=== PATIENT | male | born 1965 | race Caucasian/White ===

== ENCOUNTER 2017-03-22 14:08 | Emergency (ER) | payer SELFPAY | END 2017-03-22 14:09 | disposition left against medical advice (07) | LOC: ED 14:08 | DX: Z48.817 Encounter for surgical aftercare following surgery on the skin and subcutaneous tissue (principal); Z53.21 Procedure and treatment not carried out due to patient leaving prior to being seen by health care provider ==

== ENCOUNTER 2017-05-28 17:01 | Inpatient (IN) | payer MEDICARE ==
[2017-05-28 17:49] LABS: Basophils % (Auto) 1.1 % (0.0-1.8); Eosinophils % (Auto) 5.8 % (0.0-4.3); Hematocrit 35.8 % (35.5-45.6); Hemoglobin 11.5 gm/dl (11.8-15.2); Mean Corpuscular HGB Conc 32 % (32-34); Mean Corpuscular Hemoglobin 28 pg (28-32); Mean Corpuscular Volume 88 fl (84-94); Platelet Count 172 K/mm3 (140-440); Red Blood Count 4.06 M/mm3 (3.65-5.03); White Blood Count 4.2 K/mm3 (4.5-11.0)
[2017-05-28 18:12] LABS: Albumin 4.2 g/dL (3.9-5); Albumin/Globulin Ratio 1.6 %; BUN/Creatinine Ratio 5.14; Bilirubin,Total 0.4 mg/dL (0.1-1.2); Calcium 9.2 mg/dL (8.4-10.2); Chloride 95.8 mmol/L (98-107); Total Protein 6.9 g/dL (6.3-8.2)
[2017-05-28] MEDS ORDERED: APRESOLINE IV ONE (19:11)
[2017-05-28] MEDS ORDERED: APRESOLINE ONE (19:14)
[2017-05-28 20:01] LABS: Bilirubin,Urine NEG (Negative); Blood,Urine NEG (Negative); Ketones,Urine NEG (Negative); Leukocyte Esterase,Urine NEG (Negative); Nitrite,Urine NEG (Negative); Urobilinogen,Urine < 2.0 mg/dL (<2.0)
[2017-05-28 20:04] LABS: Protein,Urine >500 mg/dL (Negative)
[2017-05-28] MEDS ORDERED: MORPHINE IV ONE (20:24)
[2017-05-28] MEDS ORDERED: BENADRYL IV ONE (20:25)
[2017-05-28] MEDS ORDERED: TRIDIL DRIP 50MG/250ML 50 MG/250 ML BOTTLE IV SCH (21:00)
[2017-05-28] MEDS ORDERED: NACL 0.9% 500 ML 500 ML ONE (21:02)
[2017-05-28] MEDS ORDERED: NACL 0.9% 500 ML 500 ML IV SCH ×2 (21:22→22:00)
--- NOTE | 2017-05-28 21:47 | Emergency Department Report ---
ED General Adult HPI - General Chief complaint: High BP Stated complaint: BP HIGH Time Seen by Provider: 05/28/17 19:55 Source: patient Mode of arrival: Ambulatory Limitations: No Limitations - History of Present Illness Initial comments: Patient is a 52-year-old male past medical history of end-stage renal disease who is on dialysis Wednesday who presents with high blood pressure and abdominal plain. Patient was seen his primary care doctor and their primary care doctor knows that his blood pressure was fairly high. Patient is also complaining a little bit of belly pain since located in the left side of his flank it is a 5 out 10. He says nothing makes it better or worse it is an achy type of pain. And that has been going on intermittently for the last couple weeks. Patient is also complaining of having a headache that is a 7 out of 10 in severity and mid frontal portion of his head denies having any vision changes was gradual in onset. He states that he is having worse headaches before and this is a headache that typically occurs when he has high blood pressure issues. He has no neurological deficits or nausea or vomiting. Severity scale (0 -10): 8 - Related Data Home Medications Medication Instructions Recorded Confirmed Last Taken Aspirin [Adult Low Dose Aspirin EC] 81 mg PO DAILY 05/20/17 05/28/17 Unknown Benazepril HCl [Lotensin] 10 mg PO DAILY 05/20/17 05/28/17 Unknown Calcium Acetate 668 mg PO TID 05/20/17 05/28/17 Unknown Furosemide [Lasix TAB] 40 mg PO DAILY 05/20/17 05/28/17 Unknown cloNIDine [Catapres] 0.2 mg PO BID 05/20/17 05/28/17 Unknown AtorvaSTATin [Lipitor] 40 mg PO QDAY 05/28/17 05/28/17 Unknown NIFEdipine XL [Procardia Xl] 30 mg PO QDAY 05/28/17 05/28/17 Unknown Warfarin [Coumadin] 1 - 1.5 tab PO QDAY 05/28/17 05/28/17 Unknown amLODIPine [Norvasc] 10 mg PO QDAY 05/28/17 05/28/17 Unknown Allergies Allergy/AdvReac Type Severity Reaction Status Date / Time Penicillins Allergy Unknown Verified 05/28/17 17:08 ED Review of Systems ROS: Stated complaint: BP HIGH Other details as noted in HPI Constitutional: denies: chills, fever Eyes: denies: eye pain, eye discharge, vision change ENT: denies: ear pain, throat pain Respiratory: denies: cough, shortness of breath, wheezing Cardiovascular: denies: chest pain, palpitations Endocrine: no symptoms reported Gastrointestinal: other (flank pain). denies: abdominal pain, nausea, diarrhea Genitourinary: denies: urgency, dysuria Musculoskeletal: denies: back pain, joint swelling, arthralgia Skin: denies: rash, lesions Neurological: as per HPI, headache. denies: weakness, paresthesias Psychiatric: denies: anxiety, depression Hematological/Lymphatic: denies: easy bleeding, easy bruising ED Past Medical Hx - Past Medical History Hx Hypertension: Yes (2005) Hx CVA: Yes Hx Heart Attack/AMI: Yes (1995) Hx Congestive Heart Failure: Yes (2005) Hx Diabetes: Yes (NO MEDS) Hx Deep Vein Thrombosis: Yes (BOTH LEGS AND NECK) Hx GERD: Yes Hx Renal Disease: Yes (DIALYSIS --) Hx of Cancer: Yes (PROSTATE) Hx Kidney Stones: Yes Hx Asthma: Yes (NO MEDS) - Surgical History Hx Coronary Stent: No Additional Surgical History: PERMACATH LEFT CHEST. FISTULA IN LEFT ARM ; REMOVAL - Social History Smoking Status: Never Smoker Substance Use Type: None - Medications Home Medications: Home Medications Medication Instructions Recorded Confirmed Last Taken Type Aspirin [Adult Low Dose Aspirin EC] 81 mg PO DAILY 05/20/17 05/28/17 Unknown History Benazepril HCl [Lotensin] 10 mg PO DAILY 05/20/17 05/28/17 Unknown History Calcium Acetate 668 mg PO TID 05/20/17 05/28/17 Unknown History Furosemide [Lasix TAB] 40 mg PO DAILY 05/20/17 05/28/17 Unknown History cloNIDine [Catapres] 0.2 mg PO BID 05/20/17 05/28/17 Unknown History AtorvaSTATin [Lipitor] 40 mg PO QDAY 05/28/17 05/28/17 Unknown History NIFEdipine XL [Procardia Xl] 30 mg PO QDAY 05/28/17 05/28/17 Unknown History Warfarin [Coumadin] 1 - 1.5 tab PO QDAY 05/28/17 05/28/17 Unknown History amLODIPine [Norvasc] 10 mg PO QDAY 05/28/17 05/28/17 Unknown History ED Physical Exam - General Limitations: No Limitations General appearance: alert, in no apparent distress - Head Head exam: Present: atraumatic, normocephalic - Eye Eye exam: Present: normal appearance - ENT ENT exam: Present: mucous membranes moist - Neck Neck exam: Present: normal inspection - Respiratory Respiratory exam: Present: normal lung sounds bilaterally. Absent: respiratory distress - Cardiovascular Cardiovascular Exam: Present: regular rate, normal rhythm. Absent: systolic murmur, diastolic murmur, rubs, gallop - GI/Abdominal GI/Abdominal exam: Present: soft, normal bowel sounds - Rectal Rectal exam: Present: deferred - Extremities Exam Extremities exam: Present: normal inspection - Back Exam Back exam: Present: normal inspection - Neurological Exam Neurological exam: Present: alert, oriented X3 - Psychiatric Psychiatric exam: Present: normal affect, normal mood - Skin Skin exam: Present: warm, dry, intact, normal color. Absent: rash ED Course Vital Signs 05/28/17 05/28/17 05/28/17 17:10 19:16 19:17 Temperature 98.5 F Pulse Rate 76 73 73 Respiratory 18 16 Rate Blood Pressure 212/130 236/138 Blood Pressure 236/138 [Right] O2 Sat by Pulse 98 98 Oximetry 05/28/17 05/28/17 05/28/17 19:46 21:32 21:56 Temperature Pulse Rate 79 77 88 Respiratory Rate Blood Pressure 215/131 Blood Pressure 240/140 215/135 [Right] O2 Sat by Pulse Oximetry 05/28/17 22:56 Temperature Pulse Rate 76 Respiratory 17 Rate Blood Pressure Blood Pressure 229/143 [Right] O2 Sat by Pulse 100 Oximetry - Reevaluation(s) Reevaluation #1: 05/28/17 21:55 Patient states that he is having some pain in his arm I'll give IV analgesic pain medication. Discussed the patient that he will be admitted. He agrees with plan. ED Medical Decision Making - Lab Data Result diagrams: 05/28/17 17:27 05/28/17 17:27 Lab Results 05/28/17 05/28/17 05/28/17 Range/Units 17:27 17:27 19:17 WBC 4.2 L (4.5-11.0) K/mm3 RBC 4.06 (3.65-5.03) M/mm3 Hgb 11.5 L (11.8-15.2) gm/dl Hct 35.8 (35.5-45.6) % MCV 88 (84-94) fl MCH 28 (28-32) pg MCHC 32 (32-34) % RDW 15.0 (13.2-15.2) % Plt Count 172 (140-440) K/mm3 Lymph % (Auto) 20.1 (13.4-35.0) % [place] % (Auto) 9.4 H (0.0-7.3) % Eos % (Auto) 5.8 H (0.0-4.3) % Baso % (Auto) 1.1 (0.0-1.8) % Lymph # 0.8 L (1.2-5.4) K/mm3 [place] # 0.4 (0.0-0.8) K/mm3 Eos # 0.2 (0.0-0.4) K/mm3 Baso # 0.0 (0.0-0.1) K/mm3 Seg Neutrophils % 63.6 (40.0-70.0) % Seg Neutrophils # 2.7 (1.8-7.7) K/mm3 Sodium 140 (137-145) mmol/L Potassium 4.0 (3.6-5.0) mmol/L Chloride 95.8 L (98-107) mmol/L Carbon Dioxide 28 (22-30) mmol/L Anion Gap 20 mmol/L BUN 52 H (9-20) mg/dL Creatinine 10.1 H (0.8-1.5) mg/dL Estimated GFR 5 ml/min BUN/Creatinine Ratio 5.14 % Glucose 84 (75-100) mg/dL Calcium 9.2 (8.4-10.2) mg/dL Total Bilirubin 0.40 (0.1-1.2) mg/dL AST 15 (5-40) units/L ALT 9 (7-56) units/L Alkaline Phosphatase 61 (35-129) units/L Total Protein 6.9 (6.3-8.2) g/dL Albumin 4.2 (3.9-5) g/dL Albumin/Globulin Ratio 1.6 % Lipase 37 (13-60) units/L Urine Color Yellow (Yellow) Urine Turbidity Clear (Clear) Urine pH 8.0 H (5.0-7.0) Ur Specific [place] 1.012 (1.003-1.030) Urine Protein >500 (Negative) mg/dL Urine Glucose (UA) 50 (Negative) mg/dL Urine Ketones Neg (Negative) mg/dL Urine Blood Neg (Negative) Urine Nitrite Neg (Negative) Urine Bilirubin Neg (Negative) Urine Urobilinogen < 2.0 (<2.0) mg/dL Ur Leukocyte Esterase Neg (Negative) Urine WBC (Auto) 2.0 (0.0-6.0) /HPF Urine RBC (Auto) 3.0 (0.0-6.0) /HPF U Epithel Cells (Auto) < 1.0 (0-13.0) /HPF - EKG Data -: EKG Interpreted by Me - Medical Decision Making Chief medical diagnosis: Hypertensive emergency Differential medical diagnosis: End-stage renal disease, hyperkalemia, hypokalemia I will get CBC, CMP, IV analgesic pain medication, IV antihypertensive medication Patient's clinical septum is concerning for hypertensive emergency patient already received one IV dose of hydralazine with no improvement of his blood pressure I will give patient on IV drip of nitroglycerin due to potentially life -threatening issue. Patient also has signs of end organ damage as an end-stage renal disease with a creatinine at 10. Critical Care Time: Yes Critical care time in (mins) excluding proc time.: 30 Critical care attestation.: If time is entered above; I have spent that time in minutes in the direct care of this critically ill patient, excluding procedure time. Critical care time for evaluating patient 20 minutes Time sent looking at patient's lab values 5 minutes Time spent with design studio consultant (hospitalist) 5 minutes Time sent reviewing old medical record 0 minutes Time spent with the patient's family 0 minutes ED Disposition Clinical Impression: Hypertensive emergency, no CHF, End-stage renal disease (ESRD) Headache Qualifiers: Headache type: tension-type Headache chronicity pattern: acute headache Intractability: not intractable Qualified Code(s): G44.209 - Tension-type headache, unspecified, not intractable Disposition: OP ADMIT IP TO THIS HOSP Is pt being admited?: Yes Does the pt Need Aspirin: No Condition: Stable
[2017-05-28] MEDS ORDERED: CATAPRES PO ONE (21:53)
[2017-05-28] MEDS ORDERED: RESTORIL PO PRN (21:55)
[2017-05-28] MEDS ORDERED: TYLENOL PO PRN (21:55)
[2017-05-28] MEDS ORDERED: HEPARIN SUB-Q SCH (22:00)
[2017-05-29 01:10] LABS: Creatine Kinase MB 3.4 ng/mL (0.0-4.0)
[2017-05-29] MEDS ORDERED: MORPHINE IV PRN (05:08)
--- NOTE | 2017-05-29 06:58 | History and Physical Report ---
CHIEF COMPLAINT: Elevated blood pressure. HISTORY OF PRESENT ILLNESS: The patient is a 52-year-old male who is having dialysis on Mondays, Wednesdays and Fridays and presented with elevated blood pressure and abdominal pain. The patient was seen by the primary care doctor who noted very high blood pressure and the patient was advised to come to the Emergency Room. There is also a history of abdominal pain, which is more in the left side than the right and this has been going on and off for some weeks. There is also history of headache and headache is mainly in the frontal area, but there is no history of visual disturbances. The patient denied history of chest pain, denied history of shortness of breath and also denied history of dizziness. PAST MEDICAL HISTORY: Pertinent for hypertension, cerebrovascular accident, coronary artery disease, status post myocardial infarction, congestive heart failure, diabetes mellitus, deep vein thrombosis, gastroesophageal reflux disease, end-stage renal disease, on dialysis on Mondays, Wednesdays, and Fridays, prostate cancer, kidney stones and also a past history of asthma. PAST SURGICAL HISTORY: Pertinent for permo cath placement on the left side of the chest, AV fistula in the left arm, which was removed. FAMILY HISTORY: Noncontributory. SOCIAL HISTORY: The patient does not smoke, does not drink alcohol and does not use illicit drugs. MEDICATIONS: The patient is on aspirin 81 mg daily, Lotensin 10 mg by mouth daily, calcium acetate 668 mg by mouth 3 times daily, Lasix 40 mg by mouth daily, clonidine or Catapres 0.2 mg by mouth twice daily, atorvastatin 40 mg by mouth daily, Procardia-XL 30 mg by mouth daily, Coumadin 1 to 1-1/2 tablets, strength not defined by mouth daily. Also, the patient is on Norvasc 10 mg by mouth daily. ALLERGIES: THE PATIENT IS ALLERGIC TO PENICILLIN DRUGS. REVIEW OF SYSTEMS: CONSTITUTIONAL: There is no fever, no chills, no diaphoresis. HEENT: There is headache, but no sore throat. CARDIOVASCULAR SYSTEM: There is no chest pain or orthopnea. RESPIRATORY: There is no shortness of breath or cough. GASTROINTESTINAL SYSTEM: Abdominal pain present. No nausea, no vomiting, no diarrhea or constipation. NEUROLOGICAL SYSTEM: There is no numbness, no dizziness, no altered mental status. MUSCULOSKELETAL SYSTEM: There is no joint pain or swelling. DERMATOLOGICAL SYSTEM: There is no skin rash or itching. GENITOURINARY SYSTEM: There is no dysuria, hematuria, or flank pain. MUSCULOSKELETAL: There is pain in the left arm and the trunk area. Rest of system review is normal. PHYSICAL EXAMINATION: GENERAL: At the time of exam, the patient was found to be alert, oriented x 3 and not in acute distress. VITAL SIGNS: Shows normal temperature with pulse of 76, respirations 17, initial blood pressure of 229/143, O2 sat of 100% on room air. HEENT: Showed pupils to be equal, round, reactive to light and accommodating. Extraocular muscles are intact. NECK: Supple with no JVD or carotid bruit. CARDIOVASCULAR SYSTEM: Show first and second heart sounds with no gallops or murmur. RESPIRATORY SYSTEM: Show good air entry on both sides of the lungs with no abnormal breath sounds. GASTROINTESTINAL SYSTEM: Show abdomen to be full, soft, nontender with no organomegaly or rigidity. NEUROLOGIC: Shows no focal deficits. MUSCULOSKELETAL SYSTEM: Show no joint swelling or tenderness. DERMATOLOGICAL SYSTEM: Show no skin rash. GENITOURINARY: Showing no costovertebral angle tenderness. PERTINENT LABORATORY AND IMAGING STUDIES: The patient has CBC done that shows slight decrease in WBC of 4.2 with low hemoglobin of 11.5, normal hematocrit, normal MCV. CBC differential showed elevated monocyte count of 9.4 and elevated eosinophil count of 5.8 with normal segmented neutrophils. Chemistry shows normal sodium, potassium, slightly decreased chloride of 95.8, elevated BUN of 52 and elevated creatinine of 10.1 consistent with end-stage renal disease, on dialysis. The patient's cardiac enzymes show elevated troponin level of 0.091 and urinalysis shows elevated urine pH of 8.0, negative leukocyte esterase, negative nitrites and normal urine WBC and negative bacteria. IMAGING STUDIES: No imaging studies were done in the Emergency Room at this time. DIAGNOSES: 1. Hypertensive crisis. 2. Right arm and trunk pain. 3. End-stage renal disease, on dialysis. 4. Elevated troponin. PLAN: The patient will be admitted to ICU because of IV nitro drip started in the Emergency Room. The patient will continue the IV nitroglycerin drip and blood pressure will be monitored until blood pressure normalizes. The patient will have cardiac enzymes, troponin, total CK, and CK-MB checked q. 6 hours x 2 more levels and the patient will be on Zofran 4 mg IV every 8 hours as needed for nausea and vomiting and will be on temazepam or Restoril 15 mg at bedtime for insomnia. The patient's home medications will be started as shown in the medication reconciliation section and this includes his clonidine 0.2 mg p.o. twice daily for blood pressure treatment as well as benazepril 10 mg by mouth daily and amlodipine 10 mg by mouth daily. The patient will have Nephrology consult with Dr. Felipe Wells, who is the patient's oven dumper and also the patient will have critical care consult with Dr. Wiely for ICU admission. DVT prophylaxis will be provided by sequential compressive device and the patient is also on Coumadin. Also, the patient will be on Tylenol 650 mg every 4 hours for fever and headache. JOB# [id number] [facility]
[2017-05-29] MEDS ORDERED: DILAUDID IV ONE (07:04)
[2017-05-29] MEDS ORDERED: APRESOLINE IV PRN (07:46)
[2017-05-29] MEDS ORDERED: COUMADIN PO SCH (10:00)
[2017-05-29] MEDS ORDERED: NORVASC PO SCH (10:00)
[2017-05-29] MEDS ORDERED: NON-FORMULARY (Benazepril Hcl [Lotensin] 10 MG) PO SCH (10:00)
[2017-05-29] MEDS ORDERED: HALFPRIN EC PO SCH (10:00)
[2017-05-29 10:42] LABS: Creatine Kinase MB 3.4 ng/mL (0.0-4.0)
[2017-05-29] MEDS: CATAPRES PO SCH ×2 (11:30→22:05)
[2017-05-29] MEDS: ZOFRAN IV PRN ×2 (11:36→17:15)
--- NOTE | 2017-05-29 11:37 | Consultation ---
History of Present Illness - Reason for Consult Consult date: 05/29/17 end stage renal disease, accelerated hypertension - History of Present Illness Patient is a 52-year-old AAM with medical history significant for ESRD on nocturnal hemodialysis (MWF), DM type 2, Anemia and Hypertension who is well known to our service presented with high blood pressure and abdominal pain. When he checked his BP at home yesterday it was around 150/120. He vomited after he took his meds yesterday. He missed his hemodialysis yesterday. He has slight epigastric pain, which is constant and not radiating. Patient is also complaining of frontal headache that is a 7 out of 10 in severity. Past History Past Medical History: anemia, diabetes, dialysis, ESRD, hypertension Medications and Allergies Allergies Allergy/AdvReac Type Severity Reaction Status Date / Time Penicillins Allergy Unknown Verified 05/28/17 17:08 Home Medications Medication Instructions Recorded Confirmed Last Taken Type Aspirin [Adult Low Dose Aspirin EC] 81 mg PO DAILY 05/20/17 05/28/17 Unknown History Benazepril HCl [Lotensin] 10 mg PO DAILY 05/20/17 05/28/17 Unknown History Calcium Acetate 668 mg PO TID 05/20/17 05/28/17 Unknown History Furosemide [Lasix TAB] 40 mg PO DAILY 05/20/17 05/28/17 Unknown History cloNIDine [Catapres] 0.2 mg PO BID 05/20/17 05/28/17 Unknown History AtorvaSTATin [Lipitor] 40 mg PO QDAY 05/28/17 05/28/17 Unknown History NIFEdipine XL [Procardia Xl] 30 mg PO QDAY 05/28/17 05/28/17 Unknown History Warfarin [Coumadin] 1 - 1.5 tab PO QDAY 05/28/17 05/28/17 Unknown History amLODIPine [Norvasc] 10 mg PO QDAY 05/28/17 05/28/17 Unknown History Active Meds: Active Medications Atorvastatin Calcium (Lipitor) 40 mg PO QDAY [facility] Calcium Acetate (Phoslo) 667 mg PO TID [facility] Clonidine HCl (Catapres) 0.2 mg PO BID [facility] Last Admin: 05/29/17 11:30 Dose: 0.2 mg Furosemide (Lasix) 40 mg PO DAILY [facility] Hydralazine HCl (Apresoline) 10 mg IV Q4H PRN PRN Reason: BP >160/100 Nitroglycerin/Dextrose (Tridil Drip 50mg/250ml) 50 mg in 250 mls @ 3 mls/hr IV TITR [facility]; 10 MCG/MIN PRN Reason: Protocol Last Titration: 05/29/17 11:15 Dose: 65 mcg/min, 19.5 mls/hr Sodium Chloride (Nacl 0.9% 500 Ml) 500 mls @ 75 mls/hr IV DIRECT [facility] Last Admin: 05/28/17 21:15 Dose: 75 mls/hr Lisinopril (Zestril) 10 mg PO QDAY [facility] Morphine Sulfate (Morphine) 2 mg IV Q4H PRN PRN Reason: Pain, Moderate (4-6) Nifedipine (Procardia Xl) 60 mg PO QDAY [facility] Ondansetron HCl (Zofran) 4 mg IV Q8H PRN PRN Reason: Nausea And Vomiting Last Admin: 05/29/17 11:36 Dose: 4 mg Temazepam (Restoril) 15 mg PO QHS PRN PRN Reason: Insomnia Warfarin Sodium (Coumadin) mg PO QDAY [facility] PRN Reason: Protocol Review of Systems Constitutional: no weight loss, no weight gain, no fever, no chills, no anorexia , no weakness, no poor appetite Ears, nose, mouth and throat: no epistaxis Cardiovascular: high blood pressure, no chest pain, no orthopnea, no palpitations, no rapid/irregular heart beat, no edema, no syncope, no lightheadedness, no shortness of breath, no dyspnea on exertion, no leg edema Respiratory: no cough, no hemoptysis, no shortness of breath, no dyspnea on exertion Gastrointestinal: abdominal pain, nausea, vomiting, no diarrhea, no melena Genitourinary Male: no dysuria, no hematuria Rectal: no bleeding Musculoskeletal: no neck stiffness, no neck pain Integumentary: no rash, no wounds, no jaundice Neurological: headaches, no paralysis, no seizures, no syncope, no aphasia, no change in mentation, no gait dysfunction, no motor disturbance, no double vision , no loss of vision Psychiatric: no disorientation Endocrine: no weight change Hematologic/Lymphatic: no easy bruising, no easy bleeding Exam - Vital Signs Vital signs: Vital Signs Temp Pulse Resp BP Pulse Ox 98.5 F 76 18 212/130 98 05/28/17 17:10 05/28/17 17:10 05/28/17 17:10 05/28/17 17:10 05/28/17 17:10 - General Appearance General appearance: well-developed, well-nourished, appears stated age, other ( no distress, left IJ tunnel dialysis catheter) EENT: ATNC, PERRL, hearing intact, vision intact Neck: Present: neck supple, trachea midline Respiratory: Clear to Ascultation Heart: regular, S1S2, no murmurs Gastrointestinal: Present: normoactive bowel sounds, obese. Absent: tenderness Integumentary: no rash Neurologic: no focal deficit, no asterixis, alert and oriented x3, CN 3-12 intact Musculoskeletal: Present: other (no edema) Psychiatric: mood/affect appropriate, cooperative Results - Lab Results 05/29/17 18:20 05/28/17 17:27 Most recent lab results Calcium 9.2 mg/dL (8.4-10.2) 05/28/17 17:27 Assessment and Plan - Patient Problems (1) End-stage renal disease (ESRD) Current Visit: Yes Status: Chronic Plan to address problem: Patient missed hemodialysis yesterday. Orders placed for hemodialysis today. (2) Hypertensive emergency, no CHF Current Visit: Yes Status: Acute Plan to address problem: Patient is on Nitro drip. Resume home meds. UF with hemodialysis. (3) Anemia of renal disease Current Visit: Yes Status: Acute Plan to address problem: Monitor. Epogen as needed.
[2017-05-29] MEDS ORDERED: NACL 0.9% 100 ML IV PRN ×2 (11:51→19:22)
--- NOTE | 2017-05-29 11:51 | Progress Note ---
Assessment and Plan Assessment and plan: 52-year-old male with a past medical history end-stage renal disease on dialysis Wednesday, history of CVA, CAD history of [place], CHF, diabetes, history of DVT, asthma and GERD who presents with abdominal pain. Patient found to be in hypertensive crisis Hypertensive emergency Continue nitroglycerin drip, and oral medications Non-STEMI Peak troponin is 0.103. Cardiology consult Repeat EKG Start heparin drip, aspirin and beta letitia and statin Keep nothing by mouth LDL is 45 CHF Cardiology consult, check echocardiogram End-stage renal disease Continue dialysis per nephrology Diabetes Insulin sliding scale while in hospital History of DVT Patient is on warfarin at home, his currently being put on heparin drip History of asthma/COPD Nebs when necessary The high probability of a clinically significant, sudden or life threatening deterioration of the [cardiovascular, renal, endocrine and pulmonary] system(s) required my full and direct attention, intervention and personal management. The aggregate critical care time was [35] minutes. This time is in addition to time spent performing reported procedures but includes the following: [] Data Review and interpretation [] Patient assessment and monitoring of vital signs [] Documentation [] Medication orders and management History Interval history: This patient denies chest pain, denies shortness of breath. Nurses states that he's been sleeping peacefully and he is arousable and cooperative when he's woken up. Hospitalist Physical - Physical exam Narrative exam: General: No distress, unkempt, poor dentition HEENT: MMM, EOMI cardiac: S1-S2 heard lungs: clear to auscultation, abdomen: soft, nontender, nondistended bowel sounds positive extremities: no edema clubbing or cyanosis Skin: no rash or lesion Neuro: no focal deficit Psych: appropriate behavior and mood, cognition intact - Constitutional Vitals: Temp Pulse Resp BP Pulse Ox 98.5 F 82 18 203/128 96 05/28/17 17:10 05/29/17 11:30 05/29/17 08:54 05/29/17 11:30 05/29/17 10:33 Results - Labs CBC & Chem 7: 05/28/17 17:27 05/28/17 17:27 Labs: Laboratory Last Values WBC 4.2 K/mm3 (4.5-11.0) L 05/28/17 17:27 RBC 4.06 M/mm3 (3.65-5.03) 05/28/17 17: Hgb 11.5 gm/dl (11.8-15.2) L 05/28/17: Hct 35.8 % (35.5-45.6) 05/28/17 17: MCV 88 fl (84-94) 05/28/17 17: MCH 28 pg (28-32) 05/28/17: MCHC 32 % (32-34) 05/28/17: RDW 15.0 % (13.2-15.2) 05/28/17: Plt Count 172 K/mm3 (140-440) 05/28/17: Lymph % (Auto) 20.1 % (13.4-35.0) 05/28/17 17: [place] % (Auto) 9.4 % (0.0-7.3) H 05/28/17: Eos % (Auto) 5.8 % (0.0-4.3) H 05/28/17: Baso % (Auto) 1.1 % (0.0-1.8) 05/28/17: Lymph # 0.8 K/mm3 (1.2-5.4) L 05/28/17: [place] # 0.4 K/mm3 (0.0-0.8) 05/28/17: Eos # 0.2 K/mm3 (0.0-0.4) 05/28/17: Baso # 0.0 K/mm3 (0.0-0.1) 05/28/17: Seg Neutrophils % 63.6 % (40.0-70.0) 05/28/17: Seg Neutrophils # 2.7 K/mm3 (1.8-7.7) 05/28/17 17: Sodium 140 mmol/L (137-145) 05/28/17 17: Potassium 4.0 mmol/L (3.6-5.0) 05/28/17 17: Chloride 95.8 mmol/L (98-107) L 05/28/17: Carbon Dioxide 28 mmol/L (22-30) 05/28/17 17:27 Anion Gap 20 mmol/L 05/28/17 17:27 BUN 52 mg/dL (9-20) H 05/28/17 17:27 Creatinine 10.1 mg/dL (0.8-1.5) H 05/28/17 17:27 Estimated GFR 5 ml/min 05/28/17 17:27 BUN/Creatinine Ratio 5.14 % 05/28/17 17:27 Glucose 84 mg/dL (75-100) 05/28/17 17:27 Calcium 9.2 mg/dL (8.4-10.2) 05/28/17 17:27 Total Bilirubin 0.40 mg/dL (0.1-1.2) 05/28/17 17:27 AST 15 units/L (5-40) 05/28/17 17: ALT 9 units/L (7-56) 05/28/17 17:27 Alkaline Phosphatase 61 units/L (35-129) 05/28/17 17:27 Total Creatine Kinase 135 units/L (55-170) 05/29/17 09:56 CK-MB (CK-2) 3.4 ng/mL (0.0-4.0) 05/29/17 09:56 CK-MB (CK-2) Rel Index 2.5 (0-4) 05/29/17 09:56 Troponin T 0.103 ng/mL (0.00-0.029) H* 05/29/17 09:56 Total Protein 6.9 g/dL (6.3-8.2) 05/28/17 17:27 Albumin 4.2 g/dL (3.9-5) 05/28/17 17:27 Albumin/Globulin Ratio 1.6 % 05/28/17 17:27 Triglycerides 77 mg/dL (2-149) 05/29/17 09:56 Cholesterol 109 mg/dL (50-199) 05/29/17 09:56 LDL Cholesterol Direct 45 mg/dL (50-130) L 05/29/17 09:56 HDL Cholesterol 49 mg/dL (40-59) 05/29/17 09:56 Cholesterol/HDL Ratio 2.22 % 05/29/17 09:56 Lipase 37 units/L (13-60) 05/28/17 17:27 Urine Color Yellow (Yellow) 05/28/17 19:17 Urine Turbidity Clear (Clear) 05/28/17 19:17 Urine pH 8.0 (5.0-7.0) H 05/28/17 19:17 Ur Specific [place] 1.012 (1.003-1.030) 05/28/17 19:17 Urine Protein >500 mg/dL (Negative) 05/28/17 19:17 Urine Glucose (UA) 50 mg/dL (Negative) 05/28/17 19:17 Urine Ketones Neg mg/dL (Negative) 05/28/17 19:17 Urine Blood Neg (Negative) 05/28/17 19:17 Urine Nitrite Neg (Negative) 05/28/17 19:17 Urine Bilirubin Neg (Negative) 05/28/17 19:17 Urine Urobilinogen < 2.0 mg/dL (<2.0) 05/28/17 19:17 Ur Leukocyte Esterase Neg (Negative) 05/28/17 19:17 Urine WBC (Auto) 2.0 /HPF (0.0-6.0) 05/28/17 19:17 Urine RBC (Auto) 3.0 /HPF (0.0-6.0) 05/28/17 19:17 U Epithel Cells (Auto) < 1.0 /HPF (0-13.0) 05/28/17 19:17
[2017-05-29] MEDS ORDERED: HEPARIN/ 0.45% NACL-25,000 UNIT/500 ML 25,000 UNIT/500 ML BAG IV SCH (12:00)
[2017-05-29] MEDS ORDERED: PROVENTIL IH PRN (12:15)
[2017-05-29] MEDS ORDERED: D50W (25GM) Syringe IV PRN (12:15)
[2017-05-29] MEDS: LASIX PO SCH (12:35)
[2017-05-29] MEDS: PHOSLO PO SCH ×3 (12:35→22:05)
[2017-05-29] MEDS: PROCARDIA XL PO SCH (12:45)
[2017-05-29] MEDS: ZESTRIL PO SCH (13:08)
[2017-05-29 18:51] LABS: INR 0.94 (0.87-1.13)
[2017-05-29 18:52] LABS: Partial Thromboplastin Time 33.4 Sec. (24.2-36.6)
[2017-05-29 18:58] LABS: Hematocrit 38.8 % (35.5-45.6); Hemoglobin 12.6 gm/dl (11.8-15.2)
[2017-05-29] MEDS ORDERED: HEPARIN ONE (19:00)
[2017-05-29] MEDS ORDERED: NACL 0.9 (PRIMING MACHINE ONLY DIALYSIS) MC ONE (19:01)
[2017-05-29] MEDS ORDERED: HEPARIN IV PRN (19:22)
[2017-05-29] MEDS ORDERED: ASPIRIN PO ONE (21:51)
--- NOTE | 2017-05-30 07:12 | Progress Note ---
Assessment and Plan - Patient Problems (1) End-stage renal disease (ESRD) Current Visit: Yes Status: Chronic Plan to address problem: Patient was last dialyzed yesterday. (2) Anemia of renal disease Current Visit: Yes Status: Acute Plan to address problem: Monitor. Epogen as needed. (3) Hypertensive emergency, no CHF Current Visit: Yes Status: Acute Plan to address problem: BP is better. Continue current meds. Subjective Date of service: 05/30/17 Interval history: Patient is feeling much better. Objective - Vital Signs Vital signs: Vital Signs - 12hr 05/29/17 05/29/17 05/29/17 19:14 19:25 21:40 Temperature 99.4 F Pulse Rate 91 H 84 94 H Respiratory 18 Rate Blood Pressure 134/77 203/118 Blood Pressure 143/89 [Right] O2 Sat by Pulse 98 Oximetry 05/29/17 05/29/17 05/30/17 22:00 22:44 01:17 Temperature Pulse Rate 86 88 Respiratory 22 20 Rate Blood Pressure 127/85 Blood Pressure [Right] O2 Sat by Pulse 99 Oximetry 05/30/17 05/30/17 01:53 05:29 Temperature 99.0 F 99.8 F H Pulse Rate 83 Respiratory 18 Rate Blood Pressure 133/85 Blood Pressure [Right] O2 Sat by Pulse 100 Oximetry - General Appearance General appearance: well-developed, well-nourished, appears stated age, other ( no distress, left IJ tunnel dialysis catheter) EENT: ATNC, PERRL, mucous membranes moist, hearing intact, vision intact Neck: supple Respiratory: Present: Clear to Ascultation Cardiology: regular, S1S2, no murmurs Gastrointestinal: normoactive bowel sounds, no tenderness Integumentary: no rash Neurologic: no focal deficit, no asterixis, alert and oriented x3, CN 3-12 intact Musculoskeletal: other (no edema) Psychiatric: mood/affect appropriate, cooperative - Lab 05/29/17 18:20 05/28/17 17:27 Most recent lab results Calcium 9.2 mg/dL (8.4-10.2) 05/28/17 17:27
[2017-05-30] MEDS: ZESTRIL PO SCH (09:48)
[2017-05-30] MEDS: CATAPRES PO SCH ×2 (09:49→21:04)
[2017-05-30] MEDS: LASIX PO SCH (09:49)
[2017-05-30] MEDS: PHOSLO PO SCH ×3 (09:49→16:49)
[2017-05-30] MEDS: PROCARDIA XL PO SCH (09:49)
--- NOTE | 2017-05-30 12:28 | Progress Note ---
Assessment and Plan Assessment and plan: 52-year-old male with a past medical history end-stage renal disease on dialysis Wednesday, history of CVA, CAD history of [place], CHF, diabetes, history of DVT, asthma and GERD who presents with fatigue and malaise. Patient found to be in hypertensive crisis. Patient denies ever having any chest pain denies having any pain. He states that he came in for generalized weakness fatigue and malaise and just feeling poorly. He states that he has hard to control blood pressure, he feels like his blood pressures have been in control, his systolic BPs easily in the 180s to 200s on most days. He was being managed by pharmacist at [facility] within told her to come into the hospital. Hypertensive emergency He received nitroglycerin drip has not been transitioned to oral medications. Blood pressure is much improved Chest pain has been ruled out, patient adamantly denies any chest pain Type II non-STEMI -As patient is asymptomatic with no acute EKG changes, patient has elevated troponin which is most likely related to hypertensive emergency and end-stage renal disease. Cardiology has been consulted, check a stress test and echo It was documented that patient has CHF, he denies having CHF Cardiology consult, check echocardiogram End-stage renal disease Continue dialysis per nephrology Diabetes Insulin sliding scale while in hospital History of DVT Continue warfarin. Patient has factor V Leiden disease and has had history of 3 VTEs History of asthma/COPD Nebs when necessary History Interval history: This patient denies chest pain, denies shortness of breath. He feels well today. Hospitalist Physical - Physical exam Narrative exam: General: No distress, unkempt, poor dentition HEENT: MMM, EOMI cardiac: S1-S2 heard lungs: clear to auscultation, abdomen: soft, nontender, nondistended bowel sounds positive extremities: no edema clubbing or cyanosis Skin: no rash or lesion Neuro: no focal deficit Psych: appropriate behavior and mood, cognition intact - Constitutional Vitals: Temp Pulse Resp BP Pulse Ox 99.8 F H 82 20 122/76 100 05/30/17 05:29 05/30/17 07:32 05/30/17 08:20 05/30/17 08:20 05/30/17 05:29 Results - Labs CBC & Chem 7: 05/29/17 18:20 05/28/17 17:27 Labs: Laboratory Last Values WBC 4.2 K/mm3 (4.5-11.0) L 05/28/17 17: RBC 4.06 M/mm3 (3.65-5.03) 05/28/17 17:27 Hgb 12.6 gm/dl (11.8-15.2) 05/29/17 18:20 Hct 38.8 % (35.5-45.6) 05/29/17 18:20 MCV 88 fl (84-94) 05/28/17 17: MCH 28 pg (28-32) 05/28/17 17: MCHC 32 % (32-34) 05/28/17 17: RDW 15.0 % (13.2-15.2) 05/28/17 17: Plt Count 178 K/mm3 (140-440) 05/29/17 18:20 Lymph % (Auto) 20.1 % (13.4-35.0) 05/28/17 17:27 [place] % (Auto) 9.4 % (0.0-7.3) H 05/28/17 17: Eos % (Auto) 5.8 % (0.0-4.3) H 05/28/17 17: Baso % (Auto) 1.1 % (0.0-1.8) 05/28/17 17: Lymph # 0.8 K/mm3 (1.2-5.4) L 05/28/17 17: [place] # 0.4 K/mm3 (0.0-0.8) 05/28/17 17: Eos # 0.2 K/mm3 (0.0-0.4) 05/28/17 17: Baso # 0.0 K/mm3 (0.0-0.1) 05/28/17 17: Seg Neutrophils % 63.6 % (40.0-70.0) 05/28/17 17: Seg Neutrophils # 2.7 K/mm3 (1.8-7.7) 05/28/17 17: PT 13.0 Sec. (12.2-14.9) 05/29/17 18:20 INR 0.94 (0.87-1.13) 05/29/17 18:20 APTT 33.4 Sec. (24.2-36.6) 05/29/17 18:20 Heparin Anti-Xa Level < 0.10 U.I./ml (0.3-0.7) L 05/29/17 18:20 Sodium 140 mmol/L (137-145) 05/28/17 17:27 Potassium 4.0 mmol/L (3.6-5.0) 05/28/17 17:27 Chloride 95.8 mmol/L (98-107) L 05/28/17 17:27 Carbon Dioxide 28 mmol/L (22-30) 05/28/17 17:27 Anion Gap 20 mmol/L 05/28/17 17:27 BUN 52 mg/dL (9-20) H 05/28/17 17:27 Creatinine 10.1 mg/dL (0.8-1.5) H 05/28/17 17:27 Estimated GFR 5 ml/min 05/28/17 17:27 BUN/Creatinine Ratio 5.14 % 05/28/17 17:27 Glucose 84 mg/dL (75-100) 05/28/17 17:27 POC Glucose 127 (70-105) H 05/30/17 01:25 Hemoglobin A1c 4.6 % (4-6) 05/29/17 18:20 Calcium 9.2 mg/dL (8.4-10.2) 05/28/17 17:27 Total Bilirubin 0.40 mg/dL (0.1-1.2) 05/28/17 17:27 AST 15 units/L (5-40) 05/28/17 17:27 ALT 9 units/L (7-56) 05/28/17 17:27 Alkaline Phosphatase 61 units/L (35-129) 05/28/17 17:27 Total Creatine Kinase 135 units/L (55-170) 05/29/17 09:56 CK-MB (CK-2) 3.4 ng/mL (0.0-4.0) 05/29/17 09:56 CK-MB (CK-2) Rel Index 2.5 (0-4) 05/29/17 09:56 Troponin T 0.113 ng/mL (0.00-0.029) H* 05/29/17 18:20 Total Protein 6.9 g/dL (6.3-8.2) 05/28/17 17:27 Albumin 4.2 g/dL (3.9-5) 05/28/17 17:27 Albumin/Globulin Ratio 1.6 % 05/28/17 17:27 Triglycerides 77 mg/dL (2-149) 05/29/17 09:56 Cholesterol 109 mg/dL (50-199) 05/29/17 09:56 LDL Cholesterol Direct 45 mg/dL (50-130) L 05/29/17 09:56 HDL Cholesterol 49 mg/dL (40-59) 05/29/17 09:56 Cholesterol/HDL Ratio 2.22 % 05/29/17 09:56 Lipase 37 units/L (13-60) 05/28/17 17:27 Urine Color Yellow (Yellow) 05/28/17 19:17 Urine Turbidity Clear (Clear) 05/28/17 19:17 Urine pH 8.0 (5.0-7.0) H 05/28/17 19:17 Ur Specific [place] 1.012 (1.003-1.030) 05/28/17 19:17 Urine Protein >500 mg/dL (Negative) 05/28/17 19:17 Urine Glucose (UA) 50 mg/dL (Negative) 05/28/17 19:17 Urine Ketones Neg mg/dL (Negative) 05/28/17 19:17 Urine Blood Neg (Negative) 05/28/17 19:17 Urine Nitrite Neg (Negative) 05/28/17 19:17 Urine Bilirubin Neg (Negative) 05/28/17 19:17 Urine Urobilinogen < 2.0 mg/dL (<2.0) 05/28/17 19:17 Ur Leukocyte Esterase Neg (Negative) 05/28/17 19:17 Urine WBC (Auto) 2.0 /HPF (0.0-6.0) 05/28/17 19:17 Urine RBC (Auto) 3.0 /HPF (0.0-6.0) 05/28/17 19:17 U Epithel Cells (Auto) < 1.0 /HPF (0-13.0) 05/28/17 19:17
[2017-05-30] MEDS: ZOFRAN IV PRN (13:35)
--- NOTE | 2017-05-30 15:30 | Consultation ---
History of Present Illness Consult date: 05/30/17 Requesting physician: SIMONA CABALLERO Consult reason: elevated troponin History of present illness: The patient claims that she has been experiencing left lower quadrant abdominal pain for the past 3 months. He claims that he had previously visited [facility] and [facility] on account of the pain without any resolution. He decided to present to [facility] yesterday on account of the same pain. At presentation, his BP was significantly elevated which has improved. Troponin levels were noted to be mildly elevated. He denies any chest pain however. There is no shortness of breath. He mentioned that he was diagnosed with acute myocardial infarction in 1985 but has not undergone any invasive cardiac evaluation in the past. Past History Past Medical History: acute CO, anemia, cancer (prostate cancer), diabetes, dialysis, ESRD, hypertension, stroke (x4) Past Surgical History: Other (left upper extremity AV fistula, prostatectomy for prostate cancer) Social history: denies: smoking, alcohol abuse Family history: denies: CAD Medications and Allergies Allergies Allergy/AdvReac Type Severity Reaction Status Date / Time Penicillins Allergy Unknown Verified 05/28/17 17:08 Home Medications Medication Instructions Recorded Confirmed Last Taken Type Aspirin [Adult Low Dose Aspirin EC] 81 mg PO DAILY 05/20/17 05/28/17 Unknown History Benazepril HCl [Lotensin] 10 mg PO DAILY 05/20/17 05/28/17 Unknown History Calcium Acetate 668 mg PO TID 05/20/17 05/28/17 Unknown History Furosemide [Lasix TAB] 40 mg PO DAILY 05/20/17 05/28/17 Unknown History cloNIDine [Catapres] 0.2 mg PO BID 05/20/17 05/28/17 Unknown History AtorvaSTATin [Lipitor] 40 mg PO QDAY 05/28/17 05/28/17 Unknown History NIFEdipine XL [Procardia Xl] 30 mg PO QDAY 05/28/17 05/28/17 Unknown History Warfarin [Coumadin] 1 - 1.5 tab PO QDAY 05/28/17 05/28/17 Unknown History amLODIPine [Norvasc] 10 mg PO QDAY 05/28/17 05/28/17 Unknown History Active Meds: Active Medications Albuterol (Proventil) 2.5 mg IH Q4HRT PRN PRN Reason: Shortness Of Breath Atorvastatin Calcium (Lipitor) 40 mg PO QDAY [facility] Last Admin: 05/30/17 09:48 Dose: 40 mg Calcium Acetate (Phoslo) 667 mg PO TIDWM [facility] Last Admin: 05/30/17 12:55 Dose: 667 mg Clonidine HCl (Catapres) 0.2 mg PO BID [facility] Last Admin: 05/30/17 09:49 Dose: 0.2 mg Dextrose (D50w (25gm) Syringe) 50 ml IV PRN PRN PRN Reason: Hypoglycemia Furosemide (Lasix) 40 mg PO DAILY [facility] Last Admin: 05/30/17 09:49 Dose: 40 mg Heparin Sodium (Porcine) (Heparin) 5,000 unit IV SANDHYA PRN PRN Reason: hemodialysis Hydralazine HCl (Apresoline) 10 mg IV Q4H PRN PRN Reason: BP >160/100 Last Admin: 05/29/17 19:25 Dose: 10 mg Sodium Chloride (Nacl 0.9% 500 Ml) 500 mls @ 75 mls/hr IV DIRECT [facility] Last Admin: 05/28/17 21:15 Dose: 75 mls/hr Sodium Chloride (Nacl 0.9%) 100 mls @ 999 mls/hr IV SANDHYA PRN PRN Reason: Hypotension Insulin Human Regular (Novolin R) 0 units SUB-Q Q6HR [facility] PRN Reason: Protocol Last Admin: 05/30/17 14:32 Dose: Not Given Lisinopril (Zestril) 10 mg PO QDAY [facility] Last Admin: 05/30/17 09:48 Dose: 10 mg Morphine Sulfate (Morphine) 2 mg IV Q4H PRN PRN Reason: Pain, Moderate (4-6) Last Admin: 05/29/17 17:15 Dose: 2 mg Nifedipine (Procardia Xl) 60 mg PO QDAY [facility] Last Admin: 05/30/17 09:49 Dose: 60 mg Ondansetron HCl (Zofran) 4 mg IV Q8H PRN PRN Reason: Nausea And Vomiting Last Admin: 05/29/17 17:15 Dose: 4 mg Temazepam (Restoril) 15 mg PO QHS PRN PRN Reason: Insomnia Warfarin Sodium (Coumadin Pharmacy To Dose) 1 each PO PKCONSULT [facility] PRN Reason: Protocol Warfarin Sodium (Coumadin) 7.5 mg PO DAILY@1700 REBECA Review of Systems Constitutional: no fever, no chills Ears, nose, mouth and throat: no ear pain, no ear discharge, no sore throat Cardiovascular: no chest pain, no palpitations, no shortness of breath Respiratory: no cough, no hemoptysis, no shortness of breath Gastrointestinal: abdominal pain (left lower quadrant), no nausea, no vomiting, no diarrhea, no constipation Genitourinary Male: no dysuria, no urinary frequency Rectal: no pain, no bleeding Musculoskeletal: no neck stiffness, no neck pain, no myalgias Integumentary: no rash, no pruritis Neurological: no weakness, no parathesias, no numbness, no headaches Endocrine: no cold intolerance, no heat intolerance Hematologic/Lymphatic: no easy bruising, no easy bleeding Allergic/Immunologic: no urticaria, no wheezing Physical Examination Vital Signs Last Vital Signs Temp 99.8 F H 05/30/17 05:29 Pulse 82 05/30/17 07:32 Resp 20 05/30/17 08:20 BP 122/76 05/30/17 08:20 Pulse Ox 100 05/30/17 05:29 General appearance: no acute distress HEENT: Positive: EOMI, Normocephaly, Mucus Membranes Moist Neck: Positive: neck supple, trachea midline Cardiac: Positive: Reg Rate and Rhythm, S1/S2 Lungs: Positive: clear to auscultation Neuro: Positive: Grossly Intact Abdomen: Positive: Soft, Active Bowel Sounds, Tender (left lower quadrant) Skin: Positive: Clear. Negative: Rash Musculoskeletal: Normal Range of Motion Extremities: Present: normal. Absent: edema Results 05/29/17 18:20 05/28/17 17:27 Coagulation 05/29/17 Range/Units 18:20 PT 13.0 (12.2-14.9) Sec. INR 0.94 (0.87-1.13) APTT 33.4 (24.2-36.6) Sec. CBC 05/29/17 Range/Units 18:20 Hgb 12.6 (11.8-15.2) gm/dl Hct 38.8 (35.5-45.6) % Plt Count 178 (140-440) K/mm3 - Imaging and Cardiology EKG: image reviewed EKG interpretations - Telemetry EKG Rhythm: Sinus Rhythm - EKG Sinus rhythms and dysrhythmias: sinus rhythm Myocardial infarction: septal CO (old age or ind Assessment and Plan Elevated troponin level and this case will be secondary to ESRD. Schedule Lexiscan stress MPI in am. - Patient Problems (1) Elevated troponin Current Visit: Yes Status: Acute (2) Accelerated hypertension Current Visit: Yes Status: Acute (3) Abdominal pain Current Visit: Yes Status: Acute Qualifiers: Abdominal location: left lower quadrant Qualified Code(s): R10.32 - Left lower quadrant pain (4) End-stage renal disease (ESRD) Current Visit: Yes Status: Chronic (5) Diabetes mellitus Current Visit: Yes Status: Chronic Qualifiers: Diabetes mellitus type: type 2 Diabetes mellitus complication status: D Diabetes mellitus complication detail: D Diabetic retinopathy severity: D Proliferative retinopathy type: P Diabetes mellitus macular edema: D Diabetes mellitus mcc insulin use: D Laterality: L Chronic kidney disease stage: C
[2017-05-30] MEDS: COUMADIN PO SCH (16:49)
--- NOTE | 2017-05-31 05:43 | Progress Note ---
Assessment and Plan - Patient Problems (1) End-stage renal disease (ESRD) Current Visit: Yes Status: Chronic Plan to address problem: Patient was last dialyzed 2 days ago. Continue hemodialysis on MWFs. (2) Anemia of renal disease Current Visit: Yes Status: Acute Plan to address problem: Monitor. Epogen as needed. (3) Hypertensive emergency, no CHF Current Visit: Yes Status: Acute Plan to address problem: BP is better. Continue current meds. (4) Elevated troponin Current Visit: Yes Status: Acute Plan to address problem: Followed by Cards. Subjective Date of service: 05/31/17 Interval history: Patient is feeling better. Objective - Vital Signs Vital signs: Vital Signs - 12hr 05/30/17 05/30/17 05/31/17 21:16 22:00 00:01 Temperature 98.5 F Pulse Rate 80 87 84 Respiratory 18 Rate Blood Pressure 116/77 [Right] O2 Sat by Pulse 99 97 Oximetry 05/31/17 01:14 Temperature 99.0 F Pulse Rate 81 Respiratory 18 Rate Blood Pressure 144/88 [Right] O2 Sat by Pulse 96 Oximetry - General Appearance General appearance: well-developed, well-nourished, appears stated age, other ( no distress, left IJ tunnel catheter) EENT: ATNC, PERRL, mucous membranes moist, hearing intact, vision intact Neck: no JVD, supple Respiratory: Present: Clear to Ascultation Cardiology: regular, S1S2, no murmurs Gastrointestinal: normoactive bowel sounds, no tenderness, no distended Integumentary: no rash Neurologic: no focal deficit, no asterixis, alert and oriented x3, CN 3-12 intact Musculoskeletal: other (no edema) Psychiatric: mood/affect appropriate, cooperative - Lab 05/31/17 10:38 05/28/17 17:27 Most recent lab results Calcium 9.2 mg/dL (8.4-10.2) 05/28/17 17:27
[2017-05-31] MEDS ORDERED: NACL 0.9% 100 ML IV PRN (06:30)
[2017-05-31] MEDS ORDERED: LEXISCAN IV ONE ×2 (08:07→08:14)
[2017-05-31] MEDS: PHOSLO PO SCH ×3 (08:12→17:16)
[2017-05-31] MEDS ORDERED: AMINOPHYLLINE IV ONE ×2 (09:25→09:47)
[2017-05-31] MEDS ORDERED: NACL 0.9% IV ONE (09:47)
[2017-05-31 10:41] LABS: Hemoglobin 11.3 gm/dl (11.8-15.2)
[2017-05-31 11:01] LABS: INR 7.89 (0.87-1.13)
[2017-05-31] MEDS: ZOFRAN IV PRN (11:20)
[2017-05-31] MEDS ORDERED: NACL 0.9 (PRIMING MACHINE ONLY DIALYSIS) MC ONE (11:21)
[2017-05-31] MEDS ORDERED: PROCARDIA XL PO SCH ×2 (12:48→15:00)
--- NOTE | 2017-05-31 12:53 | Progress Note ---
Assessment and Plan Lexiscan stress MPI today. I have discussed with him about the echo findings. He will undergo ANDRES tomorrow to evaluate the posterior mitral valve leaflet echodensity. Optimize antihypertensive regimen. - Patient Problems (1) Elevated troponin Current Visit: Yes Status: Acute (2) Mitral valve mass Current Visit: Yes Status: Acute (3) Accelerated hypertension Current Visit: Yes Status: Acute (4) Hypertensive heart disease Current Visit: Yes Status: Chronic Qualifiers: Heart failure presence: without heart failure Qualified Code(s): I11.9 - Hypertensive heart disease without heart failure (5) Abdominal pain Current Visit: Yes Status: Acute Qualifiers: Abdominal location: left lower quadrant Qualified Code(s): R10.32 - Left lower quadrant pain (6) End-stage renal disease (ESRD) Current Visit: Yes Status: Chronic (7) Diabetes mellitus Current Visit: Yes Status: Chronic Qualifiers: Diabetes mellitus type: type 2 Diabetes mellitus complication status: D Diabetes mellitus complication detail: D Diabetic retinopathy severity: D Proliferative retinopathy type: P Diabetes mellitus macular edema: D Diabetes mellitus retirement insulin use: D Laterality: L Chronic kidney disease stage: C Subjective Date of service: 05/31/17 Principal diagnosis: Elevated Tn, Accerlerated HTN, LLQ pain, ESRD, MV mass/ echodensity Interval history: No new complaint. He continues to experience left lower quadrant pain. Objective Vital Signs Temp Pulse Resp BP BP Pulse Ox 05/31/17 12:00 76 161/97 05/31/17 11:45 76 163/94 05/31/17 11:30 78 160/95 05/31/17 11:15 78 164/95 05/31/17 11:00 71 160/93 05/31/17 10:45 97.9 F 78 20 164/92 05/31/17 09:29 96 H 169/101 05/31/17 09:28 103 H 180/107 05/31/17 09:27 128 H 203/115 05/31/17 09:26 132 H 199/129 05/31/17 09:25 128 H 171/114 05/31/17 09:24 120 H 171/114 05/31/17 09:23 113 H 153/97 05/31/17 09:22 104 H 142/97 05/31/17 09:19 75 138/88 05/31/17 08:14 78 05/31/17 04:06 98.3 F 74 20 147/96 94 05/31/17 01:14 99.0 F 81 18 144/88 96 05/31/17 00:01 84 97 05/30/17 22:00 87 05/30/17 21:16 98.5 F 80 18 116/77 99 05/30/17 15:36 98.9 F 84 20 122/76 94 - Physical Examination General: No Apparent Distress HEENT: Positive: EOMI, Normocephaly, Mucus Membranes Moist Neck: Positive: neck supple, trachea midline Cardiac: Positive: Reg Rate and Rhythm, S1/S2 Lungs: Positive: clear to auscultation Neuro: Positive: Grossly Intact Abdomen: Positive: Soft, Active Bowel Sounds, Tender (left lower quadrant) Skin: Positive: Clear. Negative: Rash Musculoskeletal: Normal Range of Motion Extremities: Present: normal. Absent: edema - Labs and Meds Coagulation 05/31/17 Range/Units 10:38 PT 70.6 H (12.2-14.9) Sec. INR 7.89 H* (0.87-1.13) CBC 05/31/17 Range/Units 10:38 Hgb 11.3 L (11.8-15.2) gm/dl Hct 34.0 L (35.5-45.6) % Plt Count 139 L (140-440) K/mm3 - Imaging and Cardiology EKG: image reviewed - EKG Sinus rhythms and dysrhythmias: sinus rhythm Myocardial infarction: septal CA (old age or ind
--- NOTE | 2017-05-31 13:29 | Discharge Summary ---
Providers - Providers Date of Admission: 05/28/17 21:53 Attending physician: SIMONA CABALLERO MD 05/29/17 06:02 Consult to Physician [CONS] Routine Consulting Provider: LEATHA TURNER Reason For Exam: ESRD ON DIALYSIS Place consult to:: Dr. Turner Notified:: yes Phone number called:: [phone] Was contact made?: Yes If yes, spoke with:: Dr. Turner Time called:: 07:47 05/29/17 11:49 Consult to Physician [CONS] Routine Consulting Provider: BRENDA GOODMAN Reason For Exam: nstemi Place consult to:: Dr. Goodman Notified:: Vivian ROSARIO Phone number called:: Was contact made?: Yes If yes, spoke with:: Valeri-answering service Time called:: 08:22 Primary care physician: VENEER MEASURER Hospitalization Condition: Stable Hospital course: 52-year-old male with a past medical history end-stage renal disease on dialysis Wednesday, history of CVA, CAD history of NM, CHF, diabetes, history of DVT, asthma and GERD who presents with fatigue and malaise. Patient found to be in hypertensive crisis. Patient denies ever having any chest pain denies having any pain. He states that he came in for generalized weakness fatigue and malaise and just feeling poorly. He states that he has hard to control blood pressure, he feels like his blood pressures have been in control, his systolic BPs easily in the 180s to 200s on most days. He was being managed by pharmacist at [facility] within told her to come into the hospital. He was started on Nitroglycerin drip and transitioned to oral meds. His blood pressure medications were optimized, patient adamantly denied chest pain, he went on to have a nuclear stress test that was negative for ischemia. He was, managed by cardiology while he was in the hospital. Given his history of multiple DVTs and factor V Leiden disease, he was initially treated with heparin drip, but the patient refused multiple blood draws, therefore was discontinued and his oral anticoagulation was restarted. His blood pressure was improved therefore he was discharged home Discharge diagnoses Hypertensive emergency Type II non-STEMI End-stage renal disease Type 2 diabetes Factor V Leiden disease History of multiple DVTs Disposition: TO HOME OR SELFCARE Time spent for discharge: 35 minutes Core Measure Documentation - Palliative Care Palliative Care/ Comfort Measures: Not Applicable - Core Measures Any of the following diagnoses?: none Exam - Physical Exam Narrative exam: General: No distress, unkempt, poor dentition HEENT: MMM, EOMI cardiac: S1-S2 heard lungs: clear to auscultation, abdomen: soft, nontender, nondistended bowel sounds positive extremities: no edema clubbing or cyanosis Skin: no rash or lesion Neuro: no focal deficit Psych: appropriate behavior and mood, cognition intact - Constitutional Vitals: Temp Pulse Resp BP Pulse Ox 97.9 F 75 20 170/96 94 05/31/17 10:45 05/31/17 12:45 05/31/17 10:45 05/31/17 12:45 05/31/17 04:06 Plan Additional Instructions: please have your PCP check your INR (blood test for warfarin monitoring) within 3 days of discharge Follow up with: PRIMARY CARE, [Primary Care Provider] - 3-5 Days Forms: Warfarin Discharge Instruction Prescriptions: cloNIDine [Catapres] 0.2 mg PO BID #60 tablet Furosemide [Lasix TAB] 40 mg PO DAILY #30 tablet Lisinopril [Zestril TAB] 10 mg PO QDAY #30 tablet Metoprolol [Lopressor TAB] 50 mg PO TID #90 tablet NIFEdipine XL [Procardia Xl] 90 mg PO QDAY #30 tablet Warfarin [Coumadin] 12 mg PO QDAY #7 tablet
[2017-05-31 14:45] LABS: INR 1.01 (0.87-1.13)
[2017-05-31] MEDS: ZESTRIL PO SCH (15:14)
[2017-05-31] MEDS: CATAPRES PO SCH ×2 (15:14→21:00)
[2017-05-31] MEDS: LOPRESSOR PO SCH ×2 (15:14→20:59)
[2017-05-31] MEDS: LASIX PO SCH (15:15)
[2017-05-31] MEDS: PROCARDIA XL PO SCH (15:20)
[2017-05-31 16:41] LABS: INR 0.93 (0.87-1.13)
[2017-05-31] MEDS: COUMADIN PO SCH (17:15)
--- NOTE | 2017-06-01 00:25 | Treadmill Report ---
LEXISCAN STRESS TEST REASON FOR STUDY: Elevated troponin level. STRESS TEST PROTOCOL: The patient received 0.4 mg of Lexiscan intravenously over 10 seconds. Technetium-99m tetrofosmin was subsequently injected. Baseline EKG, normal sinus rhythm. T-wave abnormality, consider inferolateral ischemia. Lexiscan EKG, no significant change from baseline. No chest pain. The patient experienced severe nausea and vomiting with Lexiscan infusion. He received 50 mg of IV aminophylline injection. No arrhythmias. IMPRESSION: Nondiagnostic due to baseline EKG abnormalities. Nuclear imaging report to follow. JOB# [id number] [facility]/NTS
--- NOTE | 2017-06-01 02:18 | Treadmill Report ---
THALLIUM REPORT REASON FOR STUDY: Elevated troponin level. IMAGING PROTOCOL: The patient received Tc-99m Tetrofosmin for rest and stress imaging. The patient received 4 mCi of Thallium 201 for rest imaging and 26 mCi of technetium-99 Tetrofosmin for stress imaging. Imaging for all procedures was completed 30-90 minutes following the initial injection of Technetium 99m Tetrofosmin. SPECT imaging in the 180 degree arc was performed in the right anterior oblique projection. Computerized reconstruction of the images was performed for analysis. NUCLEAR IMAGING RESULTS: Technically limited study due to soft tissue attenuation artifact. Normal left ventricular cavity size with no change from stress to rest. Distribution of radionuclide within the left ventricle revealed a medium to large area of photo-induction involving the inferior wall. The degree of photo-induction is moderate. Rest imaging showed almost complete improvement in this defect. There is also a small area of photo-induction involving the anterior wall. The degree of photo-induction is mild to moderate. Rest imaging does not show any significant improvement in this defect. Gated SPECT imaging revealed normal global LV systolic function with no significant wall motion abnormalities. The calculated left ventricular ejection fraction is 50%. IMPRESSION: Medium to large reversible inferior wall defect. Small fixed anterior wall defect. Normal global LV systolic function with no significant wall motion abnormalities. EF 50%. These findings suggest moderate reversible ischemia in the right coronary artery territory. In addition, there is suggestion of a small area of prior infarction in the left anterior descending coronary artery territory. [facility]# [id number] [facility]/NTS
[2017-06-01] MEDS: ZOFRAN IV PRN (05:40)
[2017-06-01 06:20] LABS: INR 0.97 (0.87-1.13)
--- NOTE | 2017-06-01 08:12 | Progress Note ---
Assessment and Plan - Patient Problems (1) End-stage renal disease (ESRD) Current Visit: Yes Status: Chronic Plan to address problem: Patient was last dialyzed yesterday. Continue hemodialysis on MWFs. (2) Anemia of renal disease Current Visit: Yes Status: Acute Plan to address problem: Monitor. Epogen as needed. (3) Hypertensive emergency, no CHF Current Visit: Yes Status: Acute Plan to address problem: BP is better. Continue current meds. (4) Elevated troponin Current Visit: Yes Status: Acute Plan to address problem: Followed by Cards. Subjective Date of service: 06/01/17 Principal diagnosis: Elevated Tn, Accerlerated HTN, LLQ pain, ESRD, MV mass/ echodensity Interval history: Patient is feeling ok. Objective - Vital Signs Vital signs: Vital Signs - 12hr 05/31/17 05/31/17 06/01/17 20:59 23:29 04:17 Temperature 98.3 F 98.1 F Pulse Rate 80 79 78 Respiratory 18 18 Rate Blood Pressure 139/84 164/97 Blood Pressure [Right] O2 Sat by Pulse 95 95 Oximetry 06/01/17 07:44 Temperature 97.9 F Pulse Rate 72 Respiratory 20 Rate Blood Pressure Blood Pressure 120/88 [Right] O2 Sat by Pulse 96 Oximetry - General Appearance General appearance: well-developed, well-nourished, appears stated age, other ( no distress, left IJ tunnel catheter) EENT: ATNC, PERRL, mucous membranes moist, hearing intact, vision intact Neck: no JVD, supple Respiratory: Present: Clear to Ascultation Cardiology: regular, S1S2, no murmurs Gastrointestinal: normoactive bowel sounds, no tenderness, no distended Integumentary: no rash Neurologic: no focal deficit, no asterixis, alert and oriented x3, CN 3-12 intact Musculoskeletal: other (no edema) Psychiatric: mood/affect appropriate, cooperative - Lab 05/31/17 10:38 05/28/17 17:27 Most recent lab results Calcium 9.2 mg/dL (8.4-10.2) 05/28/17 17:27
--- NOTE | 2017-06-01 08:58 | Progress Note ---
Hospitalist Physical - Constitutional Vitals: Temp Pulse Resp BP Pulse Ox 97.9 F 72 20 120/88 96 06/01/17 07:44 06/01/17 07:44 06/01/17 07:44 06/01/17 07:44 06/01/17 07:44 General appearance: Present: no acute distress Results - Labs CBC & Chem 7: 05/31/17 10:38 05/28/17 17:27 Labs: Laboratory Last Values WBC 4.2 K/mm3 (4.5-11.0) L 05/28/17 17:27 RBC 4.06 M/mm3 (3.65-5.03) 05/28/17 17: Hgb 11.3 gm/dl (11.8-15.2) L 05/31/17 10:38 Hct 34.0 % (35.5-45.6) L 05/31/17 10:38 MCV 88 fl (84-94) 05/28/17 17: MCH 28 pg (28-32) 05/28/17 17: MCHC 32 % (32-34) 05/28/17 17: RDW 15.0 % (13.2-15.2) 05/28/17 17: Plt Count 139 K/mm3 (140-440) L 05/31/17 10:38 Lymph % (Auto) 20.1 % (13.4-35.0) 05/28/17 17: [place] % (Auto) 9.4 % (0.0-7.3) H 05/28/17 17: Eos % (Auto) 5.8 % (0.0-4.3) H 05/28/17 17:27 Baso % (Auto) 1.1 % (0.0-1.8) 05/28/17 17:27 Lymph # 0.8 K/mm3 (1.2-5.4) L 05/28/17 17: [place] # 0.4 K/mm3 (0.0-0.8) 05/28/17 17:27 Eos # 0.2 K/mm3 (0.0-0.4) 05/28/17 17: Baso # 0.0 K/mm3 (0.0-0.1) 05/28/17 17:27 Seg Neutrophils % 63.6 % (40.0-70.0) 05/28/17 17:27 Seg Neutrophils # 2.7 K/mm3 (1.8-7.7) 05/28/17 17:27 PT 13.4 Sec. (12.2-14.9) 06/01/17 05:16 INR 0.97 (0.87-1.13) 06/01/17 05:16 APTT 33.4 Sec. (24.2-36.6) 05/29/17 18:20 Heparin Anti-Xa Level < 0.10 U.I./ml (0.3-0.7) L 05/29/17 18:20 Sodium 140 mmol/L (137-145) 05/28/17 17:27 Potassium 4.0 mmol/L (3.6-5.0) 05/28/17 17:27 Chloride 95.8 mmol/L (98-107) L 05/28/17 17:27 Carbon Dioxide 28 mmol/L (22-30) 05/28/17 17:27 Anion Gap 20 mmol/L 05/28/17 17:27 BUN 52 mg/dL (9-20) H 05/28/17 17:27 Creatinine 10.1 mg/dL (0.8-1.5) H 05/28/17 17:27 Estimated GFR 5 ml/min 05/28/17 17:27 BUN/Creatinine Ratio 5.14 % 05/28/17 17:27 Glucose 84 mg/dL (75-100) 05/28/17 17:27 POC Glucose 118 (70-105) H 05/31/17 16:08 Hemoglobin A1c 4.6 % (4-6) 05/29/17 18:20 Calcium 9.2 mg/dL (8.4-10.2) 05/28/17 17:27 Total Bilirubin 0.40 mg/dL (0.1-1.2) 05/28/17 17:27 AST 15 units/L (5-40) 05/28/17 17:27 ALT 9 units/L (7-56) 05/28/17 17:27 Alkaline Phosphatase 61 units/L (35-129) 05/28/17 17:27 Total Creatine Kinase 135 units/L (55-170) 05/29/17 09:56 CK-MB (CK-2) 3.4 ng/mL (0.0-4.0) 05/29/17 09:56 CK-MB (CK-2) Rel Index 2.5 (0-4) 05/29/17 09:56 Troponin T 0.113 ng/mL (0.00-0.029) H* 05/29/17 18:20 Total Protein 6.9 g/dL (6.3-8.2) 05/28/17 17:27 Albumin 4.2 g/dL (3.9-5) 05/28/17 17:27 Albumin/Globulin Ratio 1.6 % 05/28/17 17:27 Triglycerides 77 mg/dL (2-149) 05/29/17 09:56 Cholesterol 109 mg/dL (50-199) 05/29/17 09:56 LDL Cholesterol Direct 45 mg/dL (50-130) L 05/29/17 09:56 HDL Cholesterol 49 mg/dL (40-59) 05/29/17 09:56 Cholesterol/HDL Ratio 2.22 % 05/29/17 09:56 Lipase 37 units/L (13-60) 05/28/17 17:27 Urine Color Yellow (Yellow) 05/28/17 19:17 Urine Turbidity Clear (Clear) 05/28/17 19:17 Urine pH 8.0 (5.0-7.0) H 05/28/17 19:17 Ur Specific Bruce 1.012 (1.003-1.030) 05/28/17 19:17 Urine Protein >500 mg/dL (Negative) 05/28/17 19:17 Urine Glucose (UA) 50 mg/dL (Negative) 05/28/17 19:17 Urine Ketones Neg mg/dL (Negative) 05/28/17 19:17 Urine Blood Neg (Negative) 05/28/17 19:17 Urine Nitrite Neg (Negative) 05/28/17 19:17 Urine Bilirubin Neg (Negative) 05/28/17 19:17 Urine Urobilinogen < 2.0 mg/dL (<2.0) 05/28/17 19:17 Ur Leukocyte Esterase Neg (Negative) 05/28/17 19:17 Urine WBC (Auto) 2.0 /HPF (0.0-6.0) 05/28/17 19:17 Urine RBC (Auto) 3.0 /HPF (0.0-6.0) 05/28/17 19:17 U Epithel Cells (Auto) < 1.0 /HPF (0-13.0) 05/28/17 19:17
--- NOTE | 2017-06-01 08:58 | Discharge Summary ---
Providers - Providers Date of Admission: 05/28/17 21:53 Attending physician: NIKITA KILGORE MD 05/29/17 06:02 Consult to Physician [CONS] Routine Consulting Provider: LEATHA TURNER Reason For Exam: ESRD ON DIALYSIS Place consult to:: Dr. Turner Notified:: yes Phone number called:: [phone] Was contact made?: Yes If yes, spoke with:: Dr. Turner Time called:: 07:47 05/29/17 11:49 Consult to Physician [CONS] Routine Consulting Provider: BRENDA GOODMAN Reason For Exam: nstemi Place consult to:: Dr. Goodman Notified:: Vivian ROSARIO Phone number called:: Was contact made?: Yes If yes, spoke with:: Valeri-answering service Time called:: 08:22 Primary care physician: MANAGER ANIMAL Hospitalization Reason for admission: fatique and malaise Condition: Stable Hospital course: 52-year-old male with a past medical history end-stage renal disease on dialysis Wednesday, history of CVA, CAD history of MA, CHF, diabetes, history of DVT, asthma and GERD who presents with fatigue and malaise. Patient found to be in hypertensive crisis. Patient denies ever having any chest pain denies having any pain. He states that he came in for generalized weakness fatigue and malaise and just feeling poorly. He states that he has hard to control blood pressure, he feels like his blood pressures have been in control, his systolic BPs easily in the 180s to 200s on most days. He was being managed by pharmacist at [facility] told her to come into the hospital. He was started on Nitroglycerin drip and transitioned to oral meds. His blood pressure medications were optimized, patient adamantly denied chest pain, he went on to have a nuclear stress test that was negative for ischemia. He was, managed by cardiology while he was in the hospital. Given his history of multiple DVTs and factor V Leiden disease, he was initially treated with heparin drip, but the patient refused multiple blood draws, therefore was discontinued and his oral anticoagulation was restarted. His blood pressure was improved therefore he was discharged home Patient discharge was held due to finding of Mitral valve leaflet echodensity. INR was corrected and ANDRES was done shows MV mass. patient is to be transfered to [place] to Dr Archer service for cardiac MRI. Discharge diagnoses MV MASS Hypertensive emergency Type II non-STEMI End-stage renal disease Type 2 diabetes Factor V Leiden disease History of multiple DVTs Disposition: DC/TX-70 ANOTHER TYPE HLTHCARE Time spent for discharge: 35 mins Core Measure Documentation - Palliative Care Palliative Care/ Comfort Measures: Not Applicable - Core Measures Any of the following diagnoses?: none - VTE Discharge Requirements Deep Vein Thrombosis/Pulmonary Embolism Present on Admission: No Exam - Physical Exam Narrative exam: VITAL SIGNS: Reviewed. GENERAL: The patient appeared well nourished and normally developed. Vital signs as documented. HEAD: No signs of head trauma. EYES: Pupils are equal. Extraocular motions intact. EARS: Hearing grossly intact. MOUTH: Oropharynx is normal. NECK: No adenopathy, no JVD. CHEST: Chest with clear breath sounds bilaterally. No wheezes, rales, or rhonchi. CARDIAC: Regular rate and rhythm. S1 and S2, without murmurs, gallops, or rubs. VASCULAR: No Edema. Peripheral pulses normal and equal in all extremities. ABDOMEN: Soft, mildly tender left lower quadrant. No sign of distention. No rebound or guarding, and no masses palpated. Bowel Sounds normal. MUSCULOSKELETAL: Good range of motion of all major joints. Extremities without clubbing, cyanosis or edema. NEUROLOGIC EXAM: Alert and oriented x 3. No focal sensory or strength deficits. Speech normal. Follows commands. PSYCHIATRIC: Mood normal. SKIN: No rash or lesions. - Constitutional Vitals: Temp Pulse Resp BP Pulse Ox 97.9 F 72 20 120/88 96 06/01/17 07:44 06/01/17 07:44 06/01/17 07:44 06/01/17 07:44 06/01/17 07:44 Plan Additional Instructions: check INR in 3-4 days and follow with pcp/ coach driver. Do not start coumadin 10mg until finshed the 12mg with physicians direction Follow up with: PRIMARY CARE, [Primary Care Provider] - 3-5 Days Forms: Warfarin Discharge Instruction Prescriptions: cloNIDine [Catapres] 0.2 mg PO BID #60 tablet Furosemide [Lasix TAB] 40 mg PO DAILY #30 tablet Lisinopril [Zestril TAB] 10 mg PO QDAY #30 tablet Metoprolol [Lopressor TAB] 50 mg PO TID #90 tablet NIFEdipine XL [Procardia Xl] 90 mg PO QDAY #30 tablet Warfarin [Coumadin] 12 mg PO QDAY #7 tablet
--- NOTE | 2017-06-01 10:58 | Anesthesia Consultation ---
Anesthesia Consult and Med Hx Date of service: 06/01/17 - Airway Anesthetic Teeth Evaluation: Poor, Chipped, Bridges ROM Head & Neck: Adequate Mental/Hyoid Distance: Adequate Mallampati Class: Class II Intubation Access Assessment: Probably Good - Pre-Operative Health Status ASA Pre-Surgery Classification: ASA3 Proposed Anesthetic Plan: MAC - Pulmonary Hx Smoking: No Hx Asthma: Yes (NO MEDS) Hx Pneumonia: Yes (2014) Hx Sleep Apnea: Yes (DX SLEEP APNEA , NO CPAP USE) - Cardiovascular System Hx Hypertension: Yes (2005) Hx Heart Attack/AMI: Yes (1995) - Central Nervous System CVA: Yes (x4, memory loss) - Endocrine Hx Renal Disease: Yes (DIALYSIS ) Hx End Stage Renal Disease: Yes (HEMO DIALYSIS AT NIGHT ) Hx Non-Insulin Dependent Diabetes: Yes (diet contol) - Hematic Hx Anemia: Yes - Other Systems Hx Cancer: Yes (h/o prostate CA, s/p cryotherapy)
--- NOTE | 2017-06-01 10:59 | Anesthesia Day of Surgery ---
Anesthesia Day of Surgery - Day of Surgery Patient Examined: Yes Patient H&P Reviewed: Yes Patient is NPO: Yes
[2017-06-01] MEDS ORDERED: XYLOCAINE MPF 2% ONE (11:28)
[2017-06-01] MEDS ORDERED: DIPRIVAN 10 MG/ML IV ONE ×2 (11:28)
[2017-06-01] MEDS ORDERED: HURRICAINE ONE 20% TOPICAL SPRAY MM (11:45)
[2017-06-01] MEDS ORDERED: NACL 0.9% 500 ML 500 ML ONE (11:45)
[2017-06-01] MEDS ORDERED: NACL 0.9% 500 ML 500 ML IV SCH (12:00)
[2017-06-01] MEDS ORDERED: HURRICAINE ONE 20% TOPICAL SPRAY MM NR (12:00)
--- NOTE | 2017-06-01 12:57 | Progress Note ---
Assessment and Plan s/p ANDRES this AM which confirmed MV mass. Pt to tx to [place] where Dr. Archer will be accepting physician for cardiac MRI and further eval/management. In setting of abnormal stress test, recommend consideration of [facility] for definitive diagnosis once medically stabilized. The patient has been seen in conjunction with Dr. Brad Anguiano who agrees with the assessment and plan of care. - Patient Problems (1) Elevated troponin Current Visit: Yes Status: Acute (2) Mitral valve mass Current Visit: Yes Status: Acute (3) Abnormal stress test Current Visit: Yes Status: Chronic (4) Accelerated hypertension Current Visit: Yes Status: Acute (5) Hypertensive heart disease Current Visit: Yes Status: Chronic Qualifiers: Heart failure presence: without heart failure Qualified Code(s): I11.9 - Hypertensive heart disease without heart failure (6) Abdominal pain Current Visit: Yes Status: Acute Qualifiers: Abdominal location: left lower quadrant Qualified Code(s): R10.32 - Left lower quadrant pain (7) End-stage renal disease (ESRD) Current Visit: Yes Status: Chronic (8) Diabetes mellitus Current Visit: Yes Status: Chronic Qualifiers: Diabetes mellitus type: type 2 Diabetes mellitus complication status: D Diabetes mellitus complication detail: D Diabetic retinopathy severity: D Proliferative retinopathy type: P Diabetes mellitus macular edema: D Diabetes mellitus [facility] insulin use: D Laterality: L Chronic kidney disease stage: C Subjective Date of service: 06/01/17 Principal diagnosis: Elevated Tn, Accerlerated HTN, LLQ pain, ESRD, MV mass/ echodensity Interval history: for ANDRES today. no complaints. Objective Last Vital Signs Temp 97.9 F 06/01/17 07:44 Pulse 73 06/01/17 12:40 Resp 18 06/01/17 12:40 BP 137/93 06/01/17 12:40 Pulse Ox 99 06/01/17 12:40 - Physical Examination General: No Apparent Distress HEENT: Positive: EOMI, Normocephaly, Mucus Membranes Moist Neck: Positive: neck supple, trachea midline Cardiac: Positive: Reg Rate and Rhythm, S1/S2 Lungs: Positive: clear to auscultation Neuro: Positive: Grossly Intact Abdomen: Positive: Soft, Active Bowel Sounds, Tender (left lower quadrant) Skin: Positive: Clear. Negative: Rash Musculoskeletal: Normal Range of Motion Extremities: Present: normal. Absent: edema - Labs and Meds Coagulation 05/31/17 05/31/17 06/01/17 Range/Units 14:30 15:56 05:16 PT 13.8 12.9 13.4 (12.2-14.9) Sec. INR 1.01 0.93 0.97 (0.87-1.13) - Imaging and Cardiology EKG: image reviewed - EKG Sinus rhythms and dysrhythmias: sinus rhythm Myocardial infarction: septal PA (old age or ind
[2017-06-01 15:25] VITALS: BP 145/97
[2017-06-01] MEDS ORDERED: COUMADIN PO SCH (17:00)
== END 2017-06-01 17:45 | disposition home or self-care (01) | DRG 280 ==
LOC: ED 17:01 → CC1 21:53 → 4A 05-29 19:46
PROVIDERS: ADMIT Internal Medicine; ATTEND Internal Medicine
PROC: 5A1D60Z (ICD-10-PCS; principal; 2017-05-28)
PROC: B246ZZ4 Ultrasonography of Right and Left Heart, Transesophageal (ICD-10-PCS; 2017-05-28)
DX: I16.9 Hypertensive crisis, unspecified (principal); I21.4 Non-ST elevation (NSTEMI) myocardial infarction; N18.6 End stage renal disease; D68.51 Activated protein C resistance; I13.2 Hypertensive heart and chronic kidney disease with heart failure and with stage 5 chronic kidney disease, or end stage renal disease; J45.909 Unspecified asthma, uncomplicated; E11.22 Type 2 diabetes mellitus with diabetic chronic kidney disease; D63.1 Anemia in chronic kidney disease; G47.30 Sleep apnea, unspecified; J44.9 Chronic obstructive pulmonary disease, unspecified; K21.9 Gastro-esophageal reflux disease without esophagitis; I25.10 Atherosclerotic heart disease of native coronary artery without angina pectoris; Z88.0 Allergy status to penicillin; Z87.01 Personal history of pneumonia (recurrent); Z85.46 Personal history of malignant neoplasm of prostate; Z92.21 Personal history of antineoplastic chemotherapy; I25.2 Old myocardial infarction; Z79.82 Long term (current) use of aspirin; Z79.899 Other long term (current) drug therapy; Z79.01 Long term (current) use of anticoagulants; Z86.73 Personal history of transient ischemic attack (TIA), and cerebral infarction without residual deficits; Z86.718 Personal history of other venous thrombosis and embolism
CPT/HCPCS: 36415; 78452; 80053; 80061; 81001; 82550; 82553; 82962; 83036; 83690; 84484; 85014; 85018; 85025; 85049; 85520; 85610; 85730; 87040; 93005; 93010; 93017; 93306; 93312; 93320; 93325; 96365; 96374; 96375; 96376; A9270-GY; A9502; J0280; J0360; J1170; J1200; J1644; J2270; J2405; J2704; J2785; J7030; J7040

== ENCOUNTER 2017-10-25 10:14 | Emergency (ER) | payer MEDICARE ==
[2017-10-25 10:26] VITALS: BP 229/162
[2017-10-25] MEDS ORDERED: NACL 0.9% 1000 ML 1,000 ML IV ONE (10:26)
[2017-10-25 10:53] LABS: Basophils % (Auto) 0.4 % (0.0-1.8); Eosinophils # (Auto) 0.2 K/mm3 (0.0-0.4); Eosinophils % (Auto) 1.7 % (0.0-4.3); Hematocrit 44.8 % (35.5-45.6); Hemoglobin 14.8 gm/dl (11.8-15.2); Lymphocytes # (Auto) 0.6 K/mm3 (1.2-5.4); Lymphocytes % (Auto) 6.6 % (13.4-35.0); Mean Corpuscular HGB Conc 33 % (32-34); Mean Corpuscular Hemoglobin 29 pg (28-32); Mean Corpuscular Volume 89 fl (84-94); Monocytes # (Auto) 0.4 K/mm3 (0.0-0.8); Monocytes % (Auto) 4.7 % (0.0-7.3); Platelet Count 122 K/mm3 (140-440); Red Blood Count 5.04 M/mm3 (3.65-5.03); Red Cell Distribution Width 16.8 % (13.2-15.2)
[2017-10-25 11:02] LABS: INR 0.95 (0.87-1.13)
[2017-10-25 11:03] LABS: Partial Thromboplastin Time 29.4 Sec. (24.2-36.6)
[2017-10-25 11:14] LABS: Albumin 3.3 g/dL (3.9-5); Calcium 9.5 mg/dL (8.4-10.2)
== END 2017-10-25 18:42 | disposition left against medical advice (07) ==
LOC: ED 10:14
DX: Z53.21 Procedure and treatment not carried out due to patient leaving prior to being seen by health care provider (principal)
CPT/HCPCS: 36415; 80053; 83690; 85025; 85610; 85730; 86850; 86900; 86901; 93005; 93010

== ENCOUNTER 2017-11-25 12:00 | Inpatient (IN) | payer MEDICARE ==
[~2017-11-25 12:00] MED LIST: XYLOCAINE MPF 2% ONE
--- NOTE | 2017-11-25 13:01 | Emergency Department Report ---
HPI - General Chief Complaint: Altered Mental Status Time Seen by Provider: 11/25/17 12:23 - HPI HPI: Room 21 The patient is a 52-year-old male presenting with a chief complaint of altered mental status. The patient's home health nurse states she came by and the patient was awake at that time stating that he had contacted his dialysis center. The home health nurse stated that the patient appeared off balance with his gait and appeared to have labored respirations. The patient reportedly took an Ambien earlier today. The patient presents with story and respirations but awakens to sternal rub to become belligerent about being awakened. The patient promptly falls back to sleep when not stimulated Location: Mental state Duration: [See above] Quality: [See above] Severity: Altered Modifying factors: [see above] Context: [see above] Mode of transportation: [not driving] ED Past Medical Hx - Past Medical History Hx Hypertension: Yes (2005) Hx CVA: Yes Hx Heart Attack/AMI: Yes (1995) Hx Congestive Heart Failure: Yes (2005) Hx Diabetes: Yes (NO MEDS) Hx Deep Vein Thrombosis: Yes (BOTH LEGS AND NECK) Hx GERD: Yes Hx Renal Disease: Yes (DIALYSIS -W-) Hx Kidney Stones: Yes Hx Asthma: Yes (NO MEDS) - Surgical History Past Surgical History?: Yes Hx Coronary Stent: Yes Additional Surgical History: PERMACATH LEFT CHEST. FISTULA IN LEFT ARM ; REMOVAL - Family History Family history: no significant - Social History Smoking Status: Unknown if ever smoked Substance Use Type: None - Medications Home Medications: Home Medications Medication Instructions Recorded Confirmed Last Taken Type Warfarin [Coumadin] 10 mg PO DAILY@1700 tablet 06/01/17 08/16/17 Unknown Rx Clonidine HCl [Catapres] 0.15 mg PO BID 08/16/17 08/16/17 Unknown History Warfarin [Coumadin] 12 mg PO 6XW 08/16/17 08/16/17 Unknown History Aspirin [Adult Low Dose Aspirin EC] 81 mg PO DAILY #30 tablet. 08/17/17 Unknown Rx AtorvaSTATin [Lipitor] 40 mg PO QDAY #30 tablet 08/17/17 Unknown Rx Calcium Acetate 668 mg PO TID #30 tablet 08/17/17 Unknown Rx Furosemide [Lasix TAB] 40 mg PO DAILY #30 tablet 08/17/17 Unknown Rx Lisinopril [Zestril TAB] 10 mg PO QDAY #30 tablet 08/17/17 Unknown Rx Metoprolol [Lopressor TAB] 50 mg PO TID #90 tablet 08/17/17 Unknown Rx NIFEdipine XL [Procardia Xl] 90 mg PO QDAY #30 tablet 08/17/17 Unknown Rx ED Review of Systems ROS: Stated complaint: VERO Other details as noted in HPI Comment: Unobtainable due to pts medical conditions Physical Exam - Physical Exam Vital Signs: Vital Signs 11/25/17 11/25/17 12:05 12:11 Temperature 97.9 F Pulse Rate 88 Respiratory 22 Rate Blood Pressure 198/121 O2 Sat by Pulse 90 Oximetry Physical Exam: GENERAL: The patient is well-developed well-nourished male sleeping on stretcher with snoring respirations only awakening to sternal rub. [] HEENT: Normocephalic. Atraumatic. Extraocular motions are intact. Patient has moist mucous membranes. NECK: Supple. Trachea midline CHEST/LUNGS: Clear to auscultation. There is no respiratory distress noted. HEART/CARDIOVASCULAR: Regular. There is no tachycardia. There is no gallop rub or murmur. ABDOMEN: Abdomen is soft, nontender. Patient has normal bowel sounds. There is no abdominal distention. SKIN: There is no rash. There is no edema. There is no diaphoresis. NEURO: The patient is asleep and only awakens to sternal rub. Patient become belligerent and then falls promptly back to sleep when not stimulated. Patient will not cooperate with neurologic exam MUSCULOSKELETAL: There is no tenderness or deformity. There is no limitation range of motion. There is no evidence of acute injury. ED Course Vital Signs 11/25/17 11/25/17 12:05 12:11 Temperature 97.9 F Pulse Rate 88 Respiratory 22 Rate Blood Pressure 198/121 O2 Sat by Pulse 90 Oximetry ED Medical Decision Making - Lab Data Result diagrams: 11/25/17 12:49 11/25/17 12:49 Laboratory Tests 11/25/17 11/25/17 11/25/17 12:49 12:49 12:49 WBC 5.6 RBC 3.02 L Hgb 9.0 L Hct 27.3 L MCV 90 MCH 30 MCHC 33 RDW 16.3 H Plt Count 148 Lymph % (Auto) 15.5 [place] % (Auto) 6.8 Eos % (Auto) 6.0 H Baso % (Auto) 1.0 Lymph # 0.[address] [place] # 0.4 Eos # 0.3 Baso # 0.1 Seg Neutrophils % 70.7 H Seg Neutrophils # 3.9 PT INR APTT Sodium 137 Potassium 4.5 Chloride 96.4 L Carbon Dioxide 23 Anion Gap 22 BUN 57 H Creatinine 13.0 H Estimated GFR 5 BUN/Creatinine Ratio 4 Glucose 88 Calcium 9.1 Total Bilirubin 0.40 AST 13 ALT 9 Alkaline Phosphatase 69 Total Protein 6.0 L Albumin 3.2 L Albumin/Globulin Ratio 1.1 TSH 3.820 Plasma/Serum Alcohol 11/25/17 11/25/17 12:49 13:25 WBC RBC Hgb Hct MCV MCH MCHC RDW Plt Count Lymph % (Auto) [place] % (Auto) Eos % (Auto) Baso % (Auto) Lymph # [place] # Eos # Baso # Seg Neutrophils % Seg Neutrophils # PT 14.1 INR 1.04 APTT 32.0 Sodium Potassium Chloride Carbon Dioxide Anion Gap BUN Creatinine Estimated GFR BUN/Creatinine Ratio Glucose Calcium Total Bilirubin AST ALT Alkaline Phosphatase Total Protein Albumin Albumin/Globulin Ratio TSH Plasma/Serum Alcohol < 0.01 - Radiology Data Radiology results: report reviewed (CT head), image reviewed (CT head, chest x- ray) interpreted by me: Chest x-ray-right lower lobe atelectasis. No pneumothorax CT HEAD WITHOUT CONTRAST INDICATION: Altered mental status. COMPARISON: None similar. FINDINGS: Noncontrast head CT demonstrates symmetric, mid to moderately enlarged ventricles, somewhat more than expected for the patient's age and out of proportion to the sulci. Moderate periventricular hypodensities and few small lacunar infarcts as measuring 8 mm in the right basal ganglia, axial image 27, series 2 and approximately 5 mm in the thalamus on the left, axial image 24, amongst others. No definite acute supratentorial infarct, hemorrhage, mass effect or midline shift, to the extent assessed. Posterior fossa however demonstrates approximately 2 cm left paramidline cerebellar hypodensity posteriorly as on axial image 15. Preserved basilar cisterns. Unremarkable eye globes. Leftward nasal septal deviation/approximately 2 mm leftward septal spur. Slight ethmoid and maxillary sinus mucosal thickening. Otherwise grossly clear remainder imaged paranasal sinuses and mastoid air cells. Mild to moderate atherosclerotic ICA calcifications. Normal calvarium and scalp. Few radiopaque dental material. Cervical spondylosis. CONCLUSION: 1. Approximately 2 cm left cerebellar hemisphere hypodensity posteromedially not excluded for infarction, though of indeterminate age or etiology on this exam alone, and may be further evaluated with prior relevant imaging if available, or further with MRI, as warranted. 2. Central atrophy and few other incidental findings, as above. Thank you for the opportunity to participate in this patient's care. Transcribed By: RS Dictated By: JAMEEL GRANT MD Electronically Authenticated By: JAMEEL GRANT MD Signed Date/Time: 11/25/17 1300 DD/ 1249 TD/TT: 11/25/17 1300 - Medical Decision Making NIHSS= 2 * patient will not cooperate with full neurologic exam LOC a. Alert= 0 Not alert but arousable to minor stimuli=1 *Not alert requires repeated or strong stimuli to move= 2 Responds only reflex motor or unresponsive=3 b. asks month and age answers both correctly= 0 answers one correctly= 1 answers neither correctly= 2 Best Gaze normal= 0 abnormal in one or both but forced deviation or total paresis absent= 1 forced deviation or total gaze paresis= 2 Visual no visual loss= 0 partial hemianopia= 1 complete hemianopia= 2 bilateral hemianopia= 3 Facial Palsy normal= 0 minor paralysis= 1 partial paralysis= 2 complete paralysis= 3 Motor Arm no drift= 0 drift before 10 secs but doesnt hit bed= 1 some effort against gravity= 2 no effort against gravity= 3 no movement= 4 Motor leg no drift= 0 drift before 5 secs but doesnt hit bed= 1 drifts to bed before 5 secs= 2 no effort against gravity= 3 no movement= 4 Limb ataxia absent=0 present in one limb= 1 present in two limbs= 2 Sensory normal= 0 mild sensory loss= 1 severe (unaware of being touched)= 2 Best language mild/some loss of fluency= 1 severe= 2 mute= 3 Dysarthria normal= 0 slurs some words= 1 severe/unintelligible= 2 Extinction and Inattention no abnormality= 0 visual, tactile, auditory or personal inattention= 1 profound (doesnt recognize own hand or orients to only one side= 2 - Differential Diagnosis CVA, ICH, uremia Critical care attestation.: If time is entered above; I have spent that time in minutes in the direct care of this critically ill patient, excluding procedure time. ED Disposition Clinical Impression: Altered mental status, CVA (cerebral vascular accident), ESRD (end stage renal disease) on dialysis Disposition: OP ADMIT IP TO THIS HOSP Is pt being admited?: Yes Does the pt Need Aspirin: Yes Condition: Fair Time of Disposition: 14:02 (Hospitalist notified (Dr Lopez))
[2017-11-25] MEDS ORDERED: ASPIRIN PR ONE ×2 (13:13→13:17)
[2017-11-25 13:23] LABS: Basophils # (Auto) 0.1 K/mm3 (0.0-0.1); Eosinophils # (Auto) 0.3 K/mm3 (0.0-0.4); Hematocrit 27.3 % (35.5-45.6); Lymphocytes # (Auto) 0.9 K/mm3 (1.2-5.4); Lymphocytes % (Auto) 15.5 % (13.4-35.0); Mean Corpuscular HGB Conc 33 % (32-34); Mean Corpuscular Hemoglobin 30 pg (28-32); Mean Corpuscular Volume 90 fl (84-94); Monocytes # (Auto) 0.4 K/mm3 (0.0-0.8); Monocytes % (Auto) 6.8 % (0.0-7.3); Platelet Count 148 K/mm3 (140-440); Red Blood Count 3.02 M/mm3 (3.65-5.03); Red Cell Distribution Width 16.3 % (13.2-15.2)
[2017-11-25 13:38] LABS: Albumin 3.2 g/dL (3.9-5); Calcium 9.1 mg/dL (8.4-10.2)
[2017-11-25 14:05] LABS: INR 1.04 (0.87-1.13)
--- NOTE | 2017-11-25 14:22 | History and Physical Report ---
History of Present Illness Chief complaint: confused History of present illness: 52 YO Male with HTN, CVA, DC, DM, GERD, ESRD on HD (M,W,F), Nephrolithiasis presents to ED for evaluation. Pt is confused and lethargic at time of exam and unable to provide history. Pt history taken from ED staff, and EMS. As per staff , the patient was seen and evaluated by his home health nurse and was found to be confused and lethargic with unsteady gait. EMS notified and patient transported to [facility] for evaluaton. Code stroke was called, Pt found to have symptoms consistent with stroke, but was outside the therapeutic window for TPA. Pt also encephalopathic, with Acute on chronic renal filure. Pt treated with supportive care with improvement in symptoms, Nephrology consulted in ED. Past History Past Medical History: DVT, ESRD, GERD, hypertension, stroke Past Surgical History: Other (Permacath, AVF) Social history: single. denies: smoking, alcohol abuse, prescription drug abuse Family history: hypertension Medications and Allergies Allergies Allergy/AdvReac Type Severity Reaction Status Date / Time Penicillins Allergy Unknown Verified 05/28/17 17:08 Home Medications Medication Instructions Recorded Confirmed Last Taken Type Warfarin [Coumadin] 10 mg PO DAILY@1700 tablet 06/01/17 11/25/17 Unknown Rx Clonidine HCl [Catapres] 0.15 mg PO BID 08/16/17 11/25/17 Unknown History Warfarin [Coumadin] 12 mg PO 6XW 08/16/17 11/25/17 Unknown History Aspirin [Adult Low Dose Aspirin EC] 81 mg PO DAILY #30 tablet. 08/17/17 Unknown Rx AtorvaSTATin [Lipitor] 40 mg PO QDAY #30 tablet 08/17/17 11/25/17 Unknown Rx Calcium Acetate 668 mg PO TID #30 tablet 08/17/17 11/25/17 Unknown Rx Furosemide [Lasix TAB] 40 mg PO DAILY #30 tablet 08/17/17 11/25/17 Unknown Rx Lisinopril [Zestril TAB] 10 mg PO QDAY #30 tablet 08/17/17 11/25/17 Unknown Rx Metoprolol [Lopressor TAB] 50 mg PO TID #90 tablet 08/17/17 11/25/17 Unknown Rx NIFEdipine XL [Procardia Xl] 90 mg PO QDAY #30 tablet 08/17/17 11/25/17 Unknown Rx Review of Systems ROS unobtainable: due to mental status Exam - Constitutional Vitals: Temp Pulse Resp BP Pulse Ox 97.9 F 88 22 198/121 90 11/25/17 12:05 11/25/17 12:05 11/25/17 12:05 11/25/17 12:05 11/25/17 12:11 General appearance: Present: mild distress - EENT Eyes: Present: miosis ENT: hearing intact, clear oral mucosa - Neck Neck: Present: supple, normal ROM - Respiratory Respiratory effort: normal Respiratory: bilateral: CTA - Cardiovascular Heart Sounds: Present: S1 & S2. Absent: rub, click - Extremities Extremities: pulses symmetrical, No edema Peripheral Pulses: within normal limits - Abdominal General gastrointestinal: Present: soft, non-tender, non-distended, normal bowel sounds Male genitourinary: Present: normal - Integumentary Integumentary: Present: clear, warm, dry - Musculoskeletal Musculoskeletal: generalized weakness - Psychiatric Psychiatric: no intact judgment & insight, no memory intact - Neurologic Neurologic: no moves all extremities, no gait normal Results - Labs CBC & Chem 7: 11/25/17 12:49 11/25/17 12:49 Labs: Abnormal lab results 11/25/17 11/25/17 Range/Units 12:49 12:49 RBC 3.02 L (3.65-5.03) M/mm3 Hgb 9.0 L (11.8-15.2) gm/dl Hct 27.3 L (35.5-45.6) % RDW 16.3 H (13.2-15.2) % Eos % (Auto) 6.0 H (0.0-4.3) % Lymph # 0.9 L (1.2-5.4) K/mm3 Seg Neutrophils % 70.7 H (40.0-70.0) % Chloride 96.4 L (98-107) mmol/L BUN 57 H (9-20) mg/dL Creatinine 13.0 H (0.8-1.5) mg/dL Total Protein 6.0 L (6.3-8.2) g/dL Albumin 3.2 L (3.9-5) g/dL Assessment and Plan - Patient Problems (1) CVA (cerebral vascular accident) Current Visit: Yes Status: Suspected Qualifiers: Precerebral and cerebral artery: posterior cerebral artery Plan to address problem: Stroke protocol: CT Head, MRI Brain, MRA brain, Echo, Antiplatelet therapy, PT/ OT/Speech, Stroke education, Carotid Doppler, (2) Encephalopathy Current Visit: Yes Status: Acute Plan to address problem: CT Head, neuro checks, (3) End-stage renal disease (ESRD) Current Visit: No Status: Chronic Plan to address problem: Nephrology consulted in ED for dialysis when patient medically stable. (4) DVT prophylaxis Current Visit: No Status: Acute
[2017-11-25] MEDS ORDERED: TYLENOL PO PRN (14:24)
[2017-11-25] MEDS ORDERED: MILK OF MAGNESIA PO PRN ×2 (14:24→18:11)
[2017-11-25] MEDS ORDERED: SODIUM CHLORIDE FLUSH SYRINGE 10 ML IV PRN (14:24)
[2017-11-25] MEDS ORDERED: PHENERGAN PR PRN ×2 (14:24→18:11)
[2017-11-25] MEDS ORDERED: REGLAN PO PRN ×2 (14:24→18:11)
[2017-11-25] MEDS ORDERED: ZOFRAN IV PRN ×2 (14:24→18:11)
[2017-11-25] MEDS ORDERED: DULCOLAX PR PRN ×2 (14:24→18:11)
--- NOTE | 2017-11-25 14:42 | XRay Report ---
PORTABLE CHEST INDICATION: Altered mental status, labored respirations. COMPARISON: 08/15/2017 FINDINGS: Portable, frontal chest radiograph demonstrates stable cardiomediastinal silhouette/mild cardiomegaly, left subclavian dual-lumen catheter coursing through a stent medially with its tips at the cavoatrial junction, EKG leads, osseous structures and slight congestive/hazy appearance of the lungs with right lateral costophrenic angle blunting from possible pleural thickening or fluid. Pulmonary hypertension not excluded. CONCLUSION: No significant interval change in mild cardiomegaly and few other findings, as described. Please correlate. Thank you for the opportunity to participate in this patient's care.
--- NOTE | 2017-11-25 17:02 | Magnetic Resonance Report ---
FINAL REPORT PROCEDURE: MR BRAIN WO CON TECHNIQUE: Magnetic resonance imaging of the brain was performed without contrast material. HISTORY: stroke COMPARISON: No prior studies are available for comparison. FINDINGS: Skull base and calvarium: Normal. Paranasal sinuses: The visualized paranasal sinuses are clear. Cerebellum: No evidence of hemorrhage, ischemia or mass. Brainstem: No evidence of hemorrhage, ischemia or mass. Cerebrum: No evidence of hemorrhage, ischemia or mass. Ventricles: Normal in size and morphology for the patient's age. Pituitary gland and sella: Normal. Globes and orbits: Normal. Vasculature: Normal arterial and venous flow voids. Other: No evidence of acute stroke. No ischemia seen. No diffusion restriction. There is some T2 signal periventricular locations and deep white matter consistent with chronic microischemic change lacunar disease flair. IMPRESSION: No acute ischemic change
--- NOTE | 2017-11-25 17:05 | Magnetic Resonance Report ---
FINAL REPORT PROCEDURE: MR MRA/MRV HEAD WO CON TECHNIQUE: Axial 3-D [id number] MR angiography of the [place] and brain was performed. The source images were reconstructed in various views using maximum intensity projection. HISTORY: stroke COMPARISON: MRI brain today FINDINGS: Vertebral arteries: Normal. Basilar artery: Dominant right vertebral artery. Severely attenuated distal left vertebral artery with tandem areas of apparent occlusion of indeterminate chronicity. Examination limited by lack of IV contrast.. Internal carotid arteries: Normal. Anterior cerebral arteries: Normal. Middle cerebral arteries: Normal. Posterior cerebral arteries: Normal. Branch occlusions: None. Vascular malformations: None. IMPRESSION: Dominant right vertebral artery. Severely attenuated distal left vertebral artery with tandem areas of occlusion of indeterminate chronicity or significance
[2017-11-25] MEDS ORDERED: SODIUM CHLORIDE FLUSH SYRINGE 10 ML INJ PRN (18:11)
[2017-11-25] MEDS ORDERED: NACL 0.9% 100 ML IV PRN (22:14)
--- NOTE | 2017-11-25 22:15 | Consultation ---
History of Present Illness - Reason for Consult Consult date: 11/25/17 end stage renal disease, other (volume overload) - History of Present Illness The patient is a 52 YO Male with Type 2 DM, Uncontrolled HTN, CVA, CAD, GERD, ESRD on HD (M,W,F), Anemia and Medical non-compliance presented to ED for evaluation or AMS. Patient was found to be confused and lethargic with unsteady gait by home health aid. Patient didn't remember anything. Patient was transported to [facility] for evaluation and Code stroke was called. His initial BP was 198/121. He was last dialyzed on 11/21/17. He was out of town and missed a session of dialysis. His mental status is better now. Past History Past Medical History: anemia, diabetes, dialysis, ESRD, hypertension, other ( medical non-compliance) Medications and Allergies Allergies Allergy/AdvReac Type Severity Reaction Status Date / Time Penicillins Allergy Unknown Verified 05/28/17 17:08 Home Medications Medication Instructions Recorded Confirmed Last Taken Type Warfarin [Coumadin] 10 mg PO DAILY@1700 tablet 06/01/17 11/25/17 Unknown Rx Clonidine HCl [Catapres] 0.15 mg PO BID 08/16/17 11/25/17 Unknown History Warfarin [Coumadin] 12 mg PO 6XW 08/16/17 11/25/17 Unknown History Aspirin [Adult Low Dose Aspirin EC] 81 mg PO DAILY #30 tablet. 08/17/17 Unknown Rx AtorvaSTATin [Lipitor] 40 mg PO QDAY #30 tablet 08/17/17 11/25/17 Unknown Rx Calcium Acetate 668 mg PO TID #30 tablet 08/17/17 11/25/17 Unknown Rx Furosemide [Lasix TAB] 40 mg PO DAILY #30 tablet 08/17/17 11/25/17 Unknown Rx Lisinopril [Zestril TAB] 10 mg PO QDAY #30 tablet 08/17/17 11/25/17 Unknown Rx Metoprolol [Lopressor TAB] 50 mg PO TID #90 tablet 08/17/17 11/25/17 Unknown Rx NIFEdipine XL [Procardia Xl] 90 mg PO QDAY #30 tablet 08/17/17 11/25/17 Unknown Rx Active Meds: Active Medications Acetaminophen (Tylenol) 650 mg PO Q4H PRN PRN Reason: Pain, Mild (1-3) Bisacodyl (Dulcolax) 10 mg [place] QDAY PRN PRN Reason: Constipation Magnesium Hydroxide (Milk Of Magnesia) 30 ml PO Q4H PRN PRN Reason: Constipation Metoclopramide HCl (Reglan) 10 mg PO Q6H PRN PRN Reason: Nausea And Vomiting Ondansetron HCl (Zofran) 4 mg IV Q8H PRN PRN Reason: N/V unrelieved by Reglan Promethazine HCl (Phenergan) 25 mg [place] Q6H PRN PRN Reason: Nausea And Vomiting Sodium Chloride (Sodium Chloride Flush Syringe 10 Ml) 10 ml IV PRN PRN PRN Reason: LINE FLUSH Review of Systems Constitutional: no weight loss, no weight gain, no fever, no chills, no anorexia , no poor appetite Ears, nose, mouth and throat: no epistaxis Cardiovascular: edema, high blood pressure, leg edema, no chest pain, no orthopnea, no palpitations, no syncope, no shortness of breath Respiratory: no cough, no hemoptysis, no shortness of breath, no dyspnea on exertion Gastrointestinal: no abdominal pain, no nausea, no vomiting, no melena Genitourinary Male: no dysuria, no hematuria Rectal: no bleeding Integumentary: no jaundice Neurological: change in mentation, confusion, memory loss, no head injury, no paralysis, no weakness, no syncope, no double vision, no loss of vision Psychiatric: memory loss, disorientation Exam - Vital Signs Vital signs: Vital Signs Pulse Resp 84 18 11/25/17 12:02 11/25/17 12:02 - General Appearance General appearance: well-developed, well-nourished, appears stated age, other ( no distress, left IJ tunnel catheter) EENT: ATNC, PERRL, hearing intact, vision intact Neck: Present: neck supple, trachea midline Respiratory: Clear to Ascultation Heart: regular, S1S2, no murmurs Gastrointestinal: Present: normoactive bowel sounds. Absent: tenderness Integumentary: no rash, warm and dry Neurologic: no focal deficit, no asterixis, alert and oriented x3 Musculoskeletal: Present: other (trace pedal edema, chronic right UE swelling) Psychiatric: mood/affect appropriate Results - Lab Results 11/25/17 12:49 11/25/17 12:49 Most recent lab results Calcium 9.1 mg/dL (8.4-10.2) 11/25/17 12:49 Assessment and Plan 1. ESRD: Missed one session of HD. Plan to do hemodialysis tomorrow. 2. Uncontrolled HTN: Resume home meds. 3. Volume overload: UF with HD tomorrow as tolerated. 4. Anemia. 5. AMS: Improved. 6. Medical non-complaince: Compliance encouraged.
[2017-11-26 02:20] LABS: Bilirubin,Urine NEG (Negative); Blood,Urine SM (Negative); Color,Urine Straw (Yellow); Urobilinogen,Urine < 2.0 mg/dL (<2.0)
[2017-11-26 02:23] LABS: Amphetamine Screen,Urine PRESUMPTIVE NEGATIVE; Benzodiazepines Screen,Urine PRESUMPTIVE NEGATIVE; Cannabinoid Screen,Urine PRESUMPTIVE NEGATIVE; Cocaine Screen,Urine PRESUMPTIVE NEGATIVE; Methadone Screen,Urine PRESUMPTIVE NEGATIVE; Opiate Screen,Urine PRESUMPTIVE NEGATIVE
--- NOTE | 2017-11-26 06:27 | Progress Note ---
Assessment and Plan 1. ESRD: Missed one session of HD. Plan to do hemodialysis today. Vascular consulted for AVF / AVG placement. 2. Uncontrolled HTN: Resume home meds. UF with HD. 3. Volume overload: UF with HD tomorrow as tolerated. 4. Anemia: Epogen if BP is better. 5. AMS: Improved. 6. Medical non-complaince: Compliance encouraged. Subjective Date of service: 11/26/17 Interval history: Doing ok. Objective - Vital Signs Vital signs: Vital Signs - 12hr 11/25/17 11/25/17 11/25/17 18:30 19:00 19:30 Pulse Rate 74 83 71 Pulse Rate [ Apical] Respiratory 17 18 19 Rate Blood Pressure 152/94 137/86 135/81 O2 Sat by Pulse 92 95 96 Oximetry 11/25/17 11/25/17 11/25/17 19:41 19:51 20:29 Pulse Rate 80 75 73 Pulse Rate [ Apical] Respiratory 19 22 18 Rate Blood Pressure 135/81 135/81 145/89 O2 Sat by Pulse 95 97 93 Oximetry 11/25/17 11/25/17 11/26/17 20:31 22:00 00:08 Pulse Rate 74 64 Pulse Rate [ 72 Apical] Respiratory 20 18 Rate Blood Pressure 185/97 O2 Sat by Pulse 94 Oximetry 11/26/17 02:51 Pulse Rate Pulse Rate [ Apical] Respiratory Rate Blood Pressure 161/104 O2 Sat by Pulse Oximetry - General Appearance General appearance: well-developed, well-nourished, appears stated age, other ( no distress, left IJ tunnel catheter) EENT: ATNC, PERRL, hearing intact, vision intact Neck: supple Respiratory: Present: Clear to Ascultation Cardiology: regular, S1S2, no murmurs Gastrointestinal: normoactive bowel sounds, no tenderness Integumentary: no rash, warm and dry Neurologic: no focal deficit, no asterixis, alert and oriented x3 Musculoskeletal: other (no edema) Psychiatric: mood/affect appropriate, cooperative - Lab 11/25/17 12:49 11/25/17 12:49 Most recent lab results Calcium 9.1 mg/dL (8.4-10.2) 11/25/17 12:49
[2017-11-26 06:51] LABS: Chol/HDL Ratio 2.31 %
[2017-11-26] MEDS ORDERED: NACL 0.9 (PRIMING MACHINE ONLY DIALYSIS) MC ONE (12:52)
--- NOTE | 2017-11-26 14:10 | Progress Note ---
Assessment and Plan Assessment and plan: Patient is a 52-year-old man with a history of hypertension, end-stage renal disease on hemodialysis who presents with altered mental status. Acute stroke ruled out. Patient says he missed hemodialysis time because he was [place] late, then he developed acute short of breath and passed out. He refutes disorientation/ams/ataxia. Currently is on 2 L oxygen but he still feels fluid overload -Acute hypoxic respiratory failure due to fluid overload from noncompliance missing dialysis, poa: Continue to wean off OXYGEN -End-stage renal disease needing dialysis: Nephrology is following -Acute metabolic encephalopathy due to above -Syncopal episode due to hypoxia: Treated with oxygen -Noncompliance: Counseling done -Anemia chronic disease: Monitor CBC closely History Interval history: Patient was seen and examined. Follow-up on current diagnosis of shortness of breath. Overnight uneventful. Patient denies any chest pain, nausea/vomiting or severe headaches. Imaging, nursing note, chart, labs and old chart reviewed. Discussed with patient. Hospitalist Physical - Physical exam Narrative exam: GEN: WDWN, NAD, AWAKE, ALERT, ORIENTATED 3 HEENT: NCAT, EOMI, PERRL, OP Clear NECK: supple, no adenopathy, no thyromegaly, no JVD CVS/HEART: RRR, NORMAL S1S2, pulses present bilaterally CHEST/LUNGS: Diminished breath sounds bilateral crackles Symmetrical chest expansion, good air entry bilaterally GI/Abdomen: soft, NTND, good bowel sounds, no guarding or rebound /Bladder: no suprapubic tenderness, no CVA or paraspinal tenderness EXT/Skin: no c/c/e, no obvious rash MSK: FROM x 4 Neuro: CN 2-12 grossly intact, no new focal deficits Psych: calm - Constitutional Vitals: Temp Pulse Resp BP Pulse Ox 98.2 F 72 16 196/117 96 11/26/17 11:25 11/26/17 13:45 11/26/17 11:25 11/26/17 13:45 11/26/17 05:25 General appearance: Absent: mild distress Results - Labs CBC & Chem 7: 11/25/17 12:49 11/25/17 12:49 Labs: Laboratory Last Values WBC 5.6 K/mm3 (4.5-11.0) 11/25/17 12:49 RBC 3.02 M/mm3 (3.65-5.03) L 11/25/17 12:49 Hgb 9.0 gm/dl (11.8-15.2) L 11/25/17 12:49 Hct 27.3 % (35.5-45.6) L 11/25/17 12:49 MCV 90 fl (84-94) 11/25/17 12:49 MCH 30 pg (28-32) 11/25/17 12:49 MCHC 33 % (32-34) 11/25/17 12:49 RDW 16.3 % (13.2-15.2) H 11/25/17 12:49 Plt Count 148 K/mm3 (140-440) 11/25/17 12:49 Lymph % (Auto) 15.5 % (13.4-35.0) 11/25/17 12:49 [place] % (Auto) 6.8 % (0.0-7.3) 11/25/17 12:49 Eos % (Auto) 6.0 % (0.0-4.3) H 11/25/17 12:49 Baso % (Auto) 1.0 % (0.0-1.8) 11/25/17 12:49 Lymph # 0.9 K/mm3 (1.2-5.4) L 11/25/17 12:49 [place] # 0.4 K/mm3 (0.0-0.8) 11/25/17 12:49 Eos # 0.3 K/mm3 (0.0-0.4) 11/25/17 12:49 Baso # 0.1 K/mm3 (0.0-0.1) 11/25/17 12:49 Seg Neutrophils % 70.7 % (40.0-70.0) H 11/25/17 12:49 Seg Neutrophils # 3.9 K/mm3 (1.8-7.7) 11/25/17 12:49 PT 14.1 Sec. (12.2-14.9) 11/25/17 13:25 INR 1.04 (0.87-1.13) 11/25/17 13:25 APTT 32.0 Sec. (24.2-36.6) 11/25/17 13:25 Sodium 137 mmol/L (137-145) 11/25/17 12:49 Potassium 4.5 mmol/L (3.6-5.0) 11/25/17 12:49 Chloride 96.4 mmol/L (98-107) L 11/25/17 12:49 Carbon Dioxide 23 mmol/L (22-30) 11/25/17 12:49 Anion Gap 22 mmol/L 11/25/17 12:49 BUN 57 mg/dL (9-20) H 11/25/17 12:49 Creatinine 13.0 mg/dL (0.8-1.5) H 11/25/17 12:49 Estimated GFR 5 ml/min 11/25/17 12:49 BUN/Creatinine Ratio 4 % 11/25/17 12:49 Glucose 88 mg/dL (75-100) 11/25/17 12:49 POC Glucose 79 (70-105) 11/26/17 08:03 Lactic Acid 0.50 mmol/L (0.7-2.0) L 11/25/17 14:31 Calcium 9.1 mg/dL (8.4-10.2) 11/25/17 12:49 Total Bilirubin 0.40 mg/dL (0.1-1.2) 11/25/17 12:49 AST 13 units/L (5-40) 11/25/17 12:49 ALT 9 units/L (7-56) 11/25/17 12:49 Alkaline Phosphatase 69 units/L (35-129) 11/25/17 12:49 Total Protein 6.0 g/dL (6.3-8.2) L 11/25/17 12:49 Albumin 3.2 g/dL (3.9-5) L 11/25/17 12:49 Albumin/Globulin Ratio 1.1 % 11/25/17 12:49 Triglycerides 95 mg/dL (2-149) 11/26/17 05:46 Cholesterol 146 mg/dL (50-199) 11/26/17 05:46 LDL Cholesterol Direct 64 mg/dL (50-130) 11/26/17 05:46 HDL Cholesterol 63 mg/dL (40-59) H 11/26/17 05:46 Cholesterol/HDL Ratio 2.31 % 11/26/17 05:46 TSH 3.820 mlU/mL (0.270-4.200) 11/25/17 12:49 Urine Color Straw (Yellow) 11/26/17 01:57 Urine Turbidity Clear (Clear) 11/26/17 01:57 Urine pH 8.0 (5.0-7.0) H 11/26/17 01:57 Ur Specific [place] 1.005 (1.003-1.030) 11/26/17 01:57 Urine Protein 100 mg/dl mg/dL (Negative) 11/26/17 01:57 Urine Glucose (UA) 50 mg/dL (Negative) 11/26/17 01:57 Urine Ketones Neg mg/dL (Negative) 11/26/17 01:57 Urine Blood Sm (Negative) 11/26/17 01:57 Urine Nitrite Neg (Negative) 11/26/17 01:57 Urine Bilirubin Neg (Negative) 11/26/17 01:57 Urine Urobilinogen < 2.0 mg/dL (<2.0) 11/26/17 01:57 Ur Leukocyte Esterase Neg (Negative) 11/26/17 01:57 Urine WBC (Auto) 3.0 /HPF (0.0-6.0) 11/26/17 01:57 Urine RBC (Auto) 1.0 /HPF (0.0-6.0) 11/26/17 01:57 U Epithel Cells (Auto) < 1.0 /HPF (0-13.0) 11/26/17 01:57 Urine Opiates Screen Presumptive negative 11/26/17 01:57 Urine Methadone Screen Presumptive negative 11/26/17 01:57 Ur Barbiturates Screen Presumptive negative 11/26/17 01:57 Ur Phencyclidine Scrn Presumptive negative 11/26/17 01:57 Ur Amphetamines Screen Presumptive negative 11/26/17 01:57 U Benzodiazepines Scrn Presumptive negative 11/26/17 01:57 Urine Cocaine Screen Presumptive negative 11/26/17 01:57 U Marijuana (THC) Screen Presumptive negative 11/26/17 01:57 Drugs of Abuse Note Disclamer 11/26/17 01:57 Plasma/Serum Alcohol < 0.01 % (0-0.07) 11/25/17 12:49
[2017-11-26] MEDS: HEPARIN IV PRN (15:28)
--- NOTE | 2017-11-26 18:28 | Consultation ---
History of Present Illness - Reason for Consult Consult date: 11/26/17 AV access creation Requesting physician: LEATHA TURNER - History of Present Illness 52-year-old male with end-stage renal disease who reports that he has had "over 10 surgeries in the last few years" with the most recent procedures performed by Dr. Banda of [place]. The patient is a left sided PermCath placement. On physical examination, the patient has a swollen left upper extremity, with a palpable pulse in the area of supposed explantation per patient. He has a palpable left and right radial and ulnar pulse. Past History Past Medical History: DVT, ESRD, GERD, hypertension, stroke Past Surgical History: Other (Permacath, AVF) Social history: single. denies: smoking, alcohol abuse, prescription drug abuse Family history: hypertension Medications and Allergies Allergies Allergy/AdvReac Type Severity Reaction Status Date / Time Penicillins Allergy Unknown Verified 05/28/17 17:08 Home Medications Medication Instructions Recorded Confirmed Last Taken Type Warfarin [Coumadin] 10 mg PO DAILY@1700 tablet 06/01/17 11/25/17 Unknown Rx Clonidine HCl [Catapres] 0.15 mg PO BID 08/16/17 11/25/17 Unknown History Warfarin [Coumadin] 12 mg PO 6XW 08/16/17 11/25/17 Unknown History Aspirin [Adult Low Dose Aspirin EC] 81 mg PO DAILY #30 tablet. 08/17/17 Unknown Rx AtorvaSTATin [Lipitor] 40 mg PO QDAY #30 tablet 08/17/17 11/25/17 Unknown Rx Calcium Acetate 668 mg PO TID #30 tablet 08/17/17 11/25/17 Unknown Rx Furosemide [Lasix TAB] 40 mg PO DAILY #30 tablet 08/17/17 11/25/17 Unknown Rx Lisinopril [Zestril TAB] 10 mg PO QDAY #30 tablet 08/17/17 11/25/17 Unknown Rx Metoprolol [Lopressor TAB] 50 mg PO TID #90 tablet 08/17/17 11/25/17 Unknown Rx NIFEdipine XL [Procardia Xl] 90 mg PO QDAY #30 tablet 08/17/17 11/25/17 Unknown Rx Active Meds: Active Medications Acetaminophen (Tylenol) 650 mg PO Q4H PRN PRN Reason: Pain, Mild (1-3) Bisacodyl (Dulcolax) 10 mg DE QDAY PRN PRN Reason: Constipation Heparin Sodium (Porcine) (Heparin) 5,000 unit IV SANDHYA PRN PRN Reason: x2 for heparin dwell Last Admin: 11/26/17 15:28 Dose: 5,000 unit Sodium Chloride (Nacl 0.9%) 100 mls @ 999 mls/hr IV SANDHYA PRN PRN Reason: Hypotension Magnesium Hydroxide (Milk Of Magnesia) 30 ml PO Q4H PRN PRN Reason: Constipation Metoclopramide HCl (Reglan) 10 mg PO Q6H PRN PRN Reason: Nausea And Vomiting Ondansetron HCl (Zofran) 4 mg IV Q8H PRN PRN Reason: N/V unrelieved by Reglan Promethazine HCl (Phenergan) 25 mg DE Q6H PRN PRN Reason: Nausea And Vomiting Sodium Chloride (Sodium Chloride Flush Syringe 10 Ml) 10 ml IV PRN PRN PRN Reason: LINE FLUSH Review of Systems All systems: negative (see HPI) Exam - Constitutional Vitals: Temp Pulse Resp BP Pulse Ox 98.5 F 77 16 184/133 96 11/26/17 14:30 11/26/17 14:30 11/26/17 14:30 11/26/17 14:30 11/26/17 05:25 General appearance: Present: no acute distress - EENT Eyes: Present: EOM intact ENT: hearing intact - Respiratory Respiratory effort: normal - Extremities Extremities: normal temperature, normal color, abnormal (see HPI) Extremity abnormal: edema (LUE) Results - Labs CBC & Chem 7: 11/25/17 12:49 11/25/17 12:49 Labs: Abnormal lab results 11/25/17 11/26/17 11/26/17 Range/Units 22:20 01:57 05:46 POC Glucose 133 H (70-105) HDL Cholesterol 63 H (40-59) mg/dL Urine pH 8.0 H (5.0-7.0) 11/26/17 Range/Units 16:09 POC Glucose 62 L (70-105) HDL Cholesterol (40-59) mg/dL Urine pH (5.0-7.0) Assessment and Plan 52-year-old male with end-stage renal disease, left upper extremity internal jugular PermCath, swelling of the left upper extremity, and multiple explantation's of the left arm with a palpable pulse in an area of suppose it explantation. Based on conversation with patient, and patient's chronic left upper extremity swelling, further accesses would need to be created in the right upper extremity. Recommend vein mapping in order to assess patient for future dialysis access. Recommend ultrasound of the left upper extremity to assess for possible pseudoaneurysm at area of explantation. Recommend CT of the chest with contrast due to swelling of the left upper extremity concerning for possible central occlusions. Discuss this with Dr. Turner who is okay with CT with contrast being performed today. Further recommendations after tests.
[2017-11-26] MEDS: LOPRESSOR PO SCH (21:25)
[2017-11-26] MEDS ORDERED: NACL ONE (21:46)
--- NOTE | 2017-11-26 23:24 | Cat Scan Report ---
FINAL REPORT PROCEDURE: CT CHEST W CON TECHNIQUE: Computerized axial tomography of the chest was performed during the IV injection of iodinated nonionic contrast. HISTORY: LUE swelling, concern for central venous occlusion COMPARISON: No prior studies are available for comparison. TECHNICAL QUALITY: Satisfactory. FINDINGS: There is a left-sided central catheter that ends in the SVC. Heart and pericardium: Normal. Thoracic aorta: Mild atherosclerosis of the aorta. No aneurysm or dissection. Pulmonary vasculature: Normal. Lymph nodes: No enlarged thoracic lymph nodes. Lungs: Minimal atelectasis bilateral lower lungs. Slight pleural thickening left lower lung.. Pleural space: Slight pleural thickening left lower lung. No effusion or pneumothorax. Musculoskeletal structures: No significant abnormality. IMPRESSION: Minimal atelectasis bilateral lower lungs. There is slight pleural thickening in the left lower lung.
[2017-11-27] MEDS: PROCARDIA XL PO SCH ×2 (00:42→09:06)
[2017-11-27] MEDS ORDERED: APRESOLINE IV PRN (02:37)
[2017-11-27] MEDS ORDERED: CARDENE 50 MG in NACL 0.9% 250ML 230 ML IV SCH (05:00)
[2017-11-27] MEDS: LOPRESSOR PO SCH ×3 (08:24→23:10)
--- NOTE | 2017-11-27 09:18 | Progress Note ---
Assessment and Plan 1. ESRD: Patient was last dialyzed yesterday. Plan to do hemodialysis today. Vascular consulted for AVF / AVG placement. 2. Uncontrolled HTN: Continue home meds. UF with HD. 3. Volume overload: Improved with HD. 4. Anemia: Epogen if BP is better. 5. AMS: Improved. MRI / MRA no acute process. 6. Medical non-compliance: Compliance encouraged. Subjective Date of service: 11/27/17 Interval history: Doing ok. Patient was seen and examined at the bedside in ICU. Objective - Vital Signs Vital signs: Vital Signs - 12hr 11/26/17 11/26/17 11/26/17 21:25 22:10 23:56 Temperature 98.0 F Pulse Rate 86 89 Pulse Rate [ 86 Apical] Respiratory 20 18 Rate Blood Pressure 201/121 Blood Pressure 226/130 [Left] O2 Sat by Pulse 95 Oximetry 11/27/17 11/27/17 11/27/17 02:49 04:46 04:47 Temperature 98.4 F Pulse Rate 20 L 82 86 Pulse Rate [ Apical] Respiratory 20 Rate Blood Pressure 213/138 Blood Pressure 224/130 224/138 [Left] O2 Sat by Pulse 98 Oximetry 11/27/17 11/27/17 08:00 08:24 Temperature 98.3 F Pulse Rate 99 H Pulse Rate [ Apical] Respiratory Rate Blood Pressure 169/100 Blood Pressure [Left] O2 Sat by Pulse Oximetry - General Appearance General appearance: well-developed, well-nourished, appears stated age, other ( no distress, left IJ tunnel catheter) EENT: ATNC, PERRL, hearing intact, vision intact Neck: supple Respiratory: Present: Clear to Ascultation Cardiology: regular, S1S2, no murmurs Gastrointestinal: normoactive bowel sounds Integumentary: no rash, warm and dry Neurologic: no focal deficit, no asterixis, alert and oriented x3 Musculoskeletal: other (no edema) Psychiatric: mood/affect appropriate - Lab 11/25/17 12:49 11/25/17 12:49 Most recent lab results Calcium 9.1 mg/dL (8.4-10.2) 11/25/17 12:49
[2017-11-27] MEDS ORDERED: NACL 0.9% 100 ML IV PRN (09:43)
[2017-11-27] MEDS: ZESTRIL PO SCH (10:39)
[2017-11-27] MEDS: LASIX PO SCH (10:40)
--- NOTE | 2017-11-27 13:08 | Progress Note ---
Assessment and Plan Assessment and plan: Patient is a 52-year-old man with a history of hypertension, end-stage renal disease on hemodialysis who presents with altered mental status. Acute stroke ruled out. Patient says he missed hemodialysis time because he was [place], then he developed acute short of breath and passed out. He refutes disorientation/ams/ataxia. Currently is on 2 L oxygen but he still feels fluid overload -Acute hypoxic respiratory failure due to fluid overload from noncompliance missing dialysis, poa: Continue to wean off OXYGEN -End-stage renal disease needing dialysis: Nephrology is following -Acute metabolic encephalopathy due to above -Syncopal episode due to hypoxia: Treated with oxygen -Noncompliance: Counseling done -Anemia chronic disease: Monitor CBC closely -HTN urgency: adjust antihypertensives, Dr. Wells is aware -DVT prophylaxis: scd for now due to htn urgency and anemia full code per Vascular surgery, Dr. Olivas: "52-year-old male with end-stage renal disease, left upper extremity internal jugular PermCath, swelling of the left upper extremity, and multiple explantation's of the left arm with a palpable pulse in an area of suppose it explantation. Based on conversation with patient, and patient's chronic left upper extremity swelling, further accesses would need to be created in the right upper extremity. Recommend vein mapping in order to assess patient for future dialysis access. Recommend ultrasound of the left upper extremity to assess for possible pseudoaneurysm at area of explantation. Recommend CT of the chest with contrast due to swelling of the left upper extremity concerning for possible central occlusions. Discuss this with Dr. Wells who is okay with CT with contrast being performed today. Further recommendations after tests." 11/27/17: transfer to icu overnight for uncontrolled hypertension, Cardene never started, bp improved, will transfer out of icu History Interval history: Patient was seen and examined. Follow-up on current diagnosis of shortness of breath which is improving. Overnight was eventful with uncontrolled hypertension requiring transfer to ICU for Cardene drip which was never started. Patient denies any chest pain, nausea/vomiting or severe headaches. Imaging, nursing note, chart, labs and old chart reviewed. Discussed with patient. Hospitalist Physical - Physical exam Narrative exam: GEN: WDWN, NAD, AWAKE, ALERT, ORIENTATED 3 HEENT: NCAT, EOMI, PERRL, OP Clear NECK: supple, no adenopathy, no thyromegaly, no JVD CVS/HEART: RRR, NORMAL S1S2, pulses present bilaterally CHEST/LUNGS: Diminished breath sounds bilateral crackles Symmetrical chest expansion, good air entry bilaterally GI/Abdomen: soft, NTND, good bowel sounds, no guarding or rebound /Bladder: no suprapubic tenderness, no CVA or paraspinal tenderness EXT/Skin: no c/c/e, no obvious rash MSK: FROM x 4 Neuro: CN 2-12 grossly intact, no new focal deficits Psych: calm - Constitutional Vitals: Temp Pulse Resp BP Pulse Ox 98.3 F 89 15 154/98 95 11/27/17 08:00 11/27/17 10:40 11/27/17 10:40 11/27/17 10:40 11/27/17 10:40 General appearance: Present: no acute distress Results - Labs CBC & Chem 7: 11/25/17 12:49 11/25/17 12:49 Labs: Laboratory Last Values WBC 5.6 K/mm3 (4.5-11.0) 11/25/17 12:49 RBC 3.02 M/mm3 (3.65-5.03) L 11/25/17 12:49 Hgb 9.0 gm/dl (11.8-15.2) L 11/25/17 12:49 Hct 27.3 % (35.5-45.6) L 11/25/17 12:49 MCV 90 fl (84-94) 11/25/17 12:49 MCH 30 pg (28-32) 11/25/17 12:49 MCHC 33 % (32-34) 11/25/17 12:49 RDW 16.3 % (13.2-15.2) H 11/25/17 12:49 Plt Count 148 K/mm3 (140-440) 11/25/17 12:49 Lymph % (Auto) 15.5 % (13.4-35.0) 11/25/17 12:49 [place] % (Auto) 6.8 % (0.0-7.3) 11/25/17 12:49 Eos % (Auto) 6.0 % (0.0-4.3) H 11/25/17 12:49 Baso % (Auto) 1.0 % (0.0-1.8) 11/25/17 12:49 Lymph # 0.9 K/mm3 (1.2-5.4) L 11/25/17 12:49 [place] # 0.4 K/mm3 (0.0-0.8) 11/25/17 12:49 Eos # 0.3 K/mm3 (0.0-0.4) 11/25/17 12:49 Baso # 0.1 K/mm3 (0.0-0.1) 11/25/17 12:49 Seg Neutrophils % 70.7 % (40.0-70.0) H 11/25/17 12:49 Seg Neutrophils # 3.9 K/mm3 (1.8-7.7) 11/25/17 12:49 PT 14.1 Sec. (12.2-14.9) 11/25/17 13:25 INR 1.04 (0.87-1.13) 11/25/17 13:25 APTT 32.0 Sec. (24.2-36.6) 11/25/17 13:25 Sodium 137 mmol/L (137-145) 11/25/17 12:49 Potassium 4.5 mmol/L (3.6-5.0) 11/25/17 12:49 Chloride 96.4 mmol/L (98-107) L 11/25/17 12:49 Carbon Dioxide 23 mmol/L (22-30) 11/25/17 12:49 Anion Gap 22 mmol/L 11/25/17 12:49 BUN 57 mg/dL (9-20) H 11/25/17 12:49 Creatinine 13.0 mg/dL (0.8-1.5) H 11/25/17 12:49 Estimated GFR 5 ml/min 11/25/17 12:49 BUN/Creatinine Ratio 4 % 11/25/17 12:49 Glucose 88 mg/dL (75-100) 11/25/17 12:49 POC Glucose 144 (70-105) H 11/26/17 21:36 Lactic Acid 0.50 mmol/L (0.7-2.0) L 11/25/17 14:31 Calcium 9.1 mg/dL (8.4-10.2) 11/25/17 12:49 Total Bilirubin 0.40 mg/dL (0.1-1.2) 11/25/17 12:49 AST 13 units/L (5-40) 11/25/17 12:49 ALT 9 units/L (7-56) 11/25/17 12:49 Alkaline Phosphatase 69 units/L (35-129) 11/25/17 12:49 Total Protein 6.0 g/dL (6.3-8.2) L 11/25/17 12:49 Albumin 3.2 g/dL (3.9-5) L 11/25/17 12:49 Albumin/Globulin Ratio 1.1 % 11/25/17 12:49 Triglycerides 95 mg/dL (2-149) 11/26/17 05:46 Cholesterol 146 mg/dL (50-199) 11/26/17 05:46 LDL Cholesterol Direct 64 mg/dL (50-130) 11/26/17 05:46 HDL Cholesterol 63 mg/dL (40-59) H 11/26/17 05:46 Cholesterol/HDL Ratio 2.31 % 11/26/17 05:46 TSH 3.820 mlU/mL (0.270-4.200) 11/25/17 12:49 Urine Color Straw (Yellow) 11/26/17 01:57 Urine Turbidity Clear (Clear) 11/26/17 01:57 Urine pH 8.0 (5.0-7.0) H 11/26/17 01:57 Ur Specific [place] 1.005 (1.003-1.030) 11/26/17 01:57 Urine Protein 100 mg/dl mg/dL (Negative) 11/26/17 01:57 Urine Glucose (UA) 50 mg/dL (Negative) 11/26/17 01:57 Urine Ketones Neg mg/dL (Negative) 11/26/17 01:57 Urine Blood Sm (Negative) 11/26/17 01:57 Urine Nitrite Neg (Negative) 11/26/17 01:57 Urine Bilirubin Neg (Negative) 11/26/17 01:57 Urine Urobilinogen < 2.0 mg/dL (<2.0) 11/26/17 01:57 Ur Leukocyte Esterase Neg (Negative) 11/26/17 01:57 Urine WBC (Auto) 3.0 /HPF (0.0-6.0) 11/26/17 01:57 Urine RBC (Auto) 1.0 /HPF (0.0-6.0) 11/26/17 01:57 U Epithel Cells (Auto) < 1.0 /HPF (0-13.0) 11/26/17 01:57 Urine Opiates Screen Presumptive negative 11/26/17 01:57 Urine Methadone Screen Presumptive negative 11/26/17 01:57 Ur Barbiturates Screen Presumptive negative 11/26/17 01:57 Ur Phencyclidine Scrn Presumptive negative 11/26/17 01:57 Ur Amphetamines Screen Presumptive negative 11/26/17 01:57 U Benzodiazepines Scrn Presumptive negative 11/26/17 01:57 Urine Cocaine Screen Presumptive negative 11/26/17 01:57 U Marijuana (THC) Screen Presumptive negative 11/26/17 01:57 Drugs of Abuse Note Disclamer 11/26/17 01:57 Plasma/Serum Alcohol < 0.01 % (0-0.07) 11/25/17 12:49
[2017-11-27] MEDS ORDERED: CATAPRES PO ONE (16:30)
[2017-11-27] MEDS ORDERED: NACL 0.9 (PRIMING MACHINE ONLY DIALYSIS) MC ONE (16:55)
[2017-11-27] MEDS: HEPARIN IV PRN (17:21)
[2017-11-28] MEDS: CATAPRES PO PRN (01:40)
[2017-11-28] MEDS: LOPRESSOR PO SCH ×3 (11:10→21:21)
[2017-11-28] MEDS: LASIX PO SCH (11:10)
[2017-11-28] MEDS: PROCARDIA XL PO SCH (11:10)
[2017-11-28] MEDS: ZESTRIL PO SCH (11:11)
[2017-11-28 13:46] LABS: Hematocrit 32.1 % (35.5-45.6); Hemoglobin 10.9 gm/dl (11.8-15.2); Mean Corpuscular HGB Conc 34 % (32-34); Mean Corpuscular Hemoglobin 30 pg (28-32); Mean Corpuscular Volume 89 fl (84-94); Platelet Count 165 K/mm3 (140-440)
[2017-11-28 14:09] LABS: Calcium 9.1 mg/dL (8.4-10.2)
--- NOTE | 2017-11-28 14:11 | Progress Note ---
Assessment and Plan Assessment and plan: Patient is a 52-year-old man with a history of hypertension, end-stage renal disease on hemodialysis who presents with altered mental status. Acute stroke ruled out. Patient says he missed hemodialysis time because he was returned from [place] too late, then he developed acute short of breath and passed out. He refutes disorientation/ams/ataxia. Currently is on 2 L oxygen but he still feels fluid overload -Acute hypoxic respiratory failure due to fluid overload from noncompliance missing dialysis, poa: Continue to wean off OXYGEN -End-stage renal disease needing dialysis: Nephrology is following -Acute metabolic encephalopathy due to above -Syncopal episode due to hypoxia: Treated with oxygen -Noncompliance: Counseling done -Anemia chronic disease: Monitor CBC closely -HTN urgency: adjust antihypertensives, Dr. Wells is aware -DVT prophylaxis: scd for now due to htn urgency and anemia full code per Vascular surgery, Dr. Olivas: "52-year-old male with end-stage renal disease, left upper extremity internal jugular PermCath, swelling of the left upper extremity, and multiple explantation's of the left arm with a palpable pulse in an area of suppose it explantation. Based on conversation with patient, and patient's chronic left upper extremity swelling, further accesses would need to be created in the right upper extremity. Recommend vein mapping in order to assess patient for future dialysis access. Recommend ultrasound of the left upper extremity to assess for possible pseudoaneurysm at area of explantation. Recommend CT of the chest with contrast due to swelling of the left upper extremity concerning for possible central occlusions. Discuss this with Dr. Wells who is okay with CT with contrast being performed today. Further recommendations after tests." 11/27/17: transfer to icu overnight for uncontrolled hypertension, Cardene never started, bp improved, will transfer out of icu Going for AV Graft History Interval history: Patient was seen and examined. Follow-up on current diagnosis of shortness of breath which is improving. Overnight was eventful with uncontrolled hypertension requiring transfer to ICU for Cardene drip which was never started. Patient denies any chest pain, nausea/vomiting or severe headaches. Imaging, nursing note, chart, labs and old chart reviewed. Discussed with patient. Hospitalist Physical - Physical exam Narrative exam: GEN: WDWN, NAD, AWAKE, ALERT, ORIENTATED 3 HEENT: NCAT, EOMI, PERRL, OP Clear NECK: supple, no adenopathy, no thyromegaly, no JVD CVS/HEART: RRR, NORMAL S1S2, pulses present bilaterally CHEST/LUNGS: Diminished breath sounds bilateral crackles Symmetrical chest expansion, good air entry bilaterally GI/Abdomen: soft, NTND, good bowel sounds, no guarding or rebound /Bladder: no suprapubic tenderness, no CVA or paraspinal tenderness EXT/Skin: no c/c/e, no obvious rash MSK: FROM x 4 Neuro: CN 2-12 grossly intact, no new focal deficits Psych: calm - Constitutional Vitals: Temp Pulse Resp BP Pulse Ox 98.5 F 81 18 176/110 91 11/28/17 04:50 11/28/17 04:50 11/28/17 04:50 11/28/17 11:11 11/28/17 04:50 General appearance: Present: no acute distress Results - Labs CBC & Chem 7: 11/28/17 13:11 11/28/17 13:11 Labs: Laboratory Last Values WBC 3.4 K/mm3 (4.5-11.0) L 11/28/17 13:11 RBC 3.60 M/mm3 (3.65-5.03) L 11/28/17 13:11 Hgb 10.9 gm/dl (11.8-15.2) L 11/28/17 13:11 Hct 32.1 % (35.5-45.6) L 11/28/17 13:11 MCV 89 fl (84-94) 11/28/17 13:11 MCH 30 pg (28-32) 11/28/17 13:11 MCHC 34 % (32-34) 11/28/17 13:11 RDW 17.0 % (13.2-15.2) H 11/28/17 13:11 Plt Count 165 K/mm3 (140-440) 11/28/17 13:11 Lymph % (Auto) 15.5 % (13.4-35.0) 11/25/17 12:49 [place] % (Auto) 6.8 % (0.0-7.3) 11/25/17 12:49 Eos % (Auto) 6.0 % (0.0-4.3) H 11/25/17 12:49 Baso % (Auto) 1.0 % (0.0-1.8) 11/25/17 12:49 Lymph # 0.9 K/mm3 (1.2-5.4) L 11/25/17 12:49 [place] # 0.4 K/mm3 (0.0-0.8) 11/25/17 12:49 Eos # 0.3 K/mm3 (0.0-0.4) 11/25/17 12:49 Baso # 0.1 K/mm3 (0.0-0.1) 11/25/17 12:49 Seg Neutrophils % 70.7 % (40.0-70.0) H 11/25/17 12:49 Seg Neutrophils # 3.9 K/mm3 (1.8-7.7) 11/25/17 12:49 PT 14.1 Sec. (12.2-14.9) 11/25/17 13:25 INR 1.04 (0.87-1.13) 11/25/17 13:25 APTT 32.0 Sec. (24.2-36.6) 11/25/17 13:25 Sodium 141 mmol/L (137-145) 11/28/17 13:11 Potassium 4.3 mmol/L (3.6-5.0) 11/28/17 13:11 Chloride 97.8 mmol/L (98-107) L 11/28/17 13:11 Carbon Dioxide 25 mmol/L (22-30) 11/28/17 13:11 Anion Gap 23 mmol/L 11/28/17 13:11 BUN 40 mg/dL (9-20) H 11/28/17 13:11 Creatinine 11.0 mg/dL (0.8-1.5) H 11/28/17 13:11 Estimated GFR 6 ml/min 11/28/17 13:11 BUN/Creatinine Ratio 4 % 11/28/17 13:11 Glucose 113 mg/dL (75-100) H 11/28/17 13:11 POC Glucose 149 (70-105) H 11/28/17 11:10 Lactic Acid 0.50 mmol/L (0.7-2.0) L 11/25/17 14:31 Calcium 9.1 mg/dL (8.4-10.2) 11/28/17 13:11 Total Bilirubin 0.40 mg/dL (0.1-1.2) 11/25/17 12:49 AST 13 units/L (5-40) 11/25/17 12:49 ALT 9 units/L (7-56) 11/25/17 12:49 Alkaline Phosphatase 69 units/L (35-129) 11/25/17 12:49 Total Protein 6.0 g/dL (6.3-8.2) L 11/25/17 12:49 Albumin 3.2 g/dL (3.9-5) L 11/25/17 12:49 Albumin/Globulin Ratio 1.1 % 11/25/17 12:49 Triglycerides 95 mg/dL (2-149) 11/26/17 05:46 Cholesterol 146 mg/dL (50-199) 11/26/17 05:46 LDL Cholesterol Direct 64 mg/dL (50-130) 11/26/17 05:46 HDL Cholesterol 63 mg/dL (40-59) H 11/26/17 05:46 Cholesterol/HDL Ratio 2.31 % 11/26/17 05:46 TSH 3.820 mlU/mL (0.270-4.200) 11/25/17 12:49 Urine Color Straw (Yellow) 11/26/17 01:57 Urine Turbidity Clear (Clear) 11/26/17 01:57 Urine pH 8.0 (5.0-7.0) H 11/26/17 01:57 Ur Specific [place] 1.005 (1.003-1.030) 11/26/17 01:57 Urine Protein 100 mg/dl mg/dL (Negative) 11/26/17 01:57 Urine Glucose (UA) 50 mg/dL (Negative) 11/26/17 01:57 Urine Ketones Neg mg/dL (Negative) 11/26/17 01:57 Urine Blood Sm (Negative) 11/26/17 01:57 Urine Nitrite Neg (Negative) 11/26/17 01:57 Urine Bilirubin Neg (Negative) 11/26/17 01:57 Urine Urobilinogen < 2.0 mg/dL (<2.0) 11/26/17 01:57 Ur Leukocyte Esterase Neg (Negative) 11/26/17 01:57 Urine WBC (Auto) 3.0 /HPF (0.0-6.0) 11/26/17 01:57 Urine RBC (Auto) 1.0 /HPF (0.0-6.0) 11/26/17 01:57 U Epithel Cells (Auto) < 1.0 /HPF (0-13.0) 11/26/17 01:57 Urine Opiates Screen Presumptive negative 11/26/17 01:57 Urine Methadone Screen Presumptive negative 11/26/17 01:57 Ur Barbiturates Screen Presumptive negative 11/26/17 01:57 Ur Phencyclidine Scrn Presumptive negative 11/26/17 01:57 Ur Amphetamines Screen Presumptive negative 11/26/17 01:57 U Benzodiazepines Scrn Presumptive negative 11/26/17 01:57 Urine Cocaine Screen Presumptive negative 11/26/17 01:57 U Marijuana (THC) Screen Presumptive negative 11/26/17 01:57 Drugs of Abuse Note Disclamer 11/26/17 01:57 Plasma/Serum Alcohol < 0.01 % (0-0.07) 11/25/17 12:49
--- NOTE | 2017-11-28 14:41 | Progress Note ---
Assessment and Plan 1. ESRD: Patient was last dialyzed yesterday. Plan to do hemodialysis tomorrow. Vascular consulted for AVF / AVG placement. 2. Uncontrolled HTN: Increase Lisinopril. UF with HD. 3. Volume overload: Improved with HD. 4. Anemia: Epogen as needed. 5. AMS: Improved. MRI / MRA no acute process. 6. Medical non-compliance: Compliance encouraged. Subjective Date of service: 11/28/17 Interval history: Patient is doing ok. Objective - Vital Signs Vital signs: Vital Signs - 12hr 11/28/17 11/28/17 11/28/17 04:50 11:10 11:11 Temperature 98.5 F Pulse Rate 81 Respiratory 18 Rate Blood Pressure 169/110 178/110 176/110 O2 Sat by Pulse 91 Oximetry - General Appearance General appearance: well-developed, well-nourished, appears stated age, other ( no distress, left IJ tunnel catheter) EENT: ATNC, PERRL, mucous membranes moist, hearing intact, vision intact Neck: supple Respiratory: Present: Clear to Ascultation Cardiology: regular, S1S2, no murmurs Gastrointestinal: normoactive bowel sounds, no tenderness, no distended Integumentary: no rash, warm and dry Neurologic: no focal deficit, no asterixis, alert and oriented x3 Musculoskeletal: other (chronic left UE swelling) Psychiatric: mood/affect appropriate - Lab 11/28/17 13:11 11/28/17 13:11 Most recent lab results Calcium 9.1 mg/dL (8.4-10.2) 11/28/17 13:11
[2017-11-28] MEDS ORDERED: ZESTRIL PO SCH (16:00)
[2017-11-29] MEDS: PROCARDIA XL PO SCH ×3 (00:03→22:27)
--- NOTE | 2017-11-29 07:28 | Progress Note ---
Assessment and Plan 1. ESRD: Patient was last dialyzed 2 days ago. Plan to do hemodialysis today. Scheduled to get AVF / AVG tomorrow. 2. Uncontrolled HTN: UF with HD. Will change Lisinopril to Losartan due to cough. 3. Volume overload: Improved with HD. 4. Anemia: Monitor. Epogen as needed. 5. AMS: Improved. MRI / MRA no acute process. 6. Medical non-compliance: Compliance encouraged. Subjective Date of service: 11/29/17 Interval history: Patient c/o dry cough. Objective - Vital Signs Vital signs: Vital Signs - 12hr 11/28/17 11/28/17 11/28/17 20:08 21:21 22:00 Temperature 98.8 F Pulse Rate 89 89 Respiratory 16 18 Rate Blood Pressure 178/115 178/115 O2 Sat by Pulse 97 Oximetry 11/29/17 11/29/17 00:25 04:20 Temperature 99.1 F 97.8 F Pulse Rate 89 85 Respiratory 16 18 Rate Blood Pressure 170/110 170/93 O2 Sat by Pulse 95 93 Oximetry - General Appearance General appearance: well-developed, well-nourished, appears stated age, other ( no distress, left IJ tunnel catheter) EENT: ATNC, PERRL, hearing intact, vision intact Neck: supple Respiratory: Present: Clear to Ascultation Cardiology: regular, S1S2, no murmurs Gastrointestinal: normoactive bowel sounds, no tenderness, no distended Integumentary: no rash, warm and dry Neurologic: no focal deficit, no asterixis, alert and oriented x3 Musculoskeletal: other (chronic left UE swelling) Psychiatric: mood/affect appropriate, cooperative - Lab 11/28/17 13:11 11/28/17 13:11 Most recent lab results Calcium 9.1 mg/dL (8.4-10.2) 11/28/17 13:11
[2017-11-29] MEDS ORDERED: ZESTRIL PO SCH (10:00)
[2017-11-29] MEDS: LASIX PO SCH (10:55)
[2017-11-29] MEDS: LOPRESSOR PO SCH ×3 (11:11→22:30)
[2017-11-29] MEDS ORDERED: NACL 0.9% 100 ML IV PRN (12:18)
--- NOTE | 2017-11-29 13:29 | Progress Note ---
Assessment and Plan Patient will need placement of a graft in his right arm. This will tentatively be scheduled for tomorrow pending operative room a lability. After his graft is placed and mature, his PermCath can be removed and angioplasty done on his left innominate vein. Subjective Date of service: 11/29/17 Principal diagnosis: ESRD Interval history: Patient underwent the patient underwent image guided evaluation of his chest and both arms. CT of the chest demonstrates a stent within his left innominate vein through which his catheter passes, the stent is occluded. Additionally, ultrasound evaluation of the arms demonstrate no usable veins in his right arm. His left arm at side of the explantation appears to be large hematoma. Objective - Constitutional Vitals: Vital Signs - 12hr 11/29/17 11/29/17 11/29/17 04:20 07:34 10:00 Temperature 97.8 F 98.5 F Pulse Rate 85 89 78 Respiratory 18 20 Rate Blood Pressure 170/93 144/87 Blood Pressure [Left] O2 Sat by Pulse 93 96 Oximetry 11/29/17 11/29/17 11/29/17 10:54 11:11 12:00 Temperature 98.9 F Pulse Rate 94 H 78 90 Respiratory 20 Rate Blood Pressure Blood Pressure 186/115 [Left] O2 Sat by Pulse 100 Oximetry General appearance: Present: no acute distress - EENT Eyes: PERRL, EOM intact ENT: hearing intact - Neck Neck: supple, normal ROM - Respiratory Respiratory effort: normal Extremities: abnormal (left arm swelling) - Gastrointestinal General gastrointestinal: Present: deferred Rectal Exam: deferred - Genitourinary Male genitourinary: deferred - Psychiatric Psychiatric: appropriate mood/affect, cooperative - Labs CBC & Chem 7: 11/28/17 13:11 11/28/17 13:11 Labs: Abnormal lab results 11/28/17 11/28/17 Range/Units 13:11 13:11 WBC 3.4 L (4.5-11.0) K/mm3 RBC 3.60 L (3.65-5.03) M/mm3 Hgb 10.9 L (11.8-15.2) gm/dl Hct 32.1 L (35.5-45.6) % RDW 17.0 H (13.2-15.2) % Chloride 97.8 L (98-107) mmol/L BUN 40 H (9-20) mg/dL Creatinine 11.0 H (0.8-1.5) mg/dL Glucose 113 H (75-100) mg/dL - Imaging and cardiology CT scan - chest: report reviewed, image reviewed Venous US: report reviewed, image reviewed
--- NOTE | 2017-11-29 16:53 | Anesthesia Consultation ---
Anesthesia Consult and Med Hx Date of service: 11/29/17 - Airway Anesthetic Teeth Evaluation: Partials (permanent) ROM Head & Neck: Adequate Mental/Hyoid Distance: Adequate Mallampati Class: Class III Intubation Access Assessment: Possibly Difficult - Pulmonary Exam CTA: Yes - Cardiac Exam Cardiac Exam: RRR - Pre-Operative Health Status ASA Pre-Surgery Classification: ASA4 Proposed Anesthetic Plan: General - Pulmonary Hx Smoking: No Hx Asthma: Yes (pt did not confirm) COPD: No Hx Pneumonia: No Hx Sleep Apnea: No - Cardiovascular System Hx Hypertension: Yes Hx Coronary Artery Disease: No Hx Heart Attack/AMI: Yes (Internal medicine says [place] in 1995) Hx Angina: No Hx Percutaneous Transluminal Coronary Angioplasty (PTCA): No Hx Pacemaker: No Hx Internal Defibrillator: No Hx Valvular Heart Disease: No Hx Heart Murmur: No Hx Peripheral Vascular Disease: No - Central Nervous System Hx Seizures: No CVA: Yes - Endocrine Hx Renal Disease: No (hx nephrolithiasis ) Hx End Stage Renal Disease: Yes (HD MWF) Hx Liver Disease: No Hx Non-Insulin Dependent Diabetes: Yes (diet contol) Hx Hypothyroidism: No Hx Hyperthyroidism: No - Hematic Hx Anemia: Yes - Other Systems Hx Cancer: Yes (h/o prostate CA, s/p cryotherapy)
[2017-11-29] MEDS ORDERED: NACL 0.9 (PRIMING MACHINE ONLY DIALYSIS) MC ONE (17:13)
[2017-11-29] MEDS: HEPARIN IV PRN (17:40)
[2017-11-29] MEDS: CATAPRES PO PRN (22:27)
[2017-11-29] MEDS: GUAIFENESIN DM SYRUP PO PRN (22:30)
[2017-11-29 23:23] LABS: Hepatitis A Antibody IgM Non-Reactive (NonReactive); Hepatitis B Core IgM Non-Reactive (NonReactive); Hepatitis B Surface Antigen Non-Reactive (Negative); Hepatitis C Virus Antibody Non-Reactive (NonReactive)
[2017-11-30] MEDS: TYLENOL PO PRN (04:51)
[2017-11-30] MEDS ORDERED: ANCEF/STERILE WATER 2 GM/20 ML 2 GM/20 ML SYRINGE IV NR (07:00)
[2017-11-30] MEDS ORDERED: NACL 0.9% 1000 ML 1,000 ML IV SCH (07:00)
[2017-11-30] MEDS ORDERED: VANCOMYCIN/0.45 NS 1 GM/250 ML 1 GM/250 ML BAG IV NR (07:00)
[2017-11-30] MEDS ORDERED: PEPCID IV NR (07:00)
[2017-11-30] MEDS ORDERED: HEPARIN 10,000 UNITS/10 ML ONE (07:35)
[2017-11-30] MEDS ORDERED: NACL P/F VIAL (10 ML) 0 ML ONE (07:35)
[2017-11-30] MEDS ORDERED: NACL 0.9% 500 ML 0 ML ONE (07:35)
[2017-11-30] MEDS ORDERED: MARCAINE 0.5% INFILTRATI ONE (07:35)
[2017-11-30] MEDS ORDERED: RIFADIN ONE (07:35)
[2017-11-30] MEDS ORDERED: VANCOMYCIN/NS 1 GM/250 ML 1 GM/250 ML BAG IV SCH (08:00)
--- NOTE | 2017-11-30 08:25 | Progress Note ---
Assessment and Plan 1. ESRD: Patient was last dialyzed yesterday. Scheduled to get AVF / AVG today. 2. Uncontrolled HTN: Improving. Patient is very non-compliant with meds. He still has bottles of meds filled several months ago. I/m trying to simplify the medication regime so he will hopefully take all the meds. Since he has been taking meds erratically, please avoid Clonidine for outpatient treatment. UF with HD. 3. Volume overload: Improved with HD. 4. Anemia: Monitor. Epogen as needed. 5. AMS: Improved. MRI / MRA no acute process. 6. Medical non-compliance: Compliance encouraged. Subjective Date of service: 11/30/17 Principal diagnosis: ESRD Interval history: Patient doing ok. Objective - Vital Signs Vital signs: Vital Signs - 12hr 11/29/17 11/30/17 23:36 04:25 Temperature 98.2 F 98.0 F Pulse Rate 95 H 92 H Respiratory 18 18 Rate Blood Pressure 175/118 154/103 O2 Sat by Pulse 97 98 Oximetry - General Appearance General appearance: well-developed, well-nourished, appears stated age, other ( no distress, left IJ tunnel catheter) EENT: ATNC, PERRL, hearing intact, vision intact Neck: supple Respiratory: Present: Clear to Ascultation Cardiology: regular, S1S2, no murmurs Gastrointestinal: normoactive bowel sounds, no tenderness, no distended Integumentary: no rash, warm and dry Neurologic: no focal deficit, no asterixis, alert and oriented x3 Musculoskeletal: other (chronic swelling of left UE) Psychiatric: mood/affect appropriate, cooperative - Lab 11/28/17 13:11 11/28/17 13:11 Most recent lab results Calcium 9.1 mg/dL (8.4-10.2) 11/28/17 13:11
[2017-11-30] MEDS: LOPRESSOR PO SCH ×3 (09:55→21:45)
[2017-11-30] MEDS: LASIX PO SCH (09:56)
[2017-11-30] MEDS: PROCARDIA XL PO SCH ×2 (09:56→21:45)
[2017-11-30] MEDS: COZAAR PO SCH ×2 (09:56→17:56)
--- NOTE | 2017-11-30 13:09 | Progress Note ---
Assessment and Plan Assessment and plan: ESRD. Cont. HD per Renal. Patient was last dialyzed yesterday. Scheduled to get AVF / AVG today. Uncontrolled HTN Improving. Medical Noncompliance Volume overload Improved with HD. Anemia. Monitor H & H Epogen as needed. Metabolic Encephalopathy Improved. MRI / MRA no acute process. Medical non-compliance Compliance encouraged. Disposition. Anticipate D/C in am History Interval history: Pt. for AVG today Hospitalist Physical - Constitutional Vitals: Temp Pulse Resp BP Pulse Ox 98.0 F 88 18 165/104 98 11/30/17 04:25 11/30/17 10:00 11/30/17 04:25 11/30/17 09:56 11/30/17 04:25 General appearance: Present: no acute distress - EENT Eyes: Present: PERRL, EOM intact ENT: hearing intact, clear oral mucosa, dentition normal - Neck Neck: Present: supple, normal ROM - Respiratory Respiratory effort: normal Respiratory: bilateral: CTA - Cardiovascular Rhythm: regular Heart Sounds: Present: S1 & S2. Absent: gallop, rub - Extremities Extremities: no ischemia, No edema, Full ROM - Abdominal General gastrointestinal: soft, non-tender, non-distended, normal bowel sounds - Integumentary Integumentary: Present: clear, warm, dry - Neurologic Neurologic: CNII-XII intact, moves all extremities Results - Labs CBC & Chem 7: 11/28/17 13:11 11/30/17 12:20 Labs: Laboratory Last Values WBC 3.4 K/mm3 (4.5-11.0) L 11/28/17 13:11 RBC 3.60 M/mm3 (3.65-5.03) L 11/28/17 13:11 Hgb 10.9 gm/dl (11.8-15.2) L 11/28/17 13:11 Hct 32.1 % (35.5-45.6) L 11/28/17 13:11 MCV 89 fl (84-94) 11/28/17 13:11 MCH 30 pg (28-32) 11/28/17 13:11 MCHC 34 % (32-34) 11/28/17 13:11 RDW 17.0 % (13.2-15.2) H 11/28/17 13:11 Plt Count 165 K/mm3 (140-440) 11/28/17 13:11 Lymph % (Auto) 15.5 % (13.4-35.0) 11/25/17 12:49 [place] % (Auto) 6.8 % (0.0-7.3) 11/25/17 12:49 Eos % (Auto) 6.0 % (0.0-4.3) H 11/25/17 12:49 Baso % (Auto) 1.0 % (0.0-1.8) 11/25/17 12:49 Lymph # 0.9 K/mm3 (1.2-5.4) L 11/25/17 12:49 [place] # 0.4 K/mm3 (0.0-0.8) 11/25/17 12:49 Eos # 0.3 K/mm3 (0.0-0.4) 11/25/17 12:49 Baso # 0.1 K/mm3 (0.0-0.1) 11/25/17 12:49 Seg Neutrophils % 70.7 % (40.0-70.0) H 11/25/17 12:49 Seg Neutrophils # 3.9 K/mm3 (1.8-7.7) 11/25/17 12:49 PT 14.1 Sec. (12.2-14.9) 11/25/17 13:25 INR 1.04 (0.87-1.13) 11/25/17 13:25 APTT 32.0 Sec. (24.2-36.6) 11/25/17 13:25 Sodium 141 mmol/L (137-145) 11/28/17 13:11 Potassium 5.2 mmol/L (3.6-5.0) H D 11/30/17 12:20 Chloride 97.8 mmol/L (98-107) L 11/28/17 13:11 Carbon Dioxide 25 mmol/L (22-30) 11/28/17 13:11 Anion Gap 23 mmol/L 11/28/17 13:11 BUN 40 mg/dL (9-20) H 11/28/17 13:11 Creatinine 11.0 mg/dL (0.8-1.5) H 11/28/17 13:11 Estimated GFR 6 ml/min 11/28/17 13:11 BUN/Creatinine Ratio 4 % 11/28/17 13:11 Glucose 113 mg/dL (75-100) H 11/28/17 13:11 POC Glucose 85 (70-105) 11/28/17 16:45 Lactic Acid 0.50 mmol/L (0.7-2.0) L 11/25/17 14:31 Calcium 9.1 mg/dL (8.4-10.2) 11/28/17 13:11 Total Bilirubin 0.40 mg/dL (0.1-1.2) 11/25/17 12:49 AST 13 units/L (5-40) 11/25/17 12:49 ALT 9 units/L (7-56) 11/25/17 12:49 Alkaline Phosphatase 69 units/L (35-129) 11/25/17 12:49 Total Protein 6.0 g/dL (6.3-8.2) L 11/25/17 12:49 Albumin 3.2 g/dL (3.9-5) L 11/25/17 12:49 Albumin/Globulin Ratio 1.1 % 11/25/17 12:49 Triglycerides 95 mg/dL (2-149) 11/26/17 05:46 Cholesterol 146 mg/dL (50-199) 11/26/17 05:46 LDL Cholesterol Direct 64 mg/dL (50-130) 11/26/17 05:46 HDL Cholesterol 63 mg/dL (40-59) H 11/26/17 05:46 Cholesterol/HDL Ratio 2.31 % 11/26/17 05:46 TSH 3.820 mlU/mL (0.270-4.200) 11/25/17 12:49 Urine Color Straw (Yellow) 11/26/17 01:57 Urine Turbidity Clear (Clear) 11/26/17 01:57 Urine pH 8.0 (5.0-7.0) H 11/26/17 01:57 Ur Specific [place] 1.005 (1.003-1.030) 11/26/17 01:57 Urine Protein 100 mg/dl mg/dL (Negative) 11/26/17 01:57 Urine Glucose (UA) 50 mg/dL (Negative) 11/26/17 01:57 Urine Ketones Neg mg/dL (Negative) 11/26/17 01:57 Urine Blood Sm (Negative) 11/26/17 01:57 Urine Nitrite Neg (Negative) 11/26/17 01:57 Urine Bilirubin Neg (Negative) 11/26/17 01:57 Urine Urobilinogen < 2.0 mg/dL (<2.0) 11/26/17 01:57 Ur Leukocyte Esterase Neg (Negative) 11/26/17 01:57 Urine WBC (Auto) 3.0 /HPF (0.0-6.0) 11/26/17 01:57 Urine RBC (Auto) 1.0 /HPF (0.0-6.0) 11/26/17 01:57 U Epithel Cells (Auto) < 1.0 /HPF (0-13.0) 11/26/17 01:57 Urine Opiates Screen Presumptive negative 11/26/17 01:57 Urine Methadone Screen Presumptive negative 11/26/17 01:57 Ur Barbiturates Screen Presumptive negative 11/26/17 01:57 Ur Phencyclidine Scrn Presumptive negative 11/26/17 01:57 Ur Amphetamines Screen Presumptive negative 11/26/17 01:57 U Benzodiazepines Scrn Presumptive negative 11/26/17 01:57 Urine Cocaine Screen Presumptive negative 11/26/17 01:57 U Marijuana (THC) Screen Presumptive negative 11/26/17 01:57 Drugs of Abuse Note Disclamer 11/26/17 01:57 Plasma/Serum Alcohol < 0.01 % (0-0.07) 11/25/17 12:49 Hepatitis A IgM Ab Non-reactive (NonReactive) 11/29/17 22:34 Hep Bs Antigen Non-reactive (Negative) 11/29/17 22:34 Hep B Core IgM Ab Non-reactive (NonReactive) 11/29/17 22:34 Hepatitis C Antibody Non-reactive (NonReactive) 11/29/17 22:34
[2017-11-30] MEDS: GUAIFENESIN DM SYRUP PO PRN (22:16)
[2017-12-01] MEDS: CATAPRES PO PRN ×2 (01:13→15:39)
--- NOTE | 2017-12-01 07:24 | Progress Note ---
Assessment and Plan 1. ESRD: Continue hemodialysis as ordered. Scheduled to get AVF / AVG tomorrow. 2. Uncontrolled HTN: Increase Metoprolol to 100 mg BID. UF with HD. 3. Volume overload: Improved with HD. 4. Anemia: Monitor. Epogen as needed. 5. AMS: Improved. MRI / MRA no acute process. 6. Medical non-compliance: Compliance encouraged. Subjective Date of service: 12/01/17 Principal diagnosis: ESRD Interval history: Patient was seen and examined while on hemodialysis. Doing ok. Objective - Vital Signs Vital signs: Vital Signs - 12hr 11/30/17 11/30/17 11/30/17 19:36 20:30 20:51 Temperature 98.8 F Pulse Rate 85 90 Pulse Rate [ Right Radial] Respiratory 18 Rate Respiratory 18 Rate [Denies] Blood Pressure 190/126 O2 Sat by Pulse 95 Oximetry 11/30/17 11/30/17 12/01/17 21:45 22:00 00:39 Temperature 98.7 F Pulse Rate 90 89 Pulse Rate [ 85 Right Radial] Respiratory 18 18 Rate Respiratory Rate [Denies] Blood Pressure 190/126 173/107 O2 Sat by Pulse 96 Oximetry 12/01/17 12/01/17 01:13 05:39 Temperature Pulse Rate 89 93 H Pulse Rate [ Right Radial] Respiratory 18 Rate Respiratory Rate [Denies] Blood Pressure 173/107 155/97 O2 Sat by Pulse 95 Oximetry - General Appearance General appearance: well-developed, well-nourished, appears stated age, other ( no distress) EENT: ATNC, PERRL, hearing intact, vision intact Neck: supple Respiratory: Present: Clear to Ascultation Cardiology: regular, S1S2, no murmurs Gastrointestinal: normoactive bowel sounds, no tenderness, no distended Integumentary: no rash, warm and dry Neurologic: no focal deficit, no asterixis, alert and oriented x3 Musculoskeletal: other (swollen left UE) Psychiatric: mood/affect appropriate, cooperative - Lab 11/28/17 13:11 11/30/17 12:20 Most recent lab results Calcium 9.1 mg/dL (8.4-10.2) 11/28/17 13:11
[2017-12-01] MEDS: LOPRESSOR PO SCH ×3 (08:38→21:27)
[2017-12-01] MEDS: LASIX PO SCH (09:38)
[2017-12-01] MEDS: COZAAR PO SCH (09:40)
[2017-12-01] MEDS: PROCARDIA XL PO SCH ×2 (09:40→21:27)
--- NOTE | 2017-12-01 13:31 | Progress Note ---
Assessment and Plan Patient is on HD via permcath He has HD session today plan for right AVG placement tomorrow in am. Subjective Date of service: 12/01/17 Principal diagnosis: ESRD Interval history: Patient doing ok Objective - Constitutional Vitals: Vital Signs - 12hr 12/01/17 12/01/17 12/01/17 05:39 08:01 08:38 Temperature 98.3 F Pulse Rate 93 H 88 88 Respiratory 18 20 Rate Blood Pressure 155/97 156/94 156/94 O2 Sat by Pulse 95 97 Oximetry 12/01/17 12/01/17 12/01/17 10:25 10:30 10:45 Temperature 97.4 F L Pulse Rate 77 78 70 Respiratory 20 Rate Blood Pressure 165/106 166/112 153/98 O2 Sat by Pulse Oximetry 12/01/17 12/01/17 12/01/17 11:00 11:15 11:30 Temperature Pulse Rate 65 68 77 Respiratory Rate Blood Pressure 160/89 148/92 161/87 O2 Sat by Pulse Oximetry 12/01/17 11:45 Temperature Pulse Rate 75 Respiratory Rate Blood Pressure 159/98 O2 Sat by Pulse Oximetry - Labs CBC & Chem 7: 11/28/17 13:11 11/30/17 12:20
--- NOTE | 2017-12-01 15:23 | Progress Note ---
<REGINA CABRERA - Last Filed: 12/01/17 15:23> Assessment and Plan Assessment and plan: ESRD. Cont. HD per Renal. Patient was last dialyzed 2 days ago. Scheduled to get AVF / AVG tomorrow. Uncontrolled HTN Improving. Medical Noncompliance Volume overload Improved with HD. Anemia. Monitor H & H Epogen as needed. Metabolic Encephalopathy Improved. MRI / MRA no acute process. Medical non-compliance Compliance encouraged. Disposition. Anticipate D/C in am History Interval history: Patient seen and examined. No new issues overnight. Labs and nursing notes reviewed. Hospitalist Physical - Constitutional Vitals: Temp Pulse Resp BP Pulse Ox 97.4 F L 75 20 159/98 97 12/01/17 10:25 12/01/17 11:45 12/01/17 10:25 12/01/17 11:45 12/01/17 08:01 General appearance: Present: no acute distress, well-nourished - EENT Eyes: Present: PERRL, EOM intact ENT: hearing intact, clear oral mucosa - Neck Neck: Present: supple, normal ROM - Respiratory Respiratory effort: normal Respiratory: bilateral: CTA - Cardiovascular Rhythm: regular Heart Sounds: Present: S1 & S2 - Extremities Extremities: no ischemia, No edema - Abdominal General gastrointestinal: soft, non-tender, non-distended - Integumentary Integumentary: Present: clear, warm, dry - Psychiatric Psychiatric: appropriate mood/affect, intact judgment & insight, cooperative - Neurologic Neurologic: CNII-XII intact, moves all extremities - Allied Health Allied health notes reviewed: nursing Results - Labs CBC & Chem 7: 11/28/17 13:11 11/30/17 12:20 Labs: Laboratory Last Values WBC 3.4 K/mm3 (4.5-11.0) L 11/28/17 13:11 RBC 3.60 M/mm3 (3.65-5.03) L 11/28/17 13:11 Hgb 10.9 gm/dl (11.8-15.2) L 11/28/17 13:11 Hct 32.1 % (35.5-45.6) L 11/28/17 13:11 MCV 89 fl (84-94) 11/28/17 13:11 MCH 30 pg (28-32) 11/28/17 13:11 MCHC 34 % (32-34) 11/28/17 13:11 RDW 17.0 % (13.2-15.2) H 11/28/17 13:11 Plt Count 165 K/mm3 (140-440) 11/28/17 13:11 Lymph % (Auto) 15.5 % (13.4-35.0) 11/25/17 12:49 [place] % (Auto) 6.8 % (0.0-7.3) 11/25/17 12:49 Eos % (Auto) 6.0 % (0.0-4.3) H 11/25/17 12:49 Baso % (Auto) 1.0 % (0.0-1.8) 11/25/17 12:49 Lymph # 0.9 K/mm3 (1.2-5.4) L 11/25/17 12:49 [place] # 0.4 K/mm3 (0.0-0.8) 11/25/17 12:49 Eos # 0.3 K/mm3 (0.0-0.4) 11/25/17 12:49 Baso # 0.1 K/mm3 (0.0-0.1) 11/25/17 12:49 Seg Neutrophils % 70.7 % (40.0-70.0) H 11/25/17 12:49 Seg Neutrophils # 3.9 K/mm3 (1.8-7.7) 11/25/17 12:49 PT 14.1 Sec. (12.2-14.9) 11/25/17 13:25 INR 1.04 (0.87-1.13) 11/25/17 13:25 APTT 32.0 Sec. (24.2-36.6) 11/25/17 13:25 Sodium 141 mmol/L (137-145) 11/28/17 13:11 Potassium 5.2 mmol/L (3.6-5.0) H D 11/30/17 12:20 Chloride 97.8 mmol/L (98-107) L 11/28/17 13:11 Carbon Dioxide 25 mmol/L (22-30) 11/28/17 13:11 Anion Gap 23 mmol/L 11/28/17 13:11 BUN 40 mg/dL (9-20) H 11/28/17 13:11 Creatinine 11.0 mg/dL (0.8-1.5) H 11/28/17 13:11 Estimated GFR 6 ml/min 11/28/17 13:11 BUN/Creatinine Ratio 4 % 11/28/17 13:11 Glucose 113 mg/dL (75-100) H 11/28/17 13:11 POC Glucose 85 (70-105) 11/28/17 16:45 Lactic Acid 0.50 mmol/L (0.7-2.0) L 11/25/17 14:31 Calcium 9.1 mg/dL (8.4-10.2) 11/28/17 13:11 Total Bilirubin 0.40 mg/dL (0.1-1.2) 11/25/17 12:49 AST 13 units/L (5-40) 11/25/17 12:49 ALT 9 units/L (7-56) 11/25/17 12:49 Alkaline Phosphatase 69 units/L (35-129) 11/25/17 12:49 Total Protein 6.0 g/dL (6.3-8.2) L 11/25/17 12:49 Albumin 3.2 g/dL (3.9-5) L 11/25/17 12:49 Albumin/Globulin Ratio 1.1 % 11/25/17 12:49 Triglycerides 95 mg/dL (2-149) 11/26/17 05:46 Cholesterol 146 mg/dL (50-199) 11/26/17 05:46 LDL Cholesterol Direct 64 mg/dL (50-130) 11/26/17 05:46 HDL Cholesterol 63 mg/dL (40-59) H 11/26/17 05:46 Cholesterol/HDL Ratio 2.31 % 11/26/17 05:46 TSH 3.820 mlU/mL (0.270-4.200) 11/25/17 12:49 Urine Color Straw (Yellow) 11/26/17 01:57 Urine Turbidity Clear (Clear) 11/26/17 01:57 Urine pH 8.0 (5.0-7.0) H 11/26/17 01:57 Ur Specific [place] 1.005 (1.003-1.030) 11/26/17 01:57 Urine Protein 100 mg/dl mg/dL (Negative) 11/26/17 01:57 Urine Glucose (UA) 50 mg/dL (Negative) 11/26/17 01:57 Urine Ketones Neg mg/dL (Negative) 11/26/17 01:57 Urine Blood Sm (Negative) 11/26/17 01:57 Urine Nitrite Neg (Negative) 11/26/17 01:57 Urine Bilirubin Neg (Negative) 11/26/17 01:57 Urine Urobilinogen < 2.0 mg/dL (<2.0) 11/26/17 01:57 Ur Leukocyte Esterase Neg (Negative) 11/26/17 01:57 Urine WBC (Auto) 3.0 /HPF (0.0-6.0) 11/26/17 01:57 Urine RBC (Auto) 1.0 /HPF (0.0-6.0) 11/26/17 01:57 U Epithel Cells (Auto) < 1.0 /HPF (0-13.0) 11/26/17 01:57 Urine Opiates Screen Presumptive negative 11/26/17 01:57 Urine Methadone Screen Presumptive negative 11/26/17 01:57 Ur Barbiturates Screen Presumptive negative 11/26/17 01:57 Ur Phencyclidine Scrn Presumptive negative 11/26/17 01:57 Ur Amphetamines Screen Presumptive negative 11/26/17 01:57 U Benzodiazepines Scrn Presumptive negative 11/26/17 01:57 Urine Cocaine Screen Presumptive negative 11/26/17 01:57 U Marijuana (THC) Screen Presumptive negative 11/26/17 01:57 Drugs of Abuse Note Disclamer 11/26/17 01:57 Plasma/Serum Alcohol < 0.01 % (0-0.07) 11/25/17 12:49 Hepatitis A IgM Ab Non-reactive (NonReactive) 11/29/17 22:34 Hep Bs Antigen Non-reactive (Negative) 11/29/17 22:34 Hep B Core IgM Ab Non-reactive (NonReactive) 11/29/17 22:34 Hepatitis C Antibody Non-reactive (NonReactive) 11/29/17 22:34 <DIEGO HODGE R - Last Filed: 12/02/17 07:14> Assessment and Plan Assessment and plan: I saw and evaluated the patient. I agree with the findings and the plan of care as documented in the Nurse Practitioner's~note, with the following corrections and additions. Hospitalist Physical - Constitutional Vitals: Temp Pulse Resp BP Pulse Ox 98.5 F 82 20 145/104 95 12/02/17 04:42 12/02/17 04:42 12/02/17 04:42 12/02/17 04:42 12/02/17 04:42 Results - Labs CBC & Chem 7: 11/28/17 13:11 11/30/17 12:20 Labs: Laboratory Last Values WBC 3.4 K/mm3 (4.5-11.0) L 11/28/17 13:11 RBC 3.60 M/mm3 (3.65-5.03) L 11/28/17 13:11 Hgb 10.9 gm/dl (11.8-15.2) L 11/28/17 13:11 Hct 32.1 % (35.5-45.6) L 11/28/17 13:11 MCV 89 fl (84-94) 11/28/17 13:11 MCH 30 pg (28-32) 11/28/17 13:11 MCHC 34 % (32-34) 11/28/17 13:11 RDW 17.0 % (13.2-15.2) H 11/28/17 13:11 Plt Count 165 K/mm3 (140-440) 11/28/17 13:11 Lymph % (Auto) 15.5 % (13.4-35.0) 11/25/17 12:49 [place] % (Auto) 6.8 % (0.0-7.3) 11/25/17 12:49 Eos % (Auto) 6.0 % (0.0-4.3) H 11/25/17 12:49 Baso % (Auto) 1.0 % (0.0-1.8) 11/25/17 12:49 Lymph # 0.9 K/mm3 (1.2-5.4) L 11/25/17 12:49 [place] # 0.4 K/mm3 (0.0-0.8) 11/25/17 12:49 Eos # 0.3 K/mm3 (0.0-0.4) 11/25/17 12:49 Baso # 0.1 K/mm3 (0.0-0.1) 11/25/17 12:49 Seg Neutrophils % 70.7 % (40.0-70.0) H 11/25/17 12:49 Seg Neutrophils # 3.9 K/mm3 (1.8-7.7) 11/25/17 12:49 PT 14.1 Sec. (12.2-14.9) 11/25/17 13:25 INR 1.04 (0.87-1.13) 11/25/17 13:25 APTT 32.0 Sec. (24.2-36.6) 11/25/17 13:25 Sodium 141 mmol/L (137-145) 11/28/17 13:11 Potassium 5.2 mmol/L (3.6-5.0) H D 11/30/17 12:20 Chloride 97.8 mmol/L (98-107) L 11/28/17 13:11 Carbon Dioxide 25 mmol/L (22-30) 11/28/17 13:11 Anion Gap 23 mmol/L 11/28/17 13:11 BUN 40 mg/dL (9-20) H 11/28/17 13:11 Creatinine 11.0 mg/dL (0.8-1.5) H 11/28/17 13:11 Estimated GFR 6 ml/min 11/28/17 13:11 BUN/Creatinine Ratio 4 % 11/28/17 13:11 Glucose 113 mg/dL (75-100) H 11/28/17 13:11 POC Glucose 101 (70-105) 12/01/17 22:00 Lactic Acid 0.50 mmol/L (0.7-2.0) L 11/25/17 14:31 Calcium 9.1 mg/dL (8.4-10.2) 11/28/17 13:11 Total Bilirubin 0.40 mg/dL (0.1-1.2) 11/25/17 12:49 AST 13 units/L (5-40) 11/25/17 12:49 ALT 9 units/L (7-56) 11/25/17 12:49 Alkaline Phosphatase 69 units/L (35-129) 11/25/17 12:49 Total Protein 6.0 g/dL (6.3-8.2) L 11/25/17 12:49 Albumin 3.2 g/dL (3.9-5) L 11/25/17 12:49 Albumin/Globulin Ratio 1.1 % 11/25/17 12:49 Triglycerides 95 mg/dL (2-149) 11/26/17 05:46 Cholesterol 146 mg/dL (50-199) 11/26/17 05:46 LDL Cholesterol Direct 64 mg/dL (50-130) 11/26/17 05:46 HDL Cholesterol 63 mg/dL (40-59) H 11/26/17 05:46 Cholesterol/HDL Ratio 2.31 % 11/26/17 05:46 TSH 3.820 mlU/mL (0.270-4.200) 11/25/17 12:49 Urine Color Straw (Yellow) 11/26/17 01:57 Urine Turbidity Clear (Clear) 11/26/17 01:57 Urine pH 8.0 (5.0-7.0) H 11/26/17 01:57 Ur Specific [place] 1.005 (1.003-1.030) 11/26/17 01:57 Urine Protein 100 mg/dl mg/dL (Negative) 11/26/17 01:57 Urine Glucose (UA) 50 mg/dL (Negative) 11/26/17 01:57 Urine Ketones Neg mg/dL (Negative) 11/26/17 01:57 Urine Blood Sm (Negative) 11/26/17 01:57 Urine Nitrite Neg (Negative) 11/26/17 01:57 Urine Bilirubin Neg (Negative) 11/26/17 01:57 Urine Urobilinogen < 2.0 mg/dL (<2.0) 11/26/17 01:57 Ur Leukocyte Esterase Neg (Negative) 11/26/17 01:57 Urine WBC (Auto) 3.0 /HPF (0.0-6.0) 11/26/17 01:57 Urine RBC (Auto) 1.0 /HPF (0.0-6.0) 11/26/17 01:57 U Epithel Cells (Auto) < 1.0 /HPF (0-13.0) 11/26/17 01:57 Urine Opiates Screen Presumptive negative 11/26/17 01:57 Urine Methadone Screen Presumptive negative 11/26/17 01:57 Ur Barbiturates Screen Presumptive negative 11/26/17 01:57 Ur Phencyclidine Scrn Presumptive negative 11/26/17 01:57 Ur Amphetamines Screen Presumptive negative 11/26/17 01:57 U Benzodiazepines Scrn Presumptive negative 11/26/17 01:57 Urine Cocaine Screen Presumptive negative 11/26/17 01:57 U Marijuana (THC) Screen Presumptive negative 11/26/17 01:57 Drugs of Abuse Note Disclamer 11/26/17 01:57 Plasma/Serum Alcohol < 0.01 % (0-0.07) 11/25/17 12:49 Hepatitis A IgM Ab Non-reactive (NonReactive) 11/29/17 22:34 Hep Bs Antigen Non-reactive (Negative) 11/29/17 22:34 Hep B Core IgM Ab Non-reactive (NonReactive) 11/29/17 22:34 Hepatitis C Antibody Non-reactive (NonReactive) 11/29/17 22:34
[2017-12-01] MEDS: HEPARIN IV PRN (17:14)
[2017-12-02] MEDS: CATAPRES PO PRN ×2 (01:16→20:46)
[2017-12-02] MEDS ORDERED: HEPARIN ONE (06:43)
[2017-12-02] MEDS ORDERED: XYLOCAINE 1% 20 mL ONE (06:43)
[2017-12-02] MEDS ORDERED: RIFADIN ONE (06:43)
[2017-12-02] MEDS ORDERED: MARCAINE-EPI 0.5%-1:200,000 INFILTRATI ONE ×2 (06:43→09:51)
[2017-12-02] MEDS ORDERED: SODIUM BICARBONATE ONE (06:44)
[2017-12-02] MEDS ORDERED: HEPARIN 10,000 UNITS/10 ML ONE (06:44)
[2017-12-02] MEDS ORDERED: GELFOAM TP ONE (06:44)
[2017-12-02] MEDS ORDERED: THROMBIN (BOVINE) TP ONE (06:44)
[2017-12-02] MEDS ORDERED: NACL 0.9% 250ML 0 ML ONE (06:44)
[2017-12-02] MEDS ORDERED: NACL 0.9% 1000 ML 1,000 ML ONE (06:49)
[2017-12-02] MEDS ORDERED: XYLOCAINE MPF 2% ONE (07:07)
[2017-12-02] MEDS ORDERED: DIPRIVAN 10 MG/ML IV ONE (07:09)
--- NOTE | 2017-12-02 07:21 | Anesthesia Day of Surgery ---
Anesthesia Day of Surgery - Day of Surgery Patient Examined: Yes (active rales and wheezing. cxr/ nebs/lasix) Patient H&P Reviewed: Yes Patient is NPO: Yes Beta Blockers: Yes
[2017-12-02 07:22] LABS: Calcium 8.9 mg/dL (8.4-10.2)
--- NOTE | 2017-12-02 07:24 | Progress Note ---
Assessment and Plan 1. ESRD: Continue hemodialysis as ordered. S/p right arm AVG. 2. Uncontrolled HTN: BP is fair. UF with HD. 3. Volume overload: Improved with HD. 4. Anemia: Monitor. Epogen as needed. 5. AMS: Improved. MRI / MRA no acute process. 6. Medical non-compliance: Compliance encouraged. Subjective Date of service: 12/02/17 Principal diagnosis: ESRD Interval history: Patient was seen and examined at the bedside. Doing ok. Objective - Vital Signs Vital signs: Vital Signs - 12hr 12/01/17 12/01/17 12/02/17 19:52 20:05 00:58 Temperature 98.0 F 98.6 F Pulse Rate 77 77 77 Respiratory 30 H 20 Rate Blood Pressure 152/104 182/119 O2 Sat by Pulse 97 95 Oximetry 12/02/17 04:42 Temperature 98.5 F Pulse Rate 82 Respiratory 20 Rate Blood Pressure 145/104 O2 Sat by Pulse 95 Oximetry - General Appearance General appearance: well-developed, well-nourished, appears stated age, other ( no distress, left IJ tunnel catheter) EENT: ATNC, PERRL, hearing intact, vision intact Neck: supple Respiratory: Present: Clear to Ascultation Cardiology: regular, S1S2, no murmurs Gastrointestinal: normoactive bowel sounds, no tenderness, no distended Integumentary: no rash, warm and dry Neurologic: no focal deficit, no asterixis, alert and oriented x3 Musculoskeletal: other (right arm AVG) - Lab 11/28/17 13:11 12/02/17 06:35 Most recent lab results Calcium 8.9 mg/dL (8.4-10.2) 12/02/17 06:35
[2017-12-02] MEDS ORDERED: NACL 0.9% 500 ML 500 ML ONE (07:26)
[2017-12-02] MEDS ORDERED: PROVENTIL IH ONE (08:00)
[2017-12-02] MEDS ORDERED: LASIX IV NR (08:00)
[2017-12-02] MEDS ORDERED: ATROVENT IH ONE (08:00)
[2017-12-02] MEDS ORDERED: VANCOMYCIN/NS 1 GM/250 ML 1 GM/250 ML BAG IV SCH (09:00)
--- NOTE | 2017-12-02 09:05 | XRay Report ---
AP CHEST: HISTORY: Wheezing Left IJ dual-lumen catheter terminates in the superior right atrium. The lungs are generally clear. No evidence for pneumonia, pleural effusion or pneumothorax. Focal right pleural/hemidiaphragm calcifications and thickening are identified which could represent previous pleural insult or previous asbestos exposure. Heart and mediastinal structures are unremarkable. The bony structures are grossly intact. IMPRESSION: No acute cardiopulmonary process. Focal right pleural calcifications as described.
[2017-12-02] MEDS ORDERED: SUBLIMAZE IV PRN (09:31)
[2017-12-02] MEDS ORDERED: SUBLIMAZE ONE (09:47)
[2017-12-02] MEDS ORDERED: HEPARIN 10,000 UNITS/10 ML 2,000 UNIT in NACL 0.9% 500 ML 500 ML IR ONE (09:50)
[2017-12-02] MEDS ORDERED: NACL 0.9% IR ONE (09:50)
[2017-12-02] MEDS ORDERED: VANCOMYCIN/0.45 NS 1 GM/250 ML 1 GM/250 ML BAG IV SCH (10:00)
--- NOTE | 2017-12-02 12:15 | Operative Report ---
Operative Report Operative Report: Operative note: Date: 12/02/2017 Preoperative diagnosis: Endstage renal disease on hemodialysis Postoperative diagnosis: Same. Operation: Right arm AV graft creation Surgeon: Marie Correa. Asst.: None Anesthesia: Gen. EBL: Minimal Findings: Large brachial artery without evidence of plaque Indications: 52-year-old gentleman on hemodialysis via PermCath and needs permanent access. Risks, alternatives and benefits were discussed with patient and patient agreed, signed informed consent. Operative details: Patient was brought to the operating room and placed in supine position with right arm on an arm table. Ultrasound was performed locating brachial artery as well as axillary vein. Those locations were marked on the skin. Right arm was then prepped and draped in sterile fashion. Timeout was performed and all team members in agreement. First incision was created with 15 blade over medial side above elbow crease in vertical fashion and carried down with electrocautery. Brachial artery was dissected and taken distally and proximally on vessel loops. Next, incision was created with 15 blade over medial upper part of arm in the vertical fashion and carried down with electrocautery. axillary vein was identified . It was taken on vessel loop. 4-7 millimeter AcuSeal graft was tunneled with Janette Wick tunneler in a curvilinear fashion. At this moment patient was given 3000 units of heparin and allowed to circulate for 3 minutes. Proximal and distal controls were gained. 4 mm portion was beveled at the arterial side. Arteriotomy was created with 11 blade and extended with Cummins scissors. Anastomosis was created with 6-0 Prolene in circumferential fashion. Graft was open, clamped at the arterial side and flushed with heparinized saline. The next step, graft was transected beveling at the planned venous anastomosis. The vein was clamped with Satinsky clamp gaining simultaneously distal and proximal controls. Venotomy was created with 11 blade and carried with Cummins scissors. Circumferential anastomosis was created with 6-0 Prolene and flushed before completion. 2 repair stitches were placed. Both anastomosis were checked for hemostasis. Graft area was palpated and good thrill appreciated. Wounds were irrigated and checked for hemostasis. Incisions were closed in layers with 3-0 Vicryl interrupted dermal and 4-0 Monocryl running subcuticular. Dermabond was applied. Good radial pulse was palpated at the end of procedure as well as graft thrill. All needles and sponge counts were correct. Patient tolerated the procedure well and was transferred to PACU in stable condition.
--- NOTE | 2017-12-02 14:18 | Post Anesthesia Evaluation ---
- Post Anesthesia Evaluation Patient Participated: Yes Airway Patent: Yes Stable Respiratory Function: Yes Nausea/Vomiting: No Temp > 96.8F: Yes Pain Manageable: Yes Adequeate Hydration: Yes Anesthesia Complications: No
--- NOTE | 2017-12-02 15:45 | Progress Note ---
<REGINA CBARERA - Last Filed: 12/02/17 15:43> Assessment and Plan Assessment and plan: ESRD. Cont. HD per Renal. Patient was last dialyzed 2 days ago. S/P AVF / AVG today Uncontrolled HTN Improving. Medical Noncompliance Volume overload Improved with HD. Anemia. Monitor H & H Epogen as needed. Metabolic Encephalopathy Improved. MRI / MRA no acute process. Medical non-compliance Compliance encouraged. Disposition. Anticipate D/C in am History Interval history: Patient seen and examined after AV graft placement. He is still very drowsy. Labs and nursing notes reviewed. Hospitalist Physical - Constitutional Vitals: Temp Pulse Resp BP Pulse Ox 97.1 F L 84 19 149/80 100 12/02/17 12:15 12/02/17 13:15 12/02/17 13:15 12/02/17 13:15 12/02/17 13:15 General appearance: Present: no acute distress, well-nourished - EENT Eyes: Present: PERRL, EOM intact ENT: hearing intact, clear oral mucosa, poor dentition - Neck Neck: Present: supple, normal ROM - Respiratory Respiratory effort: normal Respiratory: bilateral: CTA - Cardiovascular Rhythm: regular Heart Sounds: Present: S1 & S2 - Extremities Extremities: no ischemia, No edema - Abdominal General gastrointestinal: soft, non-tender, non-distended - Integumentary Integumentary: Present: clear, warm, dry - Psychiatric Psychiatric: appropriate mood/affect, intact judgment & insight, cooperative - Neurologic Neurologic: CNII-XII intact, moves all extremities - Allied Health Allied health notes reviewed: nursing Results - Labs CBC & Chem 7: 11/28/17 13:11 12/02/17 06:35 Labs: Laboratory Last Values WBC 3.4 K/mm3 (4.5-11.0) L 11/28/17 13:11 RBC 3.60 M/mm3 (3.65-5.03) L 11/28/17 13:11 Hgb 10.9 gm/dl (11.8-15.2) L 11/28/17 13:11 Hct 32.1 % (35.5-45.6) L 11/28/17 13:11 MCV 89 fl (84-94) 11/28/17 13:11 MCH 30 pg (28-32) 11/28/17 13:11 MCHC 34 % (32-34) 11/28/17 13:11 RDW 17.0 % (13.2-15.2) H 11/28/17 13:11 Plt Count 165 K/mm3 (140-440) 11/28/17 13:11 Lymph % (Auto) 15.5 % (13.4-35.0) 11/25/17 12:49 [place] % (Auto) 6.8 % (0.0-7.3) 11/25/17 12:49 Eos % (Auto) 6.0 % (0.0-4.3) H 11/25/17 12:49 Baso % (Auto) 1.0 % (0.0-1.8) 11/25/17 12:49 Lymph # 0.9 K/mm3 (1.2-5.4) L 11/25/17 12:49 [place] # 0.4 K/mm3 (0.0-0.8) 11/25/17 12:49 Eos # 0.3 K/mm3 (0.0-0.4) 11/25/17 12:49 Baso # 0.1 K/mm3 (0.0-0.1) 11/25/17 12:49 Seg Neutrophils % 70.7 % (40.0-70.0) H 11/25/17 12:49 Seg Neutrophils # 3.9 K/mm3 (1.8-7.7) 11/25/17 12:49 PT 14.1 Sec. (12.2-14.9) 11/25/17 13:25 INR 1.04 (0.87-1.13) 11/25/17 13:25 APTT 32.0 Sec. (24.2-36.6) 11/25/17 13:25 Sodium 142 mmol/L (137-145) 12/02/17 06:35 Potassium 4.5 mmol/L (3.6-5.0) 12/02/17 06:35 Chloride 99.5 mmol/L (98-107) 12/02/17 06:35 Carbon Dioxide 28 mmol/L (22-30) 12/02/17 06:35 Anion Gap 19 mmol/L 12/02/17 06:35 BUN 39 mg/dL (9-20) H 12/02/17 06:35 Creatinine 10.3 mg/dL (0.8-1.5) H 12/02/17 06:35 Estimated GFR 6 ml/min 12/02/17 06:35 BUN/Creatinine Ratio 4 % 12/02/17 06:35 Glucose 105 mg/dL (75-100) H 12/02/17 06:35 POC Glucose 87 (70-105) 12/02/17 12:42 Lactic Acid 0.50 mmol/L (0.7-2.0) L 11/25/17 14:31 Calcium 8.9 mg/dL (8.4-10.2) 12/02/17 06:35 Total Bilirubin 0.40 mg/dL (0.1-1.2) 11/25/17 12:49 AST 13 units/L (5-40) 11/25/17 12:49 ALT 9 units/L (7-56) 11/25/17 12:49 Alkaline Phosphatase 69 units/L (35-129) 11/25/17 12:49 Total Protein 6.0 g/dL (6.3-8.2) L 11/25/17 12:49 Albumin 3.2 g/dL (3.9-5) L 11/25/17 12:49 Albumin/Globulin Ratio 1.1 % 11/25/17 12:49 Triglycerides 95 mg/dL (2-149) 11/26/17 05:46 Cholesterol 146 mg/dL (50-199) 11/26/17 05:46 LDL Cholesterol Direct 64 mg/dL (50-130) 11/26/17 05:46 HDL Cholesterol 63 mg/dL (40-59) H 11/26/17 05:46 Cholesterol/HDL Ratio 2.31 % 11/26/17 05:46 TSH 3.820 mlU/mL (0.270-4.200) 11/25/17 12:49 Urine Color Straw (Yellow) 11/26/17 01:57 Urine Turbidity Clear (Clear) 11/26/17 01:57 Urine pH 8.0 (5.0-7.0) H 11/26/17 01:57 Ur Specific [place] 1.005 (1.003-1.030) 11/26/17 01:57 Urine Protein 100 mg/dl mg/dL (Negative) 11/26/17 01:57 Urine Glucose (UA) 50 mg/dL (Negative) 11/26/17 01:57 Urine Ketones Neg mg/dL (Negative) 11/26/17 01:57 Urine Blood Sm (Negative) 11/26/17 01:57 Urine Nitrite Neg (Negative) 11/26/17 01:57 Urine Bilirubin Neg (Negative) 11/26/17 01:57 Urine Urobilinogen < 2.0 mg/dL (<2.0) 11/26/17 01:57 Ur Leukocyte Esterase Neg (Negative) 11/26/17 01:57 Urine WBC (Auto) 3.0 /HPF (0.0-6.0) 11/26/17 01:57 Urine RBC (Auto) 1.0 /HPF (0.0-6.0) 11/26/17 01:57 U Epithel Cells (Auto) < 1.0 /HPF (0-13.0) 11/26/17 01:57 Urine Opiates Screen Presumptive negative 11/26/17 01:57 Urine Methadone Screen Presumptive negative 11/26/17 01:57 Ur Barbiturates Screen Presumptive negative 11/26/17 01:57 Ur Phencyclidine Scrn Presumptive negative 11/26/17 01:57 Ur Amphetamines Screen Presumptive negative 11/26/17 01:57 U Benzodiazepines Scrn Presumptive negative 11/26/17 01:57 Urine Cocaine Screen Presumptive negative 11/26/17 01:57 U Marijuana (THC) Screen Presumptive negative 11/26/17 01:57 Drugs of Abuse Note Disclamer 11/26/17 01:57 Plasma/Serum Alcohol < 0.01 % (0-0.07) 11/25/17 12:49 Hepatitis A IgM Ab Non-reactive (NonReactive) 11/29/17 22:34 Hep Bs Antigen Non-reactive (Negative) 11/29/17 22:34 Hep B Core IgM Ab Non-reactive (NonReactive) 11/29/17 22:34 Hepatitis C Antibody Non-reactive (NonReactive) 11/29/17 22:34 <DIEGO HODGE R - Last Filed: 12/03/17 07:44> Assessment and Plan Assessment and plan: I saw and evaluated the patient. I agree with the findings and the plan of care as documented in the Nurse Practitioner's~note, with the following corrections and additions. Hospitalist Physical - Constitutional Vitals: Temp Pulse Resp BP Pulse Ox 97.8 F 79 18 163/106 98 12/03/17 05:41 12/03/17 05:41 12/03/17 05:41 12/03/17 05:41 12/03/17 05:41 Results - Labs CBC & Chem 7: 11/28/17 13:11 12/02/17 06:35 Labs: Laboratory Last Values WBC 3.4 K/mm3 (4.5-11.0) L 11/28/17 13:11 RBC 3.60 M/mm3 (3.65-5.03) L 11/28/17 13:11 Hgb 10.9 gm/dl (11.8-15.2) L 11/28/17 13:11 Hct 32.1 % (35.5-45.6) L 11/28/17 13:11 MCV 89 fl (84-94) 11/28/17 13:11 MCH 30 pg (28-32) 11/28/17 13:11 MCHC 34 % (32-34) 11/28/17 13:11 RDW 17.0 % (13.2-15.2) H 11/28/17 13:11 Plt Count 165 K/mm3 (140-440) 11/28/17 13:11 Lymph % (Auto) 15.5 % (13.4-35.0) 11/25/17 12:49 [place] % (Auto) 6.8 % (0.0-7.3) 11/25/17 12:49 Eos % (Auto) 6.0 % (0.0-4.3) H 11/25/17 12:49 Baso % (Auto) 1.0 % (0.0-1.8) 11/25/17 12:49 Lymph # 0.9 K/mm3 (1.2-5.4) L 11/25/17 12:49 [place] # 0.4 K/mm3 (0.0-0.8) 11/25/17 12:49 Eos # 0.3 K/mm3 (0.0-0.4) 11/25/17 12:49 Baso # 0.1 K/mm3 (0.0-0.1) 11/25/17 12:49 Seg Neutrophils % 70.7 % (40.0-70.0) H 11/25/17 12:49 Seg Neutrophils # 3.9 K/mm3 (1.8-7.7) 11/25/17 12:49 PT 14.1 Sec. (12.2-14.9) 11/25/17 13:25 INR 1.04 (0.87-1.13) 11/25/17 13:25 APTT 32.0 Sec. (24.2-36.6) 11/25/17 13:25 Sodium 142 mmol/L (137-145) 12/02/17 06:35 Potassium 4.5 mmol/L (3.6-5.0) 12/02/17 06:35 Chloride 99.5 mmol/L (98-107) 12/02/17 06:35 Carbon Dioxide 28 mmol/L (22-30) 12/02/17 06:35 Anion Gap 19 mmol/L 12/02/17 06:35 BUN 39 mg/dL (9-20) H 12/02/17 06:35 Creatinine 10.3 mg/dL (0.8-1.5) H 12/02/17 06:35 Estimated GFR 6 ml/min 12/02/17 06:35 BUN/Creatinine Ratio 4 % 12/02/17 06:35 Glucose 105 mg/dL (75-100) H 12/02/17 06:35 POC Glucose 87 (70-105) 12/02/17 12:42 Lactic Acid 0.50 mmol/L (0.7-2.0) L 11/25/17 14:31 Calcium 8.9 mg/dL (8.4-10.2) 12/02/17 06:35 Total Bilirubin 0.40 mg/dL (0.1-1.2) 11/25/17 12:49 AST 13 units/L (5-40) 11/25/17 12:49 ALT 9 units/L (7-56) 11/25/17 12:49 Alkaline Phosphatase 69 units/L (35-129) 11/25/17 12:49 Total Protein 6.0 g/dL (6.3-8.2) L 11/25/17 12:49 Albumin 3.2 g/dL (3.9-5) L 11/25/17 12:49 Albumin/Globulin Ratio 1.1 % 11/25/17 12:49 Triglycerides 95 mg/dL (2-149) 11/26/17 05:46 Cholesterol 146 mg/dL (50-199) 11/26/17 05:46 LDL Cholesterol Direct 64 mg/dL (50-130) 11/26/17 05:46 HDL Cholesterol 63 mg/dL (40-59) H 11/26/17 05:46 Cholesterol/HDL Ratio 2.31 % 11/26/17 05:46 TSH 3.820 mlU/mL (0.270-4.200) 11/25/17 12:49 Urine Color Straw (Yellow) 11/26/17 01:57 Urine Turbidity Clear (Clear) 11/26/17 01:57 Urine pH 8.0 (5.0-7.0) H 11/26/17 01:57 Ur Specific [place] 1.005 (1.003-1.030) 11/26/17 01:57 Urine Protein 100 mg/dl mg/dL (Negative) 11/26/17 01:57 Urine Glucose (UA) 50 mg/dL (Negative) 11/26/17 01:57 Urine Ketones Neg mg/dL (Negative) 11/26/17 01:57 Urine Blood Sm (Negative) 11/26/17 01:57 Urine Nitrite Neg (Negative) 11/26/17 01:57 Urine Bilirubin Neg (Negative) 11/26/17 01:57 Urine Urobilinogen < 2.0 mg/dL (<2.0) 11/26/17 01:57 Ur Leukocyte Esterase Neg (Negative) 11/26/17 01:57 Urine WBC (Auto) 3.0 /HPF (0.0-6.0) 11/26/17 01:57 Urine RBC (Auto) 1.0 /HPF (0.0-6.0) 11/26/17 01:57 U Epithel Cells (Auto) < 1.0 /HPF (0-13.0) 11/26/17 01:57 Urine Opiates Screen Presumptive negative 11/26/17 01:57 Urine Methadone Screen Presumptive negative 11/26/17 01:57 Ur Barbiturates Screen Presumptive negative 11/26/17 01:57 Ur Phencyclidine Scrn Presumptive negative 11/26/17 01:57 Ur Amphetamines Screen Presumptive negative 11/26/17 01:57 U Benzodiazepines Scrn Presumptive negative 11/26/17 01:57 Urine Cocaine Screen Presumptive negative 11/26/17 01:57 U Marijuana (THC) Screen Presumptive negative 11/26/17 01:57 Drugs of Abuse Note Disclamer 11/26/17 01:57 Plasma/Serum Alcohol < 0.01 % (0-0.07) 11/25/17 12:49 Hepatitis A IgM Ab Non-reactive (NonReactive) 11/29/17 22:34 Hep Bs Antigen Non-reactive (Negative) 11/29/17 22:34 Hep B Core IgM Ab Non-reactive (NonReactive) 11/29/17 22:34 Hepatitis C Antibody Non-reactive (NonReactive) 11/29/17 22:34
[2017-12-02] MEDS: LOPRESSOR PO SCH (16:53)
[2017-12-02] MEDS: LASIX PO SCH (16:54)
[2017-12-02] MEDS: COZAAR PO SCH (16:54)
[2017-12-02] MEDS: PROCARDIA XL PO SCH (16:54)
[2017-12-02] MEDS: TYLENOL PO PRN (20:45)
[2017-12-02] MEDS: DILAUDID IV PRN (21:20)
[2017-12-03] MEDS: LOPRESSOR PO SCH ×2 (01:42→10:00)
[2017-12-03] MEDS: PROCARDIA XL PO SCH ×2 (01:42→10:01)
[2017-12-03] MEDS: DILAUDID IV PRN (05:45)
--- NOTE | 2017-12-03 08:28 | Progress Note ---
Assessment and Plan 1. ESRD: S/p right arm AVG. His outpatient hemodialysis schedule is TTS. Strongly advised to go to hemodialysis treatment tomorrow at outpatient center. He decided not to get hemodialysis treatment in the hospital today. 2. Uncontrolled HTN: BP is fair. 3. Volume overload: Improved with HD. 4. Anemia: Monitor. Epogen as needed. 5. AMS: Improved. MRI / MRA no acute process. 6. Medical non-compliance: Compliance encouraged. Subjective Date of service: 12/03/17 Principal diagnosis: ESRD Interval history: Patient was seen and examined at the bedside. Doing ok. Objective - Vital Signs Vital signs: Vital Signs - 12hr 12/02/17 12/02/17 12/03/17 20:31 20:55 01:16 Temperature 98.2 F 98.5 F Pulse Rate 83 65 Respiratory 20 20 Rate Respiratory 18 Rate [Denies] Blood Pressure 173/112 170/95 [Left] O2 Sat by Pulse 96 95 Oximetry 12/03/17 05:41 Temperature 97.8 F Pulse Rate 79 Respiratory 18 Rate Respiratory Rate [Denies] Blood Pressure 163/106 [Left] O2 Sat by Pulse 98 Oximetry - General Appearance General appearance: well-developed, well-nourished, appears stated age, other ( no distress, left IJ tunnel catheter) EENT: ATNC, PERRL, hearing intact, vision intact Neck: supple Respiratory: Present: Clear to Ascultation Cardiology: regular, S1S2, no murmurs Gastrointestinal: normoactive bowel sounds, no tenderness Integumentary: no rash, warm and dry Neurologic: no focal deficit, no asterixis, alert and oriented x3 Musculoskeletal: other (right arm AVG) - Lab 11/28/17 13:11 12/02/17 06:35 Most recent lab results Calcium 8.9 mg/dL (8.4-10.2) 12/02/17 06:35
[2017-12-03 09:37] VITALS: BP 147/85
[2017-12-03] MEDS: COZAAR PO SCH (09:59)
[2017-12-03] MEDS: LASIX PO SCH (10:00)
--- NOTE | 2017-12-03 10:01 | Discharge Summary ---
Providers - Providers Date of Admission: 11/25/17 18:11 Date of discharge: 12/03/17 Attending physician: DIEGO HODGE 11/25/17 14:24 Occupational Therapy Evaluate and Treat [CONS] Routine Comment: Reason For Exam: Neuro deficits Physical Therapy Evaluation and Treat [CONS] Routine Comment: Reason For Exam: Neuro deficits 11/25/17 18:11 Occupational Therapy Evaluate and Treat [CONS] Routine Comment: Reason For Exam: Neuro deficits Physical Therapy Evaluation and Treat [CONS] Routine Comment: Reason For Exam: Neuro deficits 11/25/17 19:54 Consult to Physician [CONS] Routine Consulting Provider: LEATHA TURNER Reason For Exam: ESRD on HD Place consult to:: Priscilla Notified:: yes Phone number called:: [phone] If yes, spoke with:: Shira Time called:: 08:35 11/26/17 12:53 Consult to Physician [CONS] Routine Consulting Provider: HUNG HASSAN Reason For Exam: AVF creation. Place consult to:: Brendon Notified:: yes Phone number called:: [phone] If yes, spoke with:: Randall Time called:: 15:50 Comment:: Dr Correa development consultant and i spoke to her Primary care physician: MOTORCYCLE DELIVERY DRIVER Hospitalization Condition: Fair Disposition: DC-30 STILL A PATIENT Exam - Constitutional Vitals: Temp Pulse Resp BP Pulse Ox 98.7 F 68 16 147/85 95 12/03/17 08:56 12/03/17 09:00 12/03/17 08:56 12/03/17 08:56 12/03/17 08:56 Plan Follow up with: PRIMARY MD OSCAR [Primary Care Provider] - 7 Days Prescriptions: Metoprolol [Lopressor TAB] 100 mg PO BID #60 tablet oxyCODONE /ACETAMINOPHEN [Percocet 5/325] 1 tab PO Q6HR PRN #12 tablet PRN Reason: Pain
[2017-12-03] MEDS ORDERED: DILAUDID IV PRN (12:00)
--- NOTE | 2017-12-04 11:57 | Vascular Lab Report ---
Upper extremity vein mapping Reason for exam: Preoperative evaluation for hemodialysis access Comments: On the right, the cephalic vein is too small Thrombus is seen in the cephalic vein in the mid upper arm. The basilic vein is too small. The brachial and radial arteries are patent. The radial artery is of normal caliber. Impression: The right cephalic vein is too small for use as an AV fistula. Thrombus is noted in the mid upper arm vein. The basilic vein is too small for use as an AV fistula. No arterial issues were identified.
--- NOTE | 2017-12-04 11:59 | Vascular Lab Report ---
Left upper extremity arterial duplex Reason for exam: Possible pseudoaneurysm of the dialysis access Comments: The left upper extremity arteriovenous axis appears to be completely occluded. There is no evidence of pseudoaneurysm formation noted in the brachial, axillary, or subclavian artery. Impression: Thrombosed left lower extremity AV access. No evidence of pseudoaneurysm formation in the proximal arteries of the left upper extremity.
--- NOTE | 2017-12-04 13:04 | Vascular Lab Report ---
CAROTID DUPLEX STUDY: RIGHT PSVEDV CCA PROX:[id number] CCA DIST:7914 ICA PROX:5016 ICA MID:4614 ICA DIST:5919 ECA: 9111 VERT: 53 18 LEFT PSVEDV CCA PROX:29342 CCA DIST:6413 ICA PROX:375 ICA MID:7024 ICA DIST:5228 ECA: 6012 VERT: 32 9 REASON FOR EXAM: Stroke. COMMENTS ON THE RIGHT: Doppler frequency analysis is consistent with 16 to 49 percent diameter reduction of the internal carotid artery. Minimal amount of plaque is seen. The common carotid artery is patent. The external carotid artery is patent. The vertebral artery has antegrade flow. COMMENTS ON THE LEFT: Doppler frequency analysis is consistent with 16 to 49 percent diameter reduction of the internal carotid artery. Minimal amount of plaque is seen. The common carotid artery is patent. The external carotid artery is patent. The vertebral artery has antegrade flow. IMPRESSION: Less than 50% diameter reduction in the internal carotid arteries bilaterally.
== END 2017-12-03 12:01 | disposition home or self-care (01) | DRG 628 ==
LOC: ED 12:00 → 4A 18:11 → CC1 11-27 06:54 → 4A 11-27 18:48
PROVIDERS: ADMIT Internal Medicine; ATTEND Hospitalist
PROC: 5A1D70Z Performance of Urinary Filtration, Intermittent, Less than 6 Hours Per Day (ICD-10-PCS; 2017-11-26)
PROC: 5A1D70Z Performance of Urinary Filtration, Intermittent, Less than 6 Hours Per Day (ICD-10-PCS; 2017-11-27)
PROC: 5A1D70Z Performance of Urinary Filtration, Intermittent, Less than 6 Hours Per Day (ICD-10-PCS; 2017-11-29)
PROC: 5A1D70Z Performance of Urinary Filtration, Intermittent, Less than 6 Hours Per Day (ICD-10-PCS; 2017-12-01)
PROC: 03170ZD Bypass Right Brachial Artery to Upper Arm Vein, Open Approach (ICD-10-PCS; principal; 2017-12-02)
DX: E87.70 Fluid overload, unspecified (principal); G93.41 Metabolic encephalopathy; J96.01 Acute respiratory failure with hypoxia; N18.6 End stage renal disease; I13.2 Hypertensive heart and chronic kidney disease with heart failure and with stage 5 chronic kidney disease, or end stage renal disease; D63.8 Anemia in other chronic diseases classified elsewhere; I16.0 Hypertensive urgency; D64.9 Anemia, unspecified; E11.22 Type 2 diabetes mellitus with diabetic chronic kidney disease; K21.9 Gastro-esophageal reflux disease without esophagitis; Z87.442 Personal history of urinary calculi; I25.2 Old myocardial infarction; Z86.73 Personal history of transient ischemic attack (TIA), and cerebral infarction without residual deficits; Z82.49 Family history of ischemic heart disease and other diseases of the circulatory system; Z88.0 Allergy status to penicillin; Z91.19 Patient's noncompliance with other medical treatment and regimen; Z71.89 Other specified counseling
CPT/HCPCS: 36415; 70450; 70544; 70551; 71045; 71260; 80048; 80053; 80061; 80074; 80307; 80320; 81001; 82140; 82962; 84132; 84443; 85025; 85027; 85610; 85730; 93005; 93010; 93306; 93880; 95819; A4649; C1768; G0480; J0360; J1170; J1644; J1940; J2704; J3010; J3370; J3490; J7030; J7040; J7050; Q9967

== ENCOUNTER 2017-12-27 07:46 | Inpatient (IN) | payer MEDICARE ==
[2017-12-27] MEDS ORDERED: ASPIRIN PO ONE (08:04)
--- NOTE | 2017-12-27 08:27 | Emergency Department Report ---
ED Shortness of Breath HPI - General Chief Complaint: Dyspnea/Respdistress Stated Complaint: VERO Time Seen by Provider: 12/27/17 08:09 Source: patient, EMS Mode of arrival: Stretcher Limitations: No Limitations - History of Present Illness Initial Comments: Mr. Rivero is a 52-year-old male with history of hypertension, CHF and end- stage renal disease. He continues to make urine. He takes furosemide daily. Last hemodialysis session occured Wednesday. He had shortness of breath the last 3 hours so severe that he contacted hypoxia: oxygen saturation 70% on room air here in the ED and according to EMS. He denies cough. Denies chest pain. Denies abdominal pain. Denies back pain. Denies fever. Denies leg swelling. Ditch Repairer is Dr. Wells. He politely declined blood draw or IV. He states that he is unable to tolerate the pain from the venipuncture attempts. He has a left-sided chest vascath for dialysis. He has a new AV fistula in the right upper extremity which was placed 2 1/2 weeks ago. MD Complaint: shortness of breath -: Sudden, hour(s) (3) Severity: severe Consistency: constant Improves With: oxygen Worsens With: nothing Known History Of: congestive heart failure, other (end-stage renal disease on dialysis) - Related Data Home Medications Medication Instructions Recorded Confirmed Last Taken Clonidine HCl [Catapres] 0.15 mg PO BID 08/16/17 11/25/17 Unknown Warfarin [Coumadin] 12 mg PO 6XW 08/16/17 11/25/17 Unknown Previous Rx's Medication Instructions Recorded Last Taken Type Warfarin [Coumadin] 10 mg PO DAILY@1700 tablet 06/01/17 Unknown Rx Aspirin [Adult Low Dose Aspirin EC] 81 mg PO DAILY #30 tablet. 08/17/17 Unknown Rx AtorvaSTATin [Lipitor] 40 mg PO QDAY #30 tablet 08/17/17 Unknown Rx Calcium Acetate 668 mg PO TID #30 tablet 08/17/17 Unknown Rx Furosemide [Lasix TAB] 40 mg PO DAILY #30 tablet 08/17/17 Unknown Rx Lisinopril [Zestril TAB] 10 mg PO QDAY #30 tablet 08/17/17 Unknown Rx NIFEdipine XL [Procardia Xl] 90 mg PO QDAY #30 tablet 08/17/17 Unknown Rx Furosemide [Lasix TAB] 40 mg PO QDAY tablet 12/03/17 Unknown Rx Metoprolol [Lopressor TAB] 100 mg PO BID #60 tablet 12/03/17 Unknown Rx NIFEdipine XL [Procardia Xl] 90 mg PO BID tablet 12/03/17 Unknown Rx oxyCODONE /ACETAMINOPHEN [Percocet 1 tab PO Q6HR PRN #12 tablet 12/03/17 Unknown Rx 5/325] Allergies Allergy/AdvReac Type Severity Reaction Status Date / Time Penicillins Allergy Unknown Verified 05/28/17 17:08 ED Review of Systems ROS: Stated complaint: VERO Other details as noted in HPI Comment: All other systems reviewed and negative Constitutional: denies: fever, malaise Respiratory: denies: cough Cardiovascular: denies: chest pain ED Past Medical Hx - Past Medical History Hx Hypertension: Yes Hx CVA: Yes Hx Heart Attack/AMI: Yes (Internal medicine says [place] in 1995) Hx Congestive Heart Failure: Yes Hx Diabetes: Yes Hx Deep Vein Thrombosis: Yes Hx Pulmonary Embolism: No Hx GERD: Yes Hx Liver Disease: No Hx Renal Disease: No (hx nephrolithiasis ) Hx Seizures: No Hx Kidney Stones: Yes Hx Asthma: Yes (pt did not confirm) Hx COPD: No Hx Tuberculosis: No Hx Dementia: No Additional medical history: Hemodialysis Wednesday. - Surgical History Hx Coronary Stent: No Hx Pacemaker: No Hx Internal Defibrillator: No Additional Surgical History: PERMACATH LEFT CHEST. FISTULA IN LEFT ARM ; REMOVAL. recent Graft in Right upper arm 2018 - Social History Smoking Status: Never Smoker Substance Use Type: None - Medications Home Medications: Home Medications Medication Instructions Recorded Confirmed Last Taken Type Warfarin [Coumadin] 10 mg PO DAILY@1700 tablet 06/01/17 11/25/17 Unknown Rx Clonidine HCl [Catapres] 0.15 mg PO BID 08/16/17 11/25/17 Unknown History Warfarin [Coumadin] 12 mg PO 6XW 08/16/17 11/25/17 Unknown History Aspirin [Adult Low Dose Aspirin EC] 81 mg PO DAILY #30 tablet. 08/17/17 Unknown Rx AtorvaSTATin [Lipitor] 40 mg PO QDAY #30 tablet 08/17/17 11/25/17 Unknown Rx Calcium Acetate 668 mg PO TID #30 tablet 08/17/17 11/25/17 Unknown Rx Furosemide [Lasix TAB] 40 mg PO DAILY #30 tablet 08/17/17 11/25/17 Unknown Rx Lisinopril [Zestril TAB] 10 mg PO QDAY #30 tablet 08/17/17 11/25/17 Unknown Rx NIFEdipine XL [Procardia Xl] 90 mg PO QDAY #30 tablet 08/17/17 11/25/17 Unknown Rx Furosemide [Lasix TAB] 40 mg PO QDAY tablet 12/03/17 Unknown Rx Metoprolol [Lopressor TAB] 100 mg PO BID #60 tablet 12/03/17 Unknown Rx NIFEdipine XL [Procardia Xl] 90 mg PO BID tablet 12/03/17 Unknown Rx oxyCODONE /ACETAMINOPHEN [Percocet 1 tab PO Q6HR PRN #12 tablet 12/03/17 Unknown Rx 5/325] ED Physical Exam - General Limitations: No Limitations General appearance: alert, other (mild respiratory distress with tachypnea speaking full sentences) - Head Head exam: Present: atraumatic, normocephalic - Eye Eye exam: Present: normal appearance - ENT ENT exam: Present: mucous membranes moist - Neck Neck exam: Present: normal inspection, other (positive JVD at 90) - Respiratory Respiratory exam: Present: normal lung sounds bilaterally, wheezes, rales - Cardiovascular Cardiovascular Exam: Present: regular rate, normal rhythm, normal heart sounds. Absent: systolic murmur, diastolic murmur, rubs, gallop - GI/Abdominal GI/Abdominal exam: Present: soft, normal bowel sounds. Absent: distended, tenderness, guarding, rebound - Rectal Rectal exam: Present: deferred - Extremities Exam Extremities exam: Present: normal inspection. Absent: pedal edema - Back Exam Back exam: Present: normal inspection - Neurological Exam Neurological exam: Present: alert, oriented X3 - Psychiatric Psychiatric exam: Present: normal affect, normal mood - Skin Skin exam: Present: warm, dry, intact, normal color. Absent: rash ED Course Vital Signs 12/27/17 12/27/17 08:00 08:32 Temperature 98.1 F 98.1 F Pulse Rate 80 79 Respiratory 22 Rate Blood Pressure 214/120 Blood Pressure 241/129 [Left] O2 Sat by Pulse 100 98 Oximetry - Reevaluation(s) Reevaluation #1: 12/27/17 08:33 I came to the bedside immediately upon arrival. Nurse informed the patient and her sister distress with hypoxemia. Patient declined IV stick and venipuncture for blood draw. I contacted his senior linux administrator by his request. Dr. Wells readily agreed to see the patient in ED. Dr. Wells informed me that the patient is unable to tolerate pain from venipuncture. ED Medical Decision Making - EKG Data -: EKG Interpreted by Me - EKG Data 12/27/17 08:29 EKG obtained at 0 754 Normal sinus rhythm rate of 80pm normal axis normal QT interval nl ME interval no ST elevation poor R-wave progression with Q waves in anterior leads No signs of hyperkalemic changes - Medical Decision Making Mr. Rivero presents with acute respiratory failure hypoxia due to hypervolemia. Dr. Wells evaluated the patient [id number] in the ED. He recommended admission for hemodialysis. I truly appreciate the help of my colleagues senior linux administrator Dr. Wells and hospitalist Dr. Yu. Patient refused lab draw or venipuncture. Patient is able to maintain oxygen saturation 99% with nasal cannula. Critical Care Time: Yes (45) Critical care attestation.: If time is entered above; I have spent that time in minutes in the direct care of this critically ill patient, excluding procedure time. ED Disposition Clinical Impression: Acute respiratory failure with hypoxia, Volume overload, End-stage renal disease (ESRD) Disposition: OP ADMIT IP TO THIS HOSP Is pt being admited?: Yes Does the pt Need Aspirin: No Condition: Fair Time of Disposition: 08:49
[2017-12-27] MEDS ORDERED: CATAPRES PO ONE (08:31)
[2017-12-27] MEDS ORDERED: LASIX 100 MG in NACL 0.9% 50 ML IV ONE (08:31)
--- NOTE | 2017-12-27 08:37 | XRay Report ---
AP CHEST: HISTORY: Difficulty in breathing Mild pulmonary venous congestion has developed since 12/02/17. Heart size is within normal limits. Possible trace right pleural effusion. Subtle pleural calcifications are noted at the right lung base. Left venous catheter terminates in the superior right atrium. The bony structures are grossly intact. IMPRESSION: Mild pulmonary venous congestion. Trace right pleural effusion.
--- NOTE | 2017-12-27 08:43 | Consultation ---
History of Present Illness - Reason for Consult Consult date: 12/27/17 end stage renal disease, other (Volume overload, pulmonary edema) - History of Present Illness The patient is a 52 YO AAM with history significant for Type 2 DM, Uncontrolled HTN, CVA, CAD, GERD, ESRD on HD (M,W,F), Anemia, Cognitive decline and Medical non-compliance presented to ED for evaluation of sob. He woke up early this AM with shortness of breath. Associated symptoms include Orthopnea. He was last dialyzed 2 days ago. His initial BP was around 250/145. He ran out of Nifedipine about a week ago. He had a similar admission at [facility] on and was discharged on the following day. Patient denies any cp, cough, weakness, hemoptysis, dizziness, syncope, fever or rash. He has been non- compliant with medication and diet. Past History Past Medical History: anemia, diabetes, dialysis, ESRD, hypertension Medications and Allergies Allergies Allergy/AdvReac Type Severity Reaction Status Date / Time Penicillins Allergy Unknown Verified 05/28/17 17:08 Home Medications Medication Instructions Recorded Confirmed Last Taken Type Clonidine HCl [Catapres] 0.15 mg PO BID 08/16/17 12/27/17 Unknown History Warfarin [Coumadin] 12 mg PO 6XW 08/16/17 12/27/17 Unknown History Aspirin [Adult Low Dose Aspirin EC] 81 mg PO DAILY #30 tablet. 08/17/17 Unknown Rx AtorvaSTATin [Lipitor] 40 mg PO QDAY #30 tablet 08/17/17 12/27/17 Unknown Rx Calcium Acetate 668 mg PO TID #30 tablet 08/17/17 12/27/17 Unknown Rx Furosemide [Lasix TAB] 40 mg PO DAILY #30 tablet 08/17/17 12/27/17 Unknown Rx Metoprolol [Lopressor TAB] 100 mg PO BID #60 tablet 12/03/17 12/27/17 Unknown Rx NIFEdipine XL [Procardia Xl] 90 mg PO BID tablet 12/03/17 12/27/17 Unknown Rx oxyCODONE /ACETAMINOPHEN [Percocet 1 tab PO Q6HR PRN #12 tablet 12/03/17 Unknown Rx 5/325] Lisinopril [Zestril TAB] 40 mg PO QDAY 12/27/17 12/27/17 Unknown History Review of Systems Constitutional: no weight loss, no weight gain, no fever, no chills, no anorexia , no poor appetite Ears, nose, mouth and throat: no epistaxis Cardiovascular: orthopnea, shortness of breath, dyspnea on exertion, high blood pressure, no chest pain, no palpitations, no edema, no syncope, no lightheadedness, no leg edema Respiratory: shortness of breath, dyspnea on exertion, no cough, no hemoptysis, no home oxygen Gastrointestinal: no abdominal pain, no nausea, no vomiting, no diarrhea, no melena Genitourinary Male: no dysuria, no hematuria Rectal: no bleeding Musculoskeletal: no muscle weakness Integumentary: no rash Neurological: no paralysis, no seizures, no syncope, no convulsions, no aphasia Exam - Vital Signs Vital signs: Vital Signs Temp Pulse BP Pulse Ox 98.1 F 80 214/120 100 12/27/17 08:00 12/27/17 08:00 12/27/17 08:00 12/27/17 08:00 - General Appearance General appearance: well-developed, well-nourished, appears stated age, other ( no distress, left IJ tunnel catheter) EENT: ATNC, PERRL, hearing intact, vision intact Neck: Present: neck supple, trachea midline Respiratory: Rales Heart: regular, S1S2, no murmurs Gastrointestinal: Present: normoactive bowel sounds. Absent: tenderness Integumentary: no rash, warm and dry Neurologic: no focal deficit, no asterixis, alert and oriented x3 Musculoskeletal: Present: other (right arm AVG) Psychiatric: cooperative Results - Lab Results 12/27/17 13:45 12/27/17 13:45 Assessment and Plan 1. Volume overload with respiratory distress: Hemodialysis today with 3-4 Lts of UF as tolerated. Compliance encouraged. 2. ESRD: Hemodialysis as planned. Will get the Vascular to evaluate the AVG. 3. Hypertensive Urgency: Resume home meds. UF with HD today. 4. Anemia: Will follow.
[2017-12-27] MEDS ORDERED: NACL 0.9% 100 ML IV PRN (08:44)
[2017-12-27] MEDS ORDERED: PERCOCET 5/325 PO PRN (09:33)
[2017-12-27] MEDS: ZESTRIL PO SCH ×2 (09:45→09:53)
[2017-12-27] MEDS: PROCARDIA XL PO SCH (09:45)
[2017-12-27] MEDS: HALFPRIN EC PO SCH (09:49)
--- NOTE | 2017-12-27 09:51 | History and Physical Report ---
History of Present Illness Chief complaint: Shortness of breath History of present illness: 52-year-old -[place] Citizen male with past medical history significant for ESRD on HD, hypertension, CHF, asthma presented to the emergency department complaining of shortness of breath that started this morning. He has associated cough productive of white sputum. Patient denied fever or chills or chest pain. Patient is noncooperative and refused any blood work. Nephrology was consulted and he knows the patient on an outpatient which he usually refused. Nephrology said admit the patient to the floor for hemodialysis and blood test will be done at dialysis. REVIEW OF SYSTEMS: GENERAL: no weight change, no fatigue, no fever HEAD: no head ache EYES: no blurry vision, no acute visual loss EARS: no hearing loss, no discharge, no earache NOSE: no stuffiness, no sneezing, no discharge MOUTH, THROAT AND NECK: no bleeding gums, no sore throat, no swollen neck CARDIAC: no palpitations, no dyspnea on exertion, no orthopnea, no PND, no edema , no chest pain RESPIRATORY: As stated in the HPI. GI: no decreased appetite, no nausea, no vomiting, no dysphagia, no diarrhea, no constipation, no abdominal pain URINARY: no change in frequency, no urgency, no polyuria, no hematuria, no incontinence MUSCULOSKELETAL: no muscle weakness, no pain, no joint stiffness NEUROLOGIC: no loss of sensation/numbness, no tingling, no tremors, no weakness/ paralysis HEMATOLOGIC: no anemia, no easy bruising SKIN: no rashes ENDOCRINE: no heat/cold intolerance, no polyuria, no polydipsia, no thyroid problems, no diabetes PSYCHIATRIC: no anxiety, no depression, no suicidal ideations Past History Past Medical History: dialysis, hypertension, renal failure Past Surgical History: Other (AVF) Social history: full code. denies: smoking, alcohol abuse, prescription drug abuse, IV drug use Family history: no significant family history Medications and Allergies Allergies Allergy/AdvReac Type Severity Reaction Status Date / Time Penicillins Allergy Unknown Verified 05/28/17 17:08 Home Medications Medication Instructions Recorded Confirmed Last Taken Type Clonidine HCl [Catapres] 0.15 mg PO BID 08/16/17 12/27/17 Unknown History Warfarin [Coumadin] 12 mg PO 6XW 08/16/17 12/27/17 Unknown History Aspirin [Adult Low Dose Aspirin EC] 81 mg PO DAILY #30 tablet. 08/17/17 Unknown Rx AtorvaSTATin [Lipitor] 40 mg PO QDAY #30 tablet 08/17/17 12/27/17 Unknown Rx Calcium Acetate 668 mg PO TID #30 tablet 08/17/17 12/27/17 Unknown Rx Furosemide [Lasix TAB] 40 mg PO DAILY #30 tablet 08/17/17 12/27/17 Unknown Rx Metoprolol [Lopressor TAB] 100 mg PO BID #60 tablet 12/03/17 12/27/17 Unknown Rx NIFEdipine XL [Procardia Xl] 90 mg PO BID tablet 12/03/17 12/27/17 Unknown Rx oxyCODONE /ACETAMINOPHEN [Percocet 1 tab PO Q6HR PRN #12 tablet 12/03/17 Unknown Rx 5/325] Lisinopril [Zestril TAB] 40 mg PO QDAY 12/27/17 12/27/17 Unknown History Active Meds: Active Medications Aspirin (Halfprin Ec) 81 mg PO DAILY [facility] Atorvastatin Calcium (Lipitor) 40 mg PO QHS REBECA Furosemide (Lasix) 40 mg PO DAILY [facility] Sodium Chloride (Nacl 0.9%) 100 mls @ 999 mls/hr IV SANDHYA PRN PRN Reason: Hypotension Lisinopril (Zestril) 40 mg PO DAILY [facility] Last Admin: 12/27/17 09:45 Dose: 40 mg Lisinopril (Zestril) 10 mg PO QDAY [facility] Metoprolol Tartrate (Lopressor) 100 mg PO BID [facility] Miscellaneous Medication (Clonidine Hcl [Catapres]) 0.3 mg PO BID [facility] Miscellaneous Medication (Calcium Acetate [Calcium Acetate]) 668 mg PO TID [facility] Nifedipine (Procardia Xl) 90 mg PO DAILY [facility] Last Admin: 12/27/17 09:45 Dose: 90 mg Nifedipine (Procardia Xl) 90 mg PO BID [facility] Oxycodone/Acetaminophen (Percocet 5/325) 1 tab PO Q6H PRN PRN Reason: Pain Exam - Physical Exam Narrative exam: Not in cardiopulmonary distress. The patient appeared well nourished and normally developed. Vital signs as documented. Head exam is unremarkable. No scleral icterus . Neck is without jugular venous distension, thyromegaly, or carotid bruits. Lungs are clear to auscultation. Cardiac exam reveals regular rate and Rhythm. First and second heart sounds normal. No murmurs, rubs or gallops. Abdominal exam reveals normal bowel sounds, no masses, no organomegaly and no aortic enlargement. Extremities are nonedematous and both femoral and pedal pulses are normal. DIRECTOR HEALTH: Alert and oriented 3. No focal weakness. - Constitutional Vitals: Temp Pulse Resp BP Pulse Ox 98.1 F 97 H 22 256/148 98 12/27/17 08:32 12/27/17 09:45 12/27/17 08:32 12/27/17 09:45 12/27/17 08:32 Results - Labs CBC & Chem 7: 12/27/17 13:45 12/27/17 13:45 Assessment and Plan Assessment and plan: 52-year-old -[place] Citizen male with past medical history significant for ESRD on HD, hypertension presented to the emergency department for the Complains of SOB and cough. Chest x-ray suggestive of mild pulmonary congestion and small right pleural effusion. Nephrology was consulted and recommended admission for hemodialysis. ESRD on HD Fluid overload Hypertensive Urgency No compliance with treatment - Patient refused IV line, couldn't give him any IV medication for BP control, I have explained the risk benefit - We continued his home medications including clonidine - Patient will have hemodialysis today, nephrology consult appreciated, will recheck BP after hemodialysis - Shortness of breath getting better DVT prophylaxis - Heparin Disposition - Admit to the floor. Advance Directives: Yes VTE prophylaxis?: Chemical Plan of care discussed with patient/family: Yes
[2017-12-27] MEDS ORDERED: NON-FORMULARY (Clonidine Hcl [Catapres] 0.3 MG) PO SCH (10:00)
[2017-12-27] MEDS ORDERED: PROCARDIA XL PO SCH ×2 (10:00→22:00)
[2017-12-27] MEDS ORDERED: ZESTRIL PO SCH ×2 (10:00)
[2017-12-27] MEDS ORDERED: LOPRESSOR ONE (10:25)
[2017-12-27] MEDS: LOPRESSOR PO SCH ×2 (10:32→22:01)
[2017-12-27] MEDS: LASIX PO SCH (10:32)
[2017-12-27] MEDS: CATAPRES PO SCH ×4 (12:12→22:00)
[2017-12-27] MEDS: PHOSLO PO SCH ×2 (12:13→17:00)
[2017-12-27] MEDS ORDERED: CALCIUM ACETATE PO SCH (14:00)
[2017-12-27 14:25] LABS: Basophils % (Auto) 0.6 % (0.0-1.8); Eosinophils # (Auto) 0.5 K/mm3 (0.0-0.4); Eosinophils % (Auto) 8.3 % (0.0-4.3); Hematocrit 29.7 % (35.5-45.6); Hemoglobin 9.8 gm/dl (11.8-15.2); Lymphocytes # (Auto) 0.6 K/mm3 (1.2-5.4); Lymphocytes % (Auto) 10.4 % (13.4-35.0); Mean Corpuscular HGB Conc 33 % (32-34); Mean Corpuscular Hemoglobin 31 pg (28-32); Mean Corpuscular Volume 93 fl (84-94); Monocytes # (Auto) 0.4 K/mm3 (0.0-0.8); Monocytes % (Auto) 7.1 % (0.0-7.3); Platelet Count 146 K/mm3 (140-440); Red Blood Count 3.21 M/mm3 (3.65-5.03); Red Cell Distribution Width 19.3 % (13.2-15.2)
[2017-12-27 14:28] LABS: Calcium 9.5 mg/dL (8.4-10.2)
[2017-12-27] MEDS ORDERED: NACL 0.9 (PRIMING MACHINE ONLY DIALYSIS) MC ONE (16:14)
[2017-12-27 16:30] LABS: Chol/HDL Ratio 1.8 %
[2017-12-27] MEDS: HEPARIN IV PRN (17:21)
[2017-12-27] MEDS ORDERED: COUMADIN PO SCH (22:00)
[2017-12-27] MEDS ORDERED: HEPARIN SUB-Q SCH (22:00)
[2017-12-28] LABS: INR 1.11 (0.87-1.13)
[2017-12-28 05:55] LABS: INR 1.06 (0.87-1.13)
[2017-12-28] MEDS: PHOSLO PO SCH (08:50)
--- NOTE | 2017-12-28 08:57 | Progress Note ---
Assessment and Plan 1. Volume overload with respiratory distress: Symptoms are better after Hemodialysis yesterday. Plan to do HD today with 2-3 Lts of UF as tolerated. Compliance encouraged. 2. ESRD: Hemodialysis as planned. Vascular recs noted. Plan to use AVG with next HD. 3. Hypertensive Urgency: Resume home meds. UF with HD today. 4. Anemia: Will follow. Subjective Date of service: 12/28/17 Interval history: Patient is feeling better today. Objective - Vital Signs Vital signs: Vital Signs - 12hr 12/27/17 12/27/17 12/27/17 21:14 22:00 22:01 Temperature Pulse Rate 91 H 91 H Respiratory 20 Rate Blood Pressure 108/81 108/81 Blood Pressure [Left] O2 Sat by Pulse Oximetry 12/28/17 12/28/17 12/28/17 01:00 04:00 08:53 Temperature 98.1 F 98.4 F 98.6 F Pulse Rate 102 H 87 92 H Respiratory 18 18 18 Rate Blood Pressure Blood Pressure 117/106 170/82 179/109 [Left] O2 Sat by Pulse 98 97 95 Oximetry - General Appearance General appearance: well-developed, well-nourished, appears stated age, other ( no distress, left IJ tunnel catheter) EENT: ATNC, PERRL, hearing intact, vision intact Neck: supple Respiratory: Present: Clear to Ascultation Cardiology: regular, S1S2, no murmurs Gastrointestinal: normoactive bowel sounds, no tenderness, no distended Integumentary: no rash, warm and dry Neurologic: no focal deficit, no asterixis, alert and oriented x3 Musculoskeletal: other (right arm AVG with good thrill) - Lab 12/27/17 13:45 12/27/17 13:45 Most recent lab results Calcium 9.5 mg/dL (8.4-10.2) 12/27/17 13:45
[2017-12-28] MEDS ORDERED: NACL 0.9% 100 ML IV PRN (09:39)
[2017-12-28] MEDS ORDERED: ZESTRIL PO SCH (10:00)
[2017-12-28] MEDS: HALFPRIN EC PO SCH (10:43)
[2017-12-28] MEDS: LASIX PO SCH (10:43)
[2017-12-28] MEDS: PROCARDIA XL PO SCH (10:43)
[2017-12-28] MEDS: CATAPRES PO SCH ×2 (10:43→10:45)
[2017-12-28] MEDS: LOPRESSOR PO SCH (10:44)
[2017-12-28] MEDS ORDERED: Fluarix Quad 2017-2018(36 MOS+ IM ONE (12:00)
[2017-12-28] MEDS ORDERED: PNEUMOVAX 23 IM ONE (12:00)
[2017-12-28] MEDS ORDERED: NACL 0.9 (PRIMING MACHINE ONLY DIALYSIS) MC ONE (14:59)
--- NOTE | 2017-12-28 15:16 | Progress Note ---
Subjective Date of service: 12/28/17 Objective - Constitutional Vitals: Vital Signs - 12hr 12/28/17 12/28/17 12/28/17 04:00 08:53 10:43 Temperature 98.4 F 98.6 F Pulse Rate 87 92 H 92 H Respiratory 18 18 Rate Blood Pressure 179/109 Blood Pressure 170/82 179/109 [Left] O2 Sat by Pulse 97 95 Oximetry 12/28/17 12/28/17 10:44 10:45 Temperature Pulse Rate 92 H 92 H Respiratory Rate Blood Pressure 179/109 179/109 Blood Pressure [Left] O2 Sat by Pulse Oximetry General appearance: Present: no acute distress, well-nourished - EENT Eyes: PERRL, EOM intact ENT: hearing intact, clear oral mucosa Ears: bilateral: normal - Neck Neck: supple, normal ROM - Respiratory Respiratory effort: normal Respiratory: bilateral: CTA - Breasts Breasts: normal - Cardiovascular Rhythm: regular Heart Sounds: Present: S1 & S2. Absent: gallop, rub Extremities: pulses intact, No edema, normal color, Full ROM - Gastrointestinal General gastrointestinal: Present: soft, non-tender, non-distended, normal bowel sounds - Genitourinary Male genitourinary: normal - Integumentary Integumentary: clear, warm, dry - Musculoskeletal Musculoskeletal: 1, strength equal bilaterally - Neurologic Neurologic: moves all extremities - Psychiatric Psychiatric: memory intact, appropriate mood/affect, intact judgment & insight - Labs CBC & Chem 7: 12/27/17 13:45 12/27/17 13:45 Labs: Abnormal lab results 12/27/17 12/27/17 Range/Units 15:09 22:58 Troponin T 0.112 H* D 0.105 H* (0.00-0.029) ng/mL HDL Cholesterol 76 H (40-59) mg/dL
[2017-12-28] MEDS: HEPARIN IV PRN (15:40)
[2017-12-28 15:58] VITALS: BP 173/115
--- NOTE | 2017-12-28 16:06 | Discharge Summary ---
Providers - Providers Date of Admission: 12/27/17 08:49 Date of discharge: 12/28/17 Attending physician: SOL LUIS Primary care physician: ENA VALDEZ Hospitalization Condition: Fair Disposition: DC-30 STILL A PATIENT Core Measure Documentation - Palliative Care Palliative Care/ Comfort Measures: Not Applicable Exam - Constitutional Vitals: Temp Pulse Resp BP Pulse Ox 98.2 F 87 20 173/115 95 12/28/17 11:45 12/28/17 14:45 12/28/17 11:45 12/28/17 14:45 12/28/17 08:53 Plan Forms: Warfarin Discharge Instruction
[2017-12-28] MEDS ORDERED: COUMADIN PO SCH ×2 (17:00)
--- NOTE | 2017-12-28 18:10 | Event Note ---
Date: 12/28/17 Asked to evaluate the pt for jail HD access. Pt s/p right upper arm 4-7mm Acuseal AVG creation on 12-02-17. The avg has a strong thrill and is okay to be used for HD while in the hospital. Pt presently refuses to allow nursing staff place an IV or "to stick him with any more needles". He states he is going to be d/c'd home today. I recommended he wait until next Wednesday to begin using his avg as an outpt. He stated, "it was a mistake to let them put this in, and I'm not going to let them use it". I explained the risk of continued catheter based HD. I encouraged him to reconsider having gone through a surgery to place the graft. It appears to be functioning very well with a strong thrill and an easily palpable right radial pulse. After it has been used successfully 1-2 weeks his PC could be removed. Overall decreasing his risk of infection, and further complications related to catheter based HD. At this point, the pt continues to refuse.
== END 2017-12-28 18:00 | disposition home or self-care (01) | DRG 640 ==
LOC: ED 07:46 → 4A 08:49
PROVIDERS: ADMIT Internal Medicine; ATTEND Internal Medicine
PROC: 5A1D70Z Performance of Urinary Filtration, Intermittent, Less than 6 Hours Per Day (ICD-10-PCS; 2017-12-27)
PROC: 3E0234Z Introduction of Serum, Toxoid and Vaccine into Muscle, Percutaneous Approach (ICD-10-PCS; principal; 2017-12-28)
PROC: 5A1D70Z Performance of Urinary Filtration, Intermittent, Less than 6 Hours Per Day (ICD-10-PCS; 2017-12-28)
DX: E87.70 Fluid overload, unspecified (principal); N18.6 End stage renal disease; J96.01 Acute respiratory failure with hypoxia; I13.2 Hypertensive heart and chronic kidney disease with heart failure and with stage 5 chronic kidney disease, or end stage renal disease; I16.0 Hypertensive urgency; Z23 Encounter for immunization; Z79.899 Other long term (current) drug therapy; Z79.82 Long term (current) use of aspirin; Z88.0 Allergy status to penicillin; Z86.73 Personal history of transient ischemic attack (TIA), and cerebral infarction without residual deficits; I25.2 Old myocardial infarction; E11.22 Type 2 diabetes mellitus with diabetic chronic kidney disease; Z86.718 Personal history of other venous thrombosis and embolism; K21.9 Gastro-esophageal reflux disease without esophagitis; J45.909 Unspecified asthma, uncomplicated; D64.9 Anemia, unspecified
CPT/HCPCS: 36415; 71045; 80048; 80061; 82962; 83880; 84484; 85025; 85610; 90686; 90732; 93005; 93010; A9270-GY; J1644; J7030

== ENCOUNTER 2018-10-05 05:13 | Inpatient (IN) | payer MEDICARE ==
--- NOTE | 2018-10-05 05:56 | XRay Report ---
FINAL REPORT EXAM: XR CHEST 1V AP HISTORY: Shortness of breath TECHNIQUE: AP portable view(s) of the chest obtained. PRIORS: 05/17/2018 FINDINGS: No mediastinal shift. Cardiac silhouette is not enlarged. Vascular stenting projects over the upper m ediastinum. Left IJ Cordis. Patchy right greater than left lower lung opacities. No pneumothorax. Chr onic blunting of the right costophrenic angle and calcification of the right hemidiaphragmatic pleura . IMPRESSION: Patchy right greater than left lower lung opacities may be due to edema, atelectasis or infection. No pneumothorax.
[2018-10-05 06:01] LABS: Hematocrit 26.7 % (35.5-45.6); Hemoglobin 8.7 gm/dl (11.8-15.2); Mean Corpuscular HGB Conc 33 % (32-34); Mean Corpuscular Volume 89 fl (84-94); Platelet Count 147 K/mm3 (140-440); Red Blood Count 3.02 M/mm3 (3.65-5.03); Red Cell Distribution Width 17.2 % (13.2-15.2)
[2018-10-05 06:02] LABS: Eosinophils % (Auto) 1.2 % (0.0-4.3); Lymphocytes # (Auto) 0.6 K/mm3 (1.2-5.4); Lymphocytes % (Auto) 16.8 % (13.4-35.0); Monocytes # (Auto) 0.3 K/mm3 (0.0-0.8); Monocytes % (Auto) 8.7 % (0.0-7.3)
[2018-10-05 06:12] LABS: Calcium 9.3 mg/dL (8.4-10.2)
[2018-10-05] MEDS ORDERED: MAGNESIUM SULFATE 1 GM in NACL 0.9% 50 ML IV ONE (06:19)
[2018-10-05] MEDS ORDERED: SOLU-Medrol IV ONE (06:19)
--- NOTE | 2018-10-05 06:21 | Emergency Department Report ---
ED Shortness of Breath HPI - General Chief Complaint: Dyspnea/Respdistress Stated Complaint: VERO Time Seen by Provider: 10/05/18 06:11 Source: patient, EMS Mode of arrival: Stretcher Limitations: No Limitations - History of Present Illness Initial Comments: Patient is a 53-year-old male that presents emergency room with complaints of shortness of breath. Patient states shortness of breath started approximately 2 hours ago. Patient states he called EMS to bring him to the hospital to shortness of breath. Patient was placed on oxygen by EMS. Patient denies chest pain. Patient states his shortness of breath is better with rest and worse with exertion. Patient states she has a history of CHF and feels like he is retaining fluid. Patient denies abdominal pain. Patient denies diaphoresis. Patient denies chest pain. Patient denies fever and chills. MD Complaint: shortness of breath -: Sudden Severity: severe Consistency: constant Improves With: oxygen, rest Worsens With: lying flat, exertion Treatments Prior to Arrival: oxygen, bronchodilator - Related Data Home Oxygen Therapy: No Home Medications Medication Instructions Recorded Confirmed Last Taken Aspirin EC [Aspirin Enteric Coated 81 mg PO DAILY 08/24/18 10/05/18 Unknown TAB] Atorvastatin Calcium [Lipitor] 40 mg PO DAILY 08/24/18 10/05/18 Unknown Carvedilol [Coreg] 25 mg PO BID 08/24/18 10/05/18 Unknown Hydralazine HCl 2 tab PO TID 08/24/18 10/05/18 Unknown Losartan [Cozaar] 4 tab PO DAILY 08/24/18 10/05/18 Unknown NIFEdipine [Adalat cc] 90 mg PO BID 08/24/18 10/05/18 Unknown Gabapentin [Neurontin] 1 tab PO HS 10/05/18 10/05/18 Unknown Hydralazine HCl 1 tab PO BID 10/05/18 10/05/18 Unknown Hydralazine HCl 50 mg PO TID 10/05/18 10/05/18 Unknown ISOSORBIDE MONOnitrate [Imdur ER] 2 tab PO QDAY 10/05/18 10/05/18 Unknown Ondansetron [Zofran ODT TAB] 1 tab PO Q6HR PRN 10/05/18 10/05/18 Unknown Sertraline [Zoloft] 50 mg PO QDAY 10/05/18 10/05/18 Unknown Sevelamer Carbonate [Renvela] 3 tab PO TID 10/05/18 10/05/18 Unknown Tamsulosin [Flomax] 0.4 mg PO HS 10/05/18 10/05/18 Unknown Previous Rx's Medication Instructions Recorded Last Taken Type Pantoprazole [Protonix] 40 mg PO QDAY #30 tablet 08/26/18 Unknown Rx Allergies Allergy/AdvReac Type Severity Reaction Status Date / Time Penicillins Allergy Unknown Verified 05/28/17 17:08 ED Review of Systems ROS: Stated complaint: VERO Other details as noted in HPI Constitutional: denies: chills, fever Eyes: denies: eye pain, eye discharge, vision change ENT: denies: ear pain, throat pain Respiratory: shortness of breath. denies: cough Cardiovascular: denies: chest pain, palpitations Endocrine: no symptoms reported Gastrointestinal: denies: abdominal pain, nausea, diarrhea Genitourinary: denies: urgency, dysuria Musculoskeletal: denies: back pain, joint swelling, arthralgia Skin: denies: rash, lesions Neurological: denies: headache, weakness, paresthesias Psychiatric: denies: anxiety, depression Hematological/Lymphatic: denies: easy bleeding, easy bruising ED Past Medical Hx - Past Medical History Previous Medical History?: Yes Hx Hypertension: Yes Hx CVA: Yes Hx Heart Attack/AMI: Yes (Internal medicine says ALIA in 1995) Hx Congestive Heart Failure: Yes Hx Diabetes: Yes Hx Deep Vein Thrombosis: Yes Hx Pulmonary Embolism: No Hx GERD: Yes Hx Liver Disease: No Hx Renal Disease: Yes (ckd) Hx Seizures: No Hx Kidney Stones: Yes Hx Asthma: Yes Hx COPD: No Hx Tuberculosis: No Hx Dementia: No Hx HIV: No Additional medical history: Hemodialysis Wednesday. - Surgical History Past Surgical History?: Yes Hx Coronary Stent: No Hx Pacemaker: No Hx Internal Defibrillator: No Additional Surgical History: PERMACATH LEFT CHEST. FISTULA IN LEFT ARM ; NILSON DAYAN. recent Graft in Right upper arm 2018 - Family History Family history: no significant - Social History Smoking Status: Never Smoker Substance Use Type: None - Medications Home Medications: Home Medications Medication Instructions Recorded Confirmed Last Taken Type Aspirin EC [Aspirin Enteric Coated 81 mg PO DAILY 08/24/18 10/05/18 Unknown History TAB] Atorvastatin Calcium [Lipitor] 40 mg PO DAILY 08/24/18 10/05/18 Unknown History Carvedilol [Coreg] 25 mg PO BID 08/24/18 10/05/18 Unknown History Hydralazine HCl 2 tab PO TID 08/24/18 10/05/18 Unknown History Losartan [Cozaar] 4 tab PO DAILY 08/24/18 10/05/18 Unknown History NIFEdipine [Adalat cc] 90 mg PO BID 08/24/18 10/05/18 Unknown History Pantoprazole [Protonix] 40 mg PO QDAY #30 tablet 08/26/18 10/05/18 Unknown Rx Gabapentin [Neurontin] 1 tab PO HS 10/05/18 10/05/18 Unknown History Hydralazine HCl 1 tab PO BID 10/05/18 10/05/18 Unknown History Hydralazine HCl 50 mg PO TID 10/05/18 10/05/18 Unknown History ISOSORBIDE MONOnitrate [Imdur ER] 2 tab PO QDAY 10/05/18 10/05/18 Unknown History Ondansetron [Zofran ODT TAB] 1 tab PO Q6HR PRN 10/05/18 10/05/18 Unknown History Sertraline [Zoloft] 50 mg PO QDAY 10/05/18 10/05/18 Unknown History Sevelamer Carbonate [Renvela] 3 tab PO TID 10/05/18 10/05/18 Unknown History Tamsulosin [Flomax] 0.4 mg PO HS 10/05/18 10/05/18 Unknown History ED Physical Exam - General Limitations: No Limitations General appearance: alert, in no apparent distress - Head Head exam: Present: atraumatic, normocephalic - Eye Eye exam: Present: normal appearance, PERRL Pupils: Present: normal accommodation - ENT ENT exam: Present: mucous membranes moist - Neck Neck exam: Present: normal inspection - Respiratory Respiratory exam: Present: normal lung sounds bilaterally. Absent: respiratory distress - Cardiovascular Cardiovascular Exam: Present: regular rate, normal rhythm. Absent: systolic murmur, diastolic murmur, rubs, gallop - GI/Abdominal GI/Abdominal exam: Present: soft, normal bowel sounds - Rectal Rectal exam: Present: deferred - Extremities Exam Extremities exam: Present: normal inspection - Back Exam Back exam: Present: normal inspection - Neurological Exam Neurological exam: Present: alert, oriented X3 - Psychiatric Psychiatric exam: Present: normal affect, normal mood - Skin Skin exam: Present: warm, dry, intact, normal color. Absent: rash ED Course Vital Signs 10/05/18 10/05/18 10/05/18 05:29 05:36 06:00 Temperature 97.8 F Pulse Rate 96 H 90 Respiratory 12 12 20 Rate Blood Pressure 200/114 179/113 Blood Pressure 200/114 [Left] O2 Sat by Pulse 96 96 100 Oximetry 10/05/18 10/05/18 10/05/18 07:00 08:00 09:00 Temperature Pulse Rate 91 H 87 100 H Respiratory 14 16 21 Rate Blood Pressure 171/106 183/97 Blood Pressure [Left] O2 Sat by Pulse 100 100 100 Oximetry - Reevaluation(s) Reevaluation #1: Initial evaluation. Patient is short of breath. Patient sort of respiratory issues secondary to a CHF exacerbation. We'll order a BNP 10/05/18 06:10 - Consultations Consultation #1: Hospitalist consulted for admission. Hospitalist to admit patient. Hospitalist to assume care. Bridge orders placed 10/05/18 07:49 ED Medical Decision Making - Lab Data Result diagrams: 10/05/18 05:52 10/05/18 05:52 - EKG Data EKG shows normal: sinus rhythm, axis, intervals, QRS complexes, ST-T waves Rate: tachycardia - EKG Data When compared to previous EKG there are: no significant change Interpretation: LVH - Radiology Data Radiology results: report reviewed FINAL REPORT EXAM: XR CHEST 1V AP HISTORY: Shortness of breath TECHNIQUE: AP portable view(s) of the chest obtained. PRIORS: 05/17/2018 FINDINGS: No mediastinal shift. Cardiac silhouette is not enlarged. Vascular stenting projects over the upper mediastinum. Left IJ Cordis. Patchy right greater than left lower lung opacities. No pneumothorax. Chronic blunting of the right costophrenic angle and calcification of the right hemidiaphragmatic pleura. IMPRESSION: Patchy right greater than left lower lung opacities may be due to edema, atelectasis or infection. No pneumothorax. Transcribed By: CAMILLE Dictated By: ENA BAIRES MD Electronically Authenticated By: ENA BAIRES MD Signed Date/Time: 10/05/18 0556 - Medical Decision Making Patient 53-year-old gentleman apparent resolution of shortness of breath. Patient found to have CHF exacerbation with an elevated BNP. Patient's BMP is approximately 20,000. Patient to be admitted to the hospitalist service for further evaluation treatment. Patient also has a elevated troponin most like secondary to his chronic kidney disease. - Differential Diagnosis sob. chf exac. acs. volume overload. Critical Care Time: Yes Critical care attestation.: If time is entered above; I have spent that time in minutes in the direct care of this critically ill patient, excluding procedure time. Critical Care Time: 35 minutes ED Disposition Clinical Impression: Hypertensive urgency, Elevated troponin, SOB (shortness of breath), Hypoxia, Anemia of renal disease, End-stage renal disease (ESRD) CHF exacerbation Qualifiers: Heart failure type: unspecified Qualified Code(s): I50.9 - Heart failure, unspecified Disposition: OP ADMIT IP TO THIS HOSP Is pt being admited?: Yes Does the pt Need Aspirin: No Condition: Critical Time of Disposition: 07:50
[2018-10-05 07:40] LABS: Chol/HDL Ratio 1.87 %
[2018-10-05] MEDS ORDERED: ASPIRIN PO ONE (07:50)
[2018-10-05] MEDS ORDERED: LASIX IV ONE (08:44)
[2018-10-05] MEDS ORDERED: LASIX ONE (08:51)
[2018-10-05] MEDS ORDERED: ASPIRIN ONE (08:57)
[2018-10-05] MEDS ORDERED: ZOFRAN ODT PO PRN (12:19)
--- NOTE | 2018-10-05 12:24 | History and Physical Report ---
History of Present Illness Date of admission: 10/05/18 07:56 Chief complaint: i cant breathe History of present illness: 53M with ESRD, known poor compliance with his meds, pw sob, JAIME, Orthopnea and generalized edema, denies CP -denies missing HD, symptoms been going on for 2 hours. He is swelling, denies increased salt intake, denies sick contacts He feels like he is gaining weight and feels like his clothes are too tight -c/o gen weakness Past Medical History htn, cva, [place] in 1995, chf preserved EF, dm, hx of dvt -factor V Leiden mutation, gerd, nephrolithiasis, asthma?, ESRD on HD - Surgical History PERMACATH LEFT CHEST. FISTULA IN LEFT ARM ; REMOVAL. recent Graft in Right upper arm 2017 - Social History Smoking Status: Unknown if ever smoked Substance Use Type: None fam hx; htn Medications and Allergies Allergies Allergy/AdvReac Type Severity Reaction Status Date / Time Penicillins Allergy Unknown Verified 05/28/17 17:08 Home Medications Medication Instructions Recorded Confirmed Last Taken Type Aspirin EC [Aspirin Enteric Coated 81 mg PO DAILY 08/24/18 10/05/18 Unknown History TAB] Atorvastatin Calcium [Lipitor] 40 mg PO DAILY 08/24/18 10/05/18 Unknown History Carvedilol [Coreg] 25 mg PO BID 08/24/18 10/05/18 Unknown History Hydralazine HCl 2 tab PO TID 08/24/18 10/05/18 Unknown History Losartan [Cozaar] 4 tab PO DAILY 08/24/18 10/05/18 Unknown History NIFEdipine [Adalat cc] 90 mg PO BID 08/24/18 10/05/18 Unknown History Pantoprazole [Protonix] 40 mg PO QDAY #30 tablet 08/26/18 10/05/18 Unknown Rx Gabapentin [Neurontin] 1 tab PO HS 10/05/18 10/05/18 Unknown History Hydralazine HCl 1 tab PO BID 10/05/18 10/05/18 Unknown History Hydralazine HCl 50 mg PO TID 10/05/18 10/05/18 Unknown History ISOSORBIDE MONOnitrate [Imdur ER] 2 tab PO QDAY 10/05/18 10/05/18 Unknown History Ondansetron [Zofran ODT TAB] 1 tab PO Q6HR PRN 10/05/18 10/05/18 Unknown History Sertraline [Zoloft] 50 mg PO QDAY 10/05/18 10/05/18 Unknown History Sevelamer Carbonate [Renvela] 3 tab PO TID 10/05/18 10/05/18 Unknown History Tamsulosin [Flomax] 0.4 mg PO HS 10/05/18 10/05/18 Unknown History Active Meds: Active Medications Aspirin (Halfprin Ec) 81 mg PO DAILY [facility] Atorvastatin Calcium (Lipitor) 40 mg PO DAILY [facility] Carvedilol (Coreg) 25 mg PO BID [facility] Furosemide (Lasix) 40 mg IV 0600,1800 [facility] Gabapentin (Neurontin) mg PO HS [facility] Hydralazine HCl (Apresoline) 10 mg IV Q4HR PRN PRN Reason: BP >160/100 Isosorbide Mononitrate (Imdur) mg PO QDAY [facility] Losartan Potassium (Cozaar) mg PO DAILY [facility] Miscellaneous Medication (Hydralazine Hcl [Hydralazine Hcl]) 50 mg PO TID [facility] Miscellaneous Medication (Nifedipine [Adalat Cc]) 90 mg PO DAILY [facility] Ondansetron HCl (Zofran Odt) mg PO Q6HR PRN PRN Reason: Nausea Pantoprazole Sodium (Protonix) 40 mg PO QDAY [facility] Sertraline HCl (Zoloft) 50 mg PO QDAY [facility] Sevelamer Carbonate (Renvela) mg PO TID [facility] Tamsulosin HCl (Flomax) 0.4 mg PO HS [facility] Review of Systems All systems: negative Constitutional: no fatigue, no weakness Ears, nose, mouth and throat: no ear pain Cardiovascular: no chest pain Respiratory: no cough Gastrointestinal: no abdominal pain Genitourinary Male: no dysuria Rectal: no pain Musculoskeletal: no neck stiffness Integumentary: no deferred Neurological: no head injury Psychiatric: no anxiety Endocrine: no cold intolerance Hematologic/Lymphatic: no easy bruising Allergic/Immunologic: no urticaria Exam - Constitutional Vitals: Temp Pulse Resp BP Pulse Ox 97.4 F L 81 18 174/110 100 10/05/18 10:55 10/05/18 10:55 10/05/18 10:55 10/05/18 10:55 10/05/18 10:55 General appearance: Present: no acute distress, well-nourished - EENT Eyes: Present: PERRL ENT: hearing intact, clear oral mucosa - Neck Neck: Present: supple, normal ROM - Respiratory Respiratory effort: normal Respiratory: bilateral: rales - Cardiovascular Heart Sounds: Present: S1 & S2. Absent: rub, click - Extremities Extremities: pulses symmetrical Extremity abnormal: edema Peripheral Pulses: within normal limits - Abdominal General gastrointestinal: Present: soft, non-tender, non-distended, normal bowel sounds Male genitourinary: Present: normal - Integumentary Integumentary: Present: clear, warm, dry - Musculoskeletal Musculoskeletal: gait normal, strength equal bilaterally - Psychiatric Psychiatric: appropriate mood/affect, intact judgment & insight - Neurologic Neurologic: CNII-XII intact, moves all extremities Results - Labs CBC & Chem 7: 10/05/18 05:52 10/06/18 02:25 Labs: Laboratory Last Values WBC 3.9 K/mm3 (4.5-11.0) L 10/05/18 05:52 RBC 3.02 M/mm3 (3.65-5.03) L 10/05/18 05:52 Hgb 8.7 gm/dl (11.8-15.2) L 10/05/18 05:52 Hct 26.7 % (35.5-45.6) L 10/05/18 05:52 MCV 89 fl (84-94) 10/05/18 05:52 MCH 29 pg (28-32) 10/05/18 05:52 MCHC 33 % (32-34) 10/05/18 05:52 RDW 17.2 % (13.2-15.2) H 10/05/18 05:52 Plt Count 147 K/mm3 (140-440) 10/05/18 05:52 Lymph % (Auto) 16.8 % (13.4-35.0) 10/05/18 05:52 [place] % (Auto) 8.7 % (0.0-7.3) H 10/05/18 05:52 Eos % (Auto) 1.2 % (0.0-4.3) 10/05/18 05:52 Baso % (Auto) 0.0 % (0.0-1.8) 10/05/18 05:52 Lymph # 0.6 K/mm3 (1.2-5.4) L 10/05/18 05:52 [place] # 0.3 K/mm3 (0.0-0.8) 10/05/18 05:52 Eos # 0.0 K/mm3 (0.0-0.4) 10/05/18 05:52 Baso # 0.0 K/mm3 (0.0-0.1) 10/05/18 05:52 Seg Neutrophils % 73.3 % (40.0-70.0) H 10/05/18 05:52 Seg Neutrophils # 2.8 K/mm3 (1.8-7.7) 10/05/18 05:52 Sodium 144 mmol/L (137-145) 10/05/18 05:52 Potassium 4.3 mmol/L (3.6-5.0) 10/05/18 05:52 Chloride 99.8 mmol/L (98-107) 10/05/18 05:52 Carbon Dioxide 29 mmol/L (22-30) 10/05/18 05:52 Anion Gap 20 mmol/L 10/05/18 05:52 BUN 48 mg/dL (9-20) H 10/05/18 05:52 Creatinine 9.0 mg/dL (0.8-1.5) H 10/05/18 05:52 Estimated GFR 7 ml/min 10/05/18 05:52 BUN/Creatinine Ratio 5 % 10/05/18 05:52 Glucose 84 mg/dL (75-100) 10/05/18 05:52 POC Glucose 95 (70-105) 10/05/18 11:01 Calcium 9.3 mg/dL (8.4-10.2) 10/05/18 05:52 Troponin T 0.193 ng/mL (0.00-0.029) H* 10/05/18 05:52 NT-Pro-B Natriuret Pep 02268 pg/mL (0-900) H 10/05/18 05:52 Triglycerides 29 mg/dL (2-149) 10/05/18 05:52 Cholesterol 109 mg/dL (50-199) 10/05/18 05:52 LDL Cholesterol Direct 52 mg/dL (50-130) 10/05/18 05:52 HDL Cholesterol 58 mg/dL (40-59) 10/05/18 05:52 Cholesterol/HDL Ratio 1.87 % 10/05/18 05:52 - Imaging and Cardiology Chest x-ray: image reviewed (pulm edema) Assessment and Plan Assessment and plan: 53M who pw SOB and edema PMH; htn, cva, [place] in 1995, chf preserved EF, dm, hx of dvt -factor V Leiden mutation, gerd, nephrolithiasis, asthma?, ESRD on HD Problems diastolic CHF exacerbation Hypertensive urgency History of DVT, factor V Leiden mutation ESRD on HD Plan Renal consulted for UF, optimize medications for heart failure and high blood pressure no longer on anticoagulation Consults nephrology for HD DVT prophylaxis chemical
[2018-10-05] MEDS ORDERED: TYLENOL PO PRN (12:25)
[2018-10-05] MEDS ORDERED: ZOFRAN IV PRN (12:25)
[2018-10-05] MEDS: APRESOLINE PO SCH ×2 (13:30→21:58)
[2018-10-05] MEDS: RENVELA PO SCH ×2 (13:31→21:58)
[2018-10-05] MEDS ORDERED: NON-FORMULARY (Hydralazine Hcl [Hydralazine Hcl] 50 MG) PO SCH (14:00)
--- NOTE | 2018-10-05 14:24 | Consultation ---
History of Present Illness Consult date: 10/05/18 Requesting physician: SIMONA CABALLERO Consult reason: congestive heart failure History of present illness: The pt is a 53 YO male with a past medical history significant for ESRD on HD, DVT, factor V Leiden mutation, anticoagulated with Eliquis, mitral valve calcification (evaluated by [facility] in 05/2017 and no plans for surgical intervention at this time), CVA, ? AMI in 1995, Kari Mcmanus tear, Gonzalez's esophagus, prostate CA diagnosed in 2005, HTN, HLP, DM, anemia of CKD, ANAMIKA, cognitive impairment, medical noncompliance. He is followed by [facility]. He is a poor historian. He presented with complaints of SOB for 2 days and BLE swelling for 2 weeks prior to arrival. He denies any chest pain, palpitations, n/v, diaphoresis, dizziness or syncope. He reports complian ce with his dialysis schedule, diet and medication regimen. Echo done 11/2017 showed EF 50-55%, mod to severe LBH, pseudonormalization, LA mod to severely dilated, mild , mitral annular calcification, mild MR, mild to mod TR, mod pulm HTN with RVSP 57mmHg, mild to mod OK, small pericardial effusi on adjacent to the RV and RA. Lexiscan MPI stress test done 05/2017 was TDS, showed medium to large reversible inferior wall defect, small fixed anterior wall defect, EF 50%, findings suggest mod to reversible ischemia in the RCA. Pt was tx to [facility] for eval of MV mass and per [facility], no indication for further ischemic w/u. Past History Past Medical History: other (as per HPI) Medications and Allergies Allergies Allergy/AdvReac Type Severity Reaction Status Date / Time Penicillins Allergy Unknown Verified 05/28/17 17:08 Home Medications Medication Instructions Recorded Confirmed Last Taken Type Aspirin EC [Aspirin Enteric Coated 81 mg PO DAILY 08/24/18 10/05/18 Unknown History TAB] Atorvastatin Calcium [Lipitor] 40 mg PO DAILY 08/24/18 10/05/18 Unknown History Carvedilol [Coreg] 25 mg PO BID 08/24/18 10/05/18 Unknown History Hydralazine HCl 2 tab PO TID 08/24/18 10/05/18 Unknown History Losartan [Cozaar] 4 tab PO DAILY 08/24/18 10/05/18 Unknown History NIFEdipine [Adalat cc] 90 mg PO BID 08/24/18 10/05/18 Unknown History Pantoprazole [Protonix] 40 mg PO QDAY #30 tablet 08/26/18 10/05/18 Unknown Rx Gabapentin [Neurontin] 1 tab PO HS 10/05/18 10/05/18 Unknown History Hydralazine HCl 1 tab PO BID 10/05/18 10/05/18 Unknown History Hydralazine HCl 50 mg PO TID 10/05/18 10/05/18 Unknown History ISOSORBIDE MONOnitrate [Imdur ER] 2 tab PO QDAY 10/05/18 10/05/18 Unknown History Ondansetron [Zofran ODT TAB] 1 tab PO Q6HR PRN 10/05/18 10/05/18 Unknown History Sertraline [Zoloft] 50 mg PO QDAY 10/05/18 10/05/18 Unknown History Sevelamer Carbonate [Renvela] 3 tab PO TID 10/05/18 10/05/18 Unknown History Tamsulosin [Flomax] 0.4 mg PO HS 10/05/18 10/05/18 Unknown History Active Meds: Active Medications Acetaminophen (Tylenol) 650 mg PO Q4H PRN PRN Reason: Pain MILD(1-3)/Fever >100.5/GAMA Aspirin (Halfprin Ec) 81 mg PO DAILY [facility] Atorvastatin Calcium (Lipitor) 40 mg PO DAILY [facility] Carvedilol (Coreg) 25 mg PO BID [facility] Furosemide (Lasix) 40 mg IV 0600,1800 [facility] Gabapentin (Neurontin) 300 mg PO HS [facility] Hydralazine HCl (Apresoline) 10 mg IV Q4HR PRN PRN Reason: BP >160/100 Hydralazine HCl (Apresoline) 50 mg PO Q8HR [facility] Last Admin: 10/05/18 13:30 Dose: 50 mg Documented by: Isosorbide Mononitrate (Imdur) 120 mg PO QDAY [facility] Losartan Potassium (Cozaar) 100 mg PO QDAY [facility] Nifedipine (Procardia Xl) 90 mg PO QDAY [facility] Ondansetron HCl (Zofran Odt) 4 mg PO Q6HR PRN PRN Reason: Nausea Ondansetron HCl (Zofran) 4 mg IV Q8H PRN PRN Reason: Nausea And Vomiting Pantoprazole Sodium (Protonix) 40 mg PO QDAY [facility] Sertraline HCl (Zoloft) 50 mg PO QDAY [facility] Sevelamer Carbonate (Renvela) 2,400 mg PO TID [facility] Last Admin: 10/05/18 13:31 Dose: 2,400 mg Documented by: Tamsulosin HCl (Flomax) 0.4 mg PO HS [facility] Review of Systems Constitutional: no fever, no chills, no sweats Ears, nose, mouth and throat: no ear pain, no nose pain, no sinus pressure, no sinus pain Cardiovascular: orthopnea, edema, shortness of breath, dyspnea on exertion, paroxysmal nocturnal dyspnea, high blood pressure, leg edema, no chest pain, no palpitations, no rapid/irregular heart beat, no syncope, no lightheadedness Respiratory: shortness of breath, dyspnea on exertion, no cough, no congestion, no wheezing, no pain on inspiration Gastrointestinal: no abdominal pain, no nausea, no vomiting, no diarrhea, no constipation, no change in bowel habits Genitourinary Male: no dysuria, no hematuria, no flank pain, no discharge, no urinary frequency, no urinary hesitancy Musculoskeletal: no neck stiffness, no neck pain, no shooting arm pain, no arm numbness/tingling, no low back pain, no shooting leg pain Integumentary: no rash, no pruritis, no redness, no sores, no wounds Neurological: no head injury, no paralysis, no weakness, no parathesias, no numbness, no tingling, no seizures, no syncope Psychiatric: no anxiety Endocrine: no cold intolerance, no heat intolerance Hematologic/Lymphatic: no easy bruising, no easy bleeding Allergic/Immunologic: no urticaria, no wheezing Physical Examination Vital Signs Temp Pulse Resp BP Pulse Ox 97.8 F 98 H 12 200/114 96 10/05/18 05:29 10/05/18 05:29 10/05/18 05:29 10/05/18 05:29 10/05/18 05:29 General appearance: no acute distress HEENT: Positive: PERRL, Normocephaly, Mucus Membranes Moist Neck: Positive: neck supple, trachea midline Cardiac: Positive: Reg Rate and Rhythm, S1/S2, Systolic Murmur Lungs: Positive: Decreased Breath Sounds Neuro: Positive: Grossly Intact Abdomen: Positive: Soft. Negative: Tender Skin: Negative: Rash Musculoskeletal: No Pain Extremities: Present: +2 Edema (BLE pitting) Results 10/05/18 05:52 10/05/18 05:52 Lipids 10/05/18 Range/Units 05:52 Triglycerides 29 (2-149) mg/dL Cholesterol 109 (50-199) mg/dL HDL Cholesterol 58 (40-59) mg/dL Cholesterol/HDL Ratio 1.87 % CBC 10/05/18 Range/Units 05:52 WBC 3.9 L (4.5-11.0) K/mm3 RBC 3.02 L (3.65-5.03) M/mm3 Hgb 8.7 L (11.8-15.2) gm/dl Hct 26.7 L (35.5-45.6) % Plt Count 147 (140-440) K/mm3 Lymph # 0.6 L (1.2-5.4) K/mm3 [place] # 0.3 (0.0-0.8) K/mm3 Eos # 0.0 (0.0-0.4) K/mm3 Baso # 0.0 (0.0-0.1) K/mm3 Comprehensive Metabolic Panel 10/05/18 Range/Units 05:52 Sodium 144 (137-145) mmol/L Potassium 4.3 (3.6-5.0) mmol/L Chloride 99.8 (98-107) mmol/L Carbon Dioxide 29 (22-30) mmol/L BUN 48 H (9-20) mg/dL Creatinine 9.0 H (0.8-1.5) mg/dL Glucose 84 (75-100) mg/dL Calcium 9.3 (8.4-10.2) mg/dL - Imaging and Cardiology Echo: report reviewed ( 11/2017 showed EF 50-55%, mod to severe LBH, pseudonormalization, LA mod to severely dilated, mild , mitral annular calcification, mild MR, mild to mod TR, mod pulm HTN with RVSP 57mmHg, mild to m od OK, small pericardial effusion adjacent to the RV and RA. ) EKG: report reviewed, image reviewed EKG interpretations - Telemetry EKG Rhythm: Sinus Tachycardia - EKG Sinus rhythms and dysrhythmias: sinus tachycardia Chamber hypertrophy or enlargement: left ventricular hypertro Repolarization changes or abnormalities: nonspecific abnormality, ST segment, and/or T wave, repolarization abn secondary to ventricular hypertrophy Assessment and Plan Assessment: Acute diastolic HF Uncontrolled HTN ESRD on HD Elevated troponon - currently nonspecific H/o DVT & factor V Leiden mutation, anticoagulated with Eliquis Mitral valve calcification - evaluated by [facility] in 05/2017 and no plans for surgical intervention at this time H/o multiple CVAs ? AMI in 1995 Kari Mcmanus tear, Gonzalez's esophagus H/o prostate CA diagnosed in 2005 HLP DM Anemia of CKD ANAMIKA Cognitive impairment Medical noncompliance Moderate pulm HTN with RVSP 57mmHg Plan: Agree with present cardiac regimen. F/u echo. Cont to trend troponins. Pt denies chest pain, ECG with no acute ischemic changes. Trop elevation currently nonspecific. Repeat ECG in AM. Continue volume optimization per nephrology. The patient has been seen in conjunction with Dr. Nuñez who agrees with the assessment and plan of care.
--- NOTE | 2018-10-05 15:44 | Consultation ---
History of Present Illness - Reason for Consult Consult date: 10/05/18 end stage renal disease, accelerated hypertension - History of Present Illness The patient is a 53 YO Male with history significant for Type 2 DM, Uncontrolled HTN, HLD, CAD, GERD, ESRD on HD (TTS), Anemia, h/o DVT, Factor V Leiden mutation on Eliquis, Mitral valve calcification, Kari Mcmanus tear, Gonzalez's esophagus, prostate CA diagnosed in 2005, ANAMIKA, cognitive impairment and Medical non- compliance who presented to [facility] ED for evaluation of shortness of breath. Patient developed sob this yesterday afternoon soon after he returned home from hemodialysis. He had about 3.5 Lts of fluid removed in dialysis yesterday. He ate 4 hotdogs 2 days ago. His initial BP Was around 200/114. CXR suggestive of pulmonary edema. Patient goes to different ER almost every week with similar presentation. Inspite of counseling numerous times he continue to eat salty foods and drinks excessively. Past History Past Medical History: diabetes, dialysis, ESRD, GERD, hypertension, hyperl ipidemia, other (as per HPI) Medications and Allergies Allergies Allergy/AdvReac Type Severity Reaction Status Date / Time Penicillins Allergy Unknown Verified 05/28/17 17:08 Home Medications Medication Instructions Recorded Confirmed Last Taken Type Aspirin EC [Aspirin Enteric Coated 81 mg PO DAILY 08/24/18 10/05/18 Unknown History TAB] Atorvastatin Calcium [Lipitor] 40 mg PO DAILY 08/24/18 10/05/18 Unknown History Carvedilol [Coreg] 25 mg PO BID 08/24/18 10/05/18 Unknown History Hydralazine HCl 2 tab PO TID 08/24/18 10/05/18 Unknown History Losartan [Cozaar] 4 tab PO DAILY 08/24/18 10/05/18 Unknown History NIFEdipine [Adalat cc] 90 mg PO BID 08/24/18 10/05/18 Unknown History Pantoprazole [Protonix] 40 mg PO QDAY #30 tablet 08/26/18 10/05/18 Unknown Rx Gabapentin [Neurontin] 1 tab PO HS 10/05/18 10/05/18 Unknown History Hydralazine HCl 1 tab PO BID 10/05/18 10/05/18 Unknown History Hydralazine HCl 50 mg PO TID 10/05/18 10/05/18 Unknown History ISOSORBIDE MONOnitrate [Imdur ER] 2 tab PO QDAY 10/05/18 10/05/18 Unknown History Ondansetron [Zofran ODT TAB] 1 tab PO Q6HR PRN 10/05/18 10/05/18 Unknown History Sertraline [Zoloft] 50 mg PO QDAY 10/05/18 10/05/18 Unknown History Sevelamer Carbonate [Renvela] 3 tab PO TID 10/05/18 10/05/18 Unknown History Tamsulosin [Flomax] 0.4 mg PO HS 10/05/18 10/05/18 Unknown History Active Meds: Active Medications Acetaminophen (Tylenol) 650 mg PO Q4H PRN PRN Reason: Pain MILD(1-3)/Fever >100.5/[facility] Aspirin (Halfprin Ec) 81 mg PO DAILY [facility] Atorvastatin Calcium (Lipitor) 40 mg PO DAILY [facility] Carvedilol (Coreg) 25 mg PO BID [facility] Furosemide (Lasix) 40 mg IV 0600,1800 [facility] Gabapentin (Neurontin) 300 mg PO HS [facility] Hydralazine HCl (Apresoline) 10 mg IV Q4HR PRN PRN Reason: BP >160/100 Hydralazine HCl (Apresoline) 50 mg PO Q8HR [facility] Last Admin: 10/05/18 13:30 Dose: 50 mg Documented by: Isosorbide Mononitrate (Imdur) 120 mg PO QDAY [facility] Losartan Potassium (Cozaar) 100 mg PO QDAY [facility] Nifedipine (Procardia Xl) 90 mg PO QDAY [facility] Ondansetron HCl (Zofran Odt) 4 mg PO Q6HR PRN PRN Reason: Nausea Ondansetron HCl (Zofran) 4 mg IV Q8H PRN PRN Reason: Nausea And Vomiting Pantoprazole Sodium (Protonix) 40 mg PO QDAY [facility] Sertraline HCl (Zoloft) 50 mg PO QDAY [facility] Sevelamer Carbonate (Renvela) 2,400 mg PO TID [facility] Last Admin: 10/05/18 13:31 Dose: 2,400 mg Documented by: Tamsulosin HCl (Flomax) 0.[address] mg PO [facility] Review of Systems Constitutional: weight gain, no weight loss, no fever, no chills, no anorexia, no fatigue, no weakness, no poor appetite Cardiovascular: orthopnea, edema, shortness of breath, dyspnea on exertion, high blood pressure, leg edema, decreased exercise tolerance, no chest pain, no palpitations, no syncope, no lightheadedness, no claudication Respiratory: shortness of breath, dyspnea on exertion, sleep apnea, no cough, no cough with sputum, no excessive sputum Gastrointestinal: no abdominal pain, no nausea, no vomiting, no diarrhea, no melena, no hematochezia Genitourinary Male: no dysuria, no hematuria Rectal: no bleeding Musculoskeletal: no neck pain, no muscle weakness Integumentary: no rash Neurological: no paralysis, no weakness, no aphasia, no change in speech, no change in mentation, no confusion Exam - Vital Signs Vital signs: Vital Signs Temp Pulse Resp BP Pulse Ox 97.8 F 98 H 12 200/114 96 10/05/18 05:29 10/05/18 05:29 10/05/18 05:29 10/05/18 05:29 10/05/18 05:29 - General Appearance General appearance: well-developed, well-nourished, appears stated age, other (not in distress) EENT: ATNC, PERRL, mucous membranes moist, hearing intact, vision intact Neck: Present: neck supple, trachea midline, JVD/HJR Respiratory: Rales (bibasal) Heart: regular, S1S2, no murmurs Gastrointestinal: Present: normoactive bowel sounds. Absent: tenderness, distended Integumentary: no rash, warm and dry Neurologic: no focal deficit, no asterixis, alert and oriented x3 Musculoskeletal: Present: other (1+ edema of both LEs noted, right arm AVF) Results - Lab Results 10/05/18 05:52 10/05/18 05:52 Most recent lab results Calcium 9.3 mg/dL (8.4-10.2) 10/05/18 05:52 Assessment and Plan 1. Volume overload with respiratory distress: Isolated UF today to remove 3 Lts of UF as tolerated. Compliance encouraged. 2. ESRD: Continue hemodialysis three times a week, TTS schedule. Next HD tomorrow. 3. Uncontrolled Hypertension: Resume home meds. UF with HD today. 4. Anemia: Epogen if the BP is better. 5. Medical non-compliance.
[2018-10-05] MEDS ORDERED: NACL 0.9% 100 ML IV PRN (15:45)
[2018-10-05] MEDS: APRESOLINE IV PRN ×2 (16:57→23:53)
[2018-10-05] MEDS: LASIX IV SCH (19:00)
[2018-10-05] MEDS: NEURONTIN PO SCH (21:58)
[2018-10-05] MEDS: COREG PO SCH (21:59)
[2018-10-05] MEDS: FLOMAX PO SCH (22:01)
[2018-10-06] MEDS ORDERED: LASIX IV ONE (00:03)
[2018-10-06 00:42] LABS: Creatine Kinase MB 2.9 ng/mL (0.0-4.0)
[2018-10-06 02:48] LABS: Calcium 9.4 mg/dL (8.4-10.2)
[2018-10-06] MEDS: LASIX IV SCH ×2 (07:03→18:51)
[2018-10-06] MEDS: APRESOLINE PO SCH ×2 (07:22→22:04)
[2018-10-06] MEDS: RENVELA PO SCH ×2 (09:20→22:02)
[2018-10-06] MEDS: ZOLOFT PO SCH (09:35)
--- NOTE | 2018-10-06 09:38 | Progress Note ---
Assessment and Plan Assessment: Acute diastolic HF Uncontrolled HTN ESRD on HD NSTEMI type II H/o DVT & factor V Leiden mutation, anticoagulated with Eliquis Mitral valve calcification - evaluated by [place] [facility] surgery in 05/2017 and no plans for surgical intervention at this time H/o multiple CVAs ? AMI in 1995 Kari Mcmanus tear, Gonzalez's esophagus H/o prostate CA diagnosed in 2005 HLP DM Anemia of CKD ANAMIKA Cognitive impairment Medical noncompliance Moderate pulm HTN with RVSP 57mmHg Plan: Agree with present cardiac regimen. F/u echo. Troponin elevation pattern appears c/w NSTEMI type II. Pt denies chest pain, ECG with no acute ischemic changes. Cont medical management. Continue volume optimization per nephrology. The patient has been seen in conjunction with Dr. Nuñez who agrees with the assessment and plan of care. Subjective Date of service: 10/06/18 Principal diagnosis: HF Interval history: pt resting in bed flat, no current complaints. Objective Last Vital Signs Temp 98.2 F 10/06/18 04:04 Pulse 85 10/06/18 07:22 Resp 22 10/06/18 04:04 BP 185/100 10/06/18 07:22 Pulse Ox 98 10/06/18 04:04 - Physical Examination General: No Apparent Distress HEENT: Positive: PERRL, Normocephaly, Mucus Membranes Moist Neck: Positive: neck supple, trachea midline, JVD/HJR Cardiac: Positive: Reg Rate and Rhythm, S1/S2 Lungs: Positive: Decreased Breath Sounds Neuro: Positive: Grossly Intact Abdomen: Positive: Soft. Negative: Tender Skin: Negative: Rash Musculoskeletal: No Pain Extremities: Present: +2 Edema (BLE pitting) - Labs and Meds Cardiac Enzymes 10/06/18 Range/Units 00:05 CK-MB (CK-2) 2.9 (0.0-4.0) ng/mL Comprehensive Metabolic Panel 10/06/18 Range/Units 02:25 Sodium 140 (137-145) mmol/L Potassium 4.6 (3.6-5.0) mmol/L Chloride 95.3 L (98-107) mmol/L Carbon Dioxide 30 (22-30) mmol/L BUN 59 H (9-20) mg/dL Creatinine 9.9 H (0.8-1.5) mg/dL Glucose 73 L (75-100) mg/dL Calcium 9.4 (8.4-10.2) mg/dL - Imaging and Cardiology EKG: report reviewed, image reviewed Echo: report reviewed ( 11/2017 showed EF 50-55%, mod to severe LBH, pseudonormalization, LA mod to severely dilated, mild , mitral annular calcification, mild MR, mild to mod TR, mod pulm HTN with RVSP 57mmHg, mild to mod [place], small pericardial effusion adjacent to the RV and RA. ) - EKG Sinus rhythms and dysrhythmias: sinus tachycardia Chamber hypertrophy or enlargement: left ventricular hypertro Repolarization changes or abnormalities: nonspecific abnormality, ST segment, and/or T wave, repolarization abn secondary to ventricular hypertrophy
[2018-10-06] MEDS: IMDUR PO SCH (09:40)
[2018-10-06] MEDS ORDERED: NACL 0.9% 100 ML IV PRN (09:43)
--- NOTE | 2018-10-06 09:47 | Progress Note ---
Assessment and Plan 1. Volume overload with respiratory distress: Patient refused dialysis yesterday. Isolated UF with HD today to remove 3-4 Lts as tolerated. Compliance encouraged. 2. ESRD: Continue hemodialysis three times a week, TTS schedule. 3. Uncontrolled Hypertension: Resume home meds. UF with HD today. 4. Anemia: Epogen if the BP is better. 5. Medical non-compliance. Subjective Date of service: 10/06/18 Principal diagnosis: HF Interval history: Patient was seen and examined while on hemodialysis. Objective - Vital Signs Vital signs: Vital Signs - 12hr 10/05/18 10/05/18 10/05/18 21:49 21:58 22:00 Temperature Pulse Rate 108 H Pulse Rate [ 90 Right Radial] Respiratory 18 Rate Respiratory 17 Rate [Denies] Blood Pressure 213/126 O2 Sat by Pulse Oximetry 10/05/18 10/05/18 10/06/18 23:48 23:53 00:46 Temperature 97.7 F Pulse Rate 98 H 98 H 99 H Pulse Rate [ Right Radial] Respiratory 19 16 Rate Respiratory Rate [Denies] Blood Pressure 185/115 185/115 O2 Sat by Pulse 97 97 Oximetry 10/06/18 10/06/18 04:04 07:22 Temperature 98.2 F Pulse Rate 85 85 Pulse Rate [ Right Radial] Respiratory 22 Rate Respiratory Rate [Denies] Blood Pressure 185/100 185/100 O2 Sat by Pulse 98 Oximetry - General Appearance General appearance: well-developed, well-nourished, appears stated age, other (not in distress) EENT: ATNC, PERRL, mucous membranes moist, hearing intact, vision intact Neck: supple Respiratory: Present: Rales Cardiology: regular, S1S2, no murmurs Gastrointestinal: normoactive bowel sounds, no tenderness, no distended Integumentary: no rash, warm and dry Neurologic: no focal deficit, no asterixis, alert and oriented x3 Musculoskeletal: other (LE edema noted, right arm AVF) - Lab 10/05/18 05:52 10/06/18 02:25 Most recent lab results Calcium 9.4 mg/dL (8.4-10.2) 10/06/18 02:25 Medications & Allergies - Medications Allergies/Adverse Reactions: Allergies Penicillins Allergy (Verified 05/28/17 17:08) Unknown STATES HAD REACTION CHILD Home Medications: Home Medications Medication Instructions Recorded Confirmed Last Taken Type Aspirin EC [Aspirin Enteric Coated 81 mg PO DAILY 08/24/18 10/05/18 Unknown History TAB] Atorvastatin Calcium [Lipitor] 40 mg PO DAILY 08/24/18 10/05/18 Unknown History Carvedilol [Coreg] 25 mg PO BID 08/24/18 10/05/18 Unknown History Hydralazine HCl 2 tab PO TID 08/24/18 10/05/18 Unknown History Losartan [Cozaar] 4 tab PO DAILY 08/24/18 10/05/18 Unknown History NIFEdipine [Adalat cc] 90 mg PO BID 08/24/18 10/05/18 Unknown History Pantoprazole [Protonix] 40 mg PO QDAY #30 tablet 08/26/18 10/05/18 Unknown Rx Gabapentin [Neurontin] 1 tab PO HS 10/05/18 10/05/18 Unknown History Hydralazine HCl 1 tab PO BID 10/05/18 10/05/18 Unknown History Hydralazine HCl 50 mg PO TID 10/05/18 10/05/18 Unknown History ISOSORBIDE MONOnitrate [Imdur ER] 2 tab PO QDAY 10/05/18 10/05/18 Unknown History Ondansetron [Zofran ODT TAB] 1 tab PO Q6HR PRN 10/05/18 10/05/18 Unknown History Sertraline [Zoloft] 50 mg PO QDAY 10/05/18 10/05/18 Unknown History Sevelamer Carbonate [Renvela] 3 tab PO TID 10/05/18 10/05/18 Unknown History Tamsulosin [Flomax] 0.4 mg PO HS 10/05/18 10/05/18 Unknown History Active Medications: Generic Name Dose Route Start Last Admin Trade Name Freq PRN Reason Stop Dose Admin Acetaminophen 650 mg 10/05/18 12:25 Tylenol PO Q4H PRN Pain MILD(1-3)/Fever >100.5/GAMA Aspirin 81 mg 10/06/18 10:00 Halfprin Ec PO DAILY REBECA Atorvastatin Calcium 40 mg 10/06/18 10:00 Lipitor PO DAILY REBECA Carvedilol 25 mg 10/05/18 22:00 10/05/18 21:59 Coreg PO 25 mg BID REBECA Administration Furosemide 40 mg 10/05/18 18:00 10/06/18 07:03 Lasix IV Not Given 0600,1800 REBECA Gabapentin 300 mg 10/05/18 22:00 10/05/18 21:58 Neurontin PO 300 mg HS REBECA Administration Hydralazine HCl 10 mg 10/05/18 12:19 10/05/18 23:53 Apresoline IV 10 mg Q4HR PRN Administration BP >160/100 Hydralazine HCl 50 mg 10/05/18 14:00 10/06/18 07:22 Apresoline PO 50 mg Q8HR REBECA Administration Sodium Chloride 100 mls @ 999 mls/hr 10/05/18 15:45 Nacl 0.9% IV SANDHYA PRN Hypotension Isosorbide Mononitrate 120 mg 10/06/18 10:00 Imdur PO QDAY REBECA Losartan Potassium 100 mg 10/06/18 10:00 Cozaar PO QDAY REBECA Nifedipine 90 mg 10/06/18 10:00 Procardia Xl PO QDAY REBECA Ondansetron HCl 4 mg 10/05/18 12:19 Zofran Odt PO Q6HR PRN Nausea Ondansetron HCl 4 mg 10/05/18 12:25 10/05/18 22:23 Zofran IV 4 mg Q8H PRN Administration Nausea And Vomiting Pantoprazole Sodium 40 mg 10/06/18 10:00 Protonix PO QDAY REBECA Sertraline HCl 50 mg 10/06/18 10:00 Zoloft PO QDAY REBECA Sevelamer Carbonate 2,400 mg 10/05/18 14:00 10/05/18 21:58 Renvela PO 2,400 mg TID REBECA Administration Tamsulosin HCl 0.4 mg 10/05/18 22:00 10/05/18 22:01 Flomax PO 0.4 mg HS REBECA Administration
[2018-10-06] MEDS ORDERED: PROCARDIA XL PO SCH ×2 (10:00→22:00)
[2018-10-06] MEDS ORDERED: COZAAR PO SCH ×2 (10:00)
[2018-10-06] MEDS ORDERED: NON-FORMULARY (Nifedipine [Adalat Cc] 90 MG) PO SCH (10:00)
--- NOTE | 2018-10-06 11:49 | Progress Note ---
Assessment and Plan Assessment and plan: 53M who pw SOB and edema PMH; htn, cva, [place] in 1995, chf preserved EF, dm, hx of dvt -factor V Leiden mutation, gerd, nephrolithiasis, asthma?, ESRD on HD Problems diastolic CHF exacerbation Hypertensive urgency History of DVT, factor V Leiden mutation ESRD on HD -Poor compliance with hemodialysis, poor adherence Plan Renal consulted for UF, optimize medications for heart failure and high blood pressure no longer on anticoagulation Consults nephrology for HD DVT prophylaxis chemical Will call PCP about why he is no longer at anticoagulation fup echo - he had issues with his transportation at home to get to dialysis and that was part of why he was not compliant. Case management consults for possible chcf placement or for addressing transportation to dialysis History Interval history: Review of systems Constitutional: No fevers, no malaise, no joint pains CVS: No chest pain, no orthopnea, no dyspnea on exertion, no pedal edema GI: No abdominal pain, no diarrhea, no vomiting, no constipation Respiratory: No shortness of breath, no wheezing, no coughing Hospitalist Physical - Physical exam Narrative exam: General.: Appears well, no distress, nontoxic HEENT: Moist mucous membranes, extraocular muscles intact, no lymphadenopathy Neck: supple Cardiac: S1-S2 heard Lungs: Right basilar crackles Abdomen: soft , nontender, nondistended, bowel sounds positive Extremities: no edema clubbing or cyanosis Skin: no rash or lesions Neurologic: no gross focal deficits Psych: appropriate behavior, appropriate mood, corporative, judgment intact - Constitutional Vitals: Temp Pulse Resp BP Pulse Ox 99.3 F 84 16 189/107 100 10/06/18 10:20 10/06/18 10:45 10/06/18 10:20 10/06/18 10:45 10/06/18 10:20 General appearance: Present: no acute distress Results - Labs CBC & Chem 7: 10/05/18 05:52 10/06/18 02:25 Labs: Laboratory Last Values WBC 3.9 K/mm3 (4.5-11.0) L 10/05/18 05:52 RBC 3.02 M/mm3 (3.65-5.03) L 10/05/18 05:52 Hgb 8.7 gm/dl (11.8-15.2) L 10/05/18 05:52 Hct 26.7 % (35.5-45.6) L 10/05/18 05:52 MCV 89 fl (84-94) 10/05/18 05:52 MCH 29 pg (28-32) 10/05/18 05:52 MCHC 33 % (32-34) 10/05/18 05:52 RDW 17.2 % (13.2-15.2) H 10/05/18 05:52 Plt Count 147 K/mm3 (140-440) 10/05/18 05:52 Lymph % (Auto) 16.8 % (13.4-35.0) 10/05/18 05:52 [place] % (Auto) 8.7 % (0.0-7.3) H 10/05/18 05:52 Eos % (Auto) 1.2 % (0.0-4.3) 10/05/18 05:52 Baso % (Auto) 0.0 % (0.0-1.8) 10/05/18 05:52 Lymph # 0.6 K/mm3 (1.2-5.4) L 10/05/18 05:52 [place] # 0.3 K/mm3 (0.0-0.8) 10/05/18 05:52 Eos # 0.0 K/mm3 (0.0-0.4) 10/05/18 05:52 Baso # 0.0 K/mm3 (0.0-0.1) 10/05/18 05:52 Seg Neutrophils % 73.3 % (40.0-70.0) H 10/05/18 05:52 Seg Neutrophils # 2.8 K/mm3 (1.8-7.7) 10/05/18 05:52 Sodium 140 mmol/L (137-145) 10/06/18 02:25 Potassium 4.6 mmol/L (3.6-5.0) 10/06/18 02:25 Chloride 95.3 mmol/L (98-107) L 10/06/18 02:25 Carbon Dioxide 30 mmol/L (22-30) 10/06/18 02:25 Anion Gap 19 mmol/L 10/06/18 02:25 BUN 59 mg/dL (9-20) H 10/06/18 02:25 Creatinine 9.9 mg/dL (0.8-1.5) H 10/06/18 02:25 Estimated GFR 7 ml/min 10/06/18 02:25 BUN/Creatinine Ratio 6 % 10/06/18 02:25 Glucose 73 mg/dL (75-100) L 10/06/18 02:25 POC Glucose 100 (70-105) 10/05/18 16:34 Calcium 9.4 mg/dL (8.4-10.2) 10/06/18 02:25 Total Creatine Kinase 164 units/L (55-170) 10/06/18 00:05 CK-MB (CK-2) 2.9 ng/mL (0.0-4.0) 10/06/18 00:05 CK-MB (CK-2) Rel Index 1.7 (0-4) 10/06/18 00:05 Troponin T 0.196 ng/mL (0.00-0.029) H* 10/06/18 00:05 NT-Pro-B Natriuret Pep 39521 pg/mL (0-900) H 10/05/18 05:52 Triglycerides 29 mg/dL (2-149) 10/05/18 05:52 Cholesterol 109 mg/dL (50-199) 10/05/18 05:52 LDL Cholesterol Direct 52 mg/dL (50-130) 10/05/18 05:52 HDL Cholesterol 58 mg/dL (40-59) 10/05/18 05:52 Cholesterol/HDL Ratio 1.87 % 10/05/18 05:52
[2018-10-06] MEDS: HALFPRIN EC PO SCH (11:50)
[2018-10-06] MEDS ORDERED: NACL 0.9 (PRIMING MACHINE ONLY DIALYSIS) MC ONE (12:21)
[2018-10-06] MEDS: PROCRIT SUB-Q PRN (14:34)
[2018-10-06] MEDS: APRESOLINE IV PRN (14:35)
[2018-10-06] MEDS: FLOMAX PO SCH (22:02)
[2018-10-06] MEDS: NEURONTIN PO SCH (22:03)
[2018-10-06] MEDS: DIOVAN PO SCH (22:03)
[2018-10-06] MEDS: COREG PO SCH (22:06)
[2018-10-06] MEDS: PROCARDIA XL PO SCH (22:07)
--- NOTE | 2018-10-07 07:44 | Progress Note ---
Assessment and Plan Assessment and plan: 53M who pw SOB and edema PMH; htn, cva, [place] in 1995, chf preserved EF, dm, hx of dvt -factor V Leiden mutation, gerd, nephrolithiasis, asthma?, ESRD on HD Problems systolic CHF exacerbation Hypertensive urgency History of DVT, factor V Leiden mutation ESRD on HD -Poor compliance with hemodialysis, poor adherence Plan Renal consulted for UF, optimize medications for heart failure and high blood pressure no longer on anticoagulation Consults nephrology for HD DVT prophylaxis chemical Will call PCP about why he is no longer at anticoagulation echo shows ef of 50% - he had issues with his transportation at home to get to dialysis and that was part of why he was not compliant. Case management consults for possible chcf placement or for addressing transportation to dialysis -The patient is interested in getting chcf placement History Interval history: Review of systems Constitutional: No fevers, no malaise, no joint pains CVS: No chest pain, no orthopnea, no dyspnea on exertion, no pedal edema GI: No abdominal pain, no diarrhea, no vomiting, no constipation Respiratory: No shortness of breath, no wheezing, no coughing Hospitalist Physical - Physical exam Narrative exam: General.: Appears well, no distress, nontoxic HEENT: Moist mucous membranes, extraocular muscles intact, no lymphadenopathy Neck: supple Cardiac: S1-S2 heard Lungs: Right basilar crackles Abdomen: soft , nontender, nondistended, bowel sounds positive Extremities: no edema clubbing or cyanosis Skin: no rash or lesions Neurologic: no gross focal deficits Psych: appropriate behavior, appropriate mood, corporative, judgment intact - Constitutional Vitals: Temp Pulse Resp BP Pulse Ox 99.6 F 98 H 18 162/102 94 10/07/18 04:42 10/07/18 04:42 10/07/18 04:42 10/07/18 04:42 10/07/18 04:42 General appearance: Present: no acute distress Results - Labs CBC & Chem 7: 10/05/18 05:52 10/06/18 02:25 Labs: Laboratory Last Values WBC 3.9 K/mm3 (4.5-11.0) L 10/05/18 05:52 RBC 3.02 M/mm3 (3.65-5.03) L 10/05/18 05:52 Hgb 8.7 gm/dl (11.8-15.2) L 10/05/18 05:52 Hct 26.7 % (35.5-45.6) L 10/05/18 05:52 MCV 89 fl (84-94) 10/05/18 05:52 MCH 29 pg (28-32) 10/05/18 05:52 MCHC 33 % (32-34) 10/05/18 05:52 RDW 17.2 % (13.2-15.2) H 10/05/18 05:52 Plt Count 147 K/mm3 (140-440) 10/05/18 05:52 Lymph % (Auto) 16.8 % (13.4-35.0) 10/05/18 05:52 [place] % (Auto) 8.7 % (0.0-7.3) H 10/05/18 05:52 Eos % (Auto) 1.2 % (0.0-4.3) 10/05/18 05:52 Baso % (Auto) 0.0 % (0.0-1.8) 10/05/18 05:52 Lymph # 0.6 K/mm3 (1.2-5.4) L 10/05/18 05:52 [place] # 0.3 K/mm3 (0.0-0.8) 10/05/18 05:52 Eos # 0.0 K/mm3 (0.0-0.4) 10/05/18 05:52 Baso # 0.0 K/mm3 (0.0-0.1) 10/05/18 05:52 Seg Neutrophils % 73.3 % (40.0-70.0) H 10/05/18 05:52 Seg Neutrophils # 2.8 K/mm3 (1.8-7.7) 10/05/18 05:52 Sodium 140 mmol/L (137-145) 10/06/18 02:25 Potassium 4.6 mmol/L (3.6-5.0) 10/06/18 02:25 Chloride 95.3 mmol/L (98-107) L 10/06/18 02:25 Carbon Dioxide 30 mmol/L (22-30) 10/06/18 02:25 Anion Gap 19 mmol/L 10/06/18 02:25 BUN 59 mg/dL (9-20) H 10/06/18 02:25 Creatinine 9.9 mg/dL (0.8-1.5) H 10/06/18 02:25 Estimated GFR 7 ml/min 10/06/18 02:25 BUN/Creatinine Ratio 6 % 10/06/18 02:25 Glucose 73 mg/dL (75-100) L 10/06/18 02:25 POC Glucose 71 (70-105) 10/06/18 21:27 Calcium 9.4 mg/dL (8.4-10.2) 10/06/18 02:25 Total Creatine Kinase 164 units/L (55-170) 10/06/18 00:05 CK-MB (CK-2) 2.9 ng/mL (0.0-4.0) 10/06/18 00:05 CK-MB (CK-2) Rel Index 1.7 (0-4) 10/06/18 00:05 Troponin T 0.196 ng/mL (0.00-0.029) H* 10/06/18 00:05 NT-Pro-B Natriuret Pep 37255 pg/mL (0-900) H 10/05/18 05:52 Triglycerides 29 mg/dL (2-149) 10/05/18 05:52 Cholesterol 109 mg/dL (50-199) 10/05/18 05:52 LDL Cholesterol Direct 52 mg/dL (50-130) 10/05/18 05:52 HDL Cholesterol 58 mg/dL (40-59) 10/05/18 05:52 Cholesterol/HDL Ratio 1.87 % 10/05/18 05:52
--- NOTE | 2018-10-07 08:48 | Progress Note ---
Assessment and Plan 1. Volume overload with respiratory distress: Patient received hemodialysis yesterday. Isolated UF today to remove 2-3 Lts as tolerated. Compliance encouraged. 2. ESRD: Continue hemodialysis three times a week, TTS schedule. 3. Uncontrolled Hypertension: UF with HD today. 4. Anemia: Epogen if the BP is better. 5. Medical non-compliance. Subjective Date of service: 10/07/18 Principal diagnosis: HF Interval history: Patient was seen and examined while on hemodialysis. Objective - Vital Signs Vital signs: Vital Signs - 12hr 10/06/18 10/06/18 10/06/18 22:00 22:03 22:04 Temperature Pulse Rate 96 H 98 H Respiratory Rate Blood Pressure 177/92 177/92 O2 Sat by Pulse 97 Oximetry 10/06/18 10/06/18 10/07/18 22:05 22:06 00:46 Temperature 100.1 F H Pulse Rate 101 H 98 H 95 H Respiratory 18 20 Rate Blood Pressure 177/92 177/92 O2 Sat by Pulse 99 98 Oximetry 10/07/18 10/07/18 02:35 04:42 Temperature 99.6 F Pulse Rate 98 H Respiratory 18 Rate Blood Pressure 162/102 O2 Sat by Pulse 97 94 Oximetry - General Appearance General appearance: well-developed, well-nourished, appears stated age, other (not in distress) EENT: ATNC, PERRL, mucous membranes moist, hearing intact, vision intact Neck: JVD, supple Respiratory: Present: Rales Cardiology: regular, S1S2, no murmurs Gastrointestinal: normoactive bowel sounds, no tenderness, no distended Integumentary: no rash, warm and dry Neurologic: no focal deficit, no asterixis, alert and oriented x3 Musculoskeletal: other (LE edema noted, right arm AVF) - Lab 10/05/18 05:52 10/06/18 02:25 Most recent lab results Calcium 9.4 mg/dL (8.4-10.2) 10/06/18 02:25 Medications & Allergies - Medications Allergies/Adverse Reactions: Allergies Penicillins Allergy (Verified 05/28/17 17:08) Unknown STATES HAD REACTION CHILD Home Medications: Home Medications Medication Instructions Recorded Confirmed Last Taken Type Aspirin EC [Aspirin Enteric Coated 81 mg PO DAILY 08/24/18 10/05/18 Unknown History TAB] Atorvastatin Calcium [Lipitor] 40 mg PO DAILY 08/24/18 10/05/18 Unknown History Carvedilol [Coreg] 25 mg PO BID 08/24/18 10/05/18 Unknown History Hydralazine HCl 2 tab PO TID 08/24/18 10/05/18 Unknown History Losartan [Cozaar] 4 tab PO DAILY 08/24/18 10/05/18 Unknown History NIFEdipine [Adalat cc] 90 mg PO BID 08/24/18 10/05/18 Unknown History Pantoprazole [Protonix] 40 mg PO QDAY #30 tablet 08/26/18 10/05/18 Unknown Rx Gabapentin [Neurontin] 1 tab PO HS 10/05/18 10/05/18 Unknown History Hydralazine HCl 1 tab PO BID 10/05/18 10/05/18 Unknown History Hydralazine HCl 50 mg PO TID 10/05/18 10/05/18 Unknown History ISOSORBIDE MONOnitrate [Imdur ER] 2 tab PO QDAY 10/05/18 10/05/18 Unknown History Ondansetron [Zofran ODT TAB] 1 tab PO Q6HR PRN 10/05/18 10/05/18 Unknown History Sertraline [Zoloft] 50 mg PO QDAY 10/05/18 10/05/18 Unknown History Sevelamer Carbonate [Renvela] 3 tab PO TID 10/05/18 10/05/18 Unknown History Tamsulosin [Flomax] 0.4 mg PO HS 10/05/18 10/05/18 Unknown History Active Medications: Generic Name Dose Route Start Last Admin Trade Name Anthonyq PRN Reason Stop Dose Admin Acetaminophen 650 mg 10/05/18 12:25 10/06/18 10:57 Tylenol PO 650 mg Q4H PRN Administration Pain MILD(1-3)/Fever >100.5/GAMA Aspirin 81 mg 10/06/18 10:00 10/06/18 11:50 Halfprin Ec PO Not Given DAILY REBECA Atorvastatin Calcium 40 mg 10/06/18 10:00 Lipitor PO DAILY REBECA Carvedilol 25 mg 10/05/18 22:00 10/06/18 22:06 Coreg PO 25 mg BID REBECA Administration Epoetin Noah 10,000 unit 10/06/18 09:43 10/06/18 14:34 Procrit SUB-Q 10,000 unit SANDHYA PRN Administration hemodialysis Gabapentin 300 mg 10/05/18 22:00 10/06/18 22:03 Neurontin PO 300 mg HS REBECA Administration Heparin Sodium (Porcine) 5,000 unit 10/07/18 06:00 Heparin SUB-Q Q8HR REBECA Hydralazine HCl 10 mg 10/05/18 12:19 10/06/18 14:35 Apresoline IV 10 mg Q4HR PRN Administration BP >160/100 Hydralazine HCl 100 mg 10/06/18 20:49 10/06/18 22:04 Apresoline PO 100 mg Q8HR REBECA Administration Sodium Chloride 100 mls @ 999 mls/hr 10/05/18 15:45 Nacl 0.9% IV SANDHYA PRN Hypotension Isosorbide Mononitrate 120 mg 10/06/18 10:00 10/06/18 09:40 Imdur PO Not Given QDAY REBECA Nifedipine 60 mg 10/06/18 22:00 10/06/18 22:07 Procardia Xl PO 60 mg BID REBECA Administration Ondansetron HCl 4 mg 10/05/18 12:19 Zofran Odt PO Q6HR PRN Nausea Ondansetron HCl 4 mg 10/05/18 12:25 10/05/18 22:23 Zofran IV 4 mg Q8H PRN Administration Nausea And Vomiting Pantoprazole Sodium 40 mg 10/06/18 10:00 Protonix PO QDAY REBECA Sertraline HCl 50 mg 10/06/18 10:00 10/06/18 09:35 Zoloft PO Not Given QDAY REBECA Sevelamer Carbonate 2,400 mg 10/05/18 14:00 10/06/18 22:02 Renvela PO 2,400 mg TID REBECA Administration Tamsulosin HCl 0.4 mg 10/05/18 22:00 10/06/18 22:02 Flomax PO 0.4 mg HS REBECA Administration Valsartan 160 mg 10/06/18 12:00 10/06/18 22:03 Diovan PO 160 mg BID REBECA Administration
[2018-10-07] MEDS: PROTONIX PO SCH ×2 (10:02→10:14)
[2018-10-07] MEDS: COREG PO SCH ×3 (10:02→22:07)
[2018-10-07] MEDS: DIOVAN PO SCH ×3 (10:02→22:02)
[2018-10-07] MEDS: RENVELA PO SCH ×4 (10:03→22:21)
--- NOTE | 2018-10-07 10:09 | XRay Report ---
Portable chest: SOB. The heart is date. There may be minimal redistribution of flow to the upper lobes. The pulmonary markings on the right may be slightly more prominent than on the left but there is no focal opacities and no evidence of pleural effusion at this time. Compared to prior examination of October 05 there has been significant improvement in the vascular pattern. Impression: Improving CHF pattern.
[2018-10-07] MEDS: PROCARDIA XL PO SCH ×2 (10:12→22:03)
[2018-10-07] MEDS: IMDUR PO SCH (10:12)
[2018-10-07] MEDS: HALFPRIN EC PO SCH (10:14)
[2018-10-07] MEDS: ZOLOFT PO SCH (10:14)
[2018-10-07] MEDS: APRESOLINE PO SCH ×3 (10:15→22:01)
[2018-10-07] MEDS: HEPARIN SUB-Q SCH ×3 (10:15→22:06)
--- NOTE | 2018-10-07 11:34 | Progress Note ---
<GABRIEL ANSARI - Last Filed: 10/07/18 11:34> Assessment and Plan Assessment: Acute diastolic HF Uncontrolled HTN ESRD on HD NSTEMI type II - Pt denies chest pain, ECG with no acute ischemic changes H/o DVT & factor V Leiden mutation, anticoagulated with Eliquis Mitral valve calcification - evaluated by [facility] in 05/2017 and no plans for surgical intervention at this time H/o multiple CVAs ? AMI in 1995 Kari Mcmanus tear, Gonzalez's esophagus H/o prostate CA diagnosed in 2005 HLP DM Anemia of CKD ANAMIKA Cognitive impairment Medical noncompliance Moderate pulm HTN with RVSP 57mmHg Plan: Agree with present cardiac regimen. F/u echo. Continue volume optimization per nephrology - for HD again today, d/w Dr. Wells. The patient has been seen in conjunction with Dr. Villeda who agrees with the assessment and plan of care. Subjective Date of service: 10/07/18 Principal diagnosis: HF Interval history: pt resting in bed, A&O, c/o SOB. had a bout of AMS this AM per the chart. Objective Last Vital Signs Temp 99.6 F 10/07/18 04:42 Pulse 90 10/07/18 10:13 Resp 18 10/07/18 04:42 BP 131/76 10/07/18 10:13 Pulse Ox 94 10/07/18 04:42 - Physical Examination General: No Apparent Distress HEENT: Positive: PERRL, Normocephaly, Mucus Membranes Moist Neck: Positive: neck supple, trachea midline, JVD/HJR Cardiac: Positive: Reg Rate and Rhythm, S1/S2 Lungs: Positive: Rales, Rhonchi Neuro: Positive: Grossly Intact Abdomen: Positive: Soft. Negative: Tender Skin: Negative: Rash Musculoskeletal: No Pain Extremities: Present: +2 Edema (BLE pitting) - Imaging and Cardiology EKG: report reviewed, image reviewed Echo: report reviewed ( 11/2017 showed EF 50-55%, mod to severe LBH, pseudonormalization, LA mod to severely dilated, mild , mitral annular calcification, mild MR, mild to mod TR, mod pulm HTN with RVSP 57mmHg, mild to mod MN, small pericardial effusion adjacent to the RV and RA. ) - EKG Sinus rhythms and dysrhythmias: sinus tachycardia Chamber hypertrophy or enlargement: left ventricular hypertro Repolarization changes or abnormalities: nonspecific abnormality, ST segment, and/or T wave, repolarization abn secondary to ventricular hypertrophy <ERROL VILLEDA R - Last Filed: 10/07/18 11:39> Assessment and Plan pt has sob will need HD, discussed with renal, pt states compliance but does not finish treatment needs better bp control Objective Vital Signs Temp Pulse Resp BP Pulse Ox Pulse Ox 10/07/18 10:13 90 131/76 10/07/18 10:12 90 131/76 10/07/18 04:42 99.6 F 98 H 18 162/102 94 10/07/18 02:35 97 10/07/18 00:46 95 H 20 98 10/06/18 22:06 98 H 177/92 10/06/18 22:05 100.1 F H 101 H 18 177/92 99 10/06/18 22:04 98 H 177/92 10/06/18 22:03 96 H 177/92 10/06/18 22:00 97 10/06/18 16:56 98.1 F 86 18 164/98 63 L 10/06/18 14:35 76 194/106 10/06/18 14:00 98.9 F 76 12 194/106 100 10/06/18 13:45 72 181/101 10/06/18 13:30 86 155/77 10/06/18 13:15 77 161/78 10/06/18 13:00 83 177/87 10/06/18 12:45 76 162/89 10/06/18 12:30 78 159/93 10/06/18 12:15 87 151/98 10/06/18 12:00 81 162/97 10/06/18 11:50 94 H 10/06/18 11:45 84 185/108
[2018-10-07] MEDS: FLOMAX PO SCH (22:03)
[2018-10-07] MEDS: NEURONTIN PO SCH (22:07)
[2018-10-07] MEDS: ELIQUIS PO SCH (22:13)
[2018-10-08] MEDS: APRESOLINE PO SCH ×3 (06:57→23:02)
[2018-10-08] MEDS ORDERED: NACL 0.9% 100 ML IV PRN (09:01)
[2018-10-08] MEDS: RENVELA PO SCH ×3 (09:14→23:03)
[2018-10-08] MEDS: HALFPRIN EC PO SCH ×2 (10:00→18:17)
[2018-10-08] MEDS: ELIQUIS PO SCH ×2 (10:00→23:11)
[2018-10-08] MEDS: COREG PO SCH ×2 (10:22→23:03)
[2018-10-08] MEDS: DIOVAN PO SCH (10:22)
[2018-10-08] MEDS: PROCARDIA XL PO SCH ×2 (10:23→23:00)
--- NOTE | 2018-10-08 11:22 | Discharge Summary ---
Providers - Providers Date of Admission: 10/05/18 07:56 Attending physician: SIMONA CABALLERO MD 10/05/18 12:25 Consult to Physician [CONS] Routine Comment: Consulting Provider: ERROL RUIZ Physician Instructions: Reason For Exam: CHF 10/05/18 12:30 Consult to Physician [CONS] Routine Comment: Consulting Provider: LEATHA TURNER Physician Instructions: Reason For Exam: esrd, chf 10/07/18 11:58 Physical Therapy Evaluation and Treat [CONS] Routine Comment: Reason For Exam: generalized weakness 10/07/18 11:59 Occupational Therapy Evaluate and Treat [CONS] Routine Comment: Reason For Exam: Generalized weakness Primary care physician: CANDIDA MOORE MD Hospitalization Condition: Critical Disposition: DC-30 STILL A PATIENT Exam - Constitutional Vitals: Temp Pulse Resp BP Pulse Ox 98.3 F 90 20 101/66 88 10/08/18 05:29 10/08/18 08:08 10/08/18 08:08 10/08/18 08:08 10/08/18 08:08 Plan Follow up with: CANDIDA MOORE MD [Primary Care Provider] - 3-5 Days
[2018-10-08] MEDS ORDERED: NACL 0.9 (PRIMING MACHINE ONLY DIALYSIS) MC ONE (12:59)
--- NOTE | 2018-10-08 13:48 | Progress Note ---
Assessment and Plan 1. Volume overload with respiratory distress: Patient received hemodialysis 2 days ago and UF yesterday. Volume status is better. Compliance encouraged. 2. ESRD: Continue hemodialysis three times a week, TTS schedule. 3. Uncontrolled Hypertension: BP is better. 4. Anemia: Epogen with HD. 5. Medical non-compliance: Compliance encouraged. Subjective Date of service: 10/08/18 Principal diagnosis: HF Interval history: Patient was seen and examined while on hemodialysis. Objective - Vital Signs Vital signs: Vital Signs - 12hr 10/08/18 10/08/18 10/08/18 05:29 06:57 08:08 Temperature 98.3 F Pulse Rate 88 88 90 Respiratory 18 20 Rate Blood Pressure 109/68 109/68 101/66 O2 Sat by Pulse 85 88 Oximetry 10/08/18 10/08/18 10/08/18 11:00 11:30 11:45 Temperature 98.3 F Pulse Rate 87 86 83 Respiratory 20 Rate Blood Pressure 114/64 133/73 125/76 O2 Sat by Pulse Oximetry 10/08/18 10/08/18 10/08/18 12:00 12:15 12:30 Temperature Pulse Rate 88 80 87 Respiratory Rate Blood Pressure 124/70 116/63 123/67 O2 Sat by Pulse Oximetry 10/08/18 10/08/18 10/08/18 12:45 13:00 13:15 Temperature Pulse Rate 82 86 82 Respiratory Rate Blood Pressure 122/65 130/69 122/63 O2 Sat by Pulse Oximetry - General Appearance General appearance: well-developed, well-nourished, appears stated age, other (not in distress) EENT: ATNC, PERRL, hearing intact, vision intact Neck: supple Respiratory: Present: Clear to Ascultation Cardiology: regular, S1S2, no murmurs Gastrointestinal: normoactive bowel sounds, no tenderness, no distended Integumentary: no rash, warm and dry Neurologic: no focal deficit, no asterixis, alert and oriented x3 Musculoskeletal: other (trace LE edema, right arm AVF) - Lab 10/05/18 05:52 10/06/18 02:25 Most recent lab results Calcium 9.4 mg/dL (8.4-10.2) 10/06/18 02:25 Medications & Allergies - Medications Allergies/Adverse Reactions: Allergies Penicillins Allergy (Verified 05/28/17 17:08) Unknown STATES HAD REACTION CHILD Home Medications: Home Medications Medication Instructions Recorded Confirmed Last Taken Type Aspirin EC [Aspirin Enteric Coated 81 mg PO DAILY 08/24/18 10/05/18 Unknown History TAB] Atorvastatin Calcium [Lipitor] 40 mg PO DAILY 08/24/18 10/05/18 Unknown History Carvedilol [Coreg] 25 mg PO BID 08/24/18 10/05/18 Unknown History Pantoprazole [Protonix TAB] 40 mg PO QDAY #30 tablet 08/26/18 10/05/18 Unknown Rx Gabapentin [Neurontin] 1 tab PO HS 10/05/18 10/05/18 Unknown History ISOSORBIDE MONOnitrate [Imdur ER] 2 tab PO QDAY 10/05/18 10/05/18 Unknown History Ondansetron [Zofran ODT TAB] 1 tab PO Q6HR PRN 10/05/18 10/05/18 Unknown History Sertraline [Zoloft] 50 mg PO QDAY 10/05/18 10/05/18 Unknown History Sevelamer Carbonate [Renvela] 3 tab PO TID 10/05/18 10/05/18 Unknown History Tamsulosin [Flomax] 0.4 mg PO HS 10/05/18 10/05/18 Unknown History Apixaban [Eliquis] 2.5 mg PO Q12HR tablet 10/08/18 Unknown Rx NIFEdipine XL [Procardia Xl] 60 mg PO BID tablet 10/08/18 Unknown Rx Valsartan [Diovan] 160 mg PO BID tablet 10/08/18 Unknown Rx hydrALAZINE [Apresoline TAB] 50 mg PO Q8HR tablet 10/08/18 Unknown Rx Active Medications: Generic Name Dose Route Start Last Admin Trade Name Freq PRN Reason Stop Dose Admin Acetaminophen 650 mg 10/05/18 12:25 10/06/18 10:57 Tylenol PO 650 mg Q4H PRN Administration Pain MILD(1-3)/Fever >100.5/GAMA Apixaban 2.5 mg 10/07/18 22:00 10/07/18 22:13 Eliquis PO 2.5 mg Q12HR REBECA Administration Protocol Aspirin 81 mg 10/06/18 10:00 10/07/18 10:14 Halfprin Ec PO 81 mg DAILY REBECA Administration Atorvastatin Calcium 40 mg 10/06/18 10:00 10/07/18 10:13 Lipitor PO 40 mg DAILY REBECA Administration Carvedilol 25 mg 10/05/18 22:00 10/08/18 10:22 Coreg PO Not Given BID COUNT INCLUDES [facility] Epoetin Noah 10,000 unit 10/06/18 09:43 10/06/18 14:34 Procrit SUB-Q 10,000 unit SANDHYA PRN Administration hemodialysis Gabapentin 300 mg 10/05/18 22:00 10/07/18 22:07 Neurontin PO 300 mg HS COUNT INCLUDES [facility] Administration Hydralazine HCl 10 mg 10/05/18 12:19 10/06/18 14:35 Apresoline IV 10 mg Q4HR PRN Administration BP >160/100 Hydralazine HCl 50 mg 10/08/18 09:02 Apresoline PO Q8HR COUNT INCLUDES [facility] Sodium Chloride 100 mls @ 999 mls/hr 10/08/18 09:01 Nacl 0.9% IV SANDHYA PRN Hypotension Isosorbide Mononitrate 120 mg 10/06/18 10:00 10/07/18 10:12 Imdur PO 120 mg QDAY COUNT INCLUDES [facility] Administration Nifedipine 60 mg 10/06/18 22:00 10/08/18 10:23 Procardia Xl PO Not Given BID COUNT INCLUDES [facility] Ondansetron HCl 4 mg 10/05/18 12:19 Zofran Odt PO Q6HR PRN Nausea Ondansetron HCl 4 mg 10/05/18 12:25 10/05/18 22:23 Zofran IV 4 mg Q8H PRN Administration Nausea And Vomiting Pantoprazole Sodium 40 mg 10/06/18 10:00 10/07/18 10:14 Protonix PO 40 mg QDAY COUNT INCLUDES [facility] Administration Sertraline HCl 50 mg 10/06/18 10:00 10/07/18 10:14 Zoloft PO 50 mg QDAY COUNT INCLUDES [facility] Administration Sevelamer Carbonate 2,400 mg 10/05/18 14:00 10/08/18 09:14 Renvela PO 2,400 mg TID COUNT INCLUDES [facility] Administration Tamsulosin HCl 0.4 mg 10/05/18 22:00 10/07/18 22:03 Flomax PO 0.4 mg HS REBECA Administration Valsartan 160 mg 10/06/18 12:00 10/08/18 10:22 Diovan PO Not Given BID COUNT INCLUDES [facility]
[2018-10-08] MEDS: PROCRIT SUB-Q PRN (14:07)
--- NOTE | 2018-10-08 18:08 | Progress Note ---
Assessment and Plan Assessment and plan: 53M who pw SOB and edema PMH; htn, cva, [place] in 1995, chf preserved EF, dm, hx of dvt -factor V Leiden mutation, gerd, nephrolithiasis, asthma?, ESRD on HD Problems systolic CHF exacerbation Hypertensive urgency History of DVT, factor V Leiden mutation, hypercoaguable state ESRD on HD -Poor compliance with hemodialysis, poor adherence Plan Renal consulted for UF, optimize medications for heart failure and high blood pressure no longer on anticoagulation Consults nephrology for HD DVT prophylaxis chemical on eliquis at home, continue it echo shows ef of 50% - he had issues with his transportation at home to get to dialysis and that was part of why he was not compliant. Case management consults for possible long-term placement or for addressing transportation to dialysis -The patient is interested in getting long-term placement, awaiting NH placement, dw Case management, i was promised a call back, I am yet to receive a call back History Interval history: Review of systems Constitutional: No fevers, no malaise, no joint pains CVS: No chest pain, no orthopnea, no dyspnea on exertion, no pedal edema GI: No abdominal pain, no diarrhea, no vomiting, no constipation Respiratory: No shortness of breath, no wheezing, no coughing Hospitalist Physical - Physical exam Narrative exam: General.: Appears well, no distress, nontoxic HEENT: Moist mucous membranes, extraocular muscles intact, no lymphadenopathy Neck: supple Cardiac: S1-S2 heard Lungs: Right basilar crackles Abdomen: soft , nontender, nondistended, bowel sounds positive Extremities: no edema clubbing or cyanosis Skin: no rash or lesions Neurologic: no gross focal deficits Psych: appropriate behavior, appropriate mood, corporative, judgment intact - Constitutional Vitals: Temp Pulse Resp BP Pulse Ox 98.3 F 80 20 146/86 88 10/08/18 14:30 10/08/18 14:30 10/08/18 14:30 10/08/18 14:30 10/08/18 08:08 General appearance: Present: no acute distress Results - Labs CBC & Chem 7: 10/05/18 05:52 10/06/18 02:25 Labs: Laboratory Last Values WBC 3.9 K/mm3 (4.5-11.0) L 10/05/18 05:52 RBC 3.02 M/mm3 (3.65-5.03) L 10/05/18 05:52 Hgb 8.7 gm/dl (11.8-15.2) L 10/05/18 05:52 Hct 26.7 % (35.5-45.6) L 10/05/18 05:52 MCV 89 fl (84-94) 10/05/18 05:52 MCH 29 pg (28-32) 10/05/18 05:52 MCHC 33 % (32-34) 10/05/18 05:52 RDW 17.2 % (13.2-15.2) H 10/05/18 05:52 Plt Count 147 K/mm3 (140-440) 10/05/18 05:52 Lymph % (Auto) 16.8 % (13.4-35.0) 10/05/18 05:52 Gray % (Auto) 8.7 % (0.0-7.3) H 10/05/18 05:52 Eos % (Auto) 1.2 % (0.0-4.3) 10/05/18 05:52 Baso % (Auto) 0.0 % (0.0-1.8) 10/05/18 05:52 Lymph # 0.6 K/mm3 (1.2-5.4) L 10/05/18 05:52 Gray # 0.3 K/mm3 (0.0-0.8) 10/05/18 05:52 Eos # 0.0 K/mm3 (0.0-0.4) 10/05/18 05:52 Baso # 0.0 K/mm3 (0.0-0.1) 10/05/18 05:52 Seg Neutrophils % 73.3 % (40.0-70.0) H 10/05/18 05:52 Seg Neutrophils # 2.8 K/mm3 (1.8-7.7) 10/05/18 05:52 Sodium 140 mmol/L (137-145) 10/06/18 02:25 Potassium 4.6 mmol/L (3.6-5.0) 10/06/18 02:25 Chloride 95.3 mmol/L (98-107) L 10/06/18 02:25 Carbon Dioxide 30 mmol/L (22-30) 10/06/18 02:25 Anion Gap 19 mmol/L 10/06/18 02:25 BUN 59 mg/dL (9-20) H 10/06/18 02:25 Creatinine 9.9 mg/dL (0.8-1.5) H 10/06/18 02:25 Estimated GFR 7 ml/min 10/06/18 02:25 BUN/Creatinine Ratio 6 % 10/06/18 02:25 Glucose 73 mg/dL (75-100) L 10/06/18 02:25 POC Glucose 93 (70-105) 10/08/18 16:23 Calcium 9.4 mg/dL (8.4-10.2) 10/06/18 02:25 Total Creatine Kinase 164 units/L (55-170) 10/06/18 00:05 CK-MB (CK-2) 2.9 ng/mL (0.0-4.0) 10/06/18 00:05 CK-MB (CK-2) Rel Index 1.7 (0-4) 10/06/18 00:05 Troponin T 0.196 ng/mL (0.00-0.029) H* 10/06/18 00:05 NT-Pro-B Natriuret Pep 43362 pg/mL (0-900) H 10/05/18 05:52 Triglycerides 29 mg/dL (2-149) 10/05/18 05:52 Cholesterol 109 mg/dL (50-199) 10/05/18 05:52 LDL Cholesterol Direct 52 mg/dL (50-130) 10/05/18 05:52 HDL Cholesterol 58 mg/dL (40-59) 10/05/18 05:52 Cholesterol/HDL Ratio 1.87 % 10/05/18 05:52
[2018-10-08] MEDS: IMDUR PO SCH (18:18)
[2018-10-08] MEDS: ZOLOFT PO SCH (18:18)
[2018-10-08] MEDS: PROTONIX PO SCH (18:18)
[2018-10-08] MEDS: NEURONTIN PO SCH (23:03)
[2018-10-08] MEDS: FLOMAX PO SCH (23:04)
[2018-10-09] MEDS: DIOVAN PO SCH ×3 (04:07→23:52)
[2018-10-09] MEDS: APRESOLINE PO SCH ×3 (05:49→23:50)
--- NOTE | 2018-10-09 08:14 | Progress Note ---
Assessment and Plan Assessment: Acute diastolic HF Uncontrolled HTN ESRD on HD NSTEMI type II - Pt denies chest pain, ECG with no acute ischemic changes H/o DVT & factor V Leiden mutation, anticoagulated with Eliquis Mitral valve calcification - evaluated by [place] [facility] in 05/2017 and no plans for surgical intervention at this time H/o multiple CVAs ? AMI in 1995 Kari Mcmanus tear, Gonzalez's esophagus H/o prostate CA diagnosed in 2005 HLP DM Anemia of CKD ANAMIKA Cognitive impairment Medical noncompliance Moderate pulm HTN with RVSP 57mmHg Plan: 10/08/2018>tolerating dialysis well,continue present rx. Subjective Date of service: 10/08/18 Principal diagnosis: HF Interval history: Patient in dialysis,tolerating well. Objective Vital Signs Temp Pulse Resp Resp BP BP Pulse Ox 10/09/18 05:49 99 H 146/91 10/09/18 05:37 98.5 F 99 H 20 146/91 99 10/09/18 00:00 89 18 97 10/08/18 23:02 89 152/101 10/08/18 22:55 97.8 F 89 16 152/101 97 10/08/18 22:00 16 100 10/08/18 21:46 97.8 F 89 16 152/101 97 10/08/18 20:47 92 10/08/18 17:26 97.9 F 99 H 16 132/84 96 10/08/18 14:30 98.3 F 80 20 146/86 10/08/18 14:15 80 121/63 10/08/18 14:00 83 116/61 10/08/18 13:45 87 138/79 10/08/18 13:30 90 137/79 10/08/18 13:15 82 122/63 10/08/18 13:00 86 130/69 10/08/18 12:45 82 122/65 10/08/18 12:30 87 123/67 10/08/18 12:15 80 116/63 10/08/18 12:00 88 124/70 10/08/18 11:45 83 125/76 10/08/18 11:30 86 133/73 10/08/18 11:00 98.3 F 87 20 114/64 10/08/18 09:00 93 - Physical Examination General: No Apparent Distress HEENT: Positive: PERRL, Normocephaly, Mucus Membranes Moist Neck: Positive: neck supple, trachea midline, JVD/HJR Cardiac: Positive: Regular Rhythm Lungs: Positive: Decreased Breath Sounds Neuro: Positive: Grossly Intact Abdomen: Positive: Soft. Negative: Tender Skin: Negative: Rash Musculoskeletal: No Pain Extremities: Present: +2 Edema (BLE pitting) - Imaging and Cardiology EKG: report reviewed, image reviewed Echo: report reviewed ( 11/2017 showed EF 50-55%, mod to severe LBH, p seudonormalization, LA mod to severely dilated, mild , mitral annular calcification, mild MR, mild to mod TR, mod pulm HTN with RVSP 57mmHg, mild to mod CA, small pericardial effusion adjacent to the RV and RA. ) - EKG Sinus rhythms and dysrhythmias: sinus tachycardia Chamber hypertrophy or enlargement: left ventricular hypertro Repolarization changes or abnormalities: nonspecific abnormality, ST segment, and/or T wave, repolarization abn secondary to ventricular hypertrophy
[2018-10-09] MEDS: RENVELA PO SCH ×3 (09:28→23:50)
[2018-10-09] MEDS: COREG PO SCH ×2 (09:30→23:51)
[2018-10-09] MEDS: PROCARDIA XL PO SCH ×2 (09:30→23:52)
[2018-10-09] MEDS: PROTONIX PO SCH (09:30)
[2018-10-09] MEDS: HALFPRIN EC PO SCH (09:30)
[2018-10-09] MEDS: ZOLOFT PO SCH (09:31)
[2018-10-09] MEDS: IMDUR PO SCH (09:31)
[2018-10-09] MEDS: ELIQUIS PO SCH ×2 (10:00→23:53)
--- NOTE | 2018-10-09 10:10 | Progress Note ---
Assessment and Plan Assessment and plan: 53M who pw SOB and edema PMH; htn, cva, [place] in 1995, chf preserved EF, dm, hx of dvt -factor V Leiden mutation, gerd, nephrolithiasis, asthma?, ESRD on HD Problems systolic CHF exacerbation Hypertensive urgency History of DVT, factor V Leiden mutation, hypercoaguable state ESRD on HD -Poor compliance with hemodialysis, poor adherence Plan Renal consulted for UF, optimize medications for heart failure and high blood pressure no longer on anticoagulation Consults nephrology for HD DVT prophylaxis chemical on eliquis at home, continue it echo shows ef of 50% - he had issues with his transportation at home to get to dialysis and that was part of why he was not compliant. Case management consults for possible long term placement or for addressing transportation to dialysis -The patient is interested in getting long term placement, awaiting NH placement, dw Case management. History Interval history: Review of systems Constitutional: No fevers, no malaise, no joint pains CVS: No chest pain, no orthopnea, no dyspnea on exertion, no pedal edema GI: No abdominal pain, no diarrhea, no vomiting, no constipation Respiratory: No shortness of breath, no wheezing, no coughing Hospitalist Physical - Physical exam Narrative exam: General.: Appears well, no distress, nontoxic HEENT: Moist mucous membranes, extraocular muscles intact, no lymphadenopathy Neck: supple Cardiac: S1-S2 heard Lungs: CTA Abdomen: soft , nontender, nondistended, bowel sounds positive Extremities: no edema clubbing or cyanosis Skin: no rash or lesions Neurologic: no gross focal deficits Psych: appropriate behavior, appropriate mood, corporative, judgment intact - Constitutional Vitals: Temp Pulse Resp BP Pulse Ox 98.5 F 94 H 20 144/87 97 10/09/18 05:37 10/09/18 09:29 10/09/18 05:37 10/09/18 09:29 10/09/18 09:12 General appearance: Present: no acute distress Results - Labs CBC & Chem 7: 10/05/18 05:52 10/06/18 02:25 Labs: Laboratory Last Values WBC 3.9 K/mm3 (4.5-11.0) L 10/05/18 05:52 RBC 3.02 M/mm3 (3.65-5.03) L 10/05/18 05:52 Hgb 8.7 gm/dl (11.8-15.2) L 10/05/18 05:52 Hct 26.7 % (35.5-45.6) L 10/05/18 05:52 MCV 89 fl (84-94) 10/05/18 05:52 MCH 29 pg (28-32) 10/05/18 05:52 MCHC 33 % (32-34) 10/05/18 05:52 RDW 17.2 % (13.2-15.2) H 10/05/18 05:52 Plt Count 147 K/mm3 (140-440) 10/05/18 05:52 Lymph % (Auto) 16.8 % (13.4-35.0) 10/05/18 05:52 [place] % (Auto) 8.7 % (0.0-7.3) H 10/05/18 05:52 Eos % (Auto) 1.2 % (0.0-4.3) 10/05/18 05:52 Baso % (Auto) 0.0 % (0.0-1.8) 10/05/18 05:52 Lymph # 0.6 K/mm3 (1.2-5.4) L 10/05/18 05:52 [place] # 0.3 K/mm3 (0.0-0.8) 10/05/18 05:52 Eos # 0.0 K/mm3 (0.0-0.4) 10/05/18 05:52 Baso # 0.0 K/mm3 (0.0-0.1) 10/05/18 05:52 Seg Neutrophils % 73.3 % (40.0-70.0) H 10/05/18 05:52 Seg Neutrophils # 2.8 K/mm3 (1.8-7.7) 10/05/18 05:52 Sodium 140 mmol/L (137-145) 10/06/18 02:25 Potassium 4.6 mmol/L (3.6-5.0) 10/06/18 02:25 Chloride 95.3 mmol/L (98-107) L 10/06/18 02:25 Carbon Dioxide 30 mmol/L (22-30) 10/06/18 02:25 Anion Gap 19 mmol/L 10/06/18 02:25 BUN 59 mg/dL (9-20) H 10/06/18 02:25 Creatinine 9.9 mg/dL (0.8-1.5) H 10/06/18 02:25 Estimated GFR 7 ml/min 10/06/18 02:25 BUN/Creatinine Ratio 6 % 10/06/18 02:25 Glucose 73 mg/dL (75-100) L 10/06/18 02:25 POC Glucose 90 (70-105) 10/09/18 08:08 Calcium 9.4 mg/dL (8.4-10.2) 10/06/18 02:25 Total Creatine Kinase 164 units/L (55-170) 10/06/18 00:05 CK-MB (CK-2) 2.9 ng/mL (0.0-4.0) 10/06/18 00:05 CK-MB (CK-2) Rel Index 1.7 (0-4) 10/06/18 00:05 Troponin T 0.196 ng/mL (0.00-0.029) H* 10/06/18 00:05 NT-Pro-B Natriuret Pep 10067 pg/mL (0-900) H 10/05/18 05:52 Triglycerides 29 mg/dL (2-149) 10/05/18 05:52 Cholesterol 109 mg/dL (50-199) 10/05/18 05:52 LDL Cholesterol Direct 52 mg/dL (50-130) 10/05/18 05:52 HDL Cholesterol 58 mg/dL (40-59) 10/05/18 05:52 Cholesterol/HDL Ratio 1.87 % 10/05/18 05:52
--- NOTE | 2018-10-09 11:59 | Progress Note ---
Assessment and Plan 1. Volume overload with respiratory distress: Volume status is better after multiple sessions of HD and UF. Compliance encouraged. 2. ESRD: Continue hemodialysis three times a week, TTS schedule. 3. Uncontrolled Hypertension: BP is better. 4. Anemia: Epogen with HD. 5. Medical non-compliance: Compliance encouraged. Subjective Date of service: 10/09/18 Principal diagnosis: HF Interval history: Patient was seen and examined at the bedside. Objective - Vital Signs Vital signs: Vital Signs - 12hr 10/09/18 10/09/18 10/09/18 00:00 05:37 05:49 Temperature 98.5 F Pulse Rate 89 99 H 99 H Respiratory 18 20 Rate Blood Pressure 146/91 146/91 O2 Sat by Pulse 97 99 Oximetry 10/09/18 10/09/18 09:12 09:29 Temperature Pulse Rate 94 H Respiratory Rate Blood Pressure 144/87 O2 Sat by Pulse 97 Oximetry - General Appearance General appearance: well-developed, well-nourished, appears stated age, other (not in distress) EENT: ATNC, PERRL, mucous membranes moist, hearing intact, vision intact Neck: supple Respiratory: Present: Clear to Ascultation Cardiology: regular, S1S2, no murmurs Gastrointestinal: normoactive bowel sounds, no tenderness, no distended Integumentary: no rash, warm and dry Neurologic: no focal deficit, no asterixis, alert and oriented x3 Musculoskeletal: other (no edema, right arm AVF) - Lab 10/05/18 05:52 10/06/18 02:25 Most recent lab results Calcium 9.4 mg/dL (8.4-10.2) 10/06/18 02:25 Medications & Allergies - Medications Allergies/Adverse Reactions: Allergies Penicillins Allergy (Verified 05/28/17 17:08) Unknown STATES HAD REACTION CHILD Home Medications: Home Medications Medication Instructions Recorded Confirmed Last Taken Type Aspirin EC [Aspirin Enteric Coated 81 mg PO DAILY 08/24/18 10/05/18 Unknown History TAB] Atorvastatin Calcium [Lipitor] 40 mg PO DAILY 08/24/18 10/05/18 Unknown History Carvedilol [Coreg] 25 mg PO BID 08/24/18 10/05/18 Unknown History Pantoprazole [Protonix TAB] 40 mg PO QDAY #30 tablet 08/26/18 10/05/18 Unknown Rx Gabapentin [Neurontin] 1 tab PO HS 10/05/18 10/05/18 Unknown History ISOSORBIDE MONOnitrate [Imdur ER] 2 tab PO QDAY 10/05/18 10/05/18 Unknown History Ondansetron [Zofran ODT TAB] 1 tab PO Q6HR PRN 10/05/18 10/05/18 Unknown History Sertraline [Zoloft] 50 mg PO QDAY 10/05/18 10/05/18 Unknown History Sevelamer Carbonate [Renvela] 3 tab PO TID 10/05/18 10/05/18 Unknown History Tamsulosin [Flomax] 0.4 mg PO HS 10/05/18 10/05/18 Unknown History Apixaban [Eliquis] 2.5 mg PO Q12HR tablet 10/08/18 Unknown Rx NIFEdipine XL [Procardia Xl] 60 mg PO BID tablet 10/08/18 Unknown Rx Valsartan [Diovan] 160 mg PO BID tablet 10/08/18 Unknown Rx hydrALAZINE [Apresoline TAB] 50 mg PO Q8HR tablet 10/08/18 Unknown Rx Active Medications: Generic Name Dose Route Start Last Admin Trade Name Freq PRN Reason Stop Dose Admin Acetaminophen 650 mg 10/05/18 12:25 10/06/18 10:57 Tylenol PO 650 mg Q4H PRN Administration Pain MILD(1-3)/Fever >100.5/GAAM Apixaban 2.5 mg 10/07/18 22:00 10/08/18 23:11 Eliquis PO 2.5 mg Q12HR REBECA Administration Protocol Aspirin 81 mg 10/06/18 10:00 10/09/18 09:30 Halfprin Ec PO 81 mg DAILY REBECA Administration Atorvastatin Calcium 40 mg 10/06/18 10:00 10/09/18 09:30 Lipitor PO 40 mg DAILY REBECA Administration Carvedilol 25 mg 10/05/18 22:00 10/09/18 09:30 Coreg PO 25 mg BID REBECA Administration Epoetin Noah 10,000 unit 10/06/18 09:43 10/08/18 14:07 Procrit SUB-Q 10,000 unit SANDHYA PRN Administration hemodialysis Gabapentin 300 mg 10/05/18 22:00 10/08/18 23:03 Neurontin PO 300 mg HS REBECA Administration Hydralazine HCl 10 mg 10/05/18 12:19 10/06/18 14:35 Apresoline IV 10 mg Q4HR PRN Administration BP >160/100 Hydralazine HCl 50 mg 10/08/18 09:02 10/09/18 05:49 Apresoline PO 50 mg Q8HR REBECA Administration Sodium Chloride 100 mls @ 999 mls/hr 10/08/18 09:01 Nacl 0.9% IV SANDHYA PRN Hypotension Isosorbide Mononitrate 120 mg 10/06/18 10:00 10/09/18 09:31 Imdur PO 120 mg QDAY REBECA Administration Nifedipine 60 mg 10/06/18 22:00 10/09/18 09:30 Procardia Xl PO 60 mg BID REBECA Administration Ondansetron HCl 4 mg 10/05/18 12:19 Zofran Odt PO Q6HR PRN Nausea Ondansetron HCl 4 mg 10/05/18 12:25 10/05/18 22:23 Zofran IV 4 mg Q8H PRN Administration Nausea And Vomiting Pantoprazole Sodium 40 mg 10/06/18 10:00 10/09/18 09:30 Protonix PO 40 mg QDAY REBECA Administration Sertraline HCl 50 mg 10/06/18 10:00 10/09/18 09:31 Zoloft PO 50 mg QDAY REBECA Administration Sevelamer Carbonate 2,400 mg 10/05/18 14:00 10/09/18 09:28 Renvela PO 2,400 mg TID REBECA Administration Tamsulosin HCl 0.4 mg 10/05/18 22:00 10/08/18 23:04 Flomax PO 0.4 mg HS REBECA Administration Valsartan 160 mg 10/06/18 12:00 10/09/18 09:29 Diovan PO 160 mg BID REBECA Administration
--- NOTE | 2018-10-09 15:56 | Progress Note ---
Assessment and Plan Assessment: Acute diastolic HF Uncontrolled HTN ESRD on HD NSTEMI type II - Pt denies chest pain, ECG with no acute ischemic changes H/o DVT & factor V Leiden mutation, anticoagulated with Eliquis Mitral valve calcification - evaluated by [place] [facility] in 05/2017 and no plans for surgical intervention at this time H/o multiple CVAs ? AMI in 1995 Kari Mcmanus tear, Gonzalez's esophagus H/o prostate CA diagnosed in 2005 HLP DM Anemia of CKD ANAMIKA Cognitive impairment Medical noncompliance Moderate pulm HTN with RVSP 57mmHg Plan: 10/08/2018>tolerating dialysis well,continue present rx. 10/09/2018>stable cardiac lowery,no cardiac symptoms. Subjective Date of service: 10/09/18 Principal diagnosis: HF Interval history: Patient says he wants to home,no particular complaints. Objective Vital Signs Temp Pulse Resp Resp BP BP Pulse Ox 10/09/18 13:09 97.4 F L 98 H 18 153/100 94 10/09/18 09:29 94 H 144/87 10/09/18 09:12 97 10/09/18 05:49 99 H 146/91 10/09/18 05:37 98.5 F 99 H 20 146/91 99 10/09/18 00:00 89 18 97 10/08/18 23:02 89 152/101 10/08/18 22:55 97.8 F 89 16 152/101 97 10/08/18 22:00 16 100 10/08/18 21:46 97.8 F 89 16 152/101 97 10/08/18 20:47 92 10/08/18 17:26 97.9 F 99 H 16 132/84 96 - Physical Examination General: No Apparent Distress HEENT: Positive: PERRL, Normocephaly, Mucus Membranes Moist Neck: Positive: neck supple, trachea midline, JVD/HJR Neuro: Positive: Grossly Intact Abdomen: Positive: Soft. Negative: Tender Skin: Negative: Rash Musculoskeletal: No Pain Extremities: Present: +2 Edema (BLE pitting) - Imaging and Cardiology EKG: report reviewed, image reviewed Echo: report reviewed ( 11/2017 showed EF 50-55%, mod to severe LBH, pseudonormalization, LA mod to severely dilated, mild , mitral annular ca lcification, mild MR, mild to mod TR, mod pulm HTN with RVSP 57mmHg, mild to mod WA, small pericardial effusion adjacent to the RV and RA. ) - EKG Sinus rhythms and dysrhythmias: sinus tachycardia Chamber hypertrophy or enlargement: left ventricular hypertro Repolarization changes or abnormalities: nonspecific abnormality, ST segment, and/or T wave, repolarization abn secondary to ventricular hypertrophy
[2018-10-09] MEDS: NEURONTIN PO SCH (23:52)
[2018-10-09] MEDS: FLOMAX PO SCH (23:53)
[2018-10-10] MEDS: APRESOLINE PO SCH ×2 (06:44→18:04)
[2018-10-10] MEDS: RENVELA PO SCH ×3 (08:26→18:04)
--- NOTE | 2018-10-10 09:19 | Progress Note ---
Assessment and Plan 1. Volume overload with respiratory distress: Volume status is better after multiple sessions of HD and UF. Compliance encouraged. 2. ESRD: Continue hemodialysis three times a week, TTS schedule. 3. Uncontrolled Hypertension: BP is better. 4. Anemia: Epogen with HD. 5. Medical non-compliance: Compliance encouraged. D/w his sister at the bedside. Subjective Date of service: 10/10/18 Principal diagnosis: HF Interval history: Patient was seen and examined at the bedside. Feeling better. Objective - Vital Signs Vital signs: Vital Signs - 12hr 10/09/18 10/09/18 10/09/18 22:00 23:48 23:50 Temperature 98.0 F Pulse Rate 97 H 95 H Pulse Rate [ 97 H Left Radial] Respiratory 18 18 Rate Blood Pressure 121/65 121/65 O2 Sat by Pulse 91 91 Oximetry 10/09/18 10/09/18 10/10/18 23:51 23:52 02:37 Temperature Pulse Rate 95 H 95 H Pulse Rate [ Left Radial] Respiratory Rate Blood Pressure 121/65 121/65 O2 Sat by Pulse 96 Oximetry 10/10/18 10/10/18 10/10/18 02:38 05:48 06:44 Temperature 98.6 F Pulse Rate 74 99 H 88 Pulse Rate [ Left Radial] Respiratory 18 18 Rate Blood Pressure 116/79 114/75 O2 Sat by Pulse 96 93 Oximetry 10/10/18 07:28 Temperature Pulse Rate Pulse Rate [ Left Radial] Respiratory Rate Blood Pressure O2 Sat by Pulse 94 Oximetry - General Appearance General appearance: well-developed, well-nourished, appears stated age, other (not in distress) EENT: ATNC, PERRL, mucous membranes moist, hearing intact, vision intact Neck: supple Respiratory: Present: Clear to Ascultation Cardiology: regular, S1S2, no murmurs Gastrointestinal: normoactive bowel sounds, no tenderness, no distended Integumentary: no rash, warm and dry Neurologic: no focal deficit, no asterixis, alert and oriented x3 Musculoskeletal: other (no edema, right arm AVF) - Lab 10/05/18 05:52 10/06/18 02:25 Most recent lab results Calcium 9.4 mg/dL (8.4-10.2) 10/06/18 02:25 Medications & Allergies - Medications Allergies/Adverse Reactions: Allergies Penicillins Allergy (Verified 05/28/17 17:08) Unknown STATES HAD REACTION CHILD Home Medications: Home Medications Medication Instructions Recorded Confirmed Last Taken Type Aspirin EC [Aspirin Enteric Coated 81 mg PO DAILY 08/24/18 10/05/18 Unknown History TAB] Atorvastatin Calcium [Lipitor] 40 mg PO DAILY 08/24/18 10/05/18 Unknown History Carvedilol [Coreg] 25 mg PO BID 08/24/18 10/05/18 Unknown History Pantoprazole [Protonix TAB] 40 mg PO QDAY #30 tablet 08/26/18 10/05/18 Unknown Rx Gabapentin [Neurontin] 1 tab PO HS 10/05/18 10/05/18 Unknown History ISOSORBIDE MONOnitrate [Imdur ER] 2 tab PO QDAY 10/05/18 10/05/18 Unknown History Ondansetron [Zofran ODT TAB] 1 tab PO Q6HR PRN 10/05/18 10/05/18 Unknown History Sertraline [Zoloft] 50 mg PO QDAY 10/05/18 10/05/18 Unknown History Sevelamer Carbonate [Renvela] 3 tab PO TID 10/05/18 10/05/18 Unknown History Tamsulosin [Flomax] 0.4 mg PO HS 10/05/18 10/05/18 Unknown History Apixaban [Eliquis] 2.5 mg PO Q12HR tablet 10/08/18 Unknown Rx NIFEdipine XL [Procardia Xl] 60 mg PO BID tablet 10/08/18 Unknown Rx Valsartan [Diovan] 160 mg PO BID tablet 10/08/18 Unknown Rx hydrALAZINE [Apresoline TAB] 50 mg PO Q8HR tablet 10/08/18 Unknown Rx Active Medications: Generic Name Dose Route Start Last Admin Trade Name Freq PRN Reason Stop Dose Admin Acetaminophen 650 mg 10/05/18 12:25 10/06/18 10:57 Tylenol PO 650 mg Q4H PRN Administration Pain MILD(1-3)/Fever >100.5/GAMA Apixaban 2.5 mg 10/07/18 22:00 10/09/18 23:53 Eliquis PO 2.5 mg Q12HR REBECA Administration Protocol Aspirin 81 mg 10/06/18 10:00 10/09/18 09:30 Halfprin Ec PO 81 mg DAILY REBECA Administration Atorvastatin Calcium 40 mg 10/06/18 10:00 10/09/18 09:30 Lipitor PO 40 mg DAILY REBECA Administration Carvedilol 25 mg 10/05/18 22:00 10/09/18 23:51 Coreg PO 25 mg BID REBECA Administration Epoetin Noah 10,000 unit 10/06/18 09:43 10/08/18 14:07 Procrit SUB-Q 10,000 unit SANDHYA PRN Administration hemodialysis Gabapentin 300 mg 10/05/18 22:00 10/09/18 23:52 Neurontin PO 300 mg HS REBECA Administration Hydralazine HCl 10 mg 10/05/18 12:19 10/06/18 14:35 Apresoline IV 10 mg Q4HR PRN Administration BP >160/100 Hydralazine HCl 50 mg 10/08/18 09:02 10/10/18 06:44 Apresoline PO 50 mg Q8HR REBECA Administration Sodium Chloride 100 mls @ 999 mls/hr 10/08/18 09:01 Nacl 0.9% IV SANDHYA PRN Hypotension Isosorbide Mononitrate 120 mg 10/06/18 10:00 10/09/18 09:31 Imdur PO 120 mg QDAY REBECA Administration Nifedipine 60 mg 10/06/18 22:00 10/09/18 23:52 Procardia Xl PO 60 mg BID REBECA Administration Ondansetron HCl 4 mg 10/05/18 12:19 Zofran Odt PO Q6HR PRN Nausea Ondansetron HCl 4 mg 10/05/18 12:25 10/05/18 22:23 Zofran IV 4 mg Q8H PRN Administration Nausea And Vomiting Pantoprazole Sodium 40 mg 10/06/18 10:00 10/09/18 09:30 Protonix PO 40 mg QDAY REBECA Administration Sertraline HCl 50 mg 10/06/18 10:00 10/09/18 09:31 Zoloft PO 50 mg QDAY REBECA Administration Sevelamer Carbonate 2,400 mg 10/05/18 14:00 10/10/18 08:26 Renvela PO 2,400 mg TID REBECA Administration Tamsulosin HCl 0.4 mg 10/05/18 22:00 10/09/18 23:53 Flomax PO 0.4 mg HS REBECA Administration Valsartan 160 mg 10/06/18 12:00 10/09/18 23:52 Diovan PO 160 mg BID REBECA Administration
--- NOTE | 2018-10-10 10:59 | Progress Note ---
Addendum entered and electronically signed by ARCADIO NARAYAN MD 10/10/18 12:03: Pt seen and examined. Okay to discharge home with follow up with [facility] Original Note: Assessment and Plan Assessment: Acute diastolic HF - nearing/at euvolemia Uncontrolled HTN - improved ESRD on HD NSTEMI type II - Pt denies chest pain, ECG with no acute ischemic changes H/o DVT & factor V Leiden mutation, anticoagulated with Eliquis Mitral valve calcification - evaluated by [facility] in 05/2017 and no plans for surgical intervention at this time Mod TR/ Mod MR H/o multiple CVAs ? AMI in 1995 Kari Mcmanus tear, Gonzalez's esophagus H/o prostate CA diagnosed in 2005 HLP DM Anemia of CKD ANAMIKA Cognitive impairment Medical noncompliance Severe pulm HTN with RVSP 79mmHg Plan: Currently stable cardiac status. Pt may discharge home from cardiology standpoint. He is pending placement in correction. Recommend follow up with primary cardiology team at [facility] within 3-5 days of hospital discharge. Pt verbalizes understanding. The patient has been seen in conjunction with Dr. Narayan who agrees with the assessment and plan of care. Subjective Date of service: 10/10/18 Principal diagnosis: HF Interval history: pt sitting up at bedside, states he is feeling well. no current cardiac complaints. Objective Last Vital Signs Temp 98.6 F 10/10/18 05:48 Pulse 88 10/10/18 06:44 Resp 18 10/10/18 05:48 BP 114/75 10/10/18 06:44 Pulse Ox 94 10/10/18 07:28 - Physical Examination General: No Apparent Distress HEENT: Positive: PERRL, Normocephaly, Mucus Membranes Moist Neck: Positive: neck supple, trachea midline, JVD/HJR Cardiac: Positive: Reg Rate and Rhythm, S1/S2 Lungs: Positive: Decreased Breath Sounds Neuro: Positive: Grossly Intact Abdomen: Positive: Soft. Negative: Tender Skin: Negative: Rash Musculoskeletal: No Pain Extremities: Present: +2 Edema (BLE pitting) - Imaging and Cardiology EKG: report reviewed, image reviewed Echo: report reviewed ( 11/2017 showed EF 50-55%, mod to severe LBH, pseudonormalization, LA mod to severely dilated, mild , mitral annular calcification, mild MR, mild to mod TR, mod pulm HTN with RVSP 57mmHg, mild to mod IN, small pericardial effusion adjacent to the RV and RA. ) - EKG Sinus rhythms and dysrhythmias: sinus tachycardia Chamber hypertrophy or enlargement: left ventricular hypertro Repolarization changes or abnormalities: nonspecific abnormality, ST segment, and/or T wave, repolarization abn secondary to ventricular hypertrophy
[2018-10-10] MEDS: HALFPRIN EC PO SCH (12:00)
[2018-10-10] MEDS: PROTONIX PO SCH (12:00)
[2018-10-10] MEDS: ELIQUIS PO SCH (12:00)
[2018-10-10] MEDS: ZOLOFT PO SCH (12:01)
--- NOTE | 2018-10-10 12:44 | Discharge Summary ---
Providers - Providers Date of Admission: 10/05/18 07:56 Attending physician: SIMONA CABALLERO MD 10/05/18 12:25 Consult to Physician [CONS] Routine Comment: Consulting Provider: ERROL RUIZ Physician Instructions: Reason For Exam: CHF 10/05/18 12:30 Consult to Physician [CONS] Routine Comment: Consulting Provider: LEATHA TURNER Physician Instructions: Reason For Exam: esrd, chf 10/07/18 11:58 Physical Therapy Evaluation and Treat [CONS] Routine Comment: Reason For Exam: generalized weakness 10/07/18 11:59 Occupational Therapy Evaluate and Treat [CONS] Routine Comment: Reason For Exam: Generalized weakness 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 The armored car guard and driver had incorrect phone number for him and would always, Dwayne and I'll get in touch with him and leave. * He presented with fluid overload, he received ultrafiltration with dialysis. He clinically improved * He was continued on his meds for chronic conditions * The patient opted for SNIF placement, and he was then discharged to SNF Problems systolic CHF exacerbation fluid overload Hypertensive urgency History of DVT, factor V Leiden mutation, hypercoaguable state ESRD on HD -Poor compliance with hemodialysis, poor adherence- due to problems with transportation Disposition: DC/[place]-03 SNF [facility] Time spent for discharge: 33 minutes Core Measure Documentation - Palliative Care Palliative Care/ Comfort Measures: Not Applicable - Core Measures Any of the following diagnoses?: heart failure - Heart Failure Discharge Requirements CEFERINO/ARB for LVSD if EF <40%: Yes Beta letitia at discharge: Yes Exam - Constitutional Vitals: Temp Pulse Resp BP Pulse Ox 98.6 F 88 18 114/75 94 10/10/18 05:48 10/10/18 06:44 10/10/18 05:48 10/10/18 06:44 10/10/18 07:28 General appearance: Present: no acute distress, well-nourished - EENT Eyes: Present: PERRL ENT: hearing intact, clear oral mucosa - Neck Neck: Present: supple, normal ROM - Respiratory Respiratory effort: normal Respiratory: bilateral: CTA - Cardiovascular Heart Sounds: Present: S1 & S2. Absent: rub, click - Extremities Extremities: pulses symmetrical, No edema Peripheral Pulses: within normal limits - Abdominal General gastrointestinal: Present: soft, non-tender, non-distended, normal bowel sounds Male genitourinary: Present: normal - Integumentary Integumentary: Present: clear, warm, dry - Musculoskeletal Musculoskeletal: gait normal, strength equal bilaterally - Psychiatric Psychiatric: appropriate mood/affect, intact judgment & insight - Neurologic Neurologic: CNII-XII intact, moves all extremities Plan Follow up with: PRIMARY CARE, [Primary Care Provider] - 3-5 Days
[2018-10-10 17:38] VITALS: BP 134/86
== END 2018-10-10 19:30 | DRG 280 ==
LOC: ED 05:13 → 4A 07:56 → 3A 10-06 14:58
PROVIDERS: ADMIT Internal Medicine; ATTEND Internal Medicine
PROC: 5A1D70Z Performance of Urinary Filtration, Intermittent, Less than 6 Hours Per Day (ICD-10-PCS; principal; 2018-10-06)
PROC: 5A09357 Assistance with Respiratory Ventilation, Less than 24 Consecutive Hours, Continuous Positive Airway Pressure (ICD-10-PCS; 2018-10-06)
PROC: 5A1D70Z Performance of Urinary Filtration, Intermittent, Less than 6 Hours Per Day (ICD-10-PCS; 2018-10-07)
DX: I21.A1 Myocardial infarction type 2 (principal); N18.6 End stage renal disease; I50.43 Acute on chronic combined systolic (congestive) and diastolic (congestive) heart failure; I13.2 Hypertensive heart and chronic kidney disease with heart failure and with stage 5 chronic kidney disease, or end stage renal disease; D68.51 Activated protein C resistance; I16.0 Hypertensive urgency; E87.70 Fluid overload, unspecified; I25.2 Old myocardial infarction; E11.22 Type 2 diabetes mellitus with diabetic chronic kidney disease; K21.9 Gastro-esophageal reflux disease without esophagitis; J45.909 Unspecified asthma, uncomplicated; D63.1 Anemia in chronic kidney disease; E78.5 Hyperlipidemia, unspecified; I27.20 Pulmonary hypertension, unspecified; I08.3 Combined rheumatic disorders of mitral, aortic and tricuspid valves; G47.33 Obstructive sleep apnea (adult) (pediatric); Z91.14 Patient's other noncompliance with medication regimen; Z99.2 Dependence on renal dialysis; Z85.46 Personal history of malignant neoplasm of prostate; Z86.718 Personal history of other venous thrombosis and embolism; Z79.82 Long term (current) use of aspirin; Z88.0 Allergy status to penicillin; Z86.73 Personal history of transient ischemic attack (TIA), and cerebral infarction without residual deficits
CPT/HCPCS: 36415; 71045; 80048; 80061; 82550; 82553; 82962; 83880; 84484; 85025; 93005; 93010; 93306; 94660; 94760; 99291; G0378; A9270-GY; G8978-GP; G8979-GP; G8980-GP; J0360; J0885; J1644; J1940; J2405; J3475; J7030

== ENCOUNTER 2019-03-09 11:45 | Inpatient (IN) | payer MEDICARE ==
[2019-03-09] MEDS ORDERED: ZOFRAN IV ONE (13:39)
--- NOTE | 2019-03-09 13:40 | XRay Report ---
AP CHEST: HISTORY: Hypertension Mild cardiomegaly and mild central pulmonary venous congestion appear stable since 10/07/89 pain. The lungs are generally clear. No evidence for pneumonia, large pleural effusion or pneumothorax. The bony structures are intact. Left brachiocephalic vein stent is noted. IMPRESSION: Cardiomegaly and pulmonary venous congestion. No significant change since 10/07/18.
[2019-03-09 14:27] LABS: Basophils % (Auto) 0.4 % (0.0-1.8); Eosinophils # (Auto) 0.2 K/mm3 (0.0-0.4); Eosinophils % (Auto) 2.6 % (0.0-4.3); Hemoglobin 9.6 gm/dl (11.8-15.2); Lymphocytes # (Auto) 0.3 K/mm3 (1.2-5.4); Lymphocytes % (Auto) 3.5 % (13.4-35.0); Mean Corpuscular HGB Conc 33 % (32-34); Mean Corpuscular Volume 87 fl (84-94); Monocytes # (Auto) 0.3 K/mm3 (0.0-0.8); Platelet Count 145 K/mm3 (140-440); Red Blood Count 3.34 M/mm3 (3.65-5.03); Red Cell Distribution Width 19.9 % (13.2-15.2)
--- NOTE | 2019-03-09 14:35 | Emergency Department Report ---
ED General Adult HPI - General Chief complaint: Nausea/Vomiting/Diarrhea Stated complaint: N/V Time Seen by Provider: 03/09/19 13:21 Source: patient, EMS Mode of arrival: Stretcher Limitations: No Limitations - History of Present Illness Initial comments: This is a 53-year-old man who was transferred from his Medicare transport van to dialysis by EMS to the emergency department. The patient himself is a horrible historian. He is awake and alert. He came to the emergency department and walked to the bathroom per the nurse. However, when I spoke to him he is writhing and very distracted. He is not answering questions very directly or elaborating on his answers. As far as I can tell from him, he did not miss dialysis recently. He is not referring fever or chills. He is stating that he started vomiting in route to dialysis. He complains of chronic lower back pain which she is experiencing now. He has nausea. He is not complaining of ab dominal pain or chest pain. He is very difficult to obtain any historical information from. I do not have the benefit of the EMS report or traffic at this point. According to triage the patient had nausea vomiting and dizziness in route to dialysis." Per EMS patient vagaled out and heart rate dropped to 30s and route while vomiting. -: minutes(s) Location: back (lower back pain is chronic) Quality: aching Consistency: other (impossible to obtain further information) - Related Data Home Medications Medication Instructions Recorded Confirmed Last Taken Atorvastatin Calcium [Lipitor] 40 mg PO DAILY 08/24/18 10/05/18 Unknown Carvedilol [Coreg] 25 mg PO BID 08/24/18 10/05/18 Unknown Sevelamer Carbonate [Renvela] 3 tab PO TID 10/05/18 10/05/18 Unknown NIFEdipine [Nifedipine ER] 90 mg PO QDAY 03/09/19 03/09/19 Unknown cloNIDine-TTS PATCH [Catapres-Tts 1 patch TD Q7D 03/09/19 03/09/19 Unknown 0.3mg Patch] hydrALAZINE [Apresoline TAB] 100 mg PO Q8H 03/09/19 03/09/19 Unknown Allergies Allergy/AdvReac Type Severity Reaction Status Date / Time Penicillins Allergy Unknown Verified 05/28/17 17:08 ED Review of Systems ROS: Stated complaint: N/V Other details as noted in HPI Comment: Unobtainable due to pts medical conditions ED Past Medical Hx - Past Medical History Hx Hypertension: Yes Hx CVA: Yes Hx Heart Attack/AMI: Yes (Internal medicine says NH in 1995) Hx Congestive Heart Failure: Yes Hx Diabetes: Yes Hx Deep Vein Thrombosis: Yes Hx Pulmonary Embolism: No Hx GERD: Yes Hx Liver Disease: No Hx Renal Disease: Yes (ckd) Hx Seizures: No Hx Kidney Stones: Yes Hx Asthma: Yes Hx COPD: No Hx Tuberculosis: No Hx Dementia: No Hx HIV: No Additional medical history: Hemodialysis Wednesday. - Surgical History Hx Coronary Stent: No Hx Pacemaker: No Hx Internal Defibrillator: No Additional Surgical History: PERMACATH LEFT CHEST. FISTULA IN LEFT ARM ; REMOVAL. recent Graft in Right upper arm 2017 - Social History Smoking Status: Never Smoker Substance Use Type: None - Medications Home Medications: Home Medications Medication Instructions Recorded Confirmed Last Taken Type Atorvastatin Calcium [Lipitor] 40 mg PO DAILY 08/24/18 10/05/18 Unknown History Carvedilol [Coreg] 25 mg PO BID 08/24/18 10/05/18 Unknown History Sevelamer Carbonate [Renvela] 3 tab PO TID 10/05/18 10/05/18 Unknown History NIFEdipine [Nifedipine ER] 90 mg PO QDAY 03/09/19 03/09/19 Unknown History cloNIDine-TTS PATCH [Catapres-Tts 1 patch TD Q7D 03/09/19 03/09/19 Unknown History 0.3mg Patch] hydrALAZINE [Apresoline TAB] 100 mg PO Q8H 03/09/19 03/09/19 Unknown History ED Physical Exam - General Limitations: Altered Mental Status General appearance: lethargic, in distress - Head Head exam: Present: atraumatic, normocephalic - Eye Eye exam: Present: normal appearance, PERRL, EOMI. Absent: scleral icterus - ENT ENT exam: Present: mucous membranes moist - Neck Neck exam: Present: normal inspection. Absent: tenderness, meningismus - Respiratory Respiratory exam: Present: normal lung sounds bilaterally. Absent: respiratory distress - Cardiovascular Cardiovascular Exam: Present: regular rate, normal rhythm. Absent: systolic murmur, diastolic murmur, rubs, gallop - GI/Abdominal GI/Abdominal exam: Present: soft, normal bowel sounds. Absent: distended, tenderness, guarding, rebound, rigid - Rectal Rectal exam: Present: deferred - Extremities Exam Extremities exam: Present: normal inspection. Absent: calf tenderness - Back Exam Back exam: Present: normal inspection. Absent: tenderness, CVA tenderness (L), muscle spasm, paraspinal tenderness - Neurological Exam Neurological exam: Present: oriented X3, CN II-XII intact, normal gait (per nurse). Absent: motor sensory deficit - Psychiatric Psychiatric exam: Present: agitated, flat affect - Skin Skin exam: Present: warm, dry, intact, normal color. Absent: rash ED Course Vital Signs 03/09/19 03/09/19 03/09/19 12:21 12:30 12:41 Pulse Rate 88 91 H 88 Respiratory 21 30 H 30 H Rate Blood Pressure 158/99 158/99 O2 Sat by Pulse 94 91 91 Oximetry 03/09/19 03/09/19 03/09/19 12:51 13:33 13:41 Pulse Rate 86 71 Respiratory 12 15 Rate Blood Pressure 145/92 111/68 O2 Sat by Pulse 93 90 95 Oximetry - Reevaluation(s) Reevaluation #1: Per nurses Accu-Chek was normal in the field. A 12-lead EKG was obtained and compared to prior. The patient does have some chronic ST elevation in the inferior leads which is unchanged. He has lateral T-wave abnormality and EKG is consistent with previous anteroseptal zone. This cannot be called and acute ST elevation NH. 03/09/19 14:36 ED Medical Decision Making - Lab Data Result diagrams: 03/09/19 14:02 03/09/19 14:02 Laboratory Results - last 24 hr 03/09/19 03/09/19 03/09/19 14:02 14:02 14:02 WBC 7.1 RBC 3.34 L Hgb 9.6 L Hct 29.0 L MCV 87 MCH 29 MCHC 33 RDW 19.9 H Plt Count 145 Lymph % (Auto) 3.[address] [place] % (Auto) 4.0 Eos % (Auto) 2.6 Baso % (Auto) 0.4 Lymph # 0.[address] [place] # 0.3 Eos # 0.2 Baso # 0.0 Seg Neutrophils % 89.5 H Seg Neutrophils # 6.3 Sodium 142 Potassium 4.3 Chloride 95.5 L Carbon Dioxide 27 Anion Gap 24 BUN 49 H Creatinine 12.8 H Estimated GFR 5 BUN/Creatinine Ratio 4 Glucose 147 H Lactic Acid 0.70 Calcium 10.7 H - EKG Data -: EKG Interpreted by Me EKG shows normal: sinus rhythm, axis, intervals, ST-T waves Rate: normal - EKG Data When compared to previous EKG there are: changes noted Interpretation: other (The patient does have some chronic ST elevation in the inferior leads which is unchanged. He has lateral T-wave abnormality and EKG is consistent with previous anteroseptal zone. This cannot be called and acute ST elevation NH.) - Radiology Data Radiology results: report reviewed Chest x-ray with pulmonary venous congestion Critical care attestation.: If time is entered above; I have spent that time in minutes in the direct care of this critically ill patient, excluding procedure time. ED Disposition Clinical Impression: Bradycardia, Congestive cardiomyopathy, End-stage renal disease needing dialysis Vomiting Qualifiers: Vomiting type: unspecified Vomiting Intractability: non-intractable Nausea presence: with nausea Qualified Code(s): R11.2 - Nausea with vomiting, unspecified Altered mental status Qualifiers: Altered mental status type: unspecified Qualified Code(s): R41.82 - Altered mental status, unspecified Disposition: DC-09 OP ADMIT IP TO THIS HOSP Is pt being admited?: Yes Does the pt Need Aspirin: Yes Condition: Stable Referrals: KISHAN VAZ MD [Primary Care Provider] - 3-5 Days Time of Disposition: 14:48
[2019-03-09 14:39] LABS: Calcium 10.7 mg/dL (8.4-10.2)
[2019-03-09 14:43] LABS: Creatine Kinase MB 4.5 ng/mL (0.0-4.0)
[2019-03-09 14:44] LABS: Alanine Aminotransferase 7 units/L (7-56); Albumin 4.1 g/dL (3.9-5)
[2019-03-09] MEDS ORDERED: BABY ASPIRIN PO ONE (14:48)
[2019-03-09 14:55] LABS: Bilirubin,Direct < 0.2 mg/dL (0-0.2)
[2019-03-09 15:10] LABS: Chol/HDL Ratio 2.48 %; HDL Cholesterol 49 mg/dL (40-59); LDL Cholesterol,Direct 58 mg/dL (50-130)
--- NOTE | 2019-03-09 15:27 | History and Physical Report ---
History of Present Illness Chief complaint: I got sick on the way to dialysis History of present illness: 53 YO Male with HTN, CVA, MA, DM, GERD, ESRD on HD (T,R,Sa),Anemia, DVT, Factor 5Leiden Mutation not currently on Therapeutic Anticoagulation, CaP, Nephrolithiasis presents to ED for evaluation. Pt provides limited history. Additional history taken from EMS and ED Staff. As per staff, the patient experienced nausea and multiple episodes of vomiting during transport to dialysis. Pt subsequently experienced an episode of bradycardia with a heart rate in the 30's while actively vomiting, which was suspected due to unintentional valsalva. Pt subsequently transported to [facility]. No reports of fever, chills, CP, Palpitations, Trauma, BRBPR, Productive cough, skin rash or recent ill contacts. Pt seen and evaluated in ED and found to have ESRD. Pt bradycardia has resolved without recurrence. Nephrology consulted in ED. Pt admitted to medical floor with remote telemetry. Past History Past Medical History: acute MA, anemia, diabetes, DVT, ESRD, GERD, hypertension, hyperlipidemia, stroke, other (Factor V leiden) Past Surgical History: Other (AV Fistula, permacath') Social history: single. denies: smoking, alcohol abuse, prescription drug abuse Family history: diabetes, hypertension Medications and Allergies Allergies Allergy/AdvReac Type Severity Reaction Status Date / Time Penicillins Allergy Unknown Verified 05/28/17 17:08 Home Medications Medication Instructions Recorded Confirmed Last Taken Type Atorvastatin Calcium [Lipitor] 40 mg PO DAILY 08/24/18 03/09/19 Unknown History Carvedilol [Coreg] 25 mg PO BID 08/24/18 03/09/19 Unknown History Sevelamer Carbonate [Renvela] 2,400 mg PO TIDWM 10/05/18 03/09/19 Unknown History NIFEdipine [Nifedipine ER] 90 mg PO QDAY 03/09/19 03/09/19 Unknown History cloNIDine-TTS PATCH [Catapres-Tts 1 patch TD Q7D 03/09/19 03/09/19 Unknown History 0.3mg Patch] hydrALAZINE [Apresoline TAB] 100 mg PO Q8H 03/09/19 03/09/19 Unknown History Review of Systems Constitutional: no weight loss, no weight gain, no fever, no chills Ears, nose, mouth and throat: no ear pain, no ear discharge, no tinnitis, no decreased hearing, no nasal congestion Cardiovascular: other (bradycardia), no chest pain, no orthopnea, no palpitations, no rapid/irregular heart beat Respiratory: no cough, no cough with sputum, no excessive sputum, no hemoptysis Gastrointestinal: no abdominal pain, no nausea, no vomiting, no diarrhea, no constipation Genitourinary Male: no hematuria, no flank pain, no discharge, no urinary frequency Rectal: no pain, no incontinence, no bleeding Musculoskeletal: no neck stiffness, no neck pain, no shooting arm pain, no arm numbness/tingling, no low back pain Integumentary: no rash, no pruritis, no redness, no sores, no wounds Neurological: no paralysis, no weakness, no parathesias, no numbness, no tingling Psychiatric: no anxiety, no memory loss, no change in sleep habits, no sleep disturbances, no insomnia, no hypersomnia, no change in appetite, no change in libido Endocrine: no cold intolerance, no heat intolerance, no polyphagia, no excessive thirst, no polydipsia Hematologic/Lymphatic: no easy bruising, no easy bleeding, no lymphadenopathy, no lymphedema Allergic/Immunologic: no urticaria, no allergic rhinitis, no persistent infections Exam - Constitutional Vitals: Temp Pulse Resp BP Pulse Ox 71 15 111/68 95 03/09/19 13:41 03/09/19 13:41 03/09/19 13:41 03/09/19 13:41 General appearance: Present: no acute distress, well-nourished - EENT Eyes: Present: PERRL ENT: hearing intact, clear oral mucosa - Neck Neck: Present: supple, normal ROM - Respiratory Respiratory effort: normal Respiratory: bilateral: CTA - Cardiovascular Heart Sounds: Present: S1 & S2. Absent: rub, click - Extremities Extremities: pulses symmetrical, No edema Peripheral Pulses: within normal limits - Abdominal General gastrointestinal: Present: soft, non-tender, non-distended, normal bowel sounds Male genitourinary: Present: normal - Integumentary Integumentary: Present: clear, warm, dry - Musculoskeletal Musculoskeletal: gait normal, strength equal bilaterally - Psychiatric Psychiatric: appropriate mood/affect, intact judgment & insight - Neurologic Neurologic: CNII-XII intact, moves all extremities Results - Labs CBC & Chem 7: 03/09/19 14:02 03/09/19 14:02 Labs: Abnormal lab results 03/09/19 03/09/19 03/09/19 Range/Units 14:02 14:02 14:02 RBC 3.34 L (3.65-5.03) M/mm3 Hgb 9.6 L (11.8-15.2) gm/dl Hct 29.0 L (35.5-45.6) % RDW 19.9 H (13.2-15.2) % Lymph % (Auto) 3.5 L (13.4-35.0) % Lymph # 0.3 L (1.2-5.4) K/mm3 Seg Neutrophils % 89.5 H (40.0-70.0) % Chloride 95.5 L (98-107) mmol/L BUN 49 H (9-20) mg/dL Creatinine 12.8 H (0.8-1.5) mg/dL Glucose 147 H (75-100) mg/dL Calcium 10.7 H (8.4-10.2) mg/dL Phosphorus (2.5-4.5) mg/dL Total Creatine Kinase 197 H (55-170) units/L CK-MB (CK-2) 4.5 H (0.0-4.0) ng/mL Troponin T 0.170 H* (0.00-0.029) ng/mL NT-Pro-B Natriuret Pep 80711 H (0-900) pg/mL 03/09/19 Range/Units 14:02 RBC (3.65-5.03) M/mm3 Hgb (11.8-15.2) gm/dl Hct (35.5-45.6) % RDW (13.2-15.2) % Lymph % (Auto) (13.4-35.0) % Lymph # (1.2-5.4) K/mm3 Seg Neutrophils % (40.0-70.0) % Chloride (98-107) mmol/L BUN (9-20) mg/dL Creatinine (0.8-1.5) mg/dL Glucose (75-100) mg/dL Calcium (8.4-10.2) mg/dL Phosphorus 7.10 H (2.5-4.5) mg/dL Total Creatine Kinase (55-170) units/L CK-MB (CK-2) (0.0-4.0) ng/mL Troponin T (0.00-0.029) ng/mL NT-Pro-B Natriuret Pep (0-900) pg/mL Assessment and Plan - Patient Problems (1) ESRD (end stage renal disease) Current Visit: Yes Status: Acute Plan to address problem: Nephrology consulted in ED, dialysis as per renal team, Strict I/O, daily weight, monitor uop q shift, avoid nephrotoxic agents, (2) HTN (hypertension) Current Visit: Yes Status: Acute Qualifiers: Hypertension type: essential hypertension Qualified Code(s): I10 - Ess ential (primary) hypertension Plan to address problem: Monitor bp q shift, continue medical management. (3) Diabetes Current Visit: Yes Status: Acute Plan to address problem: ADA diet, insulin, accu check (4) GERD (gastroesophageal reflux disease) Current Visit: Yes Status: Acute Qualifiers: Esophagitis presence: without esophagitis Qualified Code(s): K21.9 - Gastro-esophageal reflux disease without esophagitis Plan to address problem: PPi therapy, supportive care. (5) Factor 5 Leiden mutation, heterozygous Current Visit: Yes Status: Acute Plan to address problem: Therapeutic anticoagulation with leigh Pt counseled regarding noncompliance. (6) Bradycardia Current Visit: Yes Status: Acute Plan to address problem: Resolved, remote telemetry, supportive care. (7) DVT prophylaxis Current Visit: Yes Status: Acute Plan to address problem: SCD to BLE while in bed, therapeutic anticoagulation.
[2019-03-09] MEDS ORDERED: TYLENOL PO PRN (15:31)
[2019-03-09] MEDS ORDERED: SODIUM CHLORIDE FLUSH SYRINGE 10 ML IV PRN (15:31)
[2019-03-09] MEDS ORDERED: ZOFRAN IV PRN (15:31)
[2019-03-09] MEDS ORDERED: ULTRAM PO ONE (15:36)
[2019-03-09 15:40] LABS: INR 1.34 (0.87-1.13); Partial Thromboplastin Time 32.6 Sec. (24.2-36.6)
--- NOTE | 2019-03-09 15:52 | Consultation ---
History of Present Illness - Reason for Consult Consult date: 03/09/19 end stage renal disease - History of Present Illness The patient is a 53 YO Male with history significant for Type 2 DM, Uncontrolled HTN, HLD, GERD, ESRD on HD (TTS), Anemia, h/o DVT, Factor V Leiden mutation on Eliquis, Mitral valve calcification, Prostate CA diagnosed in 2005, ANA[place]KA, Cognitive impairment and Medical non-compliance who presented to [facility] ED for evaluation of bradycardia. Patient is not providing much history at this point (not unusal). He developed N & V enroute to dialysis unit. According to the report I recived EMS noticed heart rate in 30s. Per patient he vomited about 4 times today. He denies abd pain, fever, chills, diarrhea, cp, sob, palpitation, dizziness, syncope, leg swelling or rash. Nephrology was consulted fto manage ESRD. Patient is due for hemodialysis today. Past History Past Medical History: anemia, diabetes, dialysis, ESRD, heart failure, hypertension, hyperlipidemia, other (h/o DVT, Factor V Leiden mutation on Eliquis) Medications and Allergies Allergies Allergy/AdvReac Type Severity Reaction Status Date / Time Penicillins Allergy Unknown Verified 05/28/17 17:08 Home Medications Medication Instructions Recorded Confirmed Last Taken Type Atorvastatin Calcium [Lipitor] 40 mg PO DAILY 08/24/18 03/09/19 Unknown History Carvedilol [Coreg] 25 mg PO BID 08/24/18 03/09/19 Unknown History Sevelamer Carbonate [Renvela] 2,400 mg PO TIDWM 10/05/18 03/09/19 Unknown History NIFEdipine [Nifedipine ER] 90 mg PO QDAY 03/09/19 03/09/19 Unknown History cloNIDine-TTS PATCH [Catapres-Tts 1 patch TD Q7D 03/09/19 03/09/19 Unknown History 0.3mg Patch] hydrALAZINE [Apresoline TAB] 100 mg PO Q8H 03/09/19 03/09/19 Unknown History Active Meds: Active Medications Acetaminophen (Tylenol) 650 mg PO Q4H PRN PRN Reason: Pain MILD(1-3)/Fever >100.5/GAMA Atorvastatin Calcium (Lipitor) 40 mg PO DAILY REBECA Carvedilol (Coreg) 25 mg PO BID REBECA Clonidine HCl (Catapres-Tts Patch) 0.3 mg TD Q7D [facility] Hydralazine HCl (Apresoline) 100 mg PO Q8H [facility] Miscellaneous Medication (Nifedipine [Nifedipine Er]) 90 mg PO QDAY [facility] Ondansetron HCl (Zofran) 4 mg IV Q8H PRN PRN Reason: Nausea And Vomiting Sevelamer Carbonate (Renvela) 2,400 mg PO TIDWM [facility] Sodium Chloride (Sodium Chloride Flush Syringe 10 Ml) 10 ml IV BID [facility] Sodium Chloride (Sodium Chloride Flush Syringe 10 Ml) 10 ml IV PRN PRN PRN Reason: LINE FLUSH Review of Systems Constitutional: no weight loss, no weight gain, no fever, no chills, no anorexia, no fatigue, no weakness, no poor appetite Ears, nose, mouth and throat: no epistaxis Cardiovascular: high blood pressure, no chest pain, no orthopnea, no edema, no syncope, no lightheadedness, no shortness of breath, no dyspnea on exertion, no leg edema Respiratory: no cough, no hemoptysis, no shortness of breath, no dyspnea on exertion, no home oxygen Gastrointestinal: nausea, vomiting, no abdominal pain, no diarrhea, no melena, no hematochezia Genitourinary Male: no dysuria, no hematuria Rectal: no bleeding Musculoskeletal: no morning stiffness, no muscle weakness, no muscle cramps Integumentary: no rash, no sores, no wounds, no jaundice Neurological: no paralysis, no weakness, no aphasia, no confusion Exam - Vital Signs Vital signs: Vital Signs Pulse Resp BP Pulse Ox 88 21 158/99 94 03/09/19 12:21 03/09/19 12:21 03/09/19 12:21 03/09/19 12:21 - General Appearance General appearance: well-developed, well-nourished, appears stated age, other (no distress) EENT: ATNC, PERRL, hearing intact, vision intact Neck: Present: neck supple, trachea midline Respiratory: Rales Heart: regular, S1S2, no murmurs Gastrointestinal: Present: normoactive bowel sounds. Absent: tenderness, distended Integumentary: no rash, warm and dry Neurologic: no focal deficit, no asterixis, alert and oriented x3 Musculoskeletal: Present: other (trace LE edema noted, R arm AVG) Results - Lab Results 03/09/19 14:02 03/09/19 14:02 Most recent lab results Calcium 10.7 mg/dL (8.4-10.2) H 03/09/19 14:02 Phosphorus 7.10 mg/dL (2.5-4.5) H 03/09/19 14:02 Magnesium 2.20 mg/dL (1.7-2.3) 03/09/19 14:02 Assessment and Plan 1. ESRD: Continue hemodialysis three times a week, TTS schedule. HD today. 2. Hypertension: BP controlled. 3. Bradycardia. 4. Anemia: Epogen with HD. 5. Medical non-compliance: Compliance encouraged.
[2019-03-09] MEDS ORDERED: NACL 0.9% 100 ML IV PRN (15:56)
[2019-03-09] MEDS ORDERED: PROCRIT SUB-Q PRN (15:56)
[2019-03-09] MEDS ORDERED: CATAPRES-TTS PATCH TD SCH (17:00)
[2019-03-09] MEDS ORDERED: NACL 0.9 (PRIMING MACHINE ONLY DIALYSIS) MC ONE (19:47)
[2019-03-09] MEDS: COREG PO SCH (22:14)
[2019-03-09] MEDS: ELIQUIS PO SCH (22:14)
[2019-03-09] MEDS: RENVELA PO SCH (22:15)
[2019-03-09] MEDS: APRESOLINE PO SCH ×2 (22:15)
[2019-03-09] MEDS: SODIUM CHLORIDE FLUSH SYRINGE 10 ML IV SCH (22:21)
--- NOTE | 2019-03-09 23:11 | Cat Scan Report ---
PROCEDURE: CT HEAD/BRAIN WO CON TECHNIQUE: Computerized tomography of the head was performed without contrast material. CT DOSE LENGTH PRODUCT: 920.5 mGycm HISTORY: AMS COMPARISONS: Prior CT scan of the brain 11/25/2017 . FINDINGS: Brain: There is no evidence of intracranial hemorrhage. No parenchymal hemorrhage is seen. No mass lesions or mass effect is identified. No abnormal extra-axial fluid collections or masses are seen. Old lacunar infarcts visualized in the right and left basal ganglia and right and left thalamus. Line ar calcifications indicating atherosclerosis visualized in the right middle cerebral artery. These we re also visualized on the prior exam. Old area of encephalomalacia seen superior-medial aspect left p arietal lobe. This is unchanged. There is some decreased density seen in the periventricular white matter without mass effect. This i s fairly symmetric and does not exhibit any mass effect consistent with gliosis probably on the basis of microvascular disease or white matter changes of aging. Ventricles: The ventricles, sulcal pattern and fissures are prominent consistent with atrophy. Bone Windows: No evidence of fracture. Paranasal sinuses: Visualized portions are clear.. Mastoid air cells: Clear. IMPRESSION: No acute abnormalities are identified. There is evidence of atrophy and gliosis. Old lacunar infarcts are seen in the right and left basal g anglia and right and left thalamus. Old area of encephalomalacia again visualized superior medial asp ect left parietal lobe anteriorly.. This document is electronically signed by Haja Carlson MD., March 09 2019 11:09:26 PM ET
[2019-03-10] MEDS: APRESOLINE PO SCH ×3 (05:37→22:34)
[2019-03-10 07:53] LABS: Calcium 9.9 mg/dL (8.4-10.2)
[2019-03-10] MEDS: RENVELA PO SCH ×3 (08:00→17:46)
--- NOTE | 2019-03-10 08:12 | Progress Note ---
Assessment and Plan 1. ESRD: Continue hemodialysis three times a week, TTS schedule. 2. Hypertension: Monitor BP. 3. Bradycardia. 4. Anemia: Epogen with HD. 5. Medical non-compliance: Compliance encouraged. Subjective Date of service: 03/10/19 Interval history: Patient was seen and examined at the bedside. Doing ok. Objective - Vital Signs Vital signs: Vital Signs - 12hr 03/09/19 03/09/19 03/09/19 20:20 20:53 21:24 Temperature 97.5 F L 98.4 F Pulse Rate 80 80 81 Respiratory 16 20 Rate Blood Pressure 157/87 157/87 149/95 O2 Sat by Pulse 96 Oximetry 03/09/19 03/09/19 03/10/19 22:14 22:16 04:57 Temperature 98.0 F Pulse Rate 84 Respiratory 24 Rate Blood Pressure 157/87 157/87 152/96 O2 Sat by Pulse 96 Oximetry 03/10/19 05:39 Temperature Pulse Rate Respiratory 20 Rate Blood Pressure O2 Sat by Pulse Oximetry - General Appearance General appearance: well-developed, well-nourished, appears stated age, other (no distress) EENT: ATNC, PERRL, mucous membranes moist, hearing intact, vision intact Neck: supple Respiratory: Present: Rales Cardiology: regular, S1S2, no murmurs Gastrointestinal: normoactive bowel sounds, no tenderness, no distended Integumentary: no rash, warm and dry Neurologic: no focal deficit, no asterixis, alert and oriented x3 Musculoskeletal: other (no edema, R arm AVG) - Lab 03/09/19 14:02 03/10/19 06:48 Most recent lab results Calcium 9.9 mg/dL (8.4-10.2) 03/10/19 06:48 Phosphorus 7.10 mg/dL (2.5-4.5) H 03/09/19 14:02 Magnesium 2.20 mg/dL (1.7-2.3) 03/09/19 14:02 Medications & Allergies - Medications Allergies/Adverse Reactions: Allergies Penicillins Allergy (Verified 05/28/17 17:08) Unknown STATES HAD REACTION CHILD Home Medications: Home Medications Medication Instructions Recorded Confirmed Last Taken Type Carvedilol [Coreg] 25 mg PO BID 08/24/18 03/09/19 Unknown History NIFEdipine [Nifedipine ER] 90 mg PO QDAY 03/09/19 03/09/19 Unknown History Apixaban [Eliquis] 2.5 mg PO Q12HR #60 tablet 03/10/19 Unknown Rx AtorvaSTATin [Lipitor] 40 mg PO DAILY #30 tablet 03/10/19 Unknown Rx Carvedilol [Coreg] 25 mg PO BID #60 tablet 03/10/19 Unknown Rx Epoetin Noah 10,000 Unit [Procrit] 10,000 unit SUB-Q SANDHYA PRN vial 03/10/19 Unknown Rx Sevelamer Carbonate [Renvela] 2,400 mg PO TIDWM #90 tablet 03/10/19 Unknown Rx cloNIDine-TTS PATCH [Catapres-Tts 0.3 mg TD Th #4 patch 03/10/19 Unknown Rx 0.3mg Patch] hydrALAZINE [Apresoline TAB] 100 mg PO Q8H #90 tab 03/10/19 Unknown Rx Active Medications: Generic Name Dose Route Start Last Admin Trade Name Freq PRN Reason Stop Dose Admin Acetaminophen 650 mg 03/09/19 15:31 Tylenol PO Q4H PRN Pain MILD(1-3)/Fever >100.5/GAMA Apixaban 2.5 mg 03/09/19 22:00 03/09/19 22:14 Eliquis PO 2.5 mg Q12HR REBECA Administration Protocol Atorvastatin Calcium 40 mg 03/10/19 10:00 Lipitor PO DAILY REBECA Carvedilol 25 mg 03/09/19 22:00 03/09/19 22:14 Coreg PO 25 mg BID REBECA Administration Clonidine HCl 0.3 mg 03/09/19 17:00 03/09/19 22:16 Catapres-Tts Patch TD 0.3 mg Th REBECA Administration Epoetin Noah 10,000 unit 03/09/19 15:56 03/09/19 20:02 Procrit SUB-Q 10,000 unit SANDHYA PRN Administration hemodialysis Hydralazine HCl 100 mg 03/09/19 17:00 03/10/19 05:37 Apresoline PO 100 mg Q8HR REBECA Administration Sodium Chloride 100 mls @ 999 mls/hr 03/09/19 15:56 Nacl 0.9% IV SANDHYA PRN Hypotension Nifedipine 90 mg 03/10/19 10:00 Procardia Xl PO QDAY REBECA Ondansetron HCl 4 mg 03/09/19 15:31 Zofran IV Q8H PRN Nausea And Vomiting Sevelamer Carbonate 2,400 mg 03/09/19 17:00 03/09/19 22:15 Renvela PO 2,400 mg TIDWM REBECA Administration Sodium Chloride 10 ml 03/09/19 22:00 03/09/19 22:21 Sodium Chloride Flush Syringe 10 Ml IV 10 ml BID REBECA Administration Sodium Chloride 10 ml 03/09/19 15:31 Sodium Chloride Flush Syringe 10 Ml IV PRN PRN LINE FLUSH
[2019-03-10] MEDS: ELIQUIS PO SCH ×2 (09:31→22:31)
[2019-03-10] MEDS: SODIUM CHLORIDE FLUSH SYRINGE 10 ML IV SCH ×2 (09:32→22:00)
[2019-03-10] MEDS: COREG PO SCH ×2 (09:32→22:34)
[2019-03-10] MEDS ORDERED: NON-FORMULARY (Nifedipine [Nifedipine Er] 90 MG) PO SCH (10:00)
[2019-03-10] MEDS ORDERED: PROCARDIA XL PO SCH (10:00)
--- NOTE | 2019-03-10 15:20 | Discharge Summary ---
Providers - Providers Date of Admission: 03/09/19 15:31 Date of discharge: 03/10/19 Attending physician: SOL LUIS 03/09/19 15:00 Consult to Physician [CONS] Urgent Comment: Consulting Provider: LEATHA TURNER Physician Instructions: Reason For Exam: ESRD needs D [facility] Condition: Stable Hospital course: (1) ESRD (end stage renal disease) Current Visit: Yes Status: Acute Plan to address problem: Had HD (2) HTN (hypertension) Current Visit: Yes Status: Acute Qualifiers: Hypertension type: essential hypertension Qualified Code(s): I10 - Essential (primary) hypertension Plan to address problem: Monitor bp q shift, continue medical management. (3) Diabetes Current Visit: Yes Status: Acute Plan to address problem: ADA diet, insulin, accu check (4) GERD (gastroesophageal reflux disease) Current Visit: Yes Status: Acute Qualifiers: Esophagitis presence: without esophagitis Qualified Code(s): K21.9 - Gastro-esophageal reflux disease without esophagitis Plan to address problem: PPi therapy, supportive care. (5) Factor 5 Leiden mutation, heterozygous Current Visit: Yes Status: Acute Plan to address problem: Therapeutic anticoagulation with eliquis, Pt counseled regarding noncompliance. (6) Bradycardia Current Visit: Yes Status: Acute Plan to address problem: Resolved (7) DVT prophylaxis Current Visit: Yes Status: Acute Plan to address problem: SCD to BLE while in bed, therapeutic anticoagulation. Disposition: DC-01 TO HOME OR SELFCARE Core Measure Documentation - Palliative Care Palliative Care/ Comfort Measures: Not Applicable - Core Measures Any of the following diagnoses?: none Exam - Constitutional Vitals: Temp Pulse Resp BP Pulse Ox 97.5 F L 85 18 177/100 90 03/10/19 11:47 03/10/19 11:47 03/10/19 11:47 03/10/19 11:47 03/10/19 11:47 General appearance: Present: no acute distress, well-nourished - EENT Eyes: Present: PERRL ENT: hearing intact, clear oral mucosa - Neck Neck: Present: supple, normal ROM - Respiratory Respiratory effort: normal Respiratory: bilateral: CTA - Cardiovascular Heart Sounds: Present: S1 & S2. Absent: rub, click - Extremities Extremities: pulses symmetrical, No edema Peripheral Pulses: within normal limits - Abdominal General gastrointestinal: Present: soft, non-tender, non-distended, normal bowel sounds Male genitourinary: Present: normal - Integumentary Integumentary: Present: clear, warm, dry - Musculoskeletal Musculoskeletal: gait normal, strength equal bilaterally - Psychiatric Psychiatric: appropriate mood/affect, intact judgment & insight - Neurologic Neurologic: CNII-XII intact, moves all extremities Plan Activity: no restrictions Diet: renal Follow up with: KISHAN VAZ MD [Primary Care Provider] - 3-5 Days LEATHA TURNER MD [Staff Physician] - 7 Days
[2019-03-10] MEDS ORDERED: CATAPRES PO ONE (18:42)
[2019-03-10] MEDS ORDERED: APRESOLINE IV PRN (20:40)
[2019-03-11 05:48] VITALS: BP 132/76
--- NOTE | 2019-03-11 06:00 | Event Note ---
Date: 03/10/19 Discharge held back because of High BP
[2019-03-11] MEDS: APRESOLINE PO SCH (06:37)
[2019-03-11] MEDS: RENVELA PO SCH (09:13)
--- NOTE | 2019-03-11 11:27 | Event Note ---
Date: 03/11/19 Patient was discharged today as BP was stable.
== END 2019-03-11 09:40 | disposition home or self-care (01) | DRG 291 ==
LOC: ED 11:45 → 3A 15:31
PROVIDERS: ADMIT Internal Medicine; ATTEND Internal Medicine
PROC: 5A1D70Z Performance of Urinary Filtration, Intermittent, Less than 6 Hours Per Day (ICD-10-PCS; principal; 2019-03-09)
DX: I13.2 Hypertensive heart and chronic kidney disease with heart failure and with stage 5 chronic kidney disease, or end stage renal disease (principal); N18.6 End stage renal disease; D68.51 Activated protein C resistance; I42.0 Dilated cardiomyopathy; E11.22 Type 2 diabetes mellitus with diabetic chronic kidney disease; G89.29 Other chronic pain; M54.5 Low back pain; I25.2 Old myocardial infarction; I50.9 Heart failure, unspecified; K21.9 Gastro-esophageal reflux disease without esophagitis; R00.1 Bradycardia, unspecified; N20.0 Calculus of kidney; E78.5 Hyperlipidemia, unspecified; D64.9 Anemia, unspecified; Z85.46 Personal history of malignant neoplasm of prostate; Z91.14 Patient's other noncompliance with medication regimen; Z86.73 Personal history of transient ischemic attack (TIA), and cerebral infarction without residual deficits; Z86.718 Personal history of other venous thrombosis and embolism; Z88.0 Allergy status to penicillin; Z99.2 Dependence on renal dialysis
CPT/HCPCS: 36415; 70450; 71045; 80048; 80061; 80076; 82140; 82550; 82553; 82962; 83690; 83735; 83880; 84100; 84484; 85025; 85610; 85730; 86850; 86900; 86901; 87040; 93005; 93010; 96374; G0378; A9270-GY; J0360; J0885; J2405; J7030

== ENCOUNTER 2019-09-21 17:09 | Inpatient (IN) | payer MEDICARE ==
[2019-09-21 17:38] LABS: Basophils % (Auto) 0.9 % (0.0-1.8); Eosinophils # (Auto) 0.4 K/mm3 (0.0-0.4); Eosinophils % (Auto) 10.1 % (0.0-4.3); Hematocrit 29.4 % (35.5-45.6); Hemoglobin 9.5 gm/dl (11.8-15.2); Lymphocytes # (Auto) 0.3 K/mm3 (1.2-5.4); Lymphocytes % (Auto) 8.1 % (13.4-35.0); Mean Corpuscular HGB Conc 32 % (32-34); Mean Corpuscular Volume 89 fl (84-94); Monocytes # (Auto) 0.3 K/mm3 (0.0-0.8); Monocytes % (Auto) 7.7 % (0.0-7.3); Platelet Count 133 K/mm3 (140-440); Red Blood Count 3.29 M/mm3 (3.65-5.03); Red Cell Distribution Width 19.6 % (13.2-15.2)
[2019-09-21 17:52] LABS: INR 1.23 (0.87-1.13); Partial Thromboplastin Time 32.4 Sec. (24.2-36.6)
--- NOTE | 2019-09-21 17:58 | Consultation ---
History of Present Illness History of present illness: [facility] Date of Service: 09/21/2019 17:21:01 Impression: RO Acute Ischemic Stroke Right Hemispheric Infarct Comments: Patient with dysarthria and left nasolabial fold flattening. Also global weakness in the limbs. Probable right hemispheric infarct, perhaps small vessel. Mechanism of Stroke: Not Clear Metrics: Last Known Well: 09/20/2019 21:30:00 [facility] Notification Time: 09/21/2019 17:20:22 Arrival Time: 09/21/2019 17:09:00 Stamp Time: 09/21/2019 17:21:01 Time First Login Attempt: 09/21/2019 17:24:00 Video Start Time: 09/21/2019 17:24:00 Symptoms: slurred speech NIHSS Start Assessment Time: 09/21/2019 17:42:00 (pt in CT on log in) Patient is not a candidate for tPA. Patient was not deemed candidate for tPA thrombolytics because of LKW > 4.5h, coagulopathy on labs. Video End Time: 09/21/2019 17:47:00 CT head showed no acute hemorrhage or acute core infarct. Advanced imaging was not obtained as the presentation was not suggestive of Large Vessel Occlusive Disease. ER Physician notified of the decision on thrombolytics management on 09/21/2019 17:54:00 Our recommendations are outlined below. Recommendations: Activate Stroke Protocol Admission/Order Set Stroke/Telemetry Floor Neuro Checks Bedside Swallow Eval DVT Prophylaxis IV Fluids, Normal Saline Head of Bed Below 30 Degrees Euglycemia and Avoid Hyperthermia (PRN Acetaminophen) Antiplatelet Therapy Recommended Recommended Scan: MRI Head Without Contrast MRA Neck with and Without Contrast Echocardiogram - Transthoracic Echocardiogram Lipid Panel to Be Obtained, if Not Done in the Last Three Months Therapies: Physical Therapy, Occupational Therapy, Speech Therapy Assessment When Applicable Dysphaghia Screen: NPO Until Swallow Evaluation DVT prophylaxis: Choice of Primary Team Disposition: Follow up with Teleneurology Follow up Sign Out: Discussed with Emergency Department Provider History of Present Illness: Patient is a 54 year old Male. Patient was brought by EMS for symptoms of slurred speech Patient with a history of HTN, ESRD on HD presenting with slurred speech. Last normal last night at 2130 prior to bed. He woke this morning with slurred speech and generalized weakness. There's indication he missed dialysis appts this week. No vision loss, language disturbance, sensory loss, GAMA, CP. CT head showed no acute hemorrhage or acute core infarct. Examination: 1A: Level of Consciousness - Arouses to minor stimulation + 1 1B: Ask Month and Age - Both Questions Right + 0 1C: Blink Eyes & Squeeze Hands - Performs Both Tasks + 0 2: Test Horizontal Extraocular Movements - Normal + 0 3: Test Visual Thompson - No Visual Loss + 0 4: Test Facial Palsy (Use Grimace if Obtunded) - Minor paralysis (flat nasolabial fold, smile asymetry) + 1 5A: Test Left Arm Motor Drift - Drift, hits bed + 2 5B: Test Right Arm Motor Drift - Drift, hits bed + 2 6A: Test Left Leg Motor Drift - No Effort Against [place] + 3 6B: Test Right Leg Motor Drift - No Effort Against [place] + 3 7: Test Limb Ataxia (FNF/Heel-Canela) - No Ataxia + 0 8: Test Sensation - Normal; No sensory loss + 0 9: Test Language/Aphasia - Normal; No aphasia + 0 10: Test Dysarthria - Mild-Moderate Dysarthria: Slurring but can be understood + 1 11: Test Extinction/Inattention - No abnormality + 0 NIHSS Score: 13 Patient was informed the Neurology Consult would happen via TeleHealth consult by way of interactive audio and video telecommunications and consented to receiving care in this manner. Due to the immediate potential for life-threatening deterioration due to underlying acute neurologic illness, I spent 35 minutes providing critical care. This time includes time for face to face visit via telemedicine, review of medical records, imaging studies and discussion of findings with providers, the patient and/or family. Dr Jostin Cr [facility] Case [id number] Medications and Allergies Allergies Allergy/AdvReac Type Severity Reaction Status Date / Time Penicillins Allergy Unknown Verified 05/28/17 17:08 Home Medications Medication Instructions Recorded Confirmed Last Taken Type Carvedilol [Coreg] 25 mg PO BID 08/24/18 03/09/19 Unknown History NIFEdipine [Nifedipine ER] 90 mg PO QDAY 03/09/19 03/09/19 Unknown History Apixaban [Eliquis] 2.5 mg PO Q12HR #60 tablet 03/10/19 Unknown Rx AtorvaSTATin [Lipitor] 40 mg PO DAILY #30 tablet 03/10/19 Unknown Rx Epoetin Noah 10,000 Unit [Procrit] 10,000 unit SUB-Q SANDHYA PRN vial 03/10/19 Unknown Rx Sevelamer Carbonate [Renvela] 2,400 mg PO TIDWM #90 tablet 03/10/19 Unknown Rx carvediloL [Coreg] 25 mg PO BID #60 tablet 03/10/19 Unknown Rx cloNIDine-TTS PATCH [Catapres-Tts 0.3 mg TD Th #4 patch 03/10/19 Unknown Rx 0.3mg Patch] hydrALAZINE [Apresoline TAB] 100 mg PO Q8H #90 tab 03/10/19 Unknown Rx Results - Laboratory Findings CBC and BMP: 09/21/19 17:19 Abnormal Lab Findings: Abnormal Labs 09/21/19 09/21/19 09/21/19 17:19 17:19 17:19 WBC 3.9 L RBC 3.29 L Hgb 9.5 L Hct 29.4 L RDW 19.6 H Plt Count 133 L Lymph % (Auto) 8.1 L Ingham % (Auto) 7.7 H Eos % (Auto) 10.1 H Lymph # 0.3 L Seg Neutrophils % 73.2 H PT 15.7 H INR 1.23 H Thrombin Time 15.0 L
[2019-09-21 17:59] LABS: Calcium 9.4 mg/dL (8.4-10.2)
--- NOTE | 2019-09-21 18:00 | Cat Scan Report ---
CT HEAD WITHOUT CONTRAST INDICATION / CLINICAL INFORMATION: MAIN: CODE STROKE [id number] neuro deficits <6hrs or sx present upon awakening. TECHNIQUE: All CT scans at this location are performed using CT dose reduction for ALARA by means of automated e xposure control. COMPARISON: Head CT 03/09/2019 FINDINGS: HEMORRHAGE: No evidence of intracranial hemorrhage or extra-axial fluid collection. EXTRA-AXIAL SPACES: Cortical sulci and sylvian fissures are enlarged reflecting a degree of parenchym al volume loss which is greater than expected for the patient's age of 54 years. Basilar cisterns hav e an unremarkable appearance. VENTRICULAR SYSTEM: The third and lateral ventricles are enlarged reflecting presence of parenchymal atrophy which is greater than expected for age 54 years head CEREBRAL PARENCHYMA: Periventricular and deep white matter lucency is observed. This is probably seco ndary to microvascular ischemic change. Areas of encephalomalacia secondary to remote infarction are demonstrated along the medial aspect of the left parietal lobe in an anterior cerebral artery distrib ution. An area of encephalomalacia is observed in the left cerebellar hemisphere. Finding suggest sma ll deep infarction in the right ganglia capsular distribution. These are unchanged. MIDLINE SHIFT OR HERNIATION: There is no mass effect. CEREBELLUM / BRAINSTEM: Brainstem and cerebellum have an unremarkable appearance. INTRACRANIAL VESSELS:Calcified atherosclerotic plaque is present along the course of the cavernous se gments of both internal carotid arteries. Calcified atherosclerotic plaque is also demonstrated in th e mid and distal M1 segment of the right middle cerebral artery. These findings are stable in compari son to previous study. Similar findings are seen at the distal vertebral arteries. ORBITS: visualized portions of the orbits have an unremarkable appearance. SOFT TISSUES of HEAD: No significant abnormality. CALVARIUM: Evaluation of bone windows reveals no abnormalities. PARANASAL SINUSES / MASTOID AIR CELLS: Paranasal sinuses are free from inflammatory mucosal disease. Mastoid air cells are normally pneumatized. IMPRESSION: 1. Moderate involutional changes of parenchymal volume loss and microvascular ischemia in excess of t hat expected for the patient's age of 54 years. 2. Remote left cerebellar and left medial parietal infarctions unchanged from prior study. 3. No acute intracranial abnormalities are identified. Code stroke: I called report of this study to Dr. King of the [facility] emergency depart ment at about 1650 Central standard time Signer Name: Montrell Mckinley MD Signed: 09/21/2019 5:56 PM Workstation Name: [id number]
--- NOTE | 2019-09-21 18:18 | Emergency Department Report ---
ED General Adult HPI - General Chief complaint: Neuro Symptoms/Deficit Stated complaint: POSS CVA Time Seen by Provider: 09/21/19 17:25 Source: patient, family (caregiver), EMS (EMS records not available at time of chart dictation.), RN notes reviewed, old records reviewed Mode of arrival: Stretcher Limitations: Altered Mental Status, Physical Limitation - History of Present Illness Initial comments: Nephrology: Dr Wells The patient is a 54-year-old gentleman. The patient has a history of multiple strokes, end-stage renal disease on dialysis, factor V Leiden mutation, bradycardia, diabetes and hypertension. The patient is brought to the hospital today by emergency medical services as a possible out of hospital code stroke. History is primarily obtained from the patient's caregiver. The patient reportedly received dialysis earlier on this week, on Wednesday and Wednesday. Today is . The patient woke up today with a complaint of weakness, slurred speech, and "I think I'm having a stroke." The patient is a poor historian and not able to describe exacerbating or relieving factors. Apparently, he is supposed to be on eliquis, but may be noncompliant. -: unknown Severity scale (0 -10): 0 Consistency: other Improves with: other Worsens with: other Associated Symptoms: weakness - Related Data Home Medications Medication Instructions Recorded Confirmed Last Taken Carvedilol [Coreg] 25 mg PO BID 08/24/18 03/09/19 Unknown NIFEdipine [Nifedipine ER] 90 mg PO QDAY 03/09/19 03/09/19 Unknown Previous Rx's Medication Instructions Recorded Last Taken Type Apixaban [Eliquis] 2.5 mg PO Q12HR #60 tablet 03/10/19 Unknown Rx AtorvaSTATin [Lipitor] 40 mg PO DAILY #30 tablet 03/10/19 Unknown Rx Epoetin Noah 10,000 Unit [Procrit] 10,000 unit SUB-Q SANDHYA PRN vial 03/10/19 Unknown Rx Sevelamer Carbonate [Renvela] 2,400 mg PO TIDWM #90 tablet 03/10/19 Unknown Rx carvediloL [Coreg] 25 mg PO BID #60 tablet 03/10/19 Unknown Rx cloNIDine-TTS PATCH [Catapres-Tts 0.3 mg TD Th #4 patch 03/10/19 Unknown Rx 0.3mg Patch] hydrALAZINE [Apresoline TAB] 100 mg PO Q8H #90 tab 03/10/19 Unknown Rx Allergies Allergy/AdvReac Type Severity Reaction Status Date / Time Penicillins Allergy Unknown Verified 05/28/17 17:08 ED Review of Systems ROS: Stated complaint: POSS CVA Other details as noted in HPI Comment: Unobtainable due to pts medical conditions Constitutional: weakness Neurological: weakness, confusion, other (slurred speech) ED Past Medical Hx - Past Medical History Hx Hypertension: Yes Hx CVA: Yes Hx Heart Attack/AMI: Yes (Internal medicine says CO in 1995) Hx Congestive Heart Failure: Yes Hx Diabetes: Yes Hx Deep Vein Thrombosis: Yes Hx Pulmonary Embolism: No Hx GERD: Yes Hx Liver Disease: No Hx Renal Disease: Yes (ckd) Hx Seizures: No Hx Kidney Stones: Yes Hx Asthma: Yes Hx COPD: No Hx Tuberculosis: No Hx Dementia: No Hx HIV: No Additional medical history: Hemodialysis Wednesday. - Surgical History Hx Coronary Stent: No Hx Pacemaker: No Hx Internal Defibrillator: No Additional Surgical History: PERMACATH LEFT CHEST. FISTULA IN LEFT ARM ; REMOVAL. recent Graft in Right upper arm 2017 - Social History Smoking Status: Never Smoker Substance Use Type: None - Medications Home Medications: Home Medications Medication Instructions Recorded Confirmed Last Taken Type Carvedilol [Coreg] 25 mg PO BID 08/24/18 03/09/19 Unknown History NIFEdipine [Nifedipine ER] 90 mg PO QDAY 03/09/19 03/09/19 Unknown History Apixaban [Eliquis] 2.5 mg PO Q12HR #60 tablet 03/10/19 Unknown Rx AtorvaSTATin [Lipitor] 40 mg PO DAILY #30 tablet 03/10/19 Unknown Rx Epoetin Noah 10,000 Unit [Procrit] 10,000 unit SUB-Q SANDHYA PRN vial 03/10/19 Unknown Rx Sevelamer Carbonate [Renvela] 2,400 mg PO TIDWM #90 tablet 03/10/19 Unknown Rx carvediloL [Coreg] 25 mg PO BID #60 tablet 03/10/19 Unknown Rx cloNIDine-TTS PATCH [Catapres-Tts 0.3 mg TD Th #4 patch 03/10/19 Unknown Rx 0.3mg Patch] hydrALAZINE [Apresoline TAB] 100 mg PO Q8H #90 tab 03/10/19 Unknown Rx ED Physical Exam - General Limitations: Altered Mental Status, Physical Limitation General appearance: in no apparent distress, anxious, obese, other (patient is listless, but arousable. The patient is a poor historian.) - Head Head exam: Present: atraumatic, normocephalic - Eye Eye exam: Present: normal appearance, EOMI. Absent: nystagmus - ENT ENT exam: Present: normal exam, normal orophraynx, mucous membranes moist, normal external ear exam - Neck Neck exam: Present: normal inspection, full ROM. Absent: tenderness, meningismus - Respiratory Respiratory exam: Present: decreased breath sounds. Absent: wheezes, rhonchi, stridor - Cardiovascular Cardiovascular Exam: Present: regular rate, normal rhythm, normal heart sounds, JVD. Absent: tachycardia, irregular rhythm, systolic murmur, diastolic murmur, rubs, gallop - GI/Abdominal GI/Abdominal exam: Present: soft. Absent: distended, tenderness, guarding, rebound, rigid, pulsatile mass - Rectal Rectal exam: Present: deferred - Extremities Exam Extremities exam: Present: normal inspection, full ROM, pedal edema, other (2+ pulses noted in the bilateral upper and lower extremities. The pelvis is stable. There is no long bony tenderness. The muscular compartments are soft. There is no redness, pus, streaking or erythema.). Absent: calf tenderness - Back Exam Back exam: Present: normal inspection. Absent: tenderness, CVA tenderness (R), CVA tenderness (L), paraspinal tenderness, vertebral tenderness - Neurological Exam Neurological exam: Present: altered, other (the patient is awake. The patient is altered. The patient moves 4 extremities. Sensation is intact to light touch. Detailed neurologic examination is not possible secondary to altered mental status) - Psychiatric Psychiatric exam: Present: anxious - Skin Skin exam: Present: warm ED Course Vital Signs 09/21/19 09/21/19 18:06 18:08 Temperature 98.5 F Pulse Rate 74 Respiratory 15 Rate Blood Pressure 183/106 [Left] O2 Sat by Pulse 95 97 Oximetry - Reevaluation(s) Reevaluation #1: 09/21/19 21:27 Dr VALENCIA to admit - EJ/Peripheral Line Neck L Time Out Performed: Yes Indications: nurses unable to establis Skin Cleansed in Sterile Fashion: Yes Size: 20 Dressing Placed: Tegaderm Patient Tolerated Procedure: well ED Medical Decision Making - Lab Data Result diagrams: 09/21/19 17:19 09/21/19 17:19 Vital Signs 09/21/19 09/21/19 18:06 18:08 Temperature 98.5 F Pulse Rate 74 Respiratory 15 Rate Blood Pressure 183/106 [Left] O2 Sat by Pulse 95 97 Oximetry Lab Results 09/21/19 09/21/19 09/21/19 Range/Units 17:19 17:19 17:19 WBC 3.9 L (4.5-11.0) K/mm3 RBC 3.29 L (3.65-5.03) M/mm3 Hgb 9.5 L (11.8-15.2) gm/dl Hct 29.4 L (35.5-45.6) % MCV 89 (84-94) fl MCH 29 (28-32) pg MCHC 32 (32-34) % RDW 19.6 H (13.2-15.2) % Plt Count 133 L (140-440) K/mm3 Lymph % (Auto) 8.1 L (13.4-35.0) % Bladen % (Auto) 7.7 H (0.0-7.3) % Eos % (Auto) 10.1 H (0.0-4.3) % Baso % (Auto) 0.9 (0.0-1.8) % Lymph # 0.3 L (1.2-5.4) K/mm3 Bladen # 0.3 (0.0-0.8) K/mm3 Eos # 0.4 (0.0-0.4) K/mm3 Baso # 0.0 (0.0-0.1) K/mm3 Seg Neutrophils % 73.2 H (40.0-70.0) % Seg Neutrophils # 2.9 (1.8-7.7) K/mm3 PT 15.7 H (12.2-14.9) Sec. INR 1.23 H (0.87-1.13) APTT 32.4 (24.2-36.6) Sec. Thrombin Time (15.1-19.6) Sec. Sodium 142 (137-145) mmol/L Potassium 4.0 (3.6-5.0) mmol/L Chloride 97.8 L (98-107) mmol/L Carbon Dioxide 25 (22-30) mmol/L Anion Gap 23 mmol/L BUN 46 H (9-20) mg/dL Creatinine 11.5 H (0.8-1.5) mg/dL Estimated GFR 6 ml/min BUN/Creatinine Ratio 4 % Glucose 92 (75-100) mg/dL Calcium 9.4 (8.4-10.2) mg/dL Troponin T 0.470 H* (0.00-0.029) ng/mL Triglycerides 54 (2-149) mg/dL Cholesterol 94 (50-199) mg/dL LDL Cholesterol Direct 39 L (50-130) mg/dL HDL Cholesterol 49 (40-59) mg/dL Cholesterol/HDL Ratio 1.91 % // Range/Units 17:19 WBC (4.5-11.0) K/mm3 RBC (3.65-5.03) M/mm3 Hgb (11.8-15.2) gm/dl Hct (35.5-45.6) % MCV (84-94) fl MCH (28-32) pg MCHC (32-34) % RDW (13.2-15.2) % Plt Count (140-440) K/mm3 Lymph % (Auto) (13.4-35.0) % Bladen % (Auto) (0.0-7.3) % Eos % (Auto) (0.0-4.3) % Baso % (Auto) (0.0-1.8) % Lymph # (1.2-5.4) K/mm3 Bladen # (0.0-0.8) K/mm3 Eos # (0.0-0.4) K/mm3 Baso # (0.0-0.1) K/mm3 Seg Neutrophils % (40.0-70.0) % Seg Neutrophils # (1.8-7.7) K/mm3 PT (12.2-14.9) Sec. INR (0.87-1.13) APTT (24.2-36.6) Sec. Thrombin Time 15.0 L (15.1-19.6) Sec. Sodium (137-145) mmol/L Potassium (3.6-5.0) mmol/L Chloride (98-107) mmol/L Carbon Dioxide (22-30) mmol/L Anion Gap mmol/L BUN (9-20) mg/dL Creatinine (0.8-1.5) mg/dL Estimated GFR ml/min BUN/Creatinine Ratio % Glucose (75-100) mg/dL Calcium (8.4-10.2) mg/dL Troponin T (0.00-0.029) ng/mL Triglycerides (2-149) mg/dL Cholesterol (50-199) mg/dL LDL Cholesterol Direct (50-130) mg/dL HDL Cholesterol (40-59) mg/dL Cholesterol/HDL Ratio % - EKG Data -: EKG Interpreted by Ga - EKG Data 09/21/19 20:23 The EKG today shows a sinus rhythm, there is a leftward axis deviation, there is poor r wave progression 69 bpm qtc prolonged not a stemi - Radiology Data Radiology results: report reviewed, image reviewed Print Report Referring Physician: ENA DAVE Patient Name: DIEGO LOPEZ Date of : 1965 Sex: Male Report Date: 2019-09-21 Report Status: Finalized Findings [facility], [place] [address] [place] [address] XRay Report Signed Patient: DIEGO LOPEZ MR#: [id number] : 1965 Acct:[id number] Age/Sex: 54 / M ADM Date: 09/21/19 Loc: ED Attending Dr: Ordering Physician: ENA DAVE MD Date of Service: 09/21/19 Procedure(s): XR chest 1V ap Accession Number(s): [id number] cc: ENA DAVE MD Fluoro Time In Minutes: CHEST 1 VIEW INDICATION: esrd weak COMPARISON: 03/09/2019 FINDINGS: Support devices: Vascular graft in the region of the left brachiocephalic vein, unchanged. Heart: Moderately enlarged. Heart appears to have increased slightly in size since February. Lungs/Pleura: Mild vascular congestion and interstitial pulmonary edema. Very minimal right effusion. IMPRESSION: 1. Findings suggest mild congestive failure. Heart size appears to have increased slightly since February. Signer Name: Tim Lilly MD Signed: 09/21/2019 6:47 PM Workstation Name: [id number] Transcribed By: TM Dictated By: Tim Lilly MD Electronically Authenticated By: Tim Lilly MD Signed Date/Time: 09/21/19 1847 Print Report Referring Physician: ENA DAVE Patient Name: DIEGO LOPEZ Date of : 1965 Sex: Male Report Date: 2019-09-21 Report Status: Finalized Findings [facility], [place] [address] [place] [address] Cat Scan Report Signed Patient: DIEGO LOPEZ MR#: [id number] : 1965 Acct:[id number] Age/Sex: 54 / M ADM Date: 09/21/19 Loc: ED Attending Dr: Ordering Physician: ENA DAVE MD Date of Service: 09/21/19 Procedure(s): CT head/brain wo con Accession Number(s): [id number] cc: ENA DAVE MD CT HEAD WITHOUT CONTRAST INDICATION / CLINICAL INFORMATION: MAIN: CODE STROKE [id number] neuro deficits <6hrs or sx present upon awakening. TECHNIQUE: All CT scans at this location are performed using CT dose reduction for ALARA by means of automated exposure control. COMPARISON: Head CT 03/09/2019 FINDINGS: HEMORRHAGE: No evidence of intracranial hemorrhage or extra-axial fluid collection. EXTRA-AXIAL SPACES: Cortical sulci and sylvian fissures are enlarged reflecting a degree of parenchymal volume loss which is greater than expected for the patient's age of 54 years. Basilar cisterns have an unremarkable appearance. VENTRICULAR SYSTEM: The third and lateral ventricles are enlarged reflecting presence of parenchymal atrophy which is greater than expected for age 54 years head CEREBRAL PARENCHYMA: Periventricular and deep white matter lucency is observed. This is probably secondary to microvascular ischemic change. Areas of encephalomalacia secondary to remote infarction are demonstrated along the medial aspect of the left parietal lobe in an anterior cerebral artery distribution. An area of encephalomalacia is observed in the left cerebellar hemisphere. Finding suggest small deep infarction in the right ganglia capsular distribution. These are unchanged. MIDLINE SHIFT OR HERNIATION: There is no mass effect. CEREBELLUM / BRAINSTEM: Brainstem and cerebellum have an unremarkable appearanc e. INTRACRANIAL VESSELS:Calcified atherosclerotic plaque is present along the course of the cavernous segments of both internal carotid arteries. Calcified atherosclerotic plaque is also demonstrated in the mid and distal M1 segment of the right middle cerebral artery. These findings are stable in comparison to previous study. Similar findings are seen at the distal vertebral arteries. ORBITS: visualized portions of the orbits have an unremarkable appearance. SOFT TISSUES of HEAD: No significant abnormality. CALVARIUM: Evaluation of bone windows reveals no abnormalities. PARANASAL SINUSES / MASTOID AIR CELLS: Paranasal sinuses are free from inflammatory mucosal disease. Mastoid air cells are normally pneumatized. IMPRESSION: 1. Moderate involutional changes of parenchymal volume loss and microvascular ischemia in excess of that expected for the patient's age of 54 years. 2. Remote left cerebellar and left medial parietal infarctions unchanged from prior study. 3. No acute intracranial abnormalities are identified. Code stroke: I called report of this study to Dr. King of the [facility] emergency department at about 1650 Central standard time Signer Name: Montrell Mckinley MD Signed: 09/21/2019 5:56 PM Workstation Name: [id number] Transcribed By: Dictated By: Montrell Mckinley MD Electronically Authenticated By: Montrell Mckinley MD Signed Date/Time: 09/21/19 8038 - Medical Decision Making Differential diagnosis, including but not limited to: Subacute stroke, pneumonia, urinary tract infection, azotemia, uremia, hyperkalemia, vascular dementia Assessment and plan: 54-year-old gentleman with general weakness, confusion, slurred speech, last known well time is last night, supposed to be on systemic anticoagulation, for these reasons, not a TPA candidate. His examination is not suggestive of a large vessel occlusion. He is seen in coordination with stroke neurology, Dr. Medina Cr, who has made similar recommendations. Admission is recommended to the medical service for further evaluation and management. We have contacted his private consultant dietitian, Dr. Wells, who agrees to follow the patient in consultation. Urinalysis is pending at this time. Hospital physician is paged to arrange admission Elevated troponin is reviewed and appreciated, this appears to be chronic, this is likely a type II troponin leak. his private consultant dietitian recommends that the patient appears to have some cognitive difficulties, there may be a component of vascular dementia. Dr Brent Lopez advises to admit to Dr Radhames Stark service Critical care attestation.: If time is entered above; I have spent that time in minutes in the direct care of this critically ill patient, excluding procedure time. ED Disposition Clinical Impression: Encephalopathy, ESRD (end stage renal disease) on dialysis, Pulmonary edema, Slurred speech Disposition: 09 OP ADMIT IP TO THIS HOSP Is pt being admited?: Yes Does the pt Need Aspirin: Yes Condition: Serious Instructions: Pulmonary Edema (ED) Referrals: PRIMARY CARE, [Primary Care Provider] - 3-5 Days
--- NOTE | 2019-09-21 18:51 | XRay Report ---
CHEST 1 VIEW INDICATION: esrd weak COMPARISON: 03/09/2019 FINDINGS: Support devices: Vascular graft in the region of the left brachiocephalic vein, unchanged. Heart: Moderately enlarged. Heart appears to have increased slightly in size since February. Lungs/Pleura: Mild vascular congestion and interstitial pulmonary edema. Very minimal right effusion. IMPRESSION: 1. Findings suggest mild congestive failure. Heart size appears to have increased slightly since February . Signer Name: Tim Lilly MD Signed: 09/21/2019 6:47 PM Workstation Name: [id number]
[2019-09-21 18:54] LABS: Chol/HDL Ratio 1.91 %
[2019-09-21] MEDS ORDERED: ASPIRIN 81 MG TAB CHEW PO ONE (20:27)
[2019-09-21] MEDS ORDERED: DEXTROSE 50% IN WATER (25GM) 50 ML SYRINGE IV PRN (21:50)
[2019-09-21] MEDS ORDERED: MORPHINE 2 MG/1 ML INJ IV PRN (21:50)
[2019-09-21] MEDS ORDERED: ONDANSETRON 4 MG/2 ML INJ IV PRN (21:50)
[2019-09-21] MEDS ORDERED: MAGNESIUM HYDROXIDE (MOM) ORAL LIQD UDC PO PRN (21:50)
[2019-09-21] MEDS ORDERED: ACETAMINOPHEN 325 MG TAB PO PRN ×2 (21:50)
[2019-09-21] MEDS ORDERED: METOCLOPRAMIDE 10 MG TAB PO PRN (21:50)
[2019-09-21] MEDS ORDERED: PROMETHAZINE 25 MG RECT SUPP PR PRN (21:50)
--- NOTE | 2019-09-22 03:05 | History and Physical Report ---
History of Present Illness Date of examination: 09/21/19 Date of admission: 09/21/19 21:27 Chief complaint: Altered mental status Slurred speech History of present illness: 54-year-old male with known history of end-stage renal disease on dialysis on Tuesdays and Saturdays, history of stroke, dementia coronary artery disease and CHF presenting to the emergency room today with a complaint of a change in mental status and slurred speech. There has been no history of chest pain or shortness of breath, no fever or chills. Patient is not a good historian. He was evaluated by telemetry neurology and was considered not to be a TPA candidate. Work-up in the emergency room including CT scan of the brain showed chronic changes. Past History Past Medical History: CAD, diabetes, ESRD, heart failure, hypertension, stroke Past Surgical History: Other (Right upper extremity AV fistula placement) Social history: no significant social history Family history: no significant family history Medications and Allergies Allergies Allergy/AdvReac Type Severity Reaction Status Date / Time Penicillins Allergy Unknown Verified 05/28/17 17:08 Home Medications Medication Instructions Recorded Confirmed Last Taken Type Carvedilol [Coreg] 25 mg PO BID 08/24/18 03/09/19 Unknown History NIFEdipine [Nifedipine ER] 90 mg PO QDAY 03/09/19 09/22/19 Unknown History Apixaban [Eliquis] 2.5 mg PO Q12HR #60 tablet 03/10/19 09/22/19 Unknown Rx AtorvaSTATin [Lipitor] 40 mg PO DAILY #30 tablet 03/10/19 09/22/19 Unknown Rx Epoetin Noah 10,000 Unit [Procrit] 10,000 unit SUB-Q SANDHYA PRN vial 03/10/19 Unknown Rx Sevelamer Carbonate [Renvela] 2,400 mg PO TIDWM #90 tablet 03/10/19 Unknown Rx carvediloL [Coreg] 25 mg PO BID #60 tablet 03/10/19 09/22/19 Unknown Rx cloNIDine-TTS PATCH [Catapres-Tts 0.3 mg TD Th #4 patch 03/10/19 Unknown Rx 0.3mg Patch] hydrALAZINE [Apresoline TAB] 100 mg PO Q8H #90 tab 03/10/19 09/22/19 Unknown Rx Aspirin EC [Halfprin EC] 81 mg PO QDAY 09/22/19 09/22/19 Unknown History Pantoprazole [Protonix TAB] 40 tab PO DAILY 09/22/19 09/22/19 Unknown History Sertraline HCl [Zoloft] 50 tab PO DAILY 09/22/19 09/22/19 Unknown History Active Meds: Active Medications Acetaminophen (Tylenol) 650 mg PO Q4H PRN PRN Reason: Pain MILD(1-3)/Fever >100.5/GAMA Aspirin (Aspirin) 325 mg PO QDAY [facility] Bisacodyl (Dulcolax) 10 mg [place] QDAY PRN PRN Reason: Constipation Dextrose (D50w (25gm) Syringe) 0 ml IV Q30MIN PRN; Protocol PRN Reason: Hypoglycemia Magnesium Hydroxide (Milk Of Magnesia) 30 ml PO Q4H PRN PRN Reason: Constipation Metoclopramide HCl (Reglan) 5 mg PO Q6H PRN PRN Reason: Nausea And Vomiting Morphine Sulfate (Morphine) 2 mg IV Q4H PRN PRN Reason: Pain, Moderate (4-6) Ondansetron HCl (Zofran) 4 mg IV Q8H PRN PRN Reason: Nausea And Vomiting Promethazine HCl (Phenergan) 25 mg CA Q6H PRN PRN Reason: Nausea And Vomiting Sodium Chloride (Sodium Chloride Flush Syringe 10 Ml) 10 ml IV BID [facility] Last Admin: 09/21/19 23:05 Dose: 10 ml Documented by: Sodium Chloride (Sodium Chloride Flush Syringe 10 Ml) 10 ml IV PRN PRN PRN Reason: LINE FLUSH Sodium Chloride (Sodium Chloride Flush Syringe 10 Ml) 10 ml IV PRN PRN PRN Reason: LINE FLUSH Review of Systems Neurological: change in speech, change in mentation Exam - Constitutional Vitals: Temp Pulse Resp BP Pulse Ox 98.5 F 65 18 145/92 100 09/21/19 18:06 09/21/19 22:41 09/21/19 23:26 09/21/19 23:26 09/21/19 22:41 General appearance: Present: no acute distress, well-nourished - EENT Eyes: Present: PERRL, EOM intact ENT: hearing intact, clear oral mucosa, dentition normal - Neck Neck: Present: supple, normal ROM - Respiratory Respiratory effort: normal Respiratory: bilateral: CTA - Cardiovascular Rhythm: regular Heart Sounds: Present: S1 & S2, systolic murmur - Extremities Extremities: no ischemia, pulses symmetrical, No edema Peripheral Pulses: within normal limits - Abdominal General gastrointestinal: Present: soft, non-tender, non-distended - Integumentary Integumentary: Present: clear, warm, dry - Musculoskeletal Musculoskeletal: strength equal bilaterally - Psychiatric Psychiatric: appropriate mood/affect, intact judgment & insight, cooperative - Neurologic Neurologic: CNII-XII intact, moves all extremities Results - Labs CBC & Chem 7: 09/21/19 17:19 09/21/19 17:19 Labs: Abnormal lab results 09/21/19 09/21/19 09/21/19 Range/Units 17:19 17: 17:19 WBC 3.9 L (4.5-11.0) K/mm3 RBC 3.29 L (3.65-5.03) M/mm3 Hgb 9.5 L (11.8-15.2) gm/dl Hct 29.4 L (35.5-45.6) % RDW 19.6 H (13.2-15.2) % Plt Count 133 L (140-440) K/mm3 Lymph % (Auto) 8.1 L (13.4-35.0) % [place] % (Auto) 7.7 H (0.0-7.3) % Eos % (Auto) 10.1 H (0.0-4.3) % Lymph # 0.3 L (1.2-5.4) K/mm3 Seg Neutrophils % 73.2 H (40.0-70.0) % PT 15.7 H (12.2-14.9) Sec. INR 1.23 H (0.87-1.13) Thrombin Time (15.1-19.6) Sec. Chloride 97.8 L (98-107) mmol/L BUN 46 H (9-20) mg/dL Creatinine 11.5 H (0.8-1.5) mg/dL Total Creatine Kinase (55-170) units/L Troponin T 0.470 H* (0.00-0.029) ng/mL LDL Cholesterol Direct 39 L (50-130) mg/dL 09/21/19 09/21/19 Range/Units 17:19 18:56 WBC (4.5-11.0) K/mm3 RBC (3.65-5.03) M/mm3 Hgb (11.8-15.2) gm/dl Hct (35.5-45.6) % RDW (13.2-15.2) % Plt Count (140-440) K/mm3 Lymph % (Auto) (13.4-35.0) % [place] % (Auto) (0.0-7.3) % Eos % (Auto) (0.0-4.3) % Lymph # (1.2-5.4) K/mm3 Seg Neutrophils % (40.0-70.0) % PT (12.2-14.9) Sec. INR (0.87-1.13) Thrombin Time 15.0 L (15.1-19.6) Sec. Chloride (98-107) mmol/L BUN (9-20) mg/dL Creatinine (0.8-1.5) mg/dL Total Creatine Kinase 231 H (55-170) units/L Troponin T (0.00-0.029) ng/mL LDL Cholesterol Direct (50-130) mg/dL Assessment and Plan - Patient Problems (1) Altered mental status Current Visit: No Status: Acute Qualifiers: Altered mental status type: unspecified Qualified Code(s): R41.82 - Altered mental status, unspecified Plan to address problem: We will monitor mental status closely. Patient placed on telemetry. (2) Slurred speech Current Visit: Yes Status: Acute Plan to address problem: Slurred speech is resolved. Patient is being worked up for possible CVA. (3) ESRD (end stage renal disease) on dialysis Current Visit: Yes Status: Chronic Plan to address problem: She will be followed up by setter molding and coremaking machines and be scheduled for dialysis. (4) Anemia of renal disease Current Visit: No Status: Acute Plan to address problem: We will monitor CBC. (5) Diabetes Current Visit: No Status: Acute Plan to address problem: We will monitor Accu-Cheks and continue routine home medications. (6) DVT prophylaxis Current Visit: No Status: Acute Plan to address problem: Patient placed on anticoagulation with Eliquis (7) Full code status Current Visit: Yes Status: Acute
[2019-09-22] MEDS ORDERED: EPOETIN ALFA 10,000 UNIT/1 ML INJ SUB-Q PRN ×2 (09:00→13:03)
[2019-09-22] MEDS ORDERED: SODIUM CHLORIDE 0.9% 100 ML IV PRN (09:00)
[2019-09-22] MEDS ORDERED: ASPIRIN EC 81 MG TAB PO SCH (10:00)
[2019-09-22] MEDS ORDERED: carvediloL 25 MG TAB PO SCH (10:00)
[2019-09-22] MEDS: hydrALAZINE 100 MG TAB PO SCH ×3 (10:12→21:28)
[2019-09-22] MEDS: ASPIRIN 325 MG TAB PO SCH (10:12)
[2019-09-22] MEDS: APIXABAN 2.5 MG TAB PO SCH ×2 (10:12→21:28)
[2019-09-22] MEDS: SERTRALINE 50 MG TAB PO SCH (10:12)
[2019-09-22] MEDS: PANTOPRAZOLE 40 MG TAB PO SCH (10:12)
--- NOTE | 2019-09-22 10:12 | Vascular Lab Report ---
BILATERAL CAROTID DOPPLER ULTRASOUND INDICATION : stroke TECHNIQUE: Grayscale and color Doppler imaging performed through the neck. COMPARISON: 11/26/2017 FINDINGS: Right: There is minimal partially calcified plaque in the carotid bulb. Peak systolic velocity in t he CCA is 43 cm/s with end-diastolic velocity of 5 cm/s. Peak systolic velocity in the proximal ICA i s 69 cm/s with end-diastolic velocity of 19 cm/s. ICA to CCA ratio is less than 2. There is antegrade flow in the ECA and the vertebral artery. Left: There is no significant atherosclerotic disease. Peak systolic velocity in the CCA is 40 cm/s w ith end-diastolic velocity of 9 cm/s. Peak systolic velocity in the proximal ICA is 61 cm/s with end- diastolic velocity of 23 cm/s. ICA to CCA ratio is less than 2. There is antegrade flow in the ECA a nd the vertebral artery. IMPRESSION: Doppler velocities demonstrate less than 50% narrowing throughout both carotid systems. N o change since 2018 exam.. Signer Name: Mikel Seay Jr, MD Signed: 09/22/2019 10:07 AM Workstation Name: [id number]
[2019-09-22] MEDS: NIFEdipine XL 90 MG TAB PO SCH (10:13)
--- NOTE | 2019-09-22 10:30 | Consultation ---
History of Present Illness Consult date: 09/22/19 Requesting physician: PIERCE LEA Reason for Consult: stroke Chief complaint: i think i had a stroke History of present illness: This is a 54-year-old male with a history of ESRD on hemodialysis factor V [place] on anticoagulation diabetes hypertension bradycardia Patient has been noncompliant with his eliquis woke up yesterday with slurred speech left face and arm numbness and weakness , he has had old strokes in the past based on his CT head which I reviewed showing intracranial stenosis along with a left ERIKA medial parietal lobe stroke left cerebellar hemisphere stroke and a right basal ganglial capsular distribution stroke also has increased volume loss and white matter disease Prior to waking up with the above mentioned deficits patient states he was moving all his limbs however with weakness "this is definitely new weakness I think I've had another stroke" Since admission no recurrent strokes is no atrial fibrillation on telemetry Patient still complains of slurred speech and left-sided facial weakness and left arm weakness he also complains of all his body feeling generally weak No recurrent strokes since admission No ongoing nausea vomiting vertigo double vision no changes to vision no difficulty with swallowing No loss of consciousness seizures or migraines no headaches No new bowel and bladder dysfunction no radicular pains no recent trauma or f alls No recent fevers No suspicion of meningitis signs and symptoms of meningitis including neck st iffness rash and photophobia Initial stroke workup no tPA was given based on out of the 4-1/2 hour window and coagulopathy on labs Patient denies any cortical deficits eliquis aspirin statin onboard Patient denies any recent blood loss Review of systems all other systems negative Family history negative for neurologic disease Social history no tobacco or drugs or alcohol Past History Past Medical History: CAD, diabetes, ESRD, heart failure, hypertension, stroke Past Surgical History: Other (Right upper extremity AV fistula placement) Social history: no significant social history Family history: no significant family history Medications and Allergies Allergies Allergy/AdvReac Type Severity Reaction Status Date / Time Penicillins Allergy Unknown Verified 05/28/17 17:08 Home Medications Medication Instructions Recorded Confirmed Last Taken Type Carvedilol [Coreg] 25 mg PO BID 08/24/18 03/09/19 Unknown History NIFEdipine [Nifedipine ER] 90 mg PO QDAY 03/09/19 09/22/19 Unknown History Apixaban [Eliquis] 2.5 mg PO Q12HR #60 tablet 03/10/19 09/22/19 Unknown Rx AtorvaSTATin [Lipitor] 40 mg PO DAILY #30 tablet 03/10/19 09/22/19 Unknown Rx Epoetin Noah 10,000 Unit [Procrit] 10,000 unit SUB-Q SANDHYA PRN vial 03/10/19 Unknown Rx Sevelamer Carbonate [Renvela] 2,400 mg PO TIDWM #90 tablet 03/10/19 Unknown Rx carvediloL [Coreg] 25 mg PO BID #60 tablet 03/10/19 09/22/19 Unknown Rx cloNIDine-TTS PATCH [Catapres-Tts 0.3 mg TD Th #4 patch 03/10/19 Unknown Rx 0.3mg Patch] hydrALAZINE [Apresoline TAB] 100 mg PO Q8H #90 tab 03/10/19 09/22/19 Unknown Rx Aspirin EC [Halfprin EC] 81 mg PO QDAY 09/22/19 09/22/19 Unknown History Pantoprazole [Protonix TAB] 40 tab PO DAILY 09/22/19 09/22/19 Unknown History Sertraline HCl [Zoloft] 50 tab PO DAILY 09/22/19 09/22/19 Unknown History Active Meds: Active Medications Acetaminophen (Tylenol) 650 mg PO Q4H PRN PRN Reason: Pain MILD(1-3)/Fever >100.5/GAMA Apixaban (Eliquis) 2.5 mg PO Q12HR [facility]; Protocol Last Admin: 09/22/19 10:12 Dose: 2.5 mg Documented by: Aspirin (Aspirin) 325 mg PO QDAY [facility] Last Admin: 09/22/19 10:12 Dose: 325 mg Documented by: Atorvastatin Calcium (Lipitor) 40 mg PO DAILY [facility] Last Admin: 09/22/19 10:13 Dose: 40 mg Documented by: Bisacodyl (Dulcolax) 10 mg [place] QDAY PRN PRN Reason: Constipation Carvedilol (Coreg) 25 mg PO BID [facility] Last Admin: 09/22/19 10:13 Dose: Not Given Documented by: Dextrose (D50w (25gm) Syringe) 0 ml IV Q30MIN PRN; Protocol PRN Reason: Hypoglycemia Epoetin Noah (Procrit) 10,000 unit SUB-Q SANDHYA PRN PRN Reason: hemodialysis Hydralazine HCl (Apresoline) 100 mg PO Q8HR [facility] Last Admin: 09/22/19 10:12 Dose: 100 mg Documented by: Sodium Chloride (Nacl 0.9%) 100 mls @ 999 mls/hr IV SANDHYA PRN PRN Reason: Hypotension Magnesium Hydroxide (Milk Of Magnesia) 30 ml PO Q4H PRN PRN Reason: Constipation Metoclopramide HCl (Reglan) 5 mg PO Q6H PRN PRN Reason: Nausea And Vomiting Morphine Sulfate (Morphine) 2 mg IV Q4H PRN PRN Reason: Pain, Moderate (4-6) Nifedipine (Procardia Xl) 90 mg PO QDAY@0800 [facility] Last Admin: 09/22/19 10:13 Dose: Not Given Documented by: Ondansetron HCl (Zofran) 4 mg IV Q8H PRN PRN Reason: Nausea And Vomiting Pantoprazole Sodium (Protonix) 40 mg PO DAILY [facility] Last Admin: 09/22/19 10:12 Dose: 40 mg Documented by: Promethazine HCl (Phenergan) 25 mg [place] Q6H PRN PRN Reason: Nausea And Vomiting Sertraline HCl (Zoloft) 50 mg PO DAILY [facility] Last Admin: 09/22/19 10:12 Dose: 50 mg Documented by: Sodium Chloride (Sodium Chloride Flush Syringe 10 Ml) 10 ml IV BID [facility] Last Admin: 09/22/19 10:14 Dose: 10 ml Documented by: Sodium Chloride (Sodium Chloride Flush Syringe 10 Ml) 10 ml IV PRN PRN PRN Reason: LINE FLUSH Physical Examination - Vital Signs Vital Signs: Vital Signs Temp Pulse Resp BP Pulse Ox 98.5 F 74 15 183/106 95 09/21/19 18:06 09/21/19 18:06 09/21/19 18:06 09/21/19 18:06 09/21/19 18:06 Patient's awake alert aware and O x4 there is no aphasia but there significant dysarthria no signs of agnosia or apraxia Patient has asymmetrical upper extremity edema left greater than right Follows simple commands verbal Cranial nerves thoroughly tested left lower facial droop sensation intact Left upper extremity weakness 3 out of 5 strength the remaining limbs are 4 out of 5 strength Sensations intact throughout No extra movements Neck is supple skin intact pulses good times for EOMI PERRL No respiratory distress Tone is symmetrical throughout Results - Laboratory Findings CBC and BMP: 09/21/19 17:19 09/21/19 17:19 Abnormal Lab Findings: Abnormal Labs 09/21/19 09/21/19 09/21/19 17:19 17:19 17:19 WBC 3.9 L RBC 3.29 L Hgb 9.5 L Hct 29.4 L RDW 19.6 H Plt Count 133 L Lymph % (Auto) 8.1 L [place] % (Auto) 7.7 H Eos % (Auto) 10.1 H Lymph # 0.3 L Seg Neutrophils % 73.2 H PT 15.7 H INR 1.23 H Thrombin Time Chloride 97.8 L BUN 46 H Creatinine 11.5 H POC Glucose Total Creatine Kinase Troponin T 0.470 H* LDL Cholesterol Direct 39 L 09/21/19 09/21/19 09/22/19 17:19 18:56 06:34 WBC RBC Hgb Hct RDW Plt Count Lymph % (Auto) [place] % (Auto) Eos % (Auto) Lymph # Seg Neutrophils % PT INR Thrombin Time 15.0 L Chloride BUN Creatinine POC Glucose 106 H Total Creatine Kinase 231 H Troponin T LDL Cholesterol Direct Assessment and Plan Stroke acute ischemic right MCA embolic , stable hx of factor V noncompliant with eliquis no atrial fibrillation on telemetry No recurrent strokes since admission Eliquis aspirin and statin per primary team on board PT OT ST MRi brain pending Stat CT head now to evaluate size of stroke and for bleed seeing that patient was maintained on eliquis overnight , r/o bleed and eval size of stroke, if large hold eliquis for 10 days Echo pending f/u Lipids A1c Continue telemetry Patient stroke is likely secondary to medication noncompliance in the setting of hypercoagulable state Keep patient normotensive euglycemic euthermic
--- NOTE | 2019-09-22 13:08 | Event Note ---
Date: 09/22/19 Patient seen and examined 54-year-old male with known history of end-stage renal disease on dialysis on Tuesdays and Saturdays, history of stroke, dementia coronary artery disease and CHF presented to the emergency room with a complaint of a change in mental status and slurred speech. He was evaluated by telemetry neurology and was considered not to be a TPA candidate. Work-up in the emergency room including CT scan of the brain showed chronic changes. cont to monitor, nephrology consult. follow MRI, pt/ot consulted
--- NOTE | 2019-09-22 14:22 | Cat Scan Report ---
CT HEAD WITHOUT CONTRAST INDICATION / CLINICAL INFORMATION: new stroke, on eliquis overnight, eval size/bleed. TECHNIQUE: All CT scans at this location are performed using CT dose reduction for ALARA by means of automated e xposure control. COMPARISON: 09/21/2019 FINDINGS: HEMORRHAGE: No evidence of intracranial hemorrhage or extra-axial fluid collection. EXTRA-AXIAL SPACES: Cortical sulci, sylvian fissures and basilar cisterns are large for age but uncha nged. VENTRICULAR SYSTEM: The ventricular system is large for age but unchanged. CEREBRAL PARENCHYMA: No new areas of abnormal brain parenchymal attenuation are identified. There is no indication of recent infarction. Chronic left thalamic lacunar infarct and chronic encephalomalaci a of the medial left parietal lobe. MIDLINE SHIFT OR HERNIATION: There is no mass effect. CEREBELLUM / BRAINSTEM: Brainstem and cerebellum have an unremarkable appearance. INTRACRANIAL VESSELS:No abnormalities are identified on this noncontrast head CT. ORBITS: visualized portions of the orbits have an unremarkable appearance. SOFT TISSUES of HEAD: No significant abnormality. CALVARIUM: Evaluation of bone windows reveals no abnormalities. PARANASAL SINUSES / MASTOID AIR CELLS: Paranasal sinuses are free from inflammatory mucosal disease. Mastoid air cells are normally pneumatized. ADDITIONAL FINDINGS: None. IMPRESSION: 1. No acute intracranial abnormality. 2. Global cortical atrophy and remote infarcts. Signer Name: Rao Crawford MD Signed: 09/22/2019 2:17 PM Workstation Name: [id number]
--- NOTE | 2019-09-22 14:31 | Magnetic Resonance Report ---
MRI BRAIN WITHOUT CONTRAST INDICATION / CLINICAL INFORMATION: stroke. TECHNIQUE: Multisequence, multiplanar images were obtained. COMPARISON: CT head dated 09/21/2017 FINDINGS: CEREBRAL and CEREBELLAR HEMISPHERES: A subtle 5 mm focus of diffusion restriction is suspected in the inferior cerebellar vermis on diffusion image 12. There appears to be subtle decrease in signal on t he ADC map in this area. Moderate volume loss and moderate nonspecific chronic white matter changes a re again identified. No evidence for hemorrhage, mass or extra-axial fluid collection. Chronic cortic al infarct in the medial left parietal lobe along the falx measures up to 2.8 x 1.8 cm in axial plane . There are multiple chronic millimetric lacunar infarcts in the right thalamus. A single chronic mil limetric lacunar infarct is identified in the left thalamus. Chronic infarct in the posterior medial left cerebellar hemisphere measures 2.5 x 2.5 cm. VENTRICLES: Normal in size and configuration for age. VISUALIZED ORBITS: No significant abnormality. VISUALIZED PARANASAL SINUSES: Mild mucosal thickening is noted in the ethmoid air cells and right max illary sinus. The remaining sinuses and mastoid air cells are clear. ADDITIONAL FINDINGS: None. IMPRESSION: There is a subtle 5 mm focus of diffusion restriction in the inferior cerebellar vermis which could r epresent a small ischemic infarct. Please correlate with the patient's clinical presentation. Volume loss. Chronic white matter changes. Multiple chronic infarcts as described. Signer Name: Mikel Seay Jr, MD Signed: 09/22/2019 2:26 PM Workstation Name: [id number]
[2019-09-22 15:17] LABS: Hepatitis B Surface Antigen Non-Reactive (Negative); Hepatitis C Virus Antibody Non-Reactive (NonReactive)
[2019-09-22] MEDS: SEVELAMER CARBONATE 800 MG TAB PO SCH (18:33)
[2019-09-22] MEDS ORDERED: SODIUM CHLORIDE*PRIMING MACHINE ONLY FOR DIALYSIS MC ONE (18:55)
--- NOTE | 2019-09-22 23:24 | Consultation ---
History of Present Illness - Reason for Consult Consult date: 09/22/19 end stage renal disease - History of Present Illness The patient is a 54 YO male who is well known to our service with history significant for Type 2 DM, Uncontrolled HTN, HLD, GERD, ESRD on HD (TTS), Anemia, h/o DVT, Factor V Leiden mutation on Eliquis, Mitral valve calcification, Prostate CA diagnosed in 2005, ANAMIKA, Cognitive impairment and Medical non-compliance who presented to [facility] ED 09/21 with c/o slurred speech an d generalized weakness. History is limited due to slurrred speech. Last normal the previous night at 2130 prior to bed. He woke yesterday morning with slurred speech and generalized weakness. No vision loss, language disturbance, sensory loss, GAMA or CP. He was discharged from [facility] on 09/19/19. He missed dialysis 09/21. CT head showed no acute hemorrhage or acute infarct. Nephrology was consulted to manage ESRD. Past History Past Medical History: anemia, CAD, diabetes, dialysis, ESRD, heart failure, hypertension, hyperlipidemia, stroke, other (Factor V leiden) Past Surgical History: Other (Right upper extremity AV fistula placement) Social history: no significant social history Family history: no significant family history Medications and Allergies Allergies Allergy/AdvReac Type Severity Reaction Status Date / Time Penicillins Allergy Unknown Verified 05/28/17 17:08 Home Medications Medication Instructions Recorded Confirmed Last Taken Type Epoetin Noah 10,000 Unit [Procrit] 10,000 unit SUB-Q SANDHYA PRN vial 03/10/19 Unknown Rx Sevelamer Carbonate [Renvela] 2,400 mg PO TIDWM #90 tablet 03/10/19 Unknown Rx Pantoprazole [Protonix TAB] 40 tab PO DAILY 09/22/19 09/22/19 Unknown History Apixaban [Eliquis] 2.5 mg PO Q12HR #60 tablet 09/23/19 Unknown Rx Aspirin EC [Halfprin EC] 81 mg PO QDAY #60 09/23/19 Unknown Rx AtorvaSTATin [Lipitor] 40 mg PO DAILY #30 tablet 09/23/19 Unknown Rx NIFEdipine [Nifedipine ER] 90 mg PO QDAY #30 09/23/19 Unknown Rx Sertraline [Zoloft] 50 mg PO DAILY #30 tablet 09/23/19 Unknown Rx hydrALAZINE [Apresoline TAB] 100 mg PO Q8H #90 tab 09/23/19 Unknown Rx Active Meds: Active Medications Acetaminophen (Tylenol) 650 mg PO Q4H PRN PRN Reason: Pain MILD(1-3)/Fever >100.5/GAMA Apixaban (Eliquis) 2.5 mg PO Q12HR [facility]; Protocol Last Admin: 09/22/19 21:28 Dose: 2.5 mg Documented by: Aspirin (Aspirin) 325 mg PO QDAY [facility] Last Admin: 09/22/19 10:12 Dose: 325 mg Documented by: Atorvastatin Calcium (Lipitor) 40 mg PO DAILY [facility] Last Admin: 09/22/19 10:13 Dose: 40 mg Documented by: Bisacodyl (Dulcolax) 10 mg MD QDAY PRN PRN Reason: Constipation Dextrose (D50w (25gm) Syringe) 0 ml IV Q30MIN PRN; Protocol PRN Reason: Hypoglycemia Epoetin Noah (Procrit) 10,000 unit SUB-Q SANDHYA PRN PRN Reason: hemodialysis Last Admin: 09/22/19 17:50 Dose: 10,000 unit Documented by: Epoetin Noah (Procrit) 10,000 unit SUB-Q SANDHYA PRN PRN Reason: hemodialysis Hydralazine HCl (Apresoline) 100 mg PO Q8HR [facility] Last Admin: 09/22/19 21:28 Dose: 100 mg Documented by: Sodium Chloride (Nacl 0.9%) 100 mls @ 999 mls/hr IV SANDHYA PRN PRN Reason: Hypotension Magnesium Hydroxide (Milk Of Magnesia) 30 ml PO Q4H PRN PRN Reason: Constipation Metoclopramide HCl (Reglan) 5 mg PO Q6H PRN PRN Reason: Nausea And Vomiting Morphine Sulfate (Morphine) 2 mg IV Q4H PRN PRN Reason: Pain, Moderate (4-6) Nifedipine (Procardia Xl) 90 mg PO QDAY@0800 [facility] Last Admin: 09/22/19 10:13 Dose: Not Given Documented by: Ondansetron HCl (Zofran) 4 mg IV Q8H PRN PRN Reason: Nausea And Vomiting Pantoprazole Sodium (Protonix) 40 mg PO DAILY [facility] Last Admin: 09/22/19 10:12 Dose: 40 mg Documented by: Promethazine HCl (Phenergan) 25 mg MD Q6H PRN PRN Reason: Nausea And Vomiting Sertraline HCl (Zoloft) 50 mg PO DAILY [facility] Last Admin: 09/22/19 10:12 Dose: 50 mg Documented by: Sevelamer Carbonate (Renvela) 2,400 mg PO TIDWM [facility] Last Admin: 09/22/19 18:33 Dose: Not Given Documented by: Sodium Chloride (Sodium Chloride Flush Syringe 10 Ml) 10 ml IV BID [facility] Last Admin: 09/22/19 21:28 Dose: 10 ml Documented by: Sodium Chloride (Sodium Chloride Flush Syringe 10 Ml) 10 ml IV PRN PRN PRN Reason: LINE FLUSH Review of Systems ROS unobtainable: due to mental status (limited to speech disturbances) Exam - Vital Signs Vital signs: Vital Signs Temp Pulse Resp BP Pulse Ox 98.5 F 74 15 183/106 95 09/21/19 18:06 09/21/19 18:06 09/21/19 18:06 09/21/19 18:06 09/21/19 18:06 - General Appearance General appearance: well-developed, well-nourished, appears stated age, other (no distress) EENT: ATNC, PERRL, hearing intact Neck: Present: neck supple, trachea midline Respiratory: Clear to Ascultation Heart: regular, S1S2, no murmurs Gastrointestinal: Present: normoactive bowel sounds. Absent: tenderness, distended Integumentary: no rash, warm and dry Neurologic: aphasia Musculoskeletal: Present: other (trace LE edema, R arm AVG) Results - Lab Results 09/21/19 17:19 09/21/19 17:19 Most recent lab results Calcium 9.4 mg/dL (8.4-10.2) 09/21/19 17:19 Magnesium 2.00 mg/dL (1.7-2.3) 09/21/19 18:56 Assessment and Plan 1. ESRD: Patient is on maintenance hemodialysis three times a week, TTS schedule. Missed HD 09/21. HD today. 2. FEN: Volume overload, UF with HD. Monitor lytes. 3. Acute CVA: Seen by Neuro. 4. Uncontrolled Hypertension: Monitor BP. 5. Anemia: Epogen with HD. 6. Medical non-compliance: Compliance encouraged.
[2019-09-23] MEDS: hydrALAZINE 100 MG TAB PO SCH ×2 (05:14→14:09)
[2019-09-23] MEDS: NIFEdipine XL 90 MG TAB PO SCH (08:01)
[2019-09-23] MEDS: SEVELAMER CARBONATE 800 MG TAB PO SCH ×3 (08:01→16:45)
[2019-09-23] MEDS: ASPIRIN 325 MG TAB PO SCH (09:28)
[2019-09-23] MEDS: PANTOPRAZOLE 40 MG TAB PO SCH (09:28)
[2019-09-23] MEDS: SERTRALINE 50 MG TAB PO SCH (09:28)
[2019-09-23] MEDS: APIXABAN 2.5 MG TAB PO SCH (09:28)
[2019-09-23] MEDS ORDERED: SODIUM CHLORIDE 0.9% 100 ML IV PRN (11:28)
--- NOTE | 2019-09-23 13:56 | Progress Note ---
Subjective Date of service: 09/23/19 Interval history: went over the testing and exam shows clear cut left sided weakness and speech ataxia with stuttering and motor control probelms Objective - Vital Sign Vital Signs - 12hr 09/23/19 09/23/19 09/23/19 04:51 07:30 07:35 Temperature 98.6 F 99.5 F Pulse Rate 69 73 Respiratory 20 20 18 Rate Blood Pressure 167/97 137/85 O2 Sat by Pulse 97 98 100 Oximetry 09/23/19 09/23/19 10:00 11:45 Temperature 98.3 F Pulse Rate 73 70 Respiratory 18 Rate Blood Pressure 154/84 O2 Sat by Pulse 100 98 Oximetry - Laboratory Findings CBC and BMP: 09/21/19 17:19 09/21/19 17:19 Abnormal Lab Findings: Abnormal Labs 09/21/19 09/21/19 09/21/19 17:19 17:19 17:19 WBC 3.9 L RBC 3.29 L Hgb 9.5 L Hct 29.4 L RDW 19.6 H Plt Count 133 L Lymph % (Auto) 8.1 L [place] % (Auto) 7.7 H Eos % (Auto) 10.1 H Lymph # 0.3 L Seg Neutrophils % 73.2 H PT 15.7 H INR 1.23 H Thrombin Time Chloride 97.8 L BUN 46 H Creatinine 11.5 H POC Glucose Total Creatine Kinase Troponin T 0.470 H* LDL Cholesterol Direct 39 L 09/21/19 09/21/19 09/22/19 17:19 18:56 06:34 WBC RBC Hgb Hct RDW Plt Count Lymph % (Auto) [place] % (Auto) Eos % (Auto) Lymph # Seg Neutrophils % PT INR Thrombin Time 15.0 L Chloride BUN Creatinine POC Glucose 106 H Total Creatine Kinase 231 H Troponin T LDL Cholesterol Direct 09/23/19 09/23/19 07:47 11:57 WBC RBC Hgb Hct RDW Plt Count Lymph % (Auto) [place] % (Auto) Eos % (Auto) Lymph # Seg Neutrophils % PT INR Thrombin Time Chloride BUN Creatinine POC Glucose 138 H 149 H Total Creatine Kinase Troponin T LDL Cholesterol Direct
--- NOTE | 2019-09-23 14:54 | Discharge Summary ---
Providers - Providers Date of Admission: 09/21/19 21:27 Date of discharge: 09/23/19 Attending physician: PIERCE LAE 09/21/19 Consult to Physician [CONS] Routine Comment: Consulting Provider: HAYLIE MCWILLIAMS Physician Instructions: Reason For Exam: r/o CVA 09/21/19 18:17 Consult to Physician [CONS] Urgent Comment: Consulting Provider: LEATHA TURNER Physician Instructions: Reason For Exam: esrd 09/21/19 21:50 Consult to Dietitian/Nutrition [CONS] Routine Physician Instructions: Reason For Exam: Reason for Consult: Nutrition Recommendations Reason for Consult: Diet education Occupational Therapy Evaluate and Treat [CONS] Routine Comment: Reason For Exam: Neuro deficits Physical Therapy Evaluation and Treat [CONS] Routine Comment: Reason For Exam: Neuro deficits 09/23/19 11:22 Consult to Physician [CONS] Routine Comment: Consulting Provider: PAULO ASHLEY Physician Instructions: Reason For Exam: anticoagulation recommendation Primary care physician: V[employer] ARCHITECT Hospitalization Condition: Serious Pertinent studies: CXR Head CT Brain MRI Carotid doppler head CT 2d echo Hospital course: This is a 54-year-old male with a history of ESRD on hemodialysis factor V [place] on anticoagulation diabetes hypertension bradycardia has been noncompliant with his eliquis presented with slurred speech left face and arm numbness and weakness. He was evaluated by telemetry neurology and was considered not to be a TPA candidate. Work-up in the emergency room including CT scan of the brain showed chronic changes. Discharge diagnosis: / Acute encephalopathy, likely from acute CVA - resolved /Acute Subcortical CVA with slurred speech / ESRD (end stage renal disease) on dialysis / Anemia of renal disease / Diabetes type 2 /factor V Eugenio Patient placed on anticoagulation with Eliquis /Noncompliance with eliquis Disposition: DC/TX-06 HOME UNDER HOME HL Time spent for discharge: 34 minutes Core Measure Documentation - Palliative Care Palliative Care/ Comfort Measures: Not Applicable - Core Measures Any of the following diagnoses?: history only Exam - Constitutional Vitals: Temp Pulse Resp BP Pulse Ox 98.3 F 70 18 154/84 98 09/23/19 11:45 09/23/19 11:45 09/23/19 11:45 09/23/19 11:45 09/23/19 11:45 General appearance: Present: no acute distress, well-nourished - EENT Eyes: Present: PERRL ENT: hearing intact, clear oral mucosa - Neck Neck: Present: supple, normal ROM - Respiratory Respiratory effort: normal Respiratory: bilateral: CTA - Cardiovascular Heart Sounds: Present: S1 & S2. Absent: rub, click - Extremities Extremities: pulses symmetrical, No edema Peripheral Pulses: within normal limits - Abdominal General gastrointestinal: Present: soft, non-tender, non-distended, normal bowel sounds - Integumentary Integumentary: Present: clear, warm, dry - Musculoskeletal Musculoskeletal: gait normal, strength equal bilaterally - Psychiatric Psychiatric: appropriate mood/affect, intact judgment & insight - Neurologic Neurologic: CNII-XII intact, moves all extremities Plan Activity: advance as tolerated Weight Bearing Status: Weight Bear as Tolerated Diet: renal Special Instructions: restrict fluid intake to Follow up with: PRIMARY CARE, [Primary Care Provider] - 3-5 Days Prescriptions: hydrALAZINE [Apresoline TAB] 100 mg PO Q8H #90 tab Apixaban [Eliquis] 2.5 mg PO Q12HR #60 tablet Aspirin EC [Halfprin EC] 81 mg PO QDAY #60 AtorvaSTATin [Lipitor] 40 mg PO DAILY #30 tablet NIFEdipine [Nifedipine ER] 90 mg PO QDAY #30 Sertraline [Zoloft] 50 mg PO DAILY #30 tablet
[2019-09-23 20:13] VITALS: BP 116/66
--- NOTE | 2019-09-23 23:27 | Progress Note ---
Assessment and Plan 1. ESRD: Patient is on maintenance hemodialysis three times a week, TTS schedule. Missed HD 09/21. HD today. 2. FEN: Volume overload, UF with HD. Monitor lytes. 3. Acute CVA: Seen by Neuro. 4. Uncontrolled Hypertension: BP is better. 5. Anemia: Epogen if needed. 6. Medical non-compliance: Compliance encouraged. Examination: General appearance: well-developed, well-nourished, appears stated age, no distress HEENT: ATNC, ULISSES, hearing intact Neck: neck supple, trachea midline Respiratory: bibasal rales noted Heart: regular, S1S2, no murmurs Gastrointestinal: Soft, normoactive bowel sounds, not tender, not distended Integumentary: no rash, warm and dry Neurologic: motor aphasia Ext: trace LE edema Hemodialysis access: R arm AVG Subjective Date of service: 09/23/19 Interval history: Patient was seen and examined at the bedside. Objective - Vital Signs Vital signs: Vital Signs - 12hr 09/23/19 09/23/19 09/23/19 11:45 14:30 14:45 Temperature 98.3 F 98.0 F Pulse Rate 70 78 78 Respiratory 18 18 Rate Blood Pressure 154/84 138/84 146/81 O2 Sat by Pulse 98 Oximetry 09/23/19 09/23/19 09/23/19 15:00 15:15 15:30 Temperature Pulse Rate 76 77 81 Respiratory Rate Blood Pressure 144/76 139/75 134/67 O2 Sat by Pulse Oximetry 09/23/19 09/23/19 09/23/19 15:45 16:00 16:15 Temperature Pulse Rate 81 82 80 Respiratory Rate Blood Pressure 113/58 131/76 129/72 O2 Sat by Pulse Oximetry 09/23/19 09/23/19 09/23/19 16:30 16:45 17:00 Temperature Pulse Rate 73 76 75 Respiratory Rate Blood Pressure 131/69 122/61 125/64 O2 Sat by Pulse Oximetry 09/23/19 09/23/19 09/23/19 17:15 17:30 17:45 Temperature Pulse Rate 81 82 79 Respiratory Rate Blood Pressure 126/67 118/65 128/55 O2 Sat by Pulse Oximetry 09/23/19 09/23/19 09/23/19 18:00 18:20 19:11 Temperature 98.6 F 97.6 F Pulse Rate 77 78 79 Respiratory 18 18 Rate Blood Pressure 120/62 116/63 116/66 O2 Sat by Pulse 99 Oximetry - Lab 09/21/19 17:19 09/21/19 17:19 Most recent lab results Calcium 9.4 mg/dL (8.4-10.2) 09/21/19 17:19 Magnesium 2.00 mg/dL (1.7-2.3) 09/21/19 18:56 Medications & Allergies - Medications Allergies/Adverse Reactions: Allergies Penicillins Allergy (Verified 05/28/17 17:08) Unknown STATES HAD REACTION CHILD Home Medications: Home Medications Medication Instructions Recorded Confirmed Last Taken Type Epoetin Noah 10,000 Unit [Procrit] 10,000 unit SUB-Q SANDHYA PRN vial 03/10/19 Unknown Rx Sevelamer Carbonate [Renvela] 2,400 mg PO TIDWM #90 tablet 03/10/19 Unknown Rx Pantoprazole [Protonix TAB] 40 tab PO DAILY 09/22/19 09/22/19 Unknown History Apixaban [Eliquis] 2.5 mg PO Q12HR #60 tablet 09/23/19 Unknown Rx Aspirin EC [Halfprin EC] 81 mg PO QDAY #60 09/23/19 Unknown Rx AtorvaSTATin [Lipitor] 40 mg PO DAILY #30 tablet 09/23/19 Unknown Rx NIFEdipine [Nifedipine ER] 90 mg PO QDAY #30 09/23/19 Unknown Rx Sertraline [Zoloft] 50 mg PO DAILY #30 tablet 09/23/19 Unknown Rx hydrALAZINE [Apresoline TAB] 100 mg PO Q8H #90 tab 09/23/19 Unknown Rx
--- NOTE | 2019-09-24 03:09 | Consultation ---
HISTORY OF PRESENT ILLNESS: A 54-year-old black male in room 466. This patient was consulted on for evaluation of new onset of left-sided weakness, speech difficulty. He apparently presented to the hospital with the complications related to renal failure. Initially, he underwent a neurological evaluation workup including CT scan of the head, which was assessed as being unremarkable and subsequently also had an MRI scan of the brain, which did not show any remarkable abnormalities. Somewhere in the interval, he began then to develop more speech slurring and weakness of his left side. There was a question as to whether he was having a recurrent stroke, ischemic. He had a repeat CT scan of the head, which I have personally reviewed, does not show any acute changes. The patient denies a history of strokes in the past. He has been on dialysis for a number of years. He has a graft in his right arm and has been experiencing some difficulty with the graft. I did speak with Dr. Wells about this and Dr. Bee. PHYSICAL EXAMINATION: The patient shows he has a stuttering, stammering type of ataxic speech, not aphasic, but slow and stammering. He has a slight weakness to the left upper extremity. The graft is in the right arm and upper humerus area. He is not weak in the right arm at all. Cranial nerves are entirely intact. Neck is supple. Speech as is stated above. No tremors, no asterixis. No cranial nerve abnormalities are otherwise noted. 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 I did note, however, that I do not find the evidence of that on the MRI scan and/or CT. It may be worth getting another CT if his symptoms do not clear. I do not see any problem with him having dialysis at this point. He seems neurologically stable otherwise. JOB# [id number] CYNDI/JOSAFAT
== END 2019-09-23 20:48 | disposition home health service (06) | DRG 64 ==
LOC: ED 17:09 → OBSVTOIN 21:27 → 4A 21:27
PROVIDERS: ADMIT Internal Medicine Geriatric Medicine; ATTEND Internal Medicine
PROC: 5A1D70Z Performance of Urinary Filtration, Intermittent, Less than 6 Hours Per Day (ICD-10-PCS; principal; 2019-09-22)
PROC: 5A1D70Z Performance of Urinary Filtration, Intermittent, Less than 6 Hours Per Day (ICD-10-PCS; 2019-09-23)
DX: I63.411 Cerebral infarction due to embolism of right middle cerebral artery (principal); N18.6 End stage renal disease; G93.40 Encephalopathy, unspecified; D68.51 Activated protein C resistance; J81.1 Chronic pulmonary edema; I13.2 Hypertensive heart and chronic kidney disease with heart failure and with stage 5 chronic kidney disease, or end stage renal disease; I50.9 Heart failure, unspecified; R47.81 Slurred speech; D63.1 Anemia in chronic kidney disease; E11.22 Type 2 diabetes mellitus with diabetic chronic kidney disease; K21.9 Gastro-esophageal reflux disease without esophagitis; J45.909 Unspecified asthma, uncomplicated; F03.90 Unspecified dementia, unspecified severity, without behavioral disturbance, psychotic disturbance, mood disturbance, and anxiety; I25.10 Atherosclerotic heart disease of native coronary artery without angina pectoris; E78.5 Hyperlipidemia, unspecified; I34.0 Nonrheumatic mitral (valve) insufficiency; E87.70 Fluid overload, unspecified; R29.713 NIHSS score 13; G83.24 Monoplegia of upper limb affecting left nondominant side; Z79.01 Long term (current) use of anticoagulants; Z99.2 Dependence on renal dialysis; I25.2 Old myocardial infarction; Z86.718 Personal history of other venous thrombosis and embolism; Z87.442 Personal history of urinary calculi; Z88.0 Allergy status to penicillin; Z79.899 Other long term (current) drug therapy; Z79.82 Long term (current) use of aspirin; Z91.14 Patient's other noncompliance with medication regimen; Z85.46 Personal history of malignant neoplasm of prostate
CPT/HCPCS: 36415; 70450; 70551; 71045; 80048; 80061; 80074; 82550; 82962; 83735; 84484; 85025; 85610; 85670; 85730; 93005; 93010; 93306; 93880; 94760; 96374; G0378; A9270-GY; J0885; J2270; J7030

== ENCOUNTER 2019-10-05 13:28 | Emergency (ER) | payer MEDICARE ==
[2019-10-05 13:43] VITALS: BP 130/89
--- NOTE | 2019-10-05 13:47 | Event Note ---
ED Screening Note ED Screening Note: HX ASTHMA CHF ESRD ON HD LAST DONE TUES OXGYEN AT HOME FOR CHF MISSED HD TODAY SAT LOW IN TRIAGE THRILL AND BRUIT R A MOANING IN PAIN This initial assessment/diagnostic orders/clinical plan/treatment(s) is/are subject to change based on patients health status, clinical progression and re- assessment by fellow clinical providers in the ED. Further treatment and workup at subsequent clinical providers discretion. Patient/guardian urged not to elope from the ED as their condition may be serious if not clinically assessed and managed. Initial orders include: XR EVAL FOR NEED FOR HD/SOB
[2019-10-05 14:34] LABS: Basophils % (Auto) 1.2 % (0.0-1.8); Eosinophils # (Auto) 0.3 K/mm3 (0.0-0.4); Eosinophils % (Auto) 7.4 % (0.0-4.3); Hematocrit 34.8 % (35.5-45.6); Hemoglobin 11.1 gm/dl (11.8-15.2); Lymphocytes # (Auto) 0.3 K/mm3 (1.2-5.4); Lymphocytes % (Auto) 7.3 % (13.4-35.0); Mean Corpuscular HGB Conc 32 % (32-34); Mean Corpuscular Volume 90 fl (84-94); Monocytes # (Auto) 0.3 K/mm3 (0.0-0.8); Monocytes % (Auto) 6.9 % (0.0-7.3); Platelet Count 147 K/mm3 (140-440); Red Blood Count 3.85 M/mm3 (3.65-5.03)
[2019-10-05 14:44] LABS: Red Cell Distribution Width 20.8 % (13.2-15.2)
[2019-10-05 14:57] LABS: Alanine Aminotransferase 7 units/L (7-56); Albumin 3.9 g/dL (3.9-5); BUN/Creatinine Ratio 5; Blood Urea Nitrogen 60 mg/dL (9-20); Calcium 9.9 mg/dL (8.4-10.2); Hemolysis Index 6
--- NOTE | 2019-10-05 15:10 | XRay Report ---
RIGHT WRIST HISTORY: PAIN WRIST COMPARISON: None. TECHNIQUE: 2 views of the right wrist obtained. FINDINGS: Bones: No fracture or dislocation. Mild periarticular osteopenia. Joint spaces: Mild osteoarthritis at the basal joint of the thumb and the first MCP joint. The rest o f the joints are normal. Soft tissues: No significant abnormality. Additional findings: Vascular calcifications. IMPRESSION: 1. No significant abnormality. 2. Mild osteoarthritis of the thumb. Signer Name: Rao Crawford MD Signed: 10/05/2019 3:05 PM Workstation Name: [id number]
--- NOTE | 2019-10-05 15:12 | XRay Report ---
CHEST 1 VIEW INDICATION: SOB. COMPARISON: 09/21/2019 FINDINGS: Support devices: None. Heart: Stable cardiomegaly Pulmonary vasculature: Mild central vascular prominence. Lungs/Pleura: No acute air space or interstitial disease. Mild opacification of the right costophreni c angle. Additional findings: None. IMPRESSION: 1. Cardiomegaly and pulmonary venous hypertension. 2. No pulmonary edema. 3. No pneumonia. 4. Suspect tiny right pleural effusion. Signer Name: Rao Crawford MD Signed: 10/05/2019 3:07 PM Workstation Name: [id number]
[2019-10-05] MEDS ORDERED: HYDROcodone/ACETAMINOPHEN 10-325MG TAB PO ONE (15:56)
--- NOTE | 2019-10-05 16:14 | Emergency Department Report ---
ED Upper Extremity Inj HPI - General Chief Complaint: Extremity Injury, Upper Stated Complaint: WRIST PAIN Time Seen by Provider: 10/05/19 13:44 Source: patient, EMS Mode of arrival: Stretcher Limitations: No Limitations - History of Present Illness Initial Comments: This is a 54-year-old male nontoxic, well nourished in appearance, no acute signs of distress presents to the ED with c/o of right wrist pain 1 day. Patient stated that he had a trip and fall and fell on his wrist. Patient denies any other trauma. Patient denies any numbness, tingling, fever, chills, nausea, vomiting, chest pain, shortness of breath, headache, stiff neck. Patient denies any joint swelling or joint redness. Patient stated has some decreased range of motion. Patient stated missed his dialysis today. Patient stated allergies to PCN. MD Complaint: Injury to:: right, wrist -: days(s) (1) Other Extremity Injury: Wrist: Right Severity scale (0 -10): 8 Improves With: immobilization Worsens With: movement of extremity Context: fall Associated Symptoms: denies other symptoms. denies: weakness, numbness, neck pain, suspects foreign body, nausea/vomiting, heard/felt popping sensat - Related Data Home Medications Medication Instructions Recorded Confirmed Last Taken Pantoprazole [Protonix TAB] 40 tab PO DAILY 09/22/19 09/22/19 Unknown Previous Rx's Medication Instructions Recorded Last Taken Type Epoetin Noah 10,000 Unit [Procrit] 10,000 unit SUB-Q SANDHYA PRN vial 03/10/19 Unknown Rx Sevelamer Carbonate [Renvela] 2,400 mg PO TIDWM #90 tablet 03/10/19 Unknown Rx Apixaban [Eliquis] 2.5 mg PO Q12HR #60 tablet 09/23/19 Unknown Rx Aspirin EC [Halfprin EC] 81 mg PO QDAY #60 09/23/19 Unknown Rx AtorvaSTATin [Lipitor] 40 mg PO DAILY #30 tablet 09/23/19 Unknown Rx NIFEdipine [Nifedipine ER] 90 mg PO QDAY #30 09/23/19 Unknown Rx Sertraline [Zoloft] 50 mg PO DAILY #30 tablet 09/23/19 Unknown Rx hydrALAZINE [Apresoline TAB] 100 mg PO Q8H #90 tab 09/23/19 Unknown Rx Acetaminophen/Codeine [Tylenol 1 tab PO Q6H PRN #12 tab 10/05/19 Unknown Rx /Codeine # 3 tab] Allergies Allergy/AdvReac Type Severity Reaction Status Date / Time Penicillins Allergy Unknown Verified 05/28/17 17:08 ED Review of Systems ROS: Stated complaint: WRIST PAIN Other details as noted in HPI Constitutional: denies: chills, fever Eyes: denies: eye pain, eye discharge, vision change ENT: denies: ear pain, throat pain Respiratory: denies: cough, shortness of breath, wheezing Cardiovascular: denies: chest pain, palpitations Endocrine: no symptoms reported Gastrointestinal: denies: abdominal pain, nausea, diarrhea Genitourinary: denies: urgency, dysuria Musculoskeletal: denies: back pain, joint swelling, arthralgia Skin: denies: rash, lesions Neurological: denies: headache, weakness, paresthesias Psychiatric: denies: anxiety, depression Hematological/Lymphatic: denies: easy bleeding, easy bruising ED Past Medical Hx - Past Medical History Hx Hypertension: Yes Hx CVA: Yes Hx Heart Attack/AMI: Yes (Internal medicine says ID in 1995) Hx Congestive Heart Failure: Yes Hx Diabetes: Yes Hx Deep Vein Thrombosis: Yes Hx Pulmonary Embolism: No Hx GERD: Yes Hx Liver Disease: No Hx Renal Disease: Yes (ckd) Hx Seizures: No Hx Kidney Stones: Yes Hx Asthma: Yes Hx COPD: No Hx Tuberculosis: No Hx Dementia: No Hx HIV: No Additional medical history: Hemodialysis Wednesday. - Surgical History Hx Coronary Stent: No Hx Pacemaker: No Hx Internal Defibrillator: No Additional Surgical History: PERMACATH LEFT CHEST. FISTULA IN LEFT ARM ; REMOVAL. recent Graft in Right upper arm 2018 - Social History Smoking Status: Never Smoker Substance Use Type: None - Medications Home Medications: Home Medications Medication Instructions Recorded Confirmed Last Taken Type Epoetin Noah 10,000 Unit [Procrit] 10,000 unit SUB-Q SANDHYA PRN vial 03/10/19 Unknown Rx Sevelamer Carbonate [Renvela] 2,400 mg PO TIDWM #90 tablet 03/10/19 Unknown Rx Pantoprazole [Protonix TAB] 40 tab PO DAILY 09/22/19 09/22/19 Unknown History Apixaban [Eliquis] 2.5 mg PO Q12HR #60 tablet 09/23/19 Unknown Rx Aspirin EC [Halfprin EC] 81 mg PO QDAY #60 09/23/19 Unknown Rx AtorvaSTATin [Lipitor] 40 mg PO DAILY #30 tablet 09/23/19 Unknown Rx NIFEdipine [Nifedipine ER] 90 mg PO QDAY #30 09/23/19 Unknown Rx Sertraline [Zoloft] 50 mg PO DAILY #30 tablet 09/23/19 Unknown Rx hydrALAZINE [Apresoline TAB] 100 mg PO Q8H #90 tab 09/23/19 Unknown Rx Acetaminophen/Codeine [Tylenol 1 tab PO Q6H PRN #12 tab 10/05/19 Unknown Rx /Codeine # 3 tab] ED Physical Exam - General Limitations: No Limitations General appearance: alert, in no apparent distress - Head Head exam: Present: atraumatic, normocephalic - Neck Neck exam: Present: normal inspection, full ROM. Absent: tenderness, meningismus, lymphadenopathy - Respiratory Respiratory exam: Present: normal lung sounds bilaterally. Absent: respiratory distress, wheezes, rales, rhonchi, stridor, chest wall tenderness, accessory muscle use, decreased breath sounds, prolonged expiratory - Cardiovascular Cardiovascular Exam: Present: regular rate, normal rhythm, normal heart sounds. Absent: bradycardia, tachycardia, irregular rhythm, systolic murmur, diastolic murmur, rubs, gallop - GI/Abdominal GI/Abdominal exam: Present: soft, normal bowel sounds. Absent: distended, tenderness, guarding, rebound, rigid, diminished bowel sounds - Extremities Exam Extremities exam: Present: full ROM, tenderness, normal capillary refill. Absent: joint swelling, calf tenderness - Expanded Upper Extremity Exam Right General: Present: normal inspection Shoulder Exam: Present: normal inspection, full ROM. Absent: tenderness, swelling Upper Arm exam: Present: normal inspection, full ROM. Absent: tenderness, swelling Elbow exam: Present: normal inspection, full ROM. Absent: tenderness, swelling Forearm Wrist exam: Present: normal inspection, full ROM. Absent: tenderness, swelling, abrasion, laceration, ecchymosis, deformity, crepidus, dislocation, erythema, tenderness over anatomical snuff box, pain with axial thumb loading Hand Wrist exam: Present: normal inspection, full ROM, tenderness, swelling, ecchymosis. Absent: abrasion, laceration, deformity, crepidus, dislocation, erythema, amputation, nail avulsion, subungual hematoma Vascular: Present: vascular compromise, normal capillary refill - Back Exam Back exam: Present: normal inspection, full ROM. Absent: tenderness, CVA tenderness (R), CVA tenderness (L), muscle spasm, paraspinal tenderness, vertebral tenderness, rash noted - Neurological Exam Neurological exam: Present: alert, oriented X3, normal gait - Psychiatric Psychiatric exam: Present: normal affect, normal mood - Skin Skin exam: Present: warm, dry, intact, normal color. Absent: rash ED Course Vital Signs 10/05/19 13:41 Temperature 97.7 F Pulse Rate 73 Respiratory 20 Rate Blood Pressure 130/89 O2 Sat by Pulse 93 Oximetry - Reevaluation(s) Reevaluation #1: 10/05/19 16:13 Patient is speaking in full sentences with no signs of distress noted. ED Medical Decision Making - Lab Data Result diagrams: 10/05/19 14:16 10/05/19 14:16 - Medical Decision Making This is a 54-year-old male that presents with right wrist strain. Patient is stable and was examined by me. I referred patient to an orthopedic doctor for further evaluation for possible MRI. X-ray has been obtained and dictated by the radiologist. Patient is notified of the x-ray report with noted by the patient. Patient does have normal gait with no tenderness and no joint swelling. No ecchymosis. no joint redness or swelling. Not warm to touch. No signs of cellulites present. Patient received a sling for pain comfort. Patient was instructed to RICE therapy. Patient received [place] for pain and stated that a family member will drive the patient home after discharge. Patient is discharged with Tylenol with codeine. At time of discharge, the patient does not seem toxic or ill in appearance. No acute signs of distress noted. Patient agrees to discharge treatment plan of care. No further questions noted by the patient. Critical care attestation.: If time is entered above; I have spent that time in minutes in the direct care of this critically ill patient, excluding procedure time. ED Disposition Clinical Impression: Strain of right wrist Qualifiers: Encounter type: initial encounter Qualified Code(s): S66.911A - Strain of unspecified muscle, fascia and tendon at wrist and hand level, right hand, initial encounter Disposition: TO HOME OR SELFCARE Is pt being admited?: No Does the pt Need Aspirin: No Condition: Stable Instructions: Wrist Injury (ED), RICE Therapy (ED), Acetaminophen/Codeine (By mouth) Additional Instructions: Follow-up with a orthopedic doctor in 3-5 days or if symptoms worsen and continue return to emergency room as soon as possible. Do not operate any machinery while taking Tylenol with codeine as this may cause drowsiness. Please return tomorrow to receive your dialysis. Prescriptions: Acetaminophen/Codeine [Tylenol /Codeine # 3 tab] 1 tab PO Q6H PRN #12 tab PRN Reason: Pain , Severe (7-10) Referrals: PRIMARY CARE, [Primary Care Provider] - 3-5 Days YANNICK NELSON MD [Staff Physician] - 3-5 Days [facility] [Outside] - 3-5 Days
== END 2019-10-05 16:59 | disposition home or self-care (01) ==
LOC: ED 13:28
DX: S66.911A Strain of unspecified muscle, fascia and tendon at wrist and hand level, right hand, initial encounter (principal); I11.0 Hypertensive heart disease with heart failure; I50.9 Heart failure, unspecified; E11.9 Type 2 diabetes mellitus without complications; K21.9 Gastro-esophageal reflux disease without esophagitis; N20.0 Calculus of kidney; J45.909 Unspecified asthma, uncomplicated; Z98.890 Other specified postprocedural states; Z86.73 Personal history of transient ischemic attack (TIA), and cerebral infarction without residual deficits; Z79.899 Other long term (current) drug therapy; Z88.0 Allergy status to penicillin; W19.XXXA Unspecified fall, initial encounter; Y93.89 Activity, other specified; Y92.89 Other specified places as the place of occurrence of the external cause; Y99.8 Other external cause status
CPT/HCPCS: 36415; 71045; 80053; 83880; 85025